=== PATIENT | male | born 1960 | race Caucasian/White ===

== ENCOUNTER → 2016-04-02 | Outpatient (CLI) | payer MEDICARE ==
--- NOTE | 2016-04-02 14:11 | MR ---
EXAMINATION TYPE: MR orbits wo/w con DATE OF EXAM: 04/02/2016 1:54 PM COMPARISON: NONE HISTORY: displacement lateral of globe bilateral, bulging of eyes TECHNIQUE: Multiplanar, multisequence images of the brain and brainstem is performed without and with IV contras t, utilizing 20 mL intravenous MultiHance . Orbital protocol performed as requested. FINDINGS: Exam is noted suboptimal as is significantly degraded by patient motion. Bilateral proptosi s is confirmed. No suspicious intraconal mass is clearly identified. The rectus muscles appear symmet paulino and felt within normal limits. Both lenses are well seen and felt unremarkable. Suprasellar ciste rn is maintained. There is mild mucosal thickening involving the ethmoid and maxillary as well as bilateral sphenoid si nuses. Visualized portion of brain parenchyma is grossly unremarkable. Craniocervical junction is maintained . Extra-axial prominence posterior to cerebellum could reflect arachnoid cyst or ga cisterna magna. IMPRESSION: Suboptimal study due to patient motion. Bilateral symmetric proptosis is confirmed. No main spicious mass or other finding is seen to account for the proptosis.
== END | disposition home or self-care (01) ==
LOC: RADMRIMAIN 12:29
PROVIDERS: ATTEND Ophthalmology
DX: H05.20 Unspecified exophthalmos (principal)
CPT/HCPCS: 70543; A9577

== ENCOUNTER → 2016-04-16 | Outpatient (CLI) | payer MEDICARE ==
--- NOTE | 2016-04-16 13:03 | MR ---
EXAMINATION TYPE: MR lumbar spine wo con DATE OF EXAM: 04/16/2016 12:34 PM COMPARISON: NONE HISTORY: Lumbago w/sciatica, Right hip pain CONTRAST: 0 mL intravenous MultiHance. TECHNIQUE: Multiplanar, multisequence images of the lumbar spine were acquired. FINDINGS: L5-S1: There is loss of disc height is normal. Central disc protrusion is present with moderate anter ior thecal sac compression. No AP spinal canal stenosis is present. Moderate bilateral foraminal sten osis is present. Facet hypertrophy is present. Some Schmorl's node formation in the superior endplate of the posterior S1 disc space may be present. Endplate changes are present. Right foramen may be se verely stenotic with disc material compressing the exiting nerve root within the canal. Correlate wit h right S1 radicular symptoms. L4-L5: Subligamentous disc herniation is present extending posterior to the L4 vertebral level. No AP spinal canal stenosis is present. Mild central focal bulging has moderate anterior thecal sac compre ssion. No AP spinal canal stenosis present. Disc space narrowing is present. There is moderate right and severe left foraminal stenosis. Correlate with left L5 radicular symptoms. L3-L4: Broad-based disc bulge is present. There is some central broad disc protrusion with moderate a nterior thecal sac compression. Facet hypertrophy and ligamentum flavum laxity and posterior lateral thecal sac compression. Spinal canal stenosis is present. There is mild left and moderate right quinn inal narrowing. L2-L3: There is loss of disc height is level. Broad-based central disc bulge has moderate anterior th ecal sac compression. AP spinal canal stenosis is not present. Facet hypertrophy is present with post erior lateral thecal sac compression. Some lateral canal narrowing is present. Endplate changes are p resent. L1-L2: There is a large right paracentral disc herniation. Facet hypertrophy is posterior lateral the betty sac compression. Spinal canal stenosis is present. Endplate changes are present. T12-L1: Disc bulging is present with a large degree of thecal sac compression. Posterior lateral thec al sac compression from facet hypertrophy is present. This greater on the left. Spinal canal stenosis is present. Neural foramen are patent. IMPRESSION: 1. Foraminal stenosis present T12-L1, lateral spinal canal stenosis L2-3, spinal canal stenosis L3-4. 2. Foraminal narrowing. This appears greatest at L4-5 and L5-S1. 3. Multilevel degenerative disc changes with loss of disc height. 4 disc herniations throughout the l umbar spine with a large degree noted at T12-L1, right paracentral L1-2 centrally L2-3 and L3-4.
--- NOTE | 2016-04-16 23:32 | MR ---
MRI right hip without contrast HISTORY: Right hip pain Multiplanar multisequence imaging through the right hip. Small [id number] imaging through the righ t hip. No comparisons There is joint space loss and remodeling in the right hip. Grade 3 to grade IV chondromalacia changes are present. Subchondral geode formation is present. Multilobular cystic formation present at the in ferior femoral head anteriorly measures approximately 18 mm and may represent a large geode, some syn ovial hypertrophy or local ganglion cyst formation is also present along the acetabular labral region . A large amount of atrophy and fatty replacement involving the gluteal muscles is noted. Fluid signal present at the origin of the hamstring muscles on the left may represent partial tear, avulsion injur y. Degenerative disc changes in the visualized lower lumbar spine. Diverticular changes associated wi th the sigmoid colon. IMPRESSION: Findings compatible with osteoarthritis. Additional findings above.
== END | disposition home or self-care (01) ==
LOC: RADMRIMAIN 11:19
PROVIDERS: ATTEND Family Medicine
DX: M48.06 Spinal stenosis, lumbar region (principal); M51.25 Other intervertebral disc displacement, thoracolumbar region; M99.73 Connective tissue and disc stenosis of intervertebral foramina of lumbar region; M99.72 Connective tissue and disc stenosis of intervertebral foramina of thoracic region; M51.35 Other intervertebral disc degeneration, thoracolumbar region; M25.551 Pain in right hip; G89.29 Other chronic pain
CPT/HCPCS: 72148

== ENCOUNTER → 2016-07-24 | Outpatient (CLI) | payer MEDICARE ==
--- NOTE | 2016-07-24 13:06 | MR ---
MRI CERVICAL SPINE: CLINICAL HISTORY: Cervical radiculopathy per order. Headache with neck pain and stiffness causing num bness, pain, or weakness in arms and hands for 5 years per patient. TECHNIQUE: Multiplanar, multisequence imaging of the cervical spine is performed without IV contrast. COMPARISON: None. FINDINGS: Sagittal images of the cervical spine show the craniocervical junction to appear within nor mal limits. The cervical and upper thoracic spinal cord is normal in course, caliber, and signal. V ertebral alignment is straightened. The vertebral body heights are normal. Mild to moderate multilev el disc space narrowing is seen. There are multilevel posterior disc herniations effacing anterior th ecal sac with sparing of C7-T1 level. Small hemangioma T1 vertebral body level is seen best on sagitt al image 8. There is mild to moderate anterior spurring C5-C6 and C6-C7 levels. Axial images at C2-C3 level shows central disc protrusion effacing anterior thecal sac on axial image 52, and in addition there is right foraminal disc protrusion component and uncovertebral facet arthr opathy bilaterally causing mild to moderate right and mild left-sided neural foraminal narrowing. Axial images at C3-C4 level show broad-based left paracentral disc protrusion and uncovertebral facet degenerative changes bilaterally, there is effacement of the anterolateral thecal sac and moderate l eft greater than right neural foraminal narrowing. Axial images at C4-C5 level shows central disc protrusion mildly effacing anterior thecal sac. There is uncovertebral facet degenerative changes bilaterally causing mild left greater than right neural f oraminal narrowing. Axial images at C5-C6 level show broad-based posterior disc protrusion effacing anterior thecal sac a nd causing moderate to severe bilateral neural foraminal narrowing. Axial images at C6-C7 level show broad-based posterior disc protrusion with more prominent right para central component on axial image 14 effacing anterior thecal sac and causing moderate to severe left and moderate right-sided neural foraminal narrowing. Disc herniation extends to ventral surface of sp inal cord at this level. It measures 11 mm transversely by 3 mm AP diameter. Axial images at C7-T1 level are felt within normal limits. There is marked medial course to the left internal carotid artery in the posterior hypopharyngeal air way on axial image 43 incidentally noted. IMPRESSION: Straightening of cervical spine with multilevel degenerative changes seen as detailed abo ve. Most prominent disc herniation is noted C6-C7 level right of midline.
== END | disposition home or self-care (01) ==
LOC: RADMRIMAIN 12:13
PROVIDERS: ATTEND Psychiatry & Neurology Neurology
DX: M50.123 Cervical disc disorder at C6-C7 level with radiculopathy (principal); M47.812 Spondylosis without myelopathy or radiculopathy, cervical region
CPT/HCPCS: 72141

== ENCOUNTER → 2017-10-11 | Outpatient (CLI) | payer MEDICARE ==
--- NOTE | 2017-10-11 10:49 | US ---
EXAMINATION TYPE: US venous doppler duplex LE BI DATE OF EXAM: 10/11/2017 10:41 AM COMPARISON: NONE CLINICAL HISTORY: R22.43 Edema bilateral legs. Bilateral leg swelling x couple weeks SIDE PERFORMED: Bilateral TECHNIQUE: The lower extremity deep venous system is examined utilizing real time linear array sonog crystal with graded compression, doppler sonography and color-flow sonography. VESSELS IMAGED: External Iliac Vein (EIV) Common Femoral Vein Deep Femoral Vein Greater Saphenous Vein * Femoral Vein Popliteal Vein Small Saphenous Vein * Proximal Calf Veins (* superficial vessels) Right Leg: Appears negative for DVT Left Leg: Appears negative for DVT Multiple bilateral groin lymph nodes seen with largest on right = 2.7 x 1.2 x 1.8cm and largest on left = 2.2 x 1.0 x 1.8cm. Grayscale, color doppler, spectral doppler imaging performed of the deep veins of the bilateral lower extremities. There is normal flow, compressibility, vascular waveforms. Scanning of bilateral groi n shows prominent but benign-appearing lymph nodes with retention of central fatty hilum and no suspi cious eccentric cortical thickening. IMPRESSION: No suspicious acute DVT in either lower extremity.
== END | disposition home or self-care (01) ==
LOC: RADUSWWP 10:03
PROVIDERS: ATTEND Family Medicine
DX: R22.43 Localized swelling, mass and lump, lower limb, bilateral (principal)
CPT/HCPCS: 93970

== ENCOUNTER 2018-05-19 16:38 | Emergency (ER) | payer MEDICARE ==
[2018-05-19] MEDS ORDERED: HYDROcodone/APAP 5-325MG 1 EACH TAB PO STA (18:40)
[2018-05-19] MEDS ORDERED: IBUPROFEN 600 MG TAB PO STA (18:40)
--- NOTE | 2018-05-19 18:59 | ED ---
Fall HPI - General Chief Complaint: Fall Stated Complaint: fall at home Time Seen by Provider: 05/19/18 18:00 Source: patient Mode of arrival: ambulatory - History of Present Illness Initial Comments: 57-year-old male patient presents to the emergency department today for evaluation of right hip pain and increased weakness since having a fall a couple of days ago. Patient states that he has chronic low back pain and peripheral neuropathy causing him to fall frequently. Patient states since this fall he has been unable to ambulate without assistance. Denies any increased numbness or tingling to the lower eduction [place]. Denies any saddle anesthesia or loss of bowel or bladder control. Patient states he has extreme pain to the right hip when he attempts to move his right leg around. He denies any increase in his low back pain. He denies hitting his head or losing consciousness during the fall. Denies any other injuries. Patient denies any headache, neck pain, chest pain, shortness of breath, dizziness, abdominal pain , nausea, vomiting, or difficulties with bowel movements or urination. - Related Data Home Medications Medication Instructions Recorded Confirmed Ibuprofen [Motrin Ib] 200 - 400 mg PO Q6H PRN 05/19/18 05/19/18 Previous Rx's Medication Instructions Recorded Acetaminophen-Codeine 300-30mg 1 tab PO Q6H PRN #12 tablet 05/19/18 [Tylenol #3] Ibuprofen [Motrin] 600 mg PO Q8HR PRN #30 tab 05/19/18 Allergies Allergy/AdvReac Type Severity Reaction Status Date / Time Sulfa (Sulfonamide Allergy Rash/Hives Verified 05/19/18 18:39 Antibiotics) Review of Systems ROS Statement: Those systems with pertinent positive or pertinent negative responses have been documented in the HPI. ROS Other: All systems not noted in ROS Statement are negative. Past Medical History Past Medical History: Asthma, Coronary Artery Disease (CAD), Hypertension, Skin Disorder Additional Past Medical History / Comment(s): neuropathy History of Any Multi-Drug Resistant Organisms: None Reported Past Surgical History: Heart Catheterization With Stent Additional Past Surgical History / Comment(s): 2004 stenting of RCA, ccath 2004 with lesions 50%mid LAD and unstable RCA plaque-stented as mentioned-EF was 60% , quadricepts muscle bx, normal colonoscopy in 2013, colonoscopy with benign polypectomy in past. Past Anesthesia/Blood Transfusion Reactions: No Reported Reaction Date of Last Stent Placement:: 2004 Past Psychological History: No Psychological Hx Reported Smoking Status: Current every day smoker Past Alcohol Use History: Rare Past Drug Use History: Marijuana - Past Family History Mother Family Medical History: Cancer Additional Family Medical History / Comment(s): Pt's mother at age 55 from lung cancer. She was a nonsmoker. Father Family Medical History: Hyperlipidemia, Hypertension Additional Family Medical History / Comment(s): Father at age 89 of natural causes. Sister(s) Family Medical History: Myocardial Infarction ([place]) Additional Family Medical History / Comment(s): Pt has one sister who of possible [place] at age 53yrs. General Exam Limitations: no limitations General appearance: alert, in no apparent distress, other (Physical well- developed, well-nourished adult male patient in no acute distress. Vital signs upon presentation are temperature 97.6F, pulse 105, respirations 18, blood pressure 133/86, pulse ox 98% on room air) Eye exam: Present: normal appearance, PERRL, EOMI. Absent: scleral icterus, conjunctival injection, periorbital swelling ENT exam: Present: normal exam, normal oropharynx, mucous membranes moist Respiratory exam: Present: normal lung sounds bilaterally. Absent: respiratory distress, wheezes, rales, rhonchi, stridor Cardiovascular Exam: Present: regular rate, normal rhythm, normal heart sounds. Absent: systolic murmur, diastolic murmur, rubs, gallop, clicks Extremities exam: Present: normal inspection, full ROM, tenderness (Right lateral right anterior hip tenderness), normal capillary refill, other (Skin to the lower extremities are pink, warm, and dry. Cap refills less than 3 seconds. Pedal and posttibial pulses 2+ and equal bilaterally). Absent: pedal edema, joint swelling, calf tenderness Back exam: Present: normal inspection. Absent: vertebral tenderness Neurological exam: Present: alert, oriented X3, CN II-XII intact Psychiatric exam: Present: normal affect, normal mood Skin exam: Present: warm, dry, intact, normal color. Absent: rash Course Vital Signs 05/19/18 05/19/18 05/19/18 17:20 21:25 23:24 Temperature 97.6 F 96.8 F L Pulse Rate 105 H 71 74 Respiratory 18 20 16 Rate Blood Pressure 133/86 145/94 152/89 O2 Sat by Pulse 98 99 99 Oximetry 05/20/18 00:25 Temperature 97.2 F L Pulse Rate 77 Respiratory 18 Rate Blood Pressure 150/78 O2 Sat by Pulse 99 Oximetry Medical Decision Making - Medical Decision Making 57-year-old male patient presents to the emergency department today for evaluation of right hip pain after a fall the last couple of days. Physical examination did reveal tenderness over the right anterior hip and right lateral hip. Skin to the lower extremities is pink, warm, dry. Cap refills less than 3 seconds. Patient did have full range of motion of the hip, did report increased pain. X-ray was obtained and did show evidence of severe degenerative changes to the right hip with possible avascular necrosis. Did obtain CT of the hip without contrast, report was reviewed and did reveal evidence for severe arthritis but no other acute findings. Patient does report improvement of symptoms after receiving medication here in the emergency department. He'll be discharged home at this time to follow-up outpatient with orthopedic services. He was given prescriptions for pain medication and anti- inflammatories. He is instructed to follow-up as soon as possible. Return parameters discussed in detail. - Radiology Data Radiology results: report reviewed, image reviewed X-ray of the right hip and pelvis was obtained. Report was reviewed in its entirety. Impression by Dr. 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 Avascular necrosis of the femoral head. Advance osteoarthritis in the right hip joint. No acute fracture seen. CT of the right hip was obtained. Report was reviewed in its entirety. Impression by Dr. Conley shows severe changes consistent with osteoarthritis of the right hip joint. No definitive acute fracture identified. Partially visualized density in the left gluteal subcutaneous tissues. Query hematoma. Correlate with focal exam. Mild urinary bladder wall thickening. This could be related to under distention or inflammatory changes. Enlarged right inguinal lymph nodes. Disposition Clinical Impression: Arthritis of right hip Disposition: HOME SELF-CARE Condition: Good Instructions (If sedation given, give patient instructions): Osteoarthritis (ED ), Fall Prevention for Older Adults (ED) Additional Instructions: Take medications as directed. Follow up with orthopedics for further evaluation of your right hip. Return to the emergency department for any new, worsening, or concerning symptoms. Prescriptions: Acetaminophen-Codeine 300-30mg [Tylenol #3] 1 tab PO Q6H PRN #12 tablet PRN Reason: Pain Ibuprofen [Motrin] 600 mg PO Q8HR PRN #30 tab PRN Reason: Pain Is patient prescribed a controlled substance at d/c from ED?: Yes When asked, does pt state using other controlled substances?: No If prescribed controlled substance>3 days was MAPS reviewed?: Prescribed <3 Days If opioid is for acute pain is fill amount 7 days or less?: No If Rx opioid, was Start Talking consent form obtained?: Yes Referrals: Stephanie Tran MD [Primary Care Provider] - 1-2 days Serg Ríos MD [Medical Doctor] - 1-2 days Time of Disposition: 23:55
--- NOTE | 2018-05-19 20:21 | XR ---
EXAMINATION TYPE: XR Hip RT and AP Pelvis DATE OF EXAM: 05/19/2018 COMPARISON: NONE HISTORY: Right hip pain TECHNIQUE: A single AP view of the pelvis is obtained. Two views of the right hip are obtained. FINDINGS: The pelvic ring is intact. There is very severe narrowing of the right hip joint space with shallow acetabulum. There is mild lateral position of the femoral head. There is sclerosis and parti al collapse of the articular surface of the femoral head. The sacroiliac joints are intact. I see no acute fracture. IMPRESSION: There is evidence of old right hip dysplasia with shallow acetabulum. Avascular necrosis of the femor al head. Advanced osteoarthritis in the right hip joint. No acute fracture seen.
[2018-05-19] MEDS ORDERED: DIAZEPAM 5 MG/ML 2 ML INJ IM ONE (21:19)
--- NOTE | 2018-05-19 22:44 | CT ---
EXAM: CT Right Lower Extremity Without Intravenous Contrast, Hip CLINICAL HISTORY: ITS.REASON CT Reason: Pain TECHNIQUE: Axial computed tomography images of the right hip without intravenous contrast. CTDI is 13.9 mGy and DLP is 505.6 mGy-cm. This CT exam was performed using one or more of the following dose reduction techniques: automated exposure control, adjustment of the mA and/or kV according to patient size, and/or use of iterative reconstruction technique. COMPARISON: No relevant prior studies available. FINDINGS: Bones/joints: There are severe degenerative changes consistent with osteoarthritis involving the right hip joint. There is complete joint space loss superiorly with associated cephalad positioning of the right femoral head as well as extensive subchondral cyst formation at the femoral head and adjacent acetabulum. Osteophytosis is present as well as regional heterotopic ossification. I do not see evidence for an acute fracture at this time. Severe height loss and osteophytosis are noted involving the L5-S1 intervertebral disc space. Pelvic enthesopathy is present diffusely. No dislocation. Soft tissues: Nonspecific density, incompletely visualized within the left gluteal subcutaneous tissues. No definitive loculation. There is mild adjacent fat stranding. Lymph nodes: Enlarged right inguinal lymph nodes measuring up to a short axis caliber of 17 mm. Bowel: Colonic diverticulosis. Bladder: Mild urinary bladder wall thickening which could be related to under distention, nonspecific. IMPRESSION: 1. Severe changes consistent with osteoarthritis at the right hip joint. No definitive acute fracture identified. 2. Partially visualized density in the left gluteal subcutaneous tissues. Query hematoma. Correlate with focal exam. 3. Mild urinary bladder wall thickening. This could be related to under distention or inflammatory changes. 4. Enlarged right inguinal lymph nodes.
[2018-05-19] MEDS ORDERED: ACET/COD 300 MG/30 MG STARTER PACK 6 TAB BTL PO STA (23:56)
[2018-05-19] MEDS ORDERED: IBUPROFEN 600 MG STARTER PACK 4 TAB BTL PO STA (23:56)
[2018-05-20 00:29] VITALS: BP 150/78; PULSE 77; RESP 18; TEMP 97.2
== END 2018-05-20 00:25 | disposition home or self-care (01) ==
LOC: EC 16:38
DX: M16.11 Unilateral primary osteoarthritis, right hip (principal); F17.200 Nicotine dependence, unspecified, uncomplicated; Z95.5 Presence of coronary angioplasty implant and graft; Z86.69 Personal history of other diseases of the nervous system and sense organs; Z88.2 Allergy status to sulfonamides; W00.0XXA Fall on same level due to ice and snow, initial encounter; Y92.009 Unspecified place in unspecified non-institutional (private) residence as the place of occurrence of the external cause
CPT/HCPCS: 73502; 73700; 99284; 96372; J3360

== ENCOUNTER 2018-12-03 16:15 | Inpatient (IN) | payer MEDICARE ==
[2018-12-03] MEDS ORDERED: NALOXONE 0.4 MG/ML 1 ML VIAL IV PRN (17:27)
[2018-12-03] MEDS ORDERED: ALPRAZolam 0.25 MG TAB PO PRN (17:29)
[2018-12-03] MEDS ORDERED: TEMAZEPAM 15 MG CAP PO PRN (17:29)
[2018-12-03 17:51] VITALS: BMI 30.6
[2018-12-03] MEDS: PANTOPRAZOLE 40 MG TABLET PO SCH (18:09)
[2018-12-03 18:39] LABS: Basophils # (A) 0.1 k/uL (0-0.2); Basophils % (A) 1 %; Eosinophils # (A) 0.5 k/uL (0-0.7); Eosinophils % (A) 6 %; HCT 44.2 % (39.0-53.0); HGB 14.5 gm/dL (13.0-17.5); Lymphocytes # (A) 0.8 k/uL (1.0-4.8); Lymphocytes % (A) 11 %; MCH 29.3 pg (25.0-35.0); MCHC 32.7 g/dL (31.0-37.0); MCV 89.6 fL (80.0-100.0); Mean Platelet Volume 6.5; Monocytes # (A) 0.6 k/uL (0-1.0); Monocytes % (A) 8 %; Neutrophils # (A) 5.1 k/uL (1.3-7.7); Neutrophils % (A) 72 %; Platelet Count 362 k/uL (150-450); RBC 4.94 m/uL (4.30-5.90); WBC 7.1 k/uL (3.8-10.6)
[2018-12-03 18:48] LABS: ALT 40 U/L (21-72); AST 29 U/L (17-59); African American GFR (CKD) >90 (>60 ml/min/1.73 sqM); Albumin 2.4 g/dL (3.5-5.0); Alkaline Phosphatase 75 U/L (38-126); Anion Gap 5 mmol/L; Blood Urea Nitrogen 8 mg/dL (9-20); Calcium 8.2 mg/dL (8.4-10.2); Carbon Dioxide 26 mmol/L (22-30); Chloride 107 mmol/L (98-107); Glucose 68 mg/dL (74-99); Magnesium 1.7 mg/dL (1.6-2.3); Potassium 3.5 mmol/L (3.5-5.1); Sodium 138 mmol/L (137-145); Total Bilirubin 0.4 mg/dL (0.2-1.3); Total Protein 5.5 g/dL (6.3-8.2)
[2018-12-03] MEDS: HYDROcodone/APAP 5-325MG 1 EACH TAB PO PRN (19:54)
[2018-12-03] MEDS: diphenhydrAMINE 50 MG/ML 1 ML VIAL IVP PRN (20:02)
--- NOTE | 2018-12-03 20:49 | HP ---
HISTORY AND PHYSICAL DATE OF SERVICE: 12/03/2018 CHIEF COMPLAINT: Pain and swelling of both lower legs and possible cellulitis and dermatitis. HISTORY OF PRESENT ILLNESS: This 58-year-old gentleman with a past medical history of multiple medical problems, including history of asthma, history of CAD, hypertension, history of neuropathy, history of CAD, stent, being followed by Dr. Stephanie Tran in the outpatient setting, also had significant dermatitis for the last several weeks, and the patient was receiving treatment as an outpatient. The patient was complaining increased itching and difficulties. The patient went to Dr. Stephanie Tran's office and the patient was directly transferred to the hospital at this time. There is no history of any fever, rigor or chills. No history of headache, loss of consciousness, seizures at this time. The patient apparently also has severe DJD and is waiting for surgery, but Orthopedics will not do surgery unless the dry skin and skin problems are taken care of. PAST MEDICAL HISTORY: 1. History of asthma. 2. CAD. 3. Hypertension. 4. History of CAD, stent. HOME MEDICATIONS: 1. Motrin 600 mg q.8 p.r.n. 2. Tylenol number 3 q.6 p.r.n. ALLERGIES: SULFA. FAMILY HISTORY: History of lung cancer. SOCIAL HISTORY: History of smoking, continued and ongoing. No history of alcohol intake. REVIEW OF SYSTEMS: ENT: No diminished hearing. No diminished vision. present. CARDIOVASCULAR SYSTEM: No angina, palpitations. RESPIRATORY SYSTEM: No cough, hemoptysis. GI: No nausea, vomiting. : No dysuria or retention. NERVOUS SYSTEM: No numbness, weakness. ALLERGY/IMMUNOLOGY: No asthma, hayfever. MUSCULOSKELETAL: As mentioned earlier. HEMATOLOGY/ONCOLOGY: No history of anemia. ENDOCRINE: No history of diabetes, hypothyroidism. CONSTITUTIONAL: As mentioned earlier. DERMATOLOGY: As mentioned earlier. RHEUMATOLOGY: Negative. PSYCHIATRY: As mentioned earlier. PHYSICAL EXAMINATION: Patient is alert and oriented x3. Pulse is 80, blood pressure 120/90, respiration 20, temperature normal. HEENT: Conjunctivae normal. NECK: No jugular venous distention. No carotid bruit. No lymph node enlargement. CARDIOVASCULAR SYSTEM: S1, S2 muffled. No S3. No S4. RESPIRATORY SYSTEM: Breath sounds diminished at the bases. No rhonchi. No crackles. ABDOMEN: Soft, non-tender. LEGS: Bilateral leg edema present. NERVOUS SYSTEM: Higher functions as mentioned earlier. Moves all 4 limbs. No focal motor or sensory deficit. LYMPHATICS: No lymph node palpable in neck, axillae or groin. SKIN: Significant erythema as well as dry skin and excoriated areas with some possible cellulitis of the legs also present. Some erythema of the conjunctivae also appreciated. LYMPHATICS: No lymph node palpable in neck, axillae or groin. JOINTS: No active deforming arthropathy. LABS: Labs are awaited. ASSESSMENT: 1. Diffuse exfoliating dermatitis with possible bilateral leg cellulitis. 2. History of asthma. 3. History of coronary artery disease. 4. Hypertension. 5. History of peripheral neuropathy. 6. History of coronary artery disease, stent. 7. Remote history of nicotine dependence. 8. History of chronic obstructive pulmonary disease. RECOMMENDATIONS AND DISCUSSION: In this 58-year-old gentleman who presented with multiple complex medical issues, we will monitor the patient closely, continue the current management, continue symptomatic treatment. Will initiate broad-spectrum IV antibiotics. Dermatology consultation. Infectious disease consultation. Otherwise, resume the home medication. Monitor labs closely. Obtain cultures. Prognosis guarded because of multiple complex medical issues. Further recommendations to follow. A copy of this dictation is being forwarded to Dr. Stephanie Tran, who is the primary physician. MMODL / IJN: [id number] / MTDD
[2018-12-03] MEDS: NICOTINE 14MG/24HR PATCH TRANSDERM SCH (21:05)
[2018-12-03] MEDS: HEPARIN SODIUM,PORCINE 5,000 UNIT/ML 1 ML VIAL SQ SCH (21:05)
[2018-12-03] MEDS: HYDROmorphone 0.5 MG/0.5 ML SYRINGE IVP PRN (22:42)
[2018-12-03 22:52] LABS: Appearance,Urine Clear (Clear); Bilirubin,Urine Negative (Negative); Blood,Urine Negative (Negative); Color,Urine Yellow; Glucose,Urine (UA) Negative (Negative); Ketones,Urine Negative (Negative); Leukocyte Esterase,Urine Negative (Negative); Nitrite,Urine Negative (Negative); Protein,Urine Trace (Negative); Specific Gravity,Urine 1.019 (1.001-1.035); Urobilinogen,Urine <2.0 mg/dL (<2.0)
[2018-12-04] MEDS: HYDROcodone/APAP 5-325MG 1 EACH TAB PO PRN (04:31)
[2018-12-04] MEDS: NICOTINE 14MG/24HR PATCH TRANSDERM SCH (08:35)
[2018-12-04] MEDS: HYDROmorphone 0.5 MG/0.5 ML SYRINGE IVP PRN ×3 (08:36→22:11)
[2018-12-04] MEDS: HEPARIN SODIUM,PORCINE 5,000 UNIT/ML 1 ML VIAL SQ SCH ×2 (08:36→21:11)
[2018-12-04] MEDS: PANTOPRAZOLE 40 MG TABLET PO SCH (08:36)
[2018-12-04] MEDS: diphenhydrAMINE 50 MG/ML 1 ML VIAL IVP PRN ×3 (08:48→22:16)
[2018-12-04 08:58] LABS: African American GFR (CKD) >90 (>60 ml/min/1.73 sqM); Anion Gap 3 mmol/L; Blood Urea Nitrogen 8 mg/dL (9-20); Calcium 8.1 mg/dL (8.4-10.2); Carbon Dioxide 28 mmol/L (22-30); Chloride 109 mmol/L (98-107); Glucose 69 mg/dL (74-99); Potassium 3.8 mmol/L (3.5-5.1); Sodium 140 mmol/L (137-145)
[2018-12-04 09:04] LABS: Basophils # (A) 0.1 k/uL (0-0.2); Basophils % (A) 1 %; Eosinophils # (A) 0.8 k/uL (0-0.7); Eosinophils % (A) 13 %; HCT 42.9 % (39.0-53.0); HGB 13.7 gm/dL (13.0-17.5); Lymphocytes # (A) 0.8 k/uL (1.0-4.8); Lymphocytes % (A) 13 %; MCH 29.1 pg (25.0-35.0); MCHC 31.9 g/dL (31.0-37.0); MCV 91.2 fL (80.0-100.0); Mean Platelet Volume 6.9; Monocytes # (A) 0.5 k/uL (0-1.0); Monocytes % (A) 8 %; Neutrophils # (A) 3.7 k/uL (1.3-7.7); Neutrophils % (A) 63 %; Platelet Count 383 k/uL (150-450); RDW 15.5 % (11.5-15.5); WBC 5.9 k/uL (3.8-10.6)
[2018-12-04] MEDS: methylPREDNISolone SOD SUCCI 125 MG/2 ML VIAL IV SCH (15:35)
[2018-12-04] MEDS: SODIUM CHLORIDE 0.9% 1,000 ML IV SCH (15:40)
--- NOTE | 2018-12-04 18:35 | PN ---
PROGRESS NOTE DATE OF SERVICE: 12/04/2018. This 58-year-old gentleman who was admitted with diffuse exfoliating dermatitis with possible bilateral leg cellulitis, failure of outpatient treatment, is being closely monitored. No chest pain. No palpitations. No fever. Dermatology and surgical evaluations in progress. PHYSICAL EXAMINATION: Alert and oriented x3. Pulse 79, blood pressure 129/86, respiration 20, temperature 98.8, pulse ox 100% on room air. HEENT: Conjunctivae normal. NECK: No jugular venous distention. CARDIOVASCULAR SYSTEM: S1, S2 muffled. RESPIRATORY SYSTEM: Breath sounds diminished at the bases. No rhonchi. No crackles. ABDOMEN: Soft. No tenderness. No mass palpable. LEGS: No edema. No swelling. EXAMINATION OF SKIN: Significant exfoliating dermatitis present. LABS: Sodium 140, potassium 3.8. WBC normal. Cultures are pending at this time. ASSESSMENT: 1. Diffuse exfoliating dermatitis with possible allergic contact dermatitis with failure of outpatient treatment with bilateral leg cellulitis. 2. History of asthma. 3. History of coronary artery disease. 4. Hypertension. 5. History of peripheral neuropathy. 6. History of coronary artery disease, stent. 7. Remote history of nicotine dependence. 8. History of chronic obstructive pulmonary disease. RECOMMENDATIONS AND DISCUSSION: I recommend to continue current medications, continue with the monitoring, symptomatic treatment. Otherwise at this time I recommend continuing with IV antibiotics. Infectious disease evaluation. Dermatology evaluation. Guarded prognosis. Further recommendations to follow. MMODL / IJN: [id number] /
[2018-12-04 20:19] LABS: Glucose,Whole Blood 118 mg/dL (75-99)
[2018-12-04] MEDS: INSULIN ASPART (NovoLOG) 100 UNIT/ML VIAL SQ SCH (20:30)
[2018-12-04] MEDS ORDERED: TRIAMCINOLONE ACET 0.1% OINTMENT 15 GM TUBE TOPICAL SCH (21:00)
[2018-12-05] MEDS: methylPREDNISolone SOD SUCCI 125 MG/2 ML VIAL IV SCH ×4 (00:04→16:59)
--- NOTE | 2018-12-05 00:06 | P.CONS ---
History of Present Illness - Reason for Consult Consult date: 12/04/18 Generalized body rash and question of cellulitis Requesting physician: Aakash Snider - Chief Complaint Generalized body rash with itching recent worsening chronic 6 months - History of Present Illness Patient is a 58-year-old male with a past medical history significant for generalized body rash mostly involving the upper and lower extremity including the palms and soles patient mentioning this rash has been going on for almost 6 months and has been complaining of itching and some burning pain especially with a cracked open area on the palms of his hand that is low. Or significant redness though he did have some swelling patient denies having any oral sores and no difficulty swallowing did mention that he has been evaluated in outpatient setting and was treated with steroids but did have some improvement but not complete resolution with worsening of his symptom of the last few days patient presented to [facility] ER patient has been admitted hospital dermatology infectious disease has been consulted for further recommendation Patient denies any new medication before his rash started and currently denies having any pustules or any purulent drainage he did have swelling in both legs but no significant pain or tenderness she is currently afebrile and his white count has been normal Review of Systems Positive points has been mentioned in HPI rest of the systems are negative Past Medical History Past Medical History: Coronary Artery Disease (CAD), Hypertension, Osteo arthritis (OA), Pneumonia, Skin Disorder Additional Past Medical History / Comment(s): neuropathy History of Any Multi-Drug Resistant Organisms: None Reported Past Surgical History: Heart Catheterization With Stent Additional Past Surgical History / Comment(s): 2004 stenting of RCA, ccath 2004 with lesions 50%mid LAD and unstable RCA plaque-stented as mentioned-EF was 60%, quadricepts muscle bx, normal colonoscopy in 2014, colonoscopy with benign polypectomy in past. Past Anesthesia/Blood Transfusion Reactions: No Reported Reaction Date of Last Stent Placement:: 2004 Past Psychological History: Anxiety, Depression Smoking Status: Current every day smoker Past Alcohol Use History: Occasional Additional Past Alcohol Use History / Comment(s): Patient reports drinking a few beers once or twice a week. Past Drug Use History: Marijuana Additional Drug Use History / Comment(s): Patient reports smoking marijuana, uses it intermittently for pain. - Past Family History Mother Family Medical History: Cancer Additional Family Medical History / Comment(s): Pt's mother at age 55 from lung cancer. She was a nonsmoker. Father Family Medical History: Hyperlipidemia, Hypertension Additional Family Medical History / Comment(s): Father at age 89 of natural causes. Sister(s) Family Medical History: Myocardial Infarction (SD) Additional Family Medical History / Comment(s): Pt has one sister who of possible SD at age 53yrs. Medications and Allergies Home Medications Medication Instructions Recorded Confirmed Type Ergocalciferol (Vitamin D2) 50,000 unit PO Q7D 12/03/18 12/03/18 History [Drisdol] Folic Acid 1 mg PO DAILY 12/03/18 12/03/18 History Allergies Allergy/AdvReac Type Severity Reaction Status Date / Time Sulfa (Sulfonamide Allergy Rash/Hives Verified 05/19/18 18:39 Antibiotics) Physical Exam Vitals: Vital Signs Temp Pulse Resp BP Pulse Ox 12/04/18 04:30 97.9 F 93 20 135/93 99 12/03/18 23:55 97.7 F 83 20 142/75 95 12/03/18 18:10 98 12/03/18 17:29 98.0 F 82 16 124/79 97 Intake and Output 12/03/18 12/04/18 12/04/18 22:59 06:59 14:59 Intake Total 200 100 Balance 200 100 Intake: Oral 200 100 Other: # Voids 1 1 Weight 94 kg GENERAL DESCRIPTION: Middle-aged male lying in bed, no distress. No tachypnea or accessory muscle of respiration use. HEENT: Shows Pallor , no scleral icterus. Oral mucous membrane is dry. No pharyngeal erythema or thrush NECK: Trachea central, no thyromegaly. LUNGS: Unlabored breathing. Clear to auscultation anteriorly. No wheeze or crackle. HEART: S1, S2, regular rate and rhythm. No loud murmur ABDOMEN: Soft, no tenderness , guarding or rigidity, no organomegaly EXTREMITIES: No edema of feet. SKIN: Generalized exfoliative rash especially involving the upper and lower extremity including palms of his hand currently with no vesicles or any pustules and no purulent drainage NEUROLOGICAL: The patient is awake, alert, oriented x3, mood and affect normal. Results CBC & Chem 7: 12/04/18 07:25 12/04/18 07:25 Labs: Abnormal Lab Results - Last 24 Hours (Table) 12/03/18 12/03/18 12/03/18 Range/Units 18:13 18:13 21:40 Lymphocytes # 0.8 L (1.0-4.8) k/uL Eosinophils # (0-0.7) k/uL Chloride (98-107) mmol/L BUN 8 L (9-20) mg/dL Creatinine 0.59 L (0.66-1.25) mg/dL Glucose 68 L (74-99) mg/dL Calcium 8.2 L (8.4-10.2) mg/dL Total Protein 5.5 L (6.3-8.2) g/dL Albumin 2.4 L (3.5-5.0) g/dL Urine Protein Trace H (Negative) 12/04/18 12/04/18 Range/Units 07:25 07:25 Lymphocytes # 0.8 L (1.0-4.8) k/uL Eosinophils # 0.8 H (0-0.7) k/uL Chloride 109 H (98-107) mmol/L BUN 8 L (9-20) mg/dL Creatinine 0.56 L (0.66-1.25) mg/dL Glucose 69 L (74-99) mg/dL Calcium 8.1 L (8.4-10.2) mg/dL Total Protein (6.3-8.2) g/dL Albumin (3.5-5.0) g/dL Urine Protein (Negative) Assessment and Plan Assessment: 1-patient with generalized body rash especially involving the upper and lower extremity especially palms of his hand with concern likely for ALLERGIC/ contact dermatitis, clinically doubt infectious etiology or could be related to her drug however the patient currently denies any new medication for his rash started (1) Chronic dermatitis Current Visit: Yes Status: Acute Code(s): L30.9 - DERMATITIS, UNSPECIFIED SNOMED Code(s): 71923127 Plan: 1-await dermatology evaluation and possible skin biopsy for better diagnosis of underlying clinical condition 2-clinically doubt or extremity cellulitis hence we will hold on any systemic anybody therapy 3-workup will be ordered to help with diagnosis of his rash including CRISTIAN CRP andANCA we will follow on clinical condition and culture to further adjust medication if needed Thank you for this consultation will follow this patient along with you Time with Patient: Greater than 30
[2018-12-05 07:16] LABS: Glucose,Whole Blood 140 mg/dL (75-99)
[2018-12-05] MEDS: INSULIN ASPART (NovoLOG) 100 UNIT/ML VIAL SQ SCH ×4 (07:38→22:54)
[2018-12-05] MEDS: NICOTINE 14MG/24HR PATCH TRANSDERM SCH (07:40)
[2018-12-05] MEDS: PANTOPRAZOLE 40 MG TABLET PO SCH (07:40)
[2018-12-05] MEDS: TRIAMCINOLONE ACET 0.1% OINTMENT 80 GM TUBE TOPICAL SCH ×2 (07:41→22:56)
[2018-12-05] MEDS: SODIUM CHLORIDE 0.9% 1,000 ML IV SCH (07:41)
[2018-12-05] MEDS: HEPARIN SODIUM,PORCINE 5,000 UNIT/ML 1 ML VIAL SQ SCH ×2 (07:41→22:55)
[2018-12-05] MEDS: FLUTICASONE 50MCG/SPRAY NASAL 16GM EA NOSTRIL PRN (07:49)
[2018-12-05 10:07] LABS: Basophils % (A) 1 %; Eosinophils % (A) 1 %; HCT 39.8 % (39.0-53.0); Lymphocytes # (A) 0.4 k/uL (1.0-4.8); Lymphocytes % (A) 10 %; MCH 29.6 pg (25.0-35.0); MCHC 32.7 g/dL (31.0-37.0); MCV 90.5 fL (80.0-100.0); Mean Platelet Volume 6.5; Monocytes # (A) 0.1 k/uL (0-1.0); Monocytes % (A) 2 %; Neutrophils # (A) 3.4 k/uL (1.3-7.7); Neutrophils % (A) 86 %; Platelet Count 366 k/uL (150-450); RDW 14.1 % (11.5-15.5); WBC 3.9 k/uL (3.8-10.6)
[2018-12-05 10:27] LABS: African American GFR (CKD) >90 (>60 ml/min/1.73 sqM); Anion Gap 4 mmol/L; Blood Urea Nitrogen 10 mg/dL (9-20); C Reactive Protein 17.5 mg/L (<10.0); Calcium 8.2 mg/dL (8.4-10.2); Carbon Dioxide 28 mmol/L (22-30); Chloride 106 mmol/L (98-107); Glucose 194 mg/dL (74-99); Potassium 4.5 mmol/L (3.5-5.1); Sodium 138 mmol/L (137-145)
[2018-12-05] MEDS: HYDROmorphone 0.5 MG/0.5 ML SYRINGE IVP PRN ×2 (11:24→19:22)
--- NOTE | 2018-12-05 11:51 | CONS ---
CONSULTATION DATE OF CONSULTATION: 12/04/2018. REQUESTING PHYSICIAN: Dr. Snider. REASON FOR CONSULTATION: Dermatitis. HPI: The patient is a 58-year-old male with past medical history of chronic dermatitis on the hands. The patient states that he has had the rash on his hands for years and has tried a variety of topical antifungals and topical steroids with minimal improvement. The patient states that the only thing that helps is when he gets steroid injections. Patient states that the rash intermittently flares on the rest of the body including the arms, legs and trunk. The patient states that he has been currently flared for the last month. The patient states that when he went to PCP, PCP thought he was very flared and sent him to the hospital to get the rash under control. The patient presents at the hospital with a pruritic erythematous rash generalized over his upper and lower extremities and trunk. PAST MEDICAL HISTORY: Asthma, CAD, hypertension. PAST SURGICAL HISTORY: Stent placement. MEDICATIONS ON ADMISSION: Tylenol and Motrin. ALLERGIES: SULFA, reaction is hives. SOCIAL HISTORY: Admits to 1 pack per day and alcohol occasionally. Prior to admission, admits to occasional use of marijuana to help with his hip pain. REVIEW OF SYSTEMS/EXAM: The review of vital signs shows a pulse of 79 beats per minute, respirations 20 breaths per minute and blood pressure is 129/86 mmHg. Generalized, patient is in currently no apparent distress. He is alert and oriented x3. He is well nourished, well developed, cooperative, not anxious or agitated. NEUROLOGICAL: Cranial nerves 2 through 12 are grossly intact. HEAD AND NECK: Head is normocephalic and atraumatic. Neck is supple. Trachea is midline. No JVD noted. LUNGS: Respirations are unlabored. EXTREMITIES: No obvious focal neurological defects noted. SKIN: Erythematous, pruritic, slightly scaling crusted rash generalized over the upper extremities, lower extremities including the hands and feet and trunk. Onychodystrophy noted on the bilateral hands, probably secondary to skin changes. LABS: Please see chart. IMPRESSION AND RECOMMENDATIONS: Atopic dermatitis. RECOMMENDATIONS: We will start on Solu-Medrol 80 mg IV 4 times a day until rash clears or discharged. Triamcinolone 0.1% ointment b.i.d. to affected areas. Continue Benadryl. On discharge, please send patient with prednisone taper of 50 mg x7 days, 40 mg x7 days, 30 mg x7 days, 20 mg x7 days, 10 mg x7 days and have him continue with topical triamcinolone b.i.d. to any of the affected areas left. He can use this b.i.d. up to 2 weeks. Please have patient follow up in 1-2 weeks after discharge to discuss long-term management of rash since rash tends to be of a chronic nature. Thank you for this consult. YOLANDE / EFRAINN: [id number] / CURRY
[2018-12-05 12:34] LABS: Glucose,Whole Blood 150 mg/dL (75-99)
--- NOTE | 2018-12-05 14:27 | PN ---
PROGRESS NOTE DATE OF SERVICE: 12/05/2018 This 58-year-old gentleman who presented with diffuse excoriating dermatitis is started on IV steroids the patient possibly had atopic dermatitis per Dermatology. The patient was started on Solu-Medrol AD IV 4 times and local triamcinolone cream and continue the Benadryl and on discharge steroid taper protocol was recommended. No chest pain. No palpitations. No fever. PHYSICAL EXAM: On exam, alert and oriented x3. Pulse 81, blood pressure 153/88, respirations 16, temperature 97.9, pulse ox 98% on room. HEENT: Conjunctivae normal. NECK: No jugular venous distension. CARDIOVASCULAR SYSTEM: S1, S2, muffled. LUNGS: Breath sounds diminished at the bases, a few rhonchi, no crackles. ABDOMEN: Soft, nontender. LEGS: No edema. No swelling. NERVOUS SYSTEM: No focal extension of the hip is severely painful. Patient has significant gait dysfunction. SKIN: Diffuse exfoliative dermatitis almost covering the lower part of the body and conjunctival lesions also present. LABS: At this time shows CBC within normal limits, sodium 130, potassium 4.5 and CRP 17.5. ASSESSMENT: 1. Diffuse exfoliative dermatitis with possible atopic dermatitis with failure of outpatient treatment with bilateral leg cellulitis. 2. Severe right hip pain with gait dysfunction. 3. History of asthma. 4. History of coronary artery disease. 5. Hypertension. 6. History of peripheral neuropathy. 7. History of coronary artery disease, stent. 8. Remote history of nicotine dependence. 9. History of chronic obstructive pulmonary disease. RECOMMENDATION: Recommend to continue current medication, continue with the symptomatic treatment, continue with steroids as recommended by Dermatology. Monitor blood sugars closely. Accu-Cheks a.c. and at bedtime. Continue with the antibiotics, follow closely with Infectious Disease. Otherwise, the patient has significant difficulties with PT, OT. I would also recommend PT, OT full evaluation and possible ECF rehab. franchise manager and social sciences research scientist to work with the patient. Further recommendations to follow. MMODL / IJN: [id number] /
--- NOTE | 2018-12-05 16:47 | PN ---
PROGRESS NOTE DATE OF SERVICE: 12/05/2018 REASON FOR FOLLOWUP: Generalized body rash dermatitis. INTERVAL HISTORY: The patient is currently afebrile. The patient's rash has slightly decreased in intensity after the patient was started on Solu-Medrol per Dermatology. He still has some burning pain to bilateral arm area. No nausea, no vomiting, no abdominal pain and no diarrhea. PHYSICAL EXAMINATION: Blood pressure 133/82 with a pulse of 75, temperature 97.9. He is 94% on room air. General description is a middle-aged male lying in bed in no distress. RESPIRATORY SYSTEM: Unlabored breathing. Clear to auscultation anteriorly. HEART: S1, S2. Regular rate and rhythm. ABDOMEN: Soft. No tenderness. LABS: Hemoglobin is 13, white count of 3.9 with BUN of 10, creatinine 0.57. elevated though rest of serology is pending. DIAGNOSTIC IMPRESSION AND PLAN: Patient with generalized rash involving the palms and the soles with a question of dermatitis, possibly allergic. Clinically infectious etiology, though the serology is currently pending. He has been started on steroids per Dermatology; to continue. No need for any systemic antibiotic for any viral at this point. Will wait for the serology report to be completed. Continue with supportive care. MMODL / IJN: [id number] /
[2018-12-05] MEDS: HYDROcodone/APAP 5-325MG 1 EACH TAB PO PRN ×2 (17:04→23:01)
[2018-12-05 17:07] LABS: Glucose,Whole Blood 127 mg/dL (75-99)
[2018-12-05 18:56] LABS: HIV 1 AB Non-Reactive (Non-Reactive); HIV AB P24 Non-Reactive (Non-Reactive); HIV P24 AG Non-Reactive (Non-Reactive)
[2018-12-05 20:07] LABS: Rheumatoid Factor <4 IU/mL (0-13)
[2018-12-05 21:16] LABS: Glucose,Whole Blood 159 mg/dL (75-99)
[2018-12-06] MEDS: methylPREDNISolone SOD SUCCI 125 MG/2 ML VIAL IV SCH ×5 (00:07→23:54)
[2018-12-06] MEDS: HYDROmorphone 0.5 MG/0.5 ML SYRINGE IVP PRN ×4 (01:57→23:55)
[2018-12-06] MEDS: diphenhydrAMINE 25 MG CAP PO PRN (05:41)
[2018-12-06 07:03] LABS: Glucose,Whole Blood 140 mg/dL (75-99)
[2018-12-06] MEDS: SODIUM CHLORIDE 0.9% 1,000 ML IV SCH (07:53)
[2018-12-06] MEDS: HEPARIN SODIUM,PORCINE 5,000 UNIT/ML 1 ML VIAL SQ SCH ×2 (07:53→21:04)
[2018-12-06] MEDS: PANTOPRAZOLE 40 MG TABLET PO SCH (07:53)
[2018-12-06] MEDS: INSULIN ASPART (NovoLOG) 100 UNIT/ML VIAL SQ SCH ×4 (07:53→21:04)
[2018-12-06] MEDS: NICOTINE 14MG/24HR PATCH TRANSDERM SCH (07:53)
[2018-12-06] MEDS: TRIAMCINOLONE ACET 0.1% OINTMENT 80 GM TUBE TOPICAL SCH ×2 (07:54→21:05)
[2018-12-06 08:22] LABS: Basophils % (A) 0 %; Eosinophils % (A) 0 %; HCT 41.7 % (39.0-53.0); Lymphocytes # (A) 0.4 k/uL (1.0-4.8); Lymphocytes % (A) 5 %; MCH 28.3 pg (25.0-35.0); MCV 91.3 fL (80.0-100.0); Mean Platelet Volume 6.8; Monocytes # (A) 0.3 k/uL (0-1.0); Monocytes % (A) 3 %; Neutrophils % (A) 91 %; Platelet Count 394 k/uL (150-450); RBC 4.57 m/uL (4.30-5.90); WBC 8.8 k/uL (3.8-10.6)
[2018-12-06 08:26] LABS: African American GFR (CKD) >90 (>60 ml/min/1.73 sqM); Anion Gap 4 mmol/L; Blood Urea Nitrogen 17 mg/dL (9-20); Calcium 8.6 mg/dL (8.4-10.2); Carbon Dioxide 28 mmol/L (22-30); Chloride 106 mmol/L (98-107); Glucose 158 mg/dL (74-99); Potassium 4.5 mmol/L (3.5-5.1); Sodium 138 mmol/L (137-145)
[2018-12-06] MEDS: HYDROcodone/APAP 5-325MG 1 EACH TAB PO PRN ×2 (10:09→21:04)
[2018-12-06 12:06] LABS: Glucose,Whole Blood 162 mg/dL (75-99)
[2018-12-06] MEDS ORDERED: FUROSEMIDE 10 MG/ML 4 ML VIAL IV STA (14:14)
[2018-12-06] MEDS ORDERED: ERGOCALCIFEROL 50,000 UNIT CAP PO SCH (15:00)
--- NOTE | 2018-12-06 15:55 | PN ---
PROGRESS NOTE DATE OF SERVICE: 12/06/2018 This 58-year-old gentleman who was admitted with significant diffuse exfoliative dermatitis is being closely monitored at this time. Dermatology has started on IV steroids. No chest pain or palpitation. The skin lesions improving at this time. Patient is complaining of severe pain and gait dysfunction also. PT, OT is also evaluating the patient for possible ECF rehab. PHYSICAL EXAMINATION: On exam, alert and oriented x3. Pulse 76, blood pressure 160/90, respirations 16, temperature 97.2, pulse ox 98% on room air. HEENT: Conjunctivae normal. NECK: No jugular venous distention. CARDIOVASCULAR: S1, S2 muffled. RESPIRATORY: Breath sounds diminished in the bases. No rhonchi, no crackles. ABDOMEN: Soft, nontender. LEGS: Bilateral leg edema. NERVOUS SYSTEM: noted SKIN: eczema present. LABS: WBC 8.8, sodium 138, potassium 4.5, glucose 162. ASSESSMENT: 1. Diffuse exfoliative dermatitis with possible atopic dermatitis with failure of outpatient treatment with bilateral leg cellulitis, present on admission. 2. Severe right hip pain with gait dysfunction with degenerative joint disease. 3. History of asthma. 4. History of coronary artery disease. 5. Hypertension. 6. History of peripheral neuropathy. 7. History of coronary artery disease, stent. 8. Remote history of nicotine dependence. 9. History of chronic obstructive pulmonary disease. RECOMMENDATIONS AND DISCUSSION: Recommend to continue current medications, continue with monitoring and symptomatic treatment. Otherwise at this time I recommend continue with IV steroids, continue with antibiotics. Closely follow with Infectious Disease. The cultures are negative so far. Guarded prognosis. See orders for details. Will cut down the IV also. Further recommendations to follow. MMODL / IJN: [id number] / [facility]
[2018-12-06 16:35] LABS: Glucose,Whole Blood 150 mg/dL (75-99)
[2018-12-06 20:32] LABS: Glucose,Whole Blood 145 mg/dL (75-99)
--- NOTE | 2018-12-06 23:43 | PN ---
PROGRESS NOTE DATE OF SERVICE: 12/06/2018. REASON FOR FOLLOW UP: Dermatitis with possible versus allergic. INTERVAL HISTORY: The patient is currently afebrile. Patient has been breathing comfortably. The patient overall rash has decreased in intensity and less burning and itching. No sores in the mouth. No nausea or vomiting. No abdominal pain. No diarrhea. EXAMINATION: Blood pressure 134/97 with a pulse of 76. Temperature 97.9. He is 94% on room air. General description is a middle-aged male lying in bed in no distress. Respiratory system: Unlabored breathing. Clear to auscultation anteriorly. Heart S1, S2. Regular rate and rhythm. ABDOMEN: Soft. No tenderness. Overall rash has decreased in intensity. LABS: Hemoglobin is 13.3, white count 8.9. BUN of 17, creatinine 0.62. So far psychological workup is negative. DIAGNOSTIC IMPRESSION AND PLAN: Patient with extensive rash upper and lower extremity with concern for dermatitis. Question allergic versus contact. So far infectious workup is negative. Continue with steroids and monitor his clinical course closely. No evidence of any cellulitis. Hence, no need for any systemic antibiotic therapy at this point. MMODL / IJN: [id number] /
[2018-12-07] MEDS: ACETAMINOPHEN TAB 500 MG TAB PO PRN (03:38)
[2018-12-07] MEDS: methylPREDNISolone SOD SUCCI 125 MG/2 ML VIAL IV SCH ×3 (05:38→18:00)
[2018-12-07] MEDS: HYDROmorphone 0.5 MG/0.5 ML SYRINGE IVP PRN ×3 (05:39→22:39)
[2018-12-07 07:26] LABS: Glucose,Whole Blood 127 mg/dL (75-99)
[2018-12-07] MEDS: INSULIN ASPART (NovoLOG) 100 UNIT/ML VIAL SQ SCH ×4 (07:27→22:12)
[2018-12-07 07:50] LABS: Basophils % (A) 0 %; Eosinophils # (A) 0.1 k/uL (0-0.7); Eosinophils % (A) 1 %; HCT 39.7 % (39.0-53.0); Lymphocytes # (A) 0.5 k/uL (1.0-4.8); Lymphocytes % (A) 5 %; MCH 29.4 pg (25.0-35.0); MCHC 32.8 g/dL (31.0-37.0); MCV 89.5 fL (80.0-100.0); Mean Platelet Volume 6.7; Monocytes # (A) 0.4 k/uL (0-1.0); Monocytes % (A) 4 %; Neutrophils # (A) 8.5 k/uL (1.3-7.7); Neutrophils % (A) 90 %; Platelet Count 413 k/uL (150-450); RBC 4.43 m/uL (4.30-5.90); RDW 14.9 % (11.5-15.5); WBC 9.5 k/uL (3.8-10.6)
[2018-12-07 08:04] LABS: African American GFR (CKD) >90 (>60 ml/min/1.73 sqM); Anion Gap 4 mmol/L; Blood Urea Nitrogen 22 mg/dL (9-20); Carbon Dioxide 29 mmol/L (22-30); Chloride 105 mmol/L (98-107); Glucose 129 mg/dL (74-99); Potassium 4.4 mmol/L (3.5-5.1); Sodium 138 mmol/L (137-145)
[2018-12-07] MEDS: FLUTICASONE 50MCG/SPRAY NASAL 16GM EA NOSTRIL PRN (08:05)
[2018-12-07] MEDS: NICOTINE 14MG/24HR PATCH TRANSDERM SCH (08:06)
[2018-12-07] MEDS: HEPARIN SODIUM,PORCINE 5,000 UNIT/ML 1 ML VIAL SQ SCH ×2 (08:06→22:14)
[2018-12-07] MEDS: PANTOPRAZOLE 40 MG TABLET PO SCH (08:06)
[2018-12-07] MEDS: FOLIC ACID 1 MG TAB PO SCH (08:06)
[2018-12-07] MEDS: TRIAMCINOLONE ACET 0.1% OINTMENT 80 GM TUBE TOPICAL SCH ×2 (08:08→22:36)
[2018-12-07 12:50] LABS: Glucose,Whole Blood 137 mg/dL (75-99)
[2018-12-07 17:14] LABS: Glucose,Whole Blood 151 mg/dL (75-99)
[2018-12-07] MEDS: HYDROcodone/APAP 5-325MG 1 EACH TAB PO PRN (17:59)
--- NOTE | 2018-12-07 20:10 | PN ---
PROGRESS NOTE DATE OF SERVICE: 12/07/2018 This 58-year-old gentleman who was admitted with diffuse exfoliative dermatitis is being closely monitored. The patient also has significant gait dysfunction related to DJD. No chest pain. No palpitations. No fever. EXAM: Alert and oriented x3. Pulse is 99, blood pressure 154/84, respiration 18, temperature 98 degrees, pulse ox 98% on room air. HEENT: Conjunctivae normal. Oral mucosa moist. NECK: No jugular venous distention. No lymph node enlargement. CARDIOVASCULAR: S1, S2. RESPIRATORY: Diminished breath sounds at the bases. No rhonchi, no crackles. ABDOMEN: Soft, nontender. LEGS: Movements are painful. NERVOUS SYSTEM: No focal deficits. SKIN: Significant exfoliative atopic dermatitis with some improvement. LABS: CBC within normal. Sodium 138, potassium 4.4. ASSESSMENT: 1. Diffuse exfoliative dermatitis with possible atopic dermatitis with failure of outpatient treatment with bilateral leg cellulitis present on admission. 2. Severe right hip pain with gait dysfunction, degenerative joint disease. 3. History of asthma. 4. History of coronary artery disease. 5. Hypertension. 6. History of peripheral neuropathy. 7. History of coronary artery disease, stent. 8. Remote history of nicotine dependence. 9. History of chronic obstructive pulmonary disease. RECOMMENDATIONS AND DISCUSSION: Recommend to continue current medications, continue to monitor, continue symptomatic treatment. Otherwise, at this time I would recommend the patient to follow up closely with Dermatology, continue with IV steroids, PT/OT evaluation, possible ECF rehab. Further recommendations to follow. MMODL / IJN: [id number] /
[2018-12-07 20:54] LABS: Glucose,Whole Blood 125 mg/dL (75-99)
[2018-12-07] MEDS ORDERED: hydrALAZINE HCL 50 MG TAB PO PRN (23:29)
--- NOTE | 2018-12-07 23:46 | PN ---
PROGRESS NOTE DATE OF SERVICE: 12/07/2018. REASON FOR FOLLOWUP: Dermatitis, question of contact versus allergic. INTERVAL HISTORY: The patient is currently afebrile. The patient has been breathing comfortably. Denies having any chest pain or cough. Overall, rash has decreased in intensity, burning pain and itching has improved. The wounds on the palms have closing out. PHYSICAL EXAMINATION: Blood pressure is 164/94 with a pulse of 78. Temperature 97.7. He is 97% on room air. General description is a middle aged male up in the chair in no distress. Respiratory system: Unlabored breathing. Clear to auscultation anteriorly. Heart S1, S2. Regular rate and rhythm. Abdomen soft. No tenderness. Skin examination: Rash has decreased in intensity and the hands are drying out. LABS: Hemoglobin is 13.1, white count of 9.5, BUN of 22, creatinine 0.63. Neurological workup has been negative as well as infectious workup. DIAGNOSTIC IMPRESSION/PLAN: 1. Patient with generalized rash, slight dermatitis involving the palms so far. 2. Infectious workup has been negative. The patient to continue steroids per Dermatology. No need for any antibiotic, only viral. 3. Continue supportive care. MMODL / IJN: [id number] /
[2018-12-08] MEDS: methylPREDNISolone SOD SUCCI 125 MG/2 ML VIAL IV SCH ×4 (00:43→17:37)
[2018-12-08] MEDS: diphenhydrAMINE 25 MG CAP PO PRN ×2 (01:55→13:56)
[2018-12-08] MEDS: HYDROcodone/APAP 5-325MG 1 EACH TAB PO PRN ×3 (02:01→21:11)
[2018-12-08] MEDS: HYDROmorphone 0.5 MG/0.5 ML SYRINGE IVP PRN (05:26)
[2018-12-08 07:27] LABS: Glucose,Whole Blood 118 mg/dL (75-99)
[2018-12-08] MEDS: INSULIN ASPART (NovoLOG) 100 UNIT/ML VIAL SQ SCH ×4 (07:28→21:07)
[2018-12-08] MEDS: FOLIC ACID 1 MG TAB PO SCH (07:51)
[2018-12-08] MEDS: TRIAMCINOLONE ACET 0.1% OINTMENT 80 GM TUBE TOPICAL SCH ×2 (07:51→21:07)
[2018-12-08] MEDS: PANTOPRAZOLE 40 MG TABLET PO SCH (07:51)
[2018-12-08] MEDS: amLODIPine 5 MG TAB PO SCH (07:51)
[2018-12-08] MEDS: NICOTINE 14MG/24HR PATCH TRANSDERM SCH (07:51)
[2018-12-08] MEDS: HEPARIN SODIUM,PORCINE 5,000 UNIT/ML 1 ML VIAL SQ SCH ×2 (07:51→21:07)
[2018-12-08 08:22] LABS: Basophils % (A) 0 %; Eosinophils % (A) 0 %; HCT 42.6 % (39.0-53.0); HGB 13.9 gm/dL (13.0-17.5); Lymphocytes # (A) 0.4 k/uL (1.0-4.8); Lymphocytes % (A) 5 %; MCH 29.2 pg (25.0-35.0); MCHC 32.5 g/dL (31.0-37.0); MCV 89.6 fL (80.0-100.0); Mean Platelet Volume 6.2; Monocytes # (A) 0.3 k/uL (0-1.0); Monocytes % (A) 3 %; Neutrophils # (A) 7.9 k/uL (1.3-7.7); Neutrophils % (A) 91 %; Platelet Count 472 k/uL (150-450); RBC 4.75 m/uL (4.30-5.90); RDW 13.9 % (11.5-15.5); WBC 8.7 k/uL (3.8-10.6)
[2018-12-08 08:45] LABS: African American GFR (CKD) >90 (>60 ml/min/1.73 sqM); Anion Gap 4 mmol/L; Blood Urea Nitrogen 19 mg/dL (9-20); Carbon Dioxide 33 mmol/L (22-30); Chloride 103 mmol/L (98-107); Glucose 115 mg/dL (74-99); Potassium 4.5 mmol/L (3.5-5.1); Sodium 140 mmol/L (137-145)
[2018-12-08] MEDS ORDERED: FUROSEMIDE 10 MG/ML 4 ML VIAL IV STA (10:14)
[2018-12-08 11:27] LABS: Glucose,Whole Blood 125 mg/dL (75-99)
[2018-12-08 14:48] LABS: C-ANCA <1:20 Titer (<1:20)
--- NOTE | 2018-12-08 16:47 | PN ---
PROGRESS NOTE DATE OF SERVICE: 12/08/2018. REASON FOR FOLLOWUP: Dermatitis. INTERVAL HISTORY: The patient is currently afebrile. The patient's rash has improved and the lesions to the palms have improved as well. Wounds are slowly healing up. Denies having any chest pain or cough. No abdominal pain or diarrhea. PHYSICAL EXAMINATION: Blood pressure 146/80 with a pulse of 67, temperature 97.3. He is 96% on room air. General description is a middle-aged male lying in bed in no distress. RESPIRATORY SYSTEM: Unlabored breathing. Clear to auscultation anteriorly. HEART: S1, S2. Regular rate and rhythm. ABDOMEN: Soft. No tenderness. Hand wound is drying up with no drainage. LABS: White count 8.7, BUN of 19, creatinine 0.57. So far immunological workup has been negative. DIAGNOSTIC IMPRESSION AND PLAN: Patient with generalized dermatitis with concern for possible contact versus allergic; responding to the Solu-Medrol. No evidence of any infectious or dermatological disorder, with serology being negative so far. Plan will be to finish therapy with oral steroids and close outpatient followup with Dermatology. MMODL / IJN: [id number] /
[2018-12-08 16:49] LABS: Glucose,Whole Blood 205 mg/dL (75-99)
--- NOTE | 2018-12-08 17:18 | PN ---
PROGRESS NOTE DATE OF SERVICE: 12/08/2018 This 58-year-old gentleman who was admitted with diffuse exfoliative dermatitis and failure of outpatient treatment, is being closely monitored. No chest pain. No palpitations. No fever. EXAM: Alert and oriented times three. Pulse 67. Blood pressure 143/80, respiration 18, temperature 97.2, pulse ox 98% on room air. HEENT: Conjunctivae normal. NECK: No jugular venous distention. CARDIOVASCULAR: S1, S2 muffled. RESPIRATORY: Breath sounds diminished in the bases. No rhonchi. No crackles. ABDOMEN is soft, nontender. LEGS: Minimal edema. NERVOUS SYSTEM: Diffusely weak. Exfoliative dermatitis also present. LABS: CBC within normal limits and glucose 125. ASSESSMENT: 1. Diffuse exfoliative dermatitis, possible atopic dermatitis with failure of outpatient treatment with bilateral leg cellulitis, present on admission. 2. Severe right hip pain with gait dysfunction, degenerative joint disease. 3. History of asthma. 4. History of coronary artery disease. 5. Hypertension. 6. History of peripheral neuropathy. 7. History of coronary artery disease/ stent. 8. Remote history of nicotine dependence. 9. History of chronic obstructive pulmonary disease. RECOMMENDATIONS AND DISCUSSION: Recommend to continue current medications, continue with monitoring, management and symptomatic treatment. Follow closely with Dermatology. Continue with IV steroids. ECF rehab. Continue to follow with Orthopedic surgery in the outpatient setting. We will discuss with Dr. Brown. Further recommendations to follow. MMFELIXL / IJN: [id number] /
[2018-12-08 20:33] LABS: Glucose,Whole Blood 105 mg/dL (75-99)
[2018-12-09] MEDS: methylPREDNISolone SOD SUCCI 125 MG/2 ML VIAL IV SCH ×3 (00:08→11:43)
[2018-12-09] MEDS: INSULIN ASPART (NovoLOG) 100 UNIT/ML VIAL SQ SCH ×2 (07:27→11:43)
[2018-12-09 07:37] LABS: Glucose,Whole Blood 109 mg/dL (75-99)
[2018-12-09 08:18] LABS: African American GFR (CKD) >90 (>60 ml/min/1.73 sqM); Anion Gap 4 mmol/L; Blood Urea Nitrogen 22 mg/dL (9-20); Calcium 8.9 mg/dL (8.4-10.2); Carbon Dioxide 35 mmol/L (22-30); Chloride 102 mmol/L (98-107); Glucose 113 mg/dL (74-99); Potassium 4.5 mmol/L (3.5-5.1); Sodium 141 mmol/L (137-145)
[2018-12-09] MEDS: TRIAMCINOLONE ACET 0.1% OINTMENT 80 GM TUBE TOPICAL SCH ×2 (08:18→21:51)
[2018-12-09] MEDS: FOLIC ACID 1 MG TAB PO SCH (08:18)
[2018-12-09] MEDS: amLODIPine 5 MG TAB PO SCH (08:18)
[2018-12-09] MEDS: NICOTINE 14MG/24HR PATCH TRANSDERM SCH (08:18)
[2018-12-09] MEDS: FLUTICASONE 50MCG/SPRAY NASAL 16GM EA NOSTRIL PRN (08:18)
[2018-12-09] MEDS: PANTOPRAZOLE 40 MG TABLET PO SCH (08:18)
[2018-12-09] MEDS: HEPARIN SODIUM,PORCINE 5,000 UNIT/ML 1 ML VIAL SQ SCH ×2 (08:18→21:48)
[2018-12-09 08:41] LABS: Basophils % (A) 0 %; Eosinophils % (A) 0 %; HCT 41.9 % (39.0-53.0); HGB 13.4 gm/dL (13.0-17.5); Lymphocytes # (A) 0.4 k/uL (1.0-4.8); Lymphocytes % (A) 4 %; MCH 28.9 pg (25.0-35.0); MCV 90.2 fL (80.0-100.0); Mean Platelet Volume 6.5; Monocytes # (A) 0.4 k/uL (0-1.0); Monocytes % (A) 5 %; Neutrophils # (A) 7.8 k/uL (1.3-7.7); Neutrophils % (A) 90 %; Platelet Count 432 k/uL (150-450); RBC 4.64 m/uL (4.30-5.90); RDW 13.9 % (11.5-15.5); WBC 8.7 k/uL (3.8-10.6)
[2018-12-09] MEDS: ACETAMINOPHEN TAB 500 MG TAB PO PRN (09:07)
[2018-12-09 11:48] LABS: Glucose,Whole Blood 104 mg/dL (75-99)
--- NOTE | 2018-12-09 11:57 | P.DS ---
Providers Date of admission: 12/05/18 11:16 Expected date of discharge: 12/09/18 Attending physician: Aakash Snider Consults: 12/03/18 17:28 Consult Physician Routine Consulting Provider: Anel Richard Consult Reason/Comments: dermatitis Do you want consulting provider notified?: Yes 12/03/18 17:29 Consult Physician Routine Consulting Provider: Pierce Carrero Consult Reason/Comments: cellulitis Do you want consulting provider notified?: Yes Primary care physician: Stated None Hospital Course: Final diagnosis Diffuse exfoliative dermatitis, possibly atopic dermatitis with failure of outpatient treatment with bilateral leg cellulitis, present on admission Severe right hip pain with gait dysfunction, degenerative joint disease History of asthma History of coronary artery disease hypertension History of peripheral neuropathy History of coronary artery disease/stent Remote history of nicotine dependence history of chronic obstructive pulmonary disease Discharge disposition Patient is being discharged in a stable condition with guarded prognosis to [facility]. Patient is to follow-up with primary care provider, dermatology, and orthopedic surgery in the outpatient setting upon discharge. Total time taken 35 minutes. History of present illness This is a 58-year-old male who was recently admitted for diffuse exfoliative dermatitis with failure in the outpatient setting and was being closely monitored. Patient does have a history of severe DJD and is currently waiting for surgery but per orthopedic recommendations patient skin issues need to be addressed and taken care of prior to surgery. Patient will follow-up with orthopedic surgery in the outpatient setting. Per dermatology recommendations the patient is being discharged on a prednisone taper and will continue with triamcinolone twice a day to the affected areas and the patient will follow-up with dermatology in 1-2 weeks upon discharge. Currently patient's condition is stable and patient is ready for discharge to [facility]. Patient denies any shortness of breath, chest pain, or palpitations at this time. Patient is afebrile. Patient denies any nausea or vomiting and is been tolerating diet. On exam vital signs are stable. The pressure is 132/82, pulse is 78, respirations are 20, oxygen saturation is 96% on room air, temp is 97.3F. Cardio S1 and S2 are muffled. Respiratory system shows diminished breath sounds at the bases with no wheezing or crackles noted. Abdomen is soft and nontender. Nervous system shows mild diffuse weakness. Please refer to medication reconciliation sheet for a list of medications. Patient Condition at Discharge: Fair Plan - Discharge Summary New Discharge Prescriptions: No Action Folic Acid 1 mg PO DAILY Ergocalciferol (Vitamin D2) [Drisdol] 50,000 unit PO Q7D Discharge Medication List Ergocalciferol (Vitamin D2) [Drisdol] 50,000 unit PO Q7D 12/03/18 [History] Folic Acid 1 mg PO DAILY 12/03/18 [History] Follow up Appointment(s)/Referral(s): Katherin Aleman, PAC [PHYSICIAN [employer]] - 1 Week Activity/Diet/Wound Care/Special Instructions: Patient is going to [facility] Activity as tolerated Continue current diet Follow-up with primary care provider Follow-up with orthopedic surgery in the outpatient setting Follow-up with dermatology Discharge Disposition: TRANSFER TO SNF/ECF
--- NOTE | 2018-12-09 15:06 | PN ---
PROGRESS NOTE REASON FOR FOLLOWUP: Rash, slight dermatitis. INTERVAL HISTORY: The patient is afebrile, has been complaining of more itching and rash today, especially in the back area. The patient's rash especially in the palms of the hand has improved. No chest pain, no cough, no abdominal pain and no diarrhea. On examination, blood pressure is 132/82 with a pulse of 78, temperature is 97.3. He is 97% on room air. General description is a middle-aged male, up in the bed in no distress. RESPIRATORY SYSTEM: Unlabored breathing, clear to auscultation anteriorly. HEART: S1, S2, regular rate and rhythm. ABDOMEN: Soft. SKIN: With open wound, no drainage. LABS: Hemoglobin is 13.5, white count of 8.7, BUN of 22, creatinine is 0.60. DIAGNOSTIC IMPRESSION AND PLAN: Patient with generalized rash, probably dermatitis with so far infections and neurological workup has been negative. Recommend care per Dermatology and admitting team. ID will sign off. Please call back for any questions to continue with Infectious Disease care. MMODL / IJN: [id number] /
--- NOTE | 2018-12-09 15:59 | P.PN ---
Subjective Progress Note Date: 12/09/18 Principal diagnosis: This is a 58-year-old male who was admitted with diffuse exfoliative dermatitis and failed outpatient therapy and is being closely monitored. Patient is curren tly awaiting placement in ECF as he was denied by [facility] at this time. Patient denies any chest pain, palpitations, or shortness of breath at this time. Patient is afebrile. Patient is being closely monitored by dermatology. Guarded prognosis. Objective - Vital Signs Vital signs: Vital Signs Temp 97.3 F L 12/09/18 06:00 Pulse 78 12/09/18 06:00 Resp 20 12/09/18 06:00 BP 132/82 12/09/18 06:00 Pulse Ox 96 12/09/18 06:00 Intake & Output 12/08/18 12/09/18 12/09/18 18:59 06:59 18:59 Intake Total 1840 1000 600 Output Total 400 1800 600 Balance 1440 -800 0 Intake: Oral 1840 1000 600 Output: Urine 400 1800 600 Other: Voiding Method Urinal Bedside Commode Bedside Commode Urinal Urinal # Voids 3 1 1 # Bowel Movements 1 0 1 - Exam Gen: This is a 58 are old male in no acute distress. Vital signs are stable. HEENT: Head is atraumatic, normocephalic. Pupils equal, round. Sclerae is anicteric. NECK: Supple. No JVD. No lymphadenopathy. No thyromegaly. LUNGS: Breath sounds are diminished at the bases with no crackles or wheezing noted. No intercostal retractions. HEART: S1 and S2 are muffled ABDOMEN: Soft. Bowel sounds are present. No masses. No tenderness. EXTREMITIES: Mild lower extremity edema noted bilaterally. NEUROLOGICAL: Patient is awake, alert and oriented x3. Mild diffuse weakness. - Labs CBC & Chem 7: 12/09/18 07:23 12/09/18 07:23 Labs: Abnormal Lab Results - Last 24 Hours (Table) 12/08/18 12/08/18 12/09/18 Range/Units 16:44 20:14 07:17 Neutrophils # (1.3-7.7) k/uL Lymphocytes # (1.0-4.8) k/uL Carbon Dioxide (22-30) mmol/L BUN (9-20) mg/dL Creatinine (0.66-1.25) mg/dL Glucose (74-99) mg/dL POC Glucose (mg/dL) 205 H 105 H 109 H (75-99) mg/dL 12/09/18 12/09/18 12/09/18 Range/Units 07:23 07:23 11:42 Neutrophils # 7.8 H (1.3-7.7) k/uL Lymphocytes # 0.4 L (1.0-4.8) k/uL Carbon Dioxide 35 H (22-30) mmol/L BUN 22 H (9-20) mg/dL Creatinine 0.60 L (0.66-1.25) mg/dL Glucose 113 H (74-99) mg/dL POC Glucose (mg/dL) 104 H (75-99) mg/dL Microbiology - Last 24 Hours (Table) 12/03/18 18:13 Blood Culture - Preliminary Blood No Growth after 120 hours Assessment and Plan Assessment: Diffuse exfoliative dermatitis, possibly atopic dermatitis with failure of outpatient treatment with bilateral leg cellulitis, present on admission Severe right hip pain with gait dysfunction, degenerative joint disease History of asthma history of coronary artery disease Hypertension History of peripheral neuropathy History of coronary artery disease/stent Remote history of nicotine dependence history of chronic obstructive pulmonary disease Recommendations and discussion: Recommend continue current medications, management, and symptomatic treatment. Will continue to monitor closely. Dermatology are following closely. Guarded prognosis. Further recommendations to follow. Case management and social work are following and are working on finding placement for patient as [facility] has declined the patient at this time. Possible discharge in 24-48 hours.
[2018-12-09] MEDS: HYDROcodone/APAP 5-325MG 1 EACH TAB PO PRN (22:11)
[2018-12-10] MEDS: diphenhydrAMINE 25 MG CAP PO PRN (03:51)
[2018-12-10] MEDS ORDERED: predniSONE 20 MG TAB PO SCH (09:00)
[2018-12-10] MEDS: PANTOPRAZOLE 40 MG TABLET PO SCH (09:03)
[2018-12-10] MEDS: NICOTINE 14MG/24HR PATCH TRANSDERM SCH (09:03)
[2018-12-10] MEDS: FOLIC ACID 1 MG TAB PO SCH (09:04)
[2018-12-10] MEDS: amLODIPine 5 MG TAB PO SCH (09:04)
[2018-12-10] MEDS: HEPARIN SODIUM,PORCINE 5,000 UNIT/ML 1 ML VIAL SQ SCH (09:04)
[2018-12-10] MEDS: TRIAMCINOLONE ACET 0.1% OINTMENT 80 GM TUBE TOPICAL SCH (09:15)
[2018-12-10] MEDS: HYDROcodone/APAP 5-325MG 1 EACH TAB PO PRN (10:49)
[2018-12-10 13:05] VITALS: BP 121/77; PULSE 71; RESP 17; TEMP 98
== END 2018-12-10 14:26 | DRG 607 ==
LOC: 4MS4W 17:09 → OBSVTOIN 12-05 11:16
PROVIDERS: ADMIT Hospitalist; ATTEND Hospitalist
DX: L26 Exfoliative dermatitis (principal); G62.9 Polyneuropathy, unspecified; J44.9 Chronic obstructive pulmonary disease, unspecified; L60.3 Nail dystrophy; I10 Essential (primary) hypertension; I25.10 Atherosclerotic heart disease of native coronary artery without angina pectoris; F41.9 Anxiety disorder, unspecified; R26.9 Unspecified abnormalities of gait and mobility; M25.551 Pain in right hip; M19.90 Unspecified osteoarthritis, unspecified site; F17.210 Nicotine dependence, cigarettes, uncomplicated; Z79.899 Other long term (current) drug therapy; Z95.5 Presence of coronary angioplasty implant and graft; Z87.01 Personal history of pneumonia (recurrent); Z86.59 Personal history of other mental and behavioral disorders; Z98.890 Other specified postprocedural states; Z88.7 Allergy status to serum and vaccine; Z80.1 Family history of malignant neoplasm of trachea, bronchus and lung; Z82.49 Family history of ischemic heart disease and other diseases of the circulatory system; Z83.49 Family history of other endocrine, nutritional and metabolic diseases
CPT/HCPCS: 80048; 80053; 80074; 81003; 83735; 85025; 86038; 86140; 86160; 86162; 86255; 86431; 86780; 87040; 87390; 94760

== ENCOUNTER → 2020-04-23 | Outpatient (CLI) | payer MEDICARE, OTHER ==
--- NOTE | 2020-04-23 16:02 | MR ---
EXAMINATION TYPE: MR kian/lsyanet wo con DATE OF EXAM: 04/23/2020 COMPARISON: July 24, 2016 and 04/16/2016 HISTORY: Neck and low back pain, Pain/numbness in extremities Multiplanar multiecho imaging of the cervical and lumbar spine was performed without contrast. Cervical vertebra have normal alignment. There is disc space narrowing throughout the cervical spine. There is posterior endplate spur formation and disc herniation at C2-3 and C3-4 and C5-6 and C6-7. T here is multilevel encroachment on the spinal canal and spinal stenosis. The canal measures 6 mm at C 3-4. Spinal canal measures 7 mm at C5-6 and 7 mm at C6-7. Canal measures 5 to 6 mm at C2-3. The brai nstem appears intact. There is no cervical compression fracture. Posterior elements are intact. There is mild hypertrophic facet arthropathy. IMPRESSION: Multilevel cervical spinal stenosis that appears to be slightly worse at C3-4 level compared to old e xam. No evidence of a fracture. No definite evidence for cervical myelomalacia. Lumbar spine Lumbar vertebra have normal alignment. There is narrowing of disc spaces throughout the lumbar spine with decreased signal in the disks. There is posterior disc herniation at all levels of the lumbar sp ine. There is also significant hypertrophic facet arthropathy at L3-4 and to a lesser extent L2-3. Th ere is severe spinal stenosis at L3-4. There is also moderate spinal stenosis at L2-3 and T12-L1 and T11-12. There is no compression fracture. I see no focal bone destruction. There are Schmorl nodes no david on the inferior superior endplate of S1 and the inferior endplate of L2. There is no lumbar louise tsering mass. The sacroiliac joints are intact. IMPRESSION: Multilevel spondylotic changes and multilevel posterior disc herniation. There is moderately severe s tsering stenosis at L3-4 that has progressed compared to old exam. There is moderate spinal stenosis at the other levels as above. These appear not significantly different. No fracture seen.
== END | disposition home or self-care (01) ==
LOC: RADMRIMAIN 14:22
PROVIDERS: ATTEND Family Medicine
DX: M48.02 Spinal stenosis, cervical region (principal); M50.90 Cervical disc disorder, unspecified, unspecified cervical region; M48.061 Spinal stenosis, lumbar region without neurogenic claudication; M47.816 Spondylosis without myelopathy or radiculopathy, lumbar region; M51.26 Other intervertebral disc displacement, lumbar region
CPT/HCPCS: 72141; 72148

== ENCOUNTER → 2022-02-27 | Outpatient (CLI) | payer MEDICARE, OTHER ==
--- NOTE | 2022-02-27 10:27 | US ---
EXAMINATION TYPE: US venous doppler duplex LE BI DATE OF EXAM: 02/27/2022 10:12 AM COMPARISON: Bilateral lower extremity venous ultrasound 10/11/2017. CLINICAL HISTORY: I10 Hypertension M79.89 Leg swelling Z72.0 TOBACCO USE. SIDE PERFORMED: Bilateral TECHNIQUE: The lower extremity deep venous system is examined utilizing real time linear array sonog crystal with graded compression, doppler sonography and color-flow sonography. VESSELS IMAGED: Common Femoral Vein Deep Femoral Vein Greater Saphenous Vein * Femoral Vein Popliteal Vein Small Saphenous Vein * Proximal Calf Veins (* superficial vessels) Grayscale, color doppler, spectral doppler imaging performed of the deep veins of the lower extremiti es. There is normal flow, compressibility, vascular waveforms. Right Leg: Negative for DVT Left Leg: Negative for DVT IMPRESSION: No ultrasound evidence for deep venous thrombosis within the bilateral lower extremity's.
== END | disposition home or self-care (01) ==
LOC: RADUSWWP 08:51
PROVIDERS: ATTEND Family Medicine
DX: I10 Essential (primary) hypertension (principal); M79.89 Other specified soft tissue disorders; Z72.0 Tobacco use
CPT/HCPCS: 93970

== ENCOUNTER 2022-08-13 15:04 | Emergency (ER) | payer MEDICARE ==
[2022-08-13 15:10] VITALS: RESP 18
[2022-08-13] MEDS ORDERED: CLINDAMYCIN 150 MG CAP PO STA (16:09)
[2022-08-13] MEDS ORDERED: MUPIROCIN 2% OINT 22 GM TUBE TOPICAL STA (16:11)
--- NOTE | 2022-08-13 16:15 | ED ---
General Adult HPI - General Chief complaint: Extremity Injury, Lower Stated complaint: Foot Pain Time Seen by Provider: 08/13/22 15:11 Source: patient, EMS, RN notes reviewed Mode of arrival: EMS Limitations: no limitations - History of Present Illness Initial comments: 61-year-old male presents emergency department chief complaint of foot infection. Patient states that he spilled boiling water on his right foot about a week ago and had blisters on his foot. He states that he [facility] who looked at his foot earlier today and saw that there was discharge coming from the wounds. He states they are no more painful then they were before. Patient denies fever, chills, nausea, vomiting. Past medical history includes hypertension, neuropathy which she states is from his back. He denies diabetes. - Related Data Home Medications Medication Instructions Recorded Confirmed Losartan Potassium 100 mg PO DAILY 05/23/22 07/23/22 Cholecalciferol [Vitamin D3 (25 50 mcg PO DAILY 07/23/22 07/23/22 Mcg = 1000 Iu)] Furosemide [Lasix] 40 mg PO DAILY 07/23/22 07/23/22 Ibuprofen [Motrin] 600 mg PO QID PRN 07/23/22 07/23/22 Latanoprost/Pf [Latanoprost 0.005% 1 drop BOTH EYES HS 07/23/22 07/23/22 Eye Drop] Loratadine [Claritin] 10 mg PO DAILY PRN 07/23/22 07/23/22 Nicotine 14Mg/24Hr Patch [Habitrol] 1 patch TRANSDERM DAILY 07/23/22 07/23/22 Umeclidinium Dow [Incruse 1 puff INHALATION RT-DAILY 07/23/22 07/23/22 Ellipta] Previous Rx's Medication Instructions Recorded Albuterol Inhaler [Ventolin Hfa 2 puff INHALATION RT-QID each 05/28/22 Inhaler] Budesonide-Formot 160-4.5 Mcg 2 puff INHALATION RT-BID each 05/28/22 [Symbicort 160-4.5 Mcg Inhaler] amLODIPine [Norvasc] 5 mg PO DAILY tab 05/28/22 Chlorhexidine Gluconate [Peridex] 15 ml MUCOUS MEM BID ml 05/31/22 Acetaminophen Tab [Tylenol] 650 mg PO Q6HR PRN tab 07/27/22 predniSONE [Deltasone] 40 mg PO DAILY #2 tab 07/27/22 Clindamycin [Cleocin] 450 mg PO Q8HR #63 cap 08/13/22 Allergies Allergy/AdvReac Type Severity Reaction Status Date / Time Sulfa (Sulfonamide Allergy Rash on Verified 08/13/22 15:09 Antibiotics) arms Review of Systems ROS Statement: Those systems with pertinent positive or pertinent negative responses have been documented in the HPI. ROS Other: All systems not noted in ROS Statement are negative. Past Medical History Past Medical History: Coronary Artery Disease (CAD), Hypertension, Osteoarthritis (OA), Pneumonia, Skin Disorder, Sleep Apnea/CPAP/BIPAP Additional Past Medical History / Comment(s): neuropathy History of Any Multi-Drug Resistant Organisms: None Reported Past Surgical History: Heart Catheterization With Stent Additional Past Surgical History / Comment(s): 2004 stenting of RCA, ccath 2004 with lesions 50%mid LAD and unstable RCA plaque-stented as mentioned-EF was 60%, quadricepts muscle bx, normal colonoscopy in 2013, colonoscopy with benign polypectomy in past. Past Anesthesia/Blood Transfusion Reactions: No Reported Reaction Date of Last Stent Placement:: 2004 Past Psychological History: Anxiety, Depression Smoking Status: Former smoker Past Alcohol Use History: Occasional Past Drug Use History: Marijuana - Past Family History Mother Family Medical History: Cancer Additional Family Medical History / Comment(s): Pt's mother at age 55 from lung cancer. She was a nonsmoker. Father Family Medical History: Hyperlipidemia, Hypertension Additional Family Medical History / Comment(s): Father at age 89 of natural causes. Sister(s) Family Medical History: Myocardial Infarction (NM) Additional Family Medical History / Comment(s): Pt has one sister who of possible NM at age 53yrs. General Exam Limitations: no limitations General appearance: alert, in no apparent distress Head exam: Present: atraumatic, normocephalic, normal inspection Eye exam: Present: normal appearance, PERRL, EOMI. Absent: scleral icterus, conjunctival injection, periorbital swelling ENT exam: Present: normal exam, mucous membranes moist Neck exam: Present: normal inspection. Absent: tenderness, meningismus, lymphadenopathy Respiratory exam: Present: wheezes (Mild bilateral wheezes). Absent: respiratory distress, rales, rhonchi, stridor Cardiovascular Exam: Present: regular rate, normal rhythm, normal heart sounds. Absent: systolic murmur, diastolic murmur, rubs, gallop, clicks Extremities exam: Present: full ROM, tenderness, normal capillary refill, other (Bilateral lower extremity edema which patient reports is typical for him, DP and PT pulses 2+, cap refill less than 2 seconds, unroofed blisters on the top of the right foot and on the third and fifth toe which have yellow discharge, mild erythema surrounding the wound on the right foot ) Back exam: Present: normal inspection Neurological exam: Present: alert, oriented X3 Psychiatric exam: Present: normal affect, normal mood Skin exam: Present: warm, dry, other (Bilateral lower extremity edema which patient reports is typical for him, DP and PT pulses 2+, cap refill less than 2 seconds, unroofed blisters on the top of the right foot and on the third and fifth toe which have yellow discharge, mild erythema surrounding the wound on the right foot ). Absent: rash Course Vital Signs 08/13/22 08/13/22 15:05 16:56 Temperature 98.2 F 98.3 F Pulse Rate 93 81 Respiratory 18 18 Rate Blood Pressure 114/78 131/81 O2 Sat by Pulse 98 94 L Oximetry Medical Decision Making - Medical Decision Making Was pt. sent in by a medical professional or institution ([facility] Wade, ANESTHESIA ATTENDING, urgent care, hospital, or long term...) When possible be specific @ -No Did you speak to anyone other than the patient for history (EMS, parent, family, police, friend...)? What history was obtained from this source @ -Case was discussed with EMS who reported that the patient noticed discharge from the wound, right foot today at his physical therapy appointment Did you review nursing and triage notes (agree or disagree)? Why? @ -I reviewed and agree with nursing and triage notes Were old charts reviewed (outside hosp., previous admission, EMS record, old EKG, old radiological studies, urgent care reports/EKG's, long term records)? Report findings @ -Charts from prior admission were reviewed Differential Diagnosis (chest pain, altered mental status, abdominal pain women, abdominal pain men, vaginal bleeding, weakness, fever, dyspnea, syncope, headache, dizziness, GI bleed, back pain, seizure, CVA, palpatations, mental health, musculoskeletal)? @ -Differential Musculoskeletal Muscular strain, contusion, ligament sprain, fracture, arthritis, septic arthritis, bursitis, cellulitis, muscle spasm, nerve compression, DVT, arterial occlusion, herpes zoster, electrolyte abnormality, tumor.... This is not meant to be in all inclusive list EKG interpreted by me (3pts min.). @ -None X-rays interpreted by me (1pt min.). @ -None done CT interpreted by me (1pt min.). @ -None done U/S interpreted by me (1pt. min.). @ -None done What testing was considered but not performed or refused? (CT, X-rays, U/S, labs)? Why? @ -None What meds were considered but not given or refused? Why? @ -None Did you discuss the management of the patient with other professionals (professionals i.e. , PA, ANESTHESIA ATTENDING, lab, RT, psych nurse, social media marketer, pediatric hospitalist, teacher, compliance officer, case operator)? Give summary @ -No Was smoking cessation discussed for >3mins.? @ -No Was critical care preformed (if so, how long)? @ -No Were there social determinants of health that impacted care today? How? (Homelessness, low income, unemployed, alcoholism, drug addiction, transportation, low edu. Level, literacy, decrease access to med. care, halfway, rehab)? @ -No Was there de-escalation of care discussed even if they declined (Discuss DNR or withdrawal of care, Hospice)? DNR status @ -No What co-morbidities impacted this encounter? (DM, HTN, Smoking, COPD, CAD, Cancer, CVA, ARF, Chemo, Hep., AIDS, mental health diagnosis, sleep apnea, morbid obesity)? @ -None Was patient admitted / discharged? Hospital course, mention meds given and route, prescriptions, significant lab abnormalities, going to OR and other pertinent info. @ -Discharged. Patient presented to the emergency department chief complaint of discharge from the unroofed blisters on his right foot from boiling water spilled on his foot a week ago. On examination, patient is well-appearing, vital signs stable, patient is afebrile. Mild erythema surrounding the unroofed blister on the right foot with yellow discharge. Bactroban was applied to the wound and patient was administered 450mg clindamycin. Prescription sent to patients pharmacy for clindamycin. Appears the patient is able to be managed on outpatient basis as he follows up with [facility] daily, he is afebrile, nondiabetic and has not had a trial of oral antibiotics. Patient discharged in stable condition. Case discussed with my attending, Dr. Meyers Undiagnosed new problem with uncertain prognosis? @ -No Drug Therapy requiring intensive monitoring for toxicity (Heparin, Nitro, Insulin, Cardizem)? @ -No Were any procedures done? @ -No Diagnosis/symptom? @ -cellulitis Acute, or Chronic, or Acute on Chronic? @ -Acute Uncomplicated (without systemic symptoms) or Complicated (systemic symptoms)? @ -Uncomplicated Side effects of treatment? @ -No Exacerbation, Progression, or Severe Exacerbation? @ -No Poses a threat to life or bodily function? How? (Chest pain, USA, NM, pneumonia, PE, COPD, DKA, ARF, appy, cholecystitis, CVA, Diverticulitis, Homicidal, Suicidal, threat to staff... and all critical care pts) @ -No Disposition Clinical Impression: Cellulitis Disposition: HOME SELF-CARE Condition: Stable Instructions (If sedation given, give patient instructions): Cellulitis (ED) Additional Instructions: Please follow up with your primary care physician in the next 1-2 days. Return to the emergency department if you develop new or worsening symptoms. Prescriptions: Clindamycin [Cleocin] 450 mg PO Q8HR #63 cap Is patient prescribed a controlled substance at d/c from ED?: No Referrals: Hollis Trinh MD [Primary Care Provider] - 1-2 days Time of Disposition: 16:16
[2022-08-13 16:58] VITALS: BP 131/81; PULSE 81; TEMP 98.3
== END 2022-08-13 17:00 | disposition home or self-care (01) ==
LOC: EC 15:04
DX: L03.115 Cellulitis of right lower limb (principal); I25.10 Atherosclerotic heart disease of native coronary artery without angina pectoris; I10 Essential (primary) hypertension; M19.90 Unspecified osteoarthritis, unspecified site; G47.30 Sleep apnea, unspecified; F41.9 Anxiety disorder, unspecified; F32.A Depression, unspecified; Z87.891 Personal history of nicotine dependence; Z79.1 Long term (current) use of non-steroidal anti-inflammatories (NSAID); Z79.899 Other long term (current) drug therapy; Z88.2 Allergy status to sulfonamides
CPT/HCPCS: 99284

== ENCOUNTER → 2022-08-24 | Outpatient (CLI) | payer MEDICARE | END | disposition home or self-care (01) | LOC: RADPETMAIN 08:24 | PROVIDERS: ATTEND Emergency Medicine | DX: Z53.9 Procedure and treatment not carried out, unspecified reason (principal) ==

== ENCOUNTER 2022-09-20 12:15 | Inpatient (IN) | payer MEDICARE ==
[2022-09-20 13:05] LABS: Basophils % (A) 1 %; Eosinophils # (A) 0.2 k/uL (0-0.7); Eosinophils % (A) 2 %; HCT 49.5 % (39.0-53.0); HGB 15.5 gm/dL (13.0-17.5); Hypochromasia Slight; Lymphocytes # (A) 1.2 k/uL (1.0-4.8); Lymphocytes % (A) 15 %; MCH 30.4 pg (25.0-35.0); MCHC 31.4 g/dL (31.0-37.0); MCV 96.8 fL (80.0-100.0); Mean Platelet Volume 7.5; Monocytes # (A) 0.7 k/uL (0-1.0); Monocytes % (A) 8 %; Neutrophils # (A) 5.9 k/uL (1.3-7.7); Neutrophils % (A) 73 %; Platelet Count 259 k/uL (150-450); RBC 5.11 m/uL (4.30-5.90); RDW 14.8 % (11.5-15.5); WBC 8.1 k/uL (3.8-10.6)
[2022-09-20 13:10] LABS: Appearance,Urine Clear (Clear); Bilirubin,Urine Negative (Negative); Blood,Urine Negative (Negative); Color,Urine Yellow; Glucose,Urine (UA) Negative (Negative); Ketones,Urine Negative (Negative); Leukocyte Esterase,Urine Negative (Negative); Mucus,Urine Rare /hpf; Nitrite,Urine Negative (Negative); PH, Urine 5.5 (5.0-8.0); Protein,Urine 1+ (Negative); RBC,Urine 1 /hpf (0-5); Specific Gravity,Urine 1.019 (1.001-1.035); Urobilinogen,Urine <2.0 mg/dL (<2.0); WBC,Urine 3 /hpf (0-5)
[2022-09-20 13:17] LABS: INR 0.9 (<1.2); Prothrombin Time 9.6 sec (9.0-12.0)
--- NOTE | 2022-09-20 13:19 | XR ---
EXAMINATION TYPE: XR chest 2V DATE OF EXAM: 09/20/2022 1:12 PM COMPARISON: Chest radiographs from 07/23/2022, CTA chest 07/23/2022. TECHNIQUE: XR chest 2V Frontal and lateral views of the chest. CLINICAL INDICATION:Male, 61 years old with history of difficulty breathing; FINDINGS: Lungs/Pleura: No evidence of pleural effusion or pneumothorax. Right midlung 2.4 cm nodule redemonstr ated. Elevation the right hemidiaphragm. Chronic increased pulmonary lung markings. Pulmonary vascularity: Unremarkable. Heart/mediastinum: Cardiomediastinal silhouette is enlarged and stable. Musculoskeletal: No acute osseous pathology. Degenerative changes of the thoracic spine. IMPRESSION: 1. Stable 2.4 cm right midlung pulmonary mass corresponding to prior CT. No radiographic evidence fo r an acute process. 2. Similar increased pulmonary lung markings. Correlate for pulmonary fibrosis.
[2022-09-20 13:26] LABS: ALT 30 U/L (4-49); AST 25 U/L (17-59); African American GFR (CKD) >90 (>60 ml/min/1.73 sqM); Alkaline Phosphatase 59 U/L (38-126); Blood Urea Nitrogen 16 mg/dL (9-20); Calcium 8.9 mg/dL (8.4-10.2); Chloride 100 mmol/L (98-107); Glucose 115 mg/dL (74-99); Non-African American GFR(CKD) >90 (>60 ml/min/1.73 sqM); Potassium 4.1 mmol/L (3.5-5.1); Sodium 144 mmol/L (137-145); Total Bilirubin 0.5 mg/dL (0.2-1.3); Total Protein 7.4 g/dL (6.3-8.2)
[2022-09-20 13:32] LABS: Anion Gap 6 mmol/L; Carbon Dioxide 38 mmol/L (22-30)
--- NOTE | 2022-09-20 13:38 | ED ---
General Adult HPI - General Chief complaint: Shortness of Breath Stated complaint: SOB Time Seen by Provider: 09/20/22 12:18 Source: patient, EMS Mode of arrival: EMS Limitations: no limitations - History of Present Illness Initial comments: 61-year-old male with past medical history significant for COPD and pulmonary nodule presents to the ED with the chief complaint of shortness of breath. Patient states that he went to PT this morning. There, they noted his oxygen saturation to be low and gave him a breathing treatment. Noted that he continued to be hypoxic therefore called EMS to have him come to this facility for further treatment and evaluation. Patient states that he only intermittently uses his oxygen "whenever he needs it". On room air patient states that he is normally 86-88%. At home while he is on 3 L/m states that he is normally at 92-94%. Denies any upper respiratory symptoms such as new cough, congestion. She notes that he has a CT scheduled for tomorrow to follow-up on pulmonary nodules. Denies fever. Patient previously 15 year 2 pack per day smoker, 4 year pack per day smoker, and notes over the past few years only smokes "a few cigarettes, every day. Other complaints. - Related Data Home Medications Medication Instructions Recorded Confirmed Losartan Potassium 100 mg PO DAILY 05/23/22 07/23/22 Cholecalciferol [Vitamin D3 (25 50 mcg PO DAILY 07/23/22 07/23/22 Mcg = 1000 Iu)] Furosemide [Lasix] 40 mg PO DAILY 07/23/22 07/23/22 Ibuprofen [Motrin] 600 mg PO QID PRN 07/23/22 07/23/22 Latanoprost/Pf [Latanoprost 0.005% 1 drop BOTH EYES HS 07/23/22 07/23/22 Eye Drop] Loratadine [Claritin] 10 mg PO DAILY PRN 07/23/22 07/23/22 Nicotine 14Mg/24Hr Patch [Habitrol] 1 patch TRANSDERM DAILY 07/23/22 07/23/22 Umeclidinium [place] [Incruse 1 puff INHALATION RT-DAILY 07/23/22 07/23/22 Ellipta] Previous Rx's Medication Instructions Recorded Albuterol Inhaler [Ventolin Hfa 2 puff INHALATION RT-QID each 05/28/22 Inhaler] Budesonide-Formot 160-4.5 Mcg 2 puff INHALATION RT-BID each 05/28/22 [Symbicort 160-4.5 Mcg Inhaler] amLODIPine [Norvasc] 5 mg PO DAILY tab 05/28/22 Chlorhexidine Gluconate [Peridex] 15 ml MUCOUS MEM BID ml 05/31/22 Acetaminophen Tab [Tylenol] 650 mg PO Q6HR PRN tab 07/27/22 predniSONE [Deltasone] 40 mg PO DAILY #2 tab 07/27/22 Clindamycin [Cleocin] 450 mg PO Q8HR #63 cap 08/13/22 Allergies Allergy/AdvReac Type Severity Reaction Status Date / Time Sulfa (Sulfonamide Allergy Rash on Verified 09/20/22 13:49 Antibiotics) arms Review of Systems ROS Statement: Those systems with pertinent positive or pertinent negative responses have been documented in the HPI. ROS Other: All systems not noted in ROS Statement are negative. Past Medical History Past Medical History: Coronary Artery Disease (CAD), Hypertension, Ost eoarthritis (OA), Pneumonia, Skin Disorder, Sleep Apnea/CPAP/BIPAP Additional Past Medical History / Comment(s): neuropathy History of Any Multi-Drug Resistant Organisms: None Reported Past Surgical History: Heart Catheterization With Stent Additional Past Surgical History / Comment(s): 2004 stenting of RCA, ccath 2004 with lesions 50%mid LAD and unstable RCA plaque-stented as mentioned-EF was 60%, quadricepts muscle bx, normal colonoscopy in 2013, colonoscopy with benign polypectomy in past. Past Anesthesia/Blood Transfusion Reactions: No Reported Reaction Date of Last Stent Placement:: 2004 Past Psychological History: Anxiety, Depression Smoking Status: Former smoker Past Alcohol Use History: Occasional Past Drug Use History: Marijuana - Past Family History Mother Family Medical History: Cancer Additional Family Medical History / Comment(s): Pt's mother at age 55 from lung cancer. She was a nonsmoker. Father Family Medical History: Hyperlipidemia, Hypertension Additional Family Medical History / Comment(s): Father at age 89 of natural causes. Sister(s) Family Medical History: Myocardial Infarction ([place]) Additional Family Medical History / Comment(s): Pt has one sister who of possible [place] at age 53yrs. General Exam Limitations: no limitations General appearance: alert, in no apparent distress Head exam: Present: atraumatic, normocephalic Eye exam: Present: normal appearance ENT exam: Present: mucous membranes moist Neck exam: Present: normal inspection Respiratory exam: Present: normal lung sounds bilaterally (No respiratory d istress. No accessory muscle use.) Cardiovascular Exam: Present: regular rate, normal rhythm GI/Abdominal exam: Present: soft (Nontender to palpation. No rebound guarding or rigidity.) Neurological exam: Present: alert, oriented X3 Psychiatric exam: Present: normal affect, normal mood Skin exam: Present: warm, dry Course Vital Signs 09/20/22 12:21 Temperature 98.3 F Pulse Rate 92 Respiratory 22 Rate Blood Pressure 139/86 O2 Sat by Pulse 85 L Oximetry Medical Decision Making - Medical Decision Making Was pt. sent in by a medical professional or institution (, PA, WEED SPRAYER, urgent care, hospital, or shelter...) When possible be specific @ -No Did you speak to anyone other than the patient for history (EMS, parent, family, police, friend...)? What history was obtained from this source @ -No Did you review nursing and triage notes (agree or disagree)? Why? @ -I reviewed and agree with nursing and triage notes Were old charts reviewed (outside hosp., previous admission, EMS record, old EKG, old radiological studies, urgent care reports/EKG's, shelter records)? Report findings @ -Old charts reviewed showing history of COPD and pulmonary nodule Differential Diagnosis (chest pain, altered mental status, abdominal pain women, abdominal pain men, vaginal bleeding, weakness, fever, dyspnea, syncope, headache, dizziness, GI bleed, back pain, seizure, CVA, palpatations, mental health, musculoskeletal)? @ -Differential Dyspnea: Coronary syndrome, arrhythmia, tamponade, asthma, COPD, pulmonary embolism, pneumonia, pneumothorax, pulmonary effusion, anaphylaxis, diabetic ketoacidosis, flailed chest, pulmonary contusion, diaphragmatic rupture, anemia, ne uromuscular, this is not meant to be an all-inclusive list. EKG interpreted by me (3pts min.). @ -As above X-rays interpreted by me (1pt min.). @ -X-ray shows evidence of pulmonary fibrosis and nodule consistent with prior imaging studies. No acute findings CT interpreted by me (1pt min.). @ -None done U/S interpreted by me (1pt. min.). @ -None done What testing was considered but not performed or refused? (CT, X-rays, U/S, labs)? Why? @ -None What meds were considered but not given or refused? Why? @ -None Did you discuss the management of the patient with other professionals (professionals i.e. , PA, WEED SPRAYER, lab, RT, psych nurse, social research assistant, air purifier servicer, teacher, aoc operations intelligence officer, catalytic case operator)? Give summary @ -No Was smoking cessation discussed for >3mins.? @ -Yes Was critical care preformed (if so, how long)? @ -No Were there social determinants of health that impacted care today? How? (Homelessness, low income, unemployed, alcoholism, drug addiction, transportation, low edu. Level, literacy, decrease access to med. care, fdc, rehab)? @ -No Was there de-escalation of care discussed even if they declined (Discuss DNR or withdrawal of care, Hospice)? DNR status @ -No What co-morbidities impacted this encounter? (DM, HTN, Smoking, COPD, CAD, Can cer, CVA, ARF, Chemo, Hep., AIDS, mental health diagnosis, sleep apnea, morbid obesity)? @ -COPD Was patient admitted / discharged? Hospital course, mention meds given and route, prescriptions, significant lab abnormalities, going to OR and other pertinent info. @ -Discharge. Laboratory studies significant for a CO2 of 38 consistent with p rior values and history of COPD. While in the ED patient has remained at 92-94% on 3 L per oxygen and has not required any breathing treatments. Imaging studies unremarkable. Patient discharged home in stable condition. Discussed return precautions patient who verbalizes agreement. Undiagnosed new problem with uncertain prognosis? @ -No Drug Therapy requiring intensive monitoring for toxicity (Heparin, Nitro, Insulin, Cardizem)? @ -No Were any procedures done? @ -No Diagnosis/symptom? @ -COPD exacerbation Acute, or Chronic, or Acute on Chronic? @ -Acute on chronic Uncomplicated (without systemic symptoms) or Complicated (systemic symptoms)? @ -Uncomplicated Side effects of treatment? @ -No Exacerbation, Progression, or Severe Exacerbation? @ -Exacerbation Poses a threat to life or bodily function? How? (Chest pain, [place], [place], pneumonia, PE, COPD, DKA, ARF, appy, cholecystitis, CVA, Diverticulitis, Homicidal, Suicidal, threat to staff... and all critical care pts) @ -Yes, COPD - Lab Data Result diagrams: 09/20/22 12:41 09/20/22 12:41 Lab Results 09/20/22 09/20/22 09/20/22 Range/Units 12:41 12:41 12:41 WBC 8.1 (3.8-10.6) k/uL RBC 5.11 (4.30-5.90) m/uL Hgb 15.5 (13.0-17.5) gm/dL Hct 49.5 (39.0-53.0) % MCV 96.8 (80.0-100.0) fL MCH 30.4 (25.0-35.0) pg MCHC 31.4 (31.0-37.0) g/dL RDW 14.8 (11.5-15.5) % Plt Count 259 (150-450) k/uL MPV 7.5 Neutrophils % 73 % Lymphocytes % 15 % Monocytes % 8 % Eosinophils % 2 % Basophils % 1 % Neutrophils # 5.9 (1.3-7.7) k/uL Lymphocytes # 1.2 (1.0-4.8) k/uL Monocytes # 0.7 (0-1.0) k/uL Eosinophils # 0.2 (0-0.7) k/uL Basophils # 0.0 (0-0.2) k/uL Hypochromasia Slight PT 9.6 (9.0-12.0) sec INR 0.9 (<1.2) APTT 27.0 (22.0-30.0) sec Sodium (137-145) mmol/L Potassium (3.5-5.1) mmol/L Chloride (98-107) mmol/L Carbon Dioxide (22-30) mmol/L Anion Gap mmol/L BUN (9-20) mg/dL Creatinine (0.66-1.25) mg/dL Est GFR (CKD-EPI)AfAm (>60 ml/min/1.73 sqM) Est GFR (CKD-EPI)NonAf (>60 ml/min/1.73 sqM) Glucose (74-99) mg/dL Plasma Lactic Acid Abdias (0.7-2.0) mmol/L Calcium (8.4-10.2) mg/dL Total Bilirubin (0.2-1.3) mg/dL AST (17-59) U/L ALT (4-49) U/L Alkaline Phosphatase (38-126) U/L Troponin I (0.000-0.034) ng/mL NT-Pro-B Natriuret Pep pg/mL Total Protein (6.3-8.2) g/dL Albumin (3.5-5.0) g/dL Urine Color Yellow Urine Appearance Clear (Clear) Urine pH 5.5 (5.0-8.0) Ur Specific Roy 1.019 (1.001-1.035) Urine Protein 1+ H (Negative) Urine Glucose (UA) Negative (Negative) Urine Ketones Negative (Negative) Urine Blood Negative (Negative) Urine Nitrite Negative (Negative) Urine Bilirubin Negative (Negative) Urine Urobilinogen <2.0 (<2.0) mg/dL Ur Leukocyte Esterase Negative (Negative) Urine RBC 1 (0-5) /hpf Urine WBC 3 (0-5) /hpf Urine Mucus Rare H (None) /hpf 09/20/22 09/20/22 09/20/22 Range/Units 12:41 12:41 12:41 WBC (3.8-10.6) k/uL RBC (4.30-5.90) m/uL Hgb (13.0-17.5) gm/dL Hct (39.0-53.0) % MCV (80.0-100.0) fL MCH (25.0-35.0) pg MCHC (31.0-37.0) g/dL RDW (11.5-15.5) % Plt Count (150-450) k/uL MPV Neutrophils % % Lymphocytes % % Monocytes % % Eosinophils % % Basophils % % Neutrophils # (1.3-7.7) k/uL Lymphocytes # (1.0-4.8) k/uL Monocytes # (0-1.0) k/uL Eosinophils # (0-0.7) k/uL Basophils # (0-0.2) k/uL Hypochromasia PT (9.0-12.0) sec INR (<1.2) APTT (22.0-30.0) sec Sodium 144 (137-145) mmol/L Potassium 4.1 (3.5-5.1) mmol/L Chloride 100 (98-107) mmol/L Carbon Dioxide 38 H (22-30) mmol/L Anion Gap 6 mmol/L BUN 16 (9-20) mg/dL Creatinine 0.61 L (0.66-1.25) mg/dL Est GFR (CKD-EPI)AfAm >90 (>60 ml/min/1.73 sqM) Est GFR (CKD-EPI)NonAf >90 (>60 ml/min/1.73 sqM) Glucose 115 H (74-99) mg/dL Plasma Lactic Acid Abdias 1.6 (0.7-2.0) mmol/L Calcium 8.9 (8.4-10.2) mg/dL Total Bilirubin 0.5 (0.2-1.3) mg/dL AST 25 (17-59) U/L ALT 30 (4-49) U/L Alkaline Phosphatase 59 (38-126) U/L Troponin I <0.012 (0.000-0.034) ng/mL NT-Pro-B Natriuret Pep pg/mL Total Protein 7.4 (6.3-8.2) g/dL Albumin 4.0 (3.5-5.0) g/dL Urine Color Urine Appearance (Clear) Urine pH (5.0-8.0) Ur Specific Roy (1.001-1.035) Urine Protein (Negative) Urine Glucose (UA) (Negative) Urine Ketones (Negative) Urine Blood (Negative) Urine Nitrite (Negative) Urine Bilirubin (Negative) Urine Urobilinogen (<2.0) mg/dL Ur Leukocyte Esterase (Negative) Urine RBC (0-5) /hpf Urine WBC (0-5) /hpf Urine Mucus (None) /hpf 09/20/22 Range/Units 12:41 WBC (3.8-10.6) k/uL RBC (4.30-5.90) m/uL Hgb (13.0-17.5) gm/dL Hct (39.0-53.0) % MCV (80.0-100.0) fL MCH (25.0-35.0) pg MCHC (31.0-37.0) g/dL RDW (11.5-15.5) % Plt Count (150-450) k/uL MPV Neutrophils % % Lymphocytes % % Monocytes % % Eosinophils % % Basophils % % Neutrophils # (1.3-7.7) k/uL Lymphocytes # (1.0-4.8) k/uL Monocytes # (0-1.0) k/uL Eosinophils # (0-0.7) k/uL Basophils # (0-0.2) k/uL Hypochromasia PT (9.0-12.0) sec INR (<1.2) APTT (22.0-30.0) sec Sodium (137-145) mmol/L Potassium (3.5-5.1) mmol/L Chloride (98-107) mmol/L Carbon Dioxide (22-30) mmol/L Anion Gap mmol/L BUN (9-20) mg/dL Creatinine (0.66-1.25) mg/dL Est GFR (CKD-EPI)AfAm (>60 ml/min/1.73 sqM) Est GFR (CKD-EPI)NonAf (>60 ml/min/1.73 sqM) Glucose (74-99) mg/dL Plasma Lactic Acid Abdias (0.7-2.0) mmol/L Calcium (8.4-10.2) mg/dL Total Bilirubin (0.2-1.3) mg/dL AST (17-59) U/L ALT (4-49) U/L Alkaline Phosphatase (38-126) U/L Troponin I (0.000-0.034) ng/mL NT-Pro-B Natriuret Pep 84 pg/mL Total Protein (6.3-8.2) g/dL Albumin (3.5-5.0) g/dL Urine Color Urine Appearance (Clear) Urine pH (5.0-8.0) Ur Specific Roy (1.001-1.035) Urine Protein (Negative) Urine Glucose (UA) (Negative) Urine Ketones (Negative) Urine Blood (Negative) Urine Nitrite (Negative) Urine Bilirubin (Negative) Urine Urobilinogen (<2.0) mg/dL Ur Leukocyte Esterase (Negative) Urine RBC (0-5) /hpf Urine WBC (0-5) /hpf Urine Mucus (None) /hpf - EKG Data EKG Comments: EKG shows a sinus rhythm at [address] or T-wave changes. WA 135, QRS 85, QT/QTc 360/410. Disposition Clinical Impression: COPD (chronic obstructive pulmonary disease) Disposition: HOME SELF-CARE Condition: Good Instructions (If sedation given, give patient instructions): COPD (Chronic Obstructive Pulmonary Disease) (ED) Is patient prescribed a controlled substance at d/c from ED?: No Referrals: Hollis Trinh MD [Primary Care Provider] - 1-2 days Time of Disposition: 13:47
[2022-09-20] MEDS ORDERED: NALOXONE 0.4 MG/ML 1 ML VIAL IV PRN (14:26)
[2022-09-20] MEDS ORDERED: NALOXONE 0.4 MG/ML 1 ML VIAL IVP PRN (14:29)
[2022-09-20] MEDS ORDERED: IPRATROPIUM-ALBUTEROL 3 ML NEB INHALATION PRN (14:29)
[2022-09-20 16:14] LABS: VBG PH 7.43 (7.31-7.41)
[2022-09-20] MEDS: predniSONE 20 MG TAB PO SCH (16:35)
[2022-09-20] MEDS: DORZOLAMIDE HCL 2% DROPS 10 ML BTL BOTH EYES SCH ×2 (16:40→21:44)
[2022-09-20] MEDS: TOBRA-DEXAMET 0.3-0.1% OPHTH DROPS 2.5 ML BTL BOTH EYES SCH ×2 (19:08→21:45)
[2022-09-20] MEDS: IPRATROPIUM-ALBUTEROL 3 ML NEB INHALATION SCH ×2 (19:12→19:36)
[2022-09-20] MEDS: SYMBICORT 160-4.5 MCG INHALER INHALATION SCH (19:36)
--- NOTE | 2022-09-20 19:46 | P.HPIM ---
History of Present Illness H&P Date: 09/20/22 History of Presenting Illness: Patient is a 61-year-old male with a past medical history of COPD home oxygen dependent on 3 L "as needed", pulmonary nodule, obstructive sleep apnea, CAD with stent, and hypertension,. He presented to the emergency department per direction of his PCP secondary to increased shortness of breath and worsening hypoxia. Patient reports he has been experiencing this off and on over the past couple weeks and when he was at physical therapy this morning they noted his oxygen sats to be lower than normal and gave him a breathing treatment and [facility] for transfer to the hospital. Patient reports recent infection approximately 3-4 weeks ago but otherwise denies having any other complaints including fevers, chills, headache, lightheadedness, dizziness, chest pain, palpitations, diaphoresis, or experiencing any numbness/tingling/weakness/wor sening swelling in his extremities. Patient underwent full evaluation in the emergency department. Labs completed and reviewed. CBC, coags, and CMP were unremarkable with the exception of hypercarbia with carbon dioxide of 38. Chest x-ray showing a stable 2.4 cm right mid lung pulmonary mass corresponding to prior CT and negative for acute cardiopulmonary process. EKG showing normal sinus rhythm at 92 bpm with no noted T-wave or ST abnormalities showing no signs of acute ischemia upon personal review and interpretation. Review of systems: Pertinent positives and negatives as discussed in HPI, a complete review of systems was performed and all other systems are negative. Physical exam: Vital signs reviewed and stable. General: Nontoxic, no distress and appears stated age. Derm: Skin warm and dry, normal coloration for ethnicity. Head: Atraumatic, normocephalic and symmetric. Eyes: EOMs intact, no lid lag, and anicteric sclera Mouth: no lip lesions, mucus membranes moist Cardiovascular: regular rate and rhythm with normal S1S2, no murmur, positive posterior tibial pulses bilaterally, and cap refill < 2 seconds. Lungs: Respirations even, regular, and unlabored on 4 L O2. Lungs diminished. Abdominal: Obese abdomen soft, nontender to palpation, no guarding, no appreci able organomegaly Ext: ROM intact. No gross muscle atrophy, no edema, no contractures Neuro: Speech clear, face symmetrical and CN II-XII grossly intact with no noted focal neuro deficits Psych: Alert and oriented to person, place, time, and situation. Appropriate and pleasant affect. Assessment and Plan of Care: COPD exacerbation Acute on chronic hypoxic and hypercarbic respiratory failure Obstructive sleep apnea, patient reports he does not use CPAP or BiPAP - Labs completed and reviewed. CBC, coags, and CMP were unremarkable with the exception of hypercarbia with carbon dioxide of 38. -Chest x-ray showing a stable 2.4 cm right mid lung pulmonary mass corresponding to prior CT and negative for acute cardiopulmonary process. -EKG showing normal sinus rhythm at 92 bpm with no noted T-wave or ST abnormalities showing no signs of acute ischemia upon personal review and interpretation. -Discussed with 80 physician in detail, patient to be admitted under our services to observation unit with telemetry. -Consult to Pulmonology -Oxygenation to be administered and titrated as needed to maintain SPO2 equal to or greater than 92% -Telemetry monitoring. -Monitor Pulse-oximetry -Duonebs scheduled for times daily and as needed for SOB and/or wheezing -Incentive Spirometry -Steroids: Prednisone 40 mg per day 5 days -Antibiotics: Empiric treatment with Doxycycline 100 mg by mouth twice daily 5 days CAD with stents Hypertension -Continue daily medication regimen with amlodipine and losartan. The patient is admitted with an anticipated less than 2 midnight stay for evaluation of shortness of breath, COPD exacerbation CODE STATUS: Full code DVT prophylaxis: Lovenox Discussed with: Patient, ED physician, and RN Anticipated discharge date: 24-[address]: Home Patient was seen independently by Nurse Practitioner. This document was prepared using [email or web address] dictation software. Please allow for errors in product promoter sales person while rare they do occur. Marquis Villatoro NP rendered care for this patient independently, reviewed the fin dings and plan as documented in the note above. I did not physically speak with or examine the patient on this date. Past Medical History Past Medical History: Coronary Artery Disease (CAD), Hypertension, Osteoarthritis (OA), Pneumonia, Skin Disorder, Sleep Apnea/CPAP/BIPAP Additional Past Medical History / Comment(s): neuropathy History of Any Multi-Drug Resistant Organisms: None Reported Past Surgical History: Heart Catheterization With Stent Additional Past Surgical History / Comment(s): 2004 stenting of RCA, ccath 2004 with lesions 50%mid LAD and unstable RCA plaque-stented as mentioned-EF was 60%, quadricepts muscle bx, normal colonoscopy in 2013, colonoscopy with benign polypectomy in past. Past Anesthesia/Blood Transfusion Reactions: No Reported Reaction Date of Last Stent Placement:: 2004 Past Psychological History: Anxiety, Depression Smoking Status: Former smoker Past Alcohol Use History: Occasional Past Drug Use History: Marijuana - Past Family History Mother Family Medical History: Cancer Additional Family Medical History / Comment(s): Pt's mother at age 55 from lung cancer. She was a nonsmoker. Father Family Medical History: Hyperlipidemia, Hypertension Additional Family Medical History / Comment(s): Father at age 89 of natural causes. Sister(s) Family Medical History: Myocardial Infarction ([place]) Additional Family Medical History / Comment(s): Pt has one sister who of possible [place] at age 53yrs. Medications and Allergies Home Medications Medication Instructions Recorded Confirmed Type Losartan Potassium 100 mg PO HS 05/23/22 09/20/22 History Budesonide-Formot 160-4.5 Mcg 2 puff INHALATION RT-BID each 05/28/22 09/20/22 Rx [Symbicort 160-4.5 Mcg Inhaler] amLODIPine [Norvasc] 5 mg PO DAILY tab 05/28/22 09/20/22 Rx Cholecalciferol [Vitamin D3 (25 50 mcg PO DAILY 07/23/22 09/20/22 History Mcg = 1000 Iu)] Furosemide [Lasix] 40 mg PO DAILY 07/23/22 09/20/22 History Ibuprofen [Motrin] 600 mg PO QID PRN 07/23/22 09/20/22 History Latanoprost/Pf [Latanoprost 0.005% 1 drop BOTH EYES HS 07/23/22 09/20/22 History Eye Drop] Loratadine [Claritin] 10 mg PO DAILY PRN 07/23/22 09/20/22 History Nicotine 14Mg/24Hr Patch [Habitrol] 1 patch TRANSDERM DAILY PRN 07/23/22 09/20/22 History Umeclidinium [place] [Incruse 1 puff INHALATION RT-DAILY 07/23/22 09/20/22 History Ellipta] Acetaminophen Tab [Tylenol] 650 mg PO Q6HR PRN tab 07/27/22 09/20/22 Rx Albuterol Inhaler [Ventolin Hfa 2 puff INHALATION RT-QID PRN 09/20/22 09/20/22 History Inhaler] Brinzolamide [Azopt 1% Ophth Susp] 1 drop BOTH EYES TID 09/20/22 09/20/22 History Ocusoft Eyelid Cleansing Pads 1 applic TOPICAL HS 09/20/22 09/20/22 History Petrolatum, White [Aquaphor] 1 applic TOPICAL HS 09/20/22 09/20/22 History Tobramycin/Dexamethasone [Tobradex 1 drop BOTH EYES QID 09/20/22 09/20/22 History Ophth Susp] Triamcinolone 0.1% Cream [Kenalog 1 applicatio TOPICAL BID 09/20/22 09/20/22 History 0.1% Cream] Allergies Allergy/AdvReac Type Severity Reaction Status Date / Time Sulfa (Sulfonamide Allergy Rash on Verified 09/20/22 13:49 Antibiotics) arms Physical Exam Vitals: Vital Signs Temp Pulse Resp BP Pulse Ox 09/20/22 14:31 84 18 123/74 94 L 09/20/22 12:21 98.3 F 92 22 139/86 85 L Intake and Output 09/19/22 09/20/22 09/20/22 22:59 06:59 14:59 Other: Weight 115.666 kg Results CBC & Chem 7: 09/20/22 12:41 09/20/22 12:41 Labs: Abnormal Lab Results - Last 24 Hours (Table) 09/20/22 09/20/22 Range/Units 12:41 12:41 Carbon Dioxide 38 H (22-30) mmol/L Creatinine 0.61 L (0.66-1.25) mg/dL Glucose 115 H (74-99) mg/dL Urine Protein 1+ H (Negative) Urine Mucus Rare H (None) /hpf
[2022-09-20] MEDS: LOSARTAN 50 MG TAB PO SCH ×2 (21:44→21:47)
[2022-09-20] MEDS: DOXYCYCLINE 100 MG CAP PO SCH (21:44)
[2022-09-20] MEDS: LATANOPROST 0.005% OPHTH DROPS 2.5 ML BTL BOTH EYES SCH (21:45)
[2022-09-21] MEDS: IPRATROPIUM-ALBUTEROL 3 ML NEB INHALATION SCH ×4 (07:28→19:43)
[2022-09-21] MEDS: SYMBICORT 160-4.5 MCG INHALER INHALATION SCH ×2 (07:28→19:43)
[2022-09-21] MEDS ORDERED: IPRATROPIUM 0.5 MG/2.5 ML NEBU INHALATION SCH (08:00)
[2022-09-21 10:33] LABS: ABG Base Excess 13.2 mmol/L; ABG Oxygen Saturation 87.3 % (94-97); ABG PH 7.26 (7.35-7.45); ABG TCO2 43 mmol/L (19-24); Allen Test Performed? Yes
[2022-09-21 10:52] LABS: ABG PCO2 89 mmHg (35-45)
[2022-09-21] MEDS: DORZOLAMIDE HCL 2% DROPS 10 ML BTL BOTH EYES SCH ×3 (10:52→22:05)
[2022-09-21 10:53] LABS: ABG HCO3 40 mmol/L (21-25); ABG PO2 57 mmHg (83-108)
[2022-09-21] MEDS: TOBRA-DEXAMET 0.3-0.1% OPHTH DROPS 2.5 ML BTL BOTH EYES SCH ×4 (10:54→20:49)
[2022-09-21] MEDS: DOXYCYCLINE 100 MG CAP PO SCH ×2 (10:55→20:48)
[2022-09-21] MEDS: FUROSEMIDE 40 MG TAB PO SCH (10:56)
[2022-09-21] MEDS: predniSONE 20 MG TAB PO SCH (10:56)
[2022-09-21] MEDS: ENOXAPARIN 40 MG/0.4 ML SYRINGE SQ SCH (10:56)
[2022-09-21] MEDS: amLODIPine 5 MG TAB PO SCH (10:56)
[2022-09-21] MEDS: NICOTINE 14MG/24HR PATCH TRANSDERM PRN (13:36)
--- NOTE | 2022-09-21 13:42 | P.CNPUL ---
History of Present Illness Consult date: 09/21/22 Requesting physician: Guy Frank Reason for consult: COPD Chief complaint: Shortness of breath History of present illness: This is a 61-year-old obese male with a past medical history significant for severe oxygen dependent chronic obstructive pulmonary disease, pulmonary hypertension, coronary artery disease, current smoker, hypertension, osteoarthritis, anxiety, cellulitis and chronic lower extremity venous stasis and edema. He also has a history of 2.3 cm peripheral right lung nodule and a large right hilar lymph node measuring 2.4 x 2.4 cm. These have been followed in the outpatient setting in 1 smaller compared to previous exams on 05/23/2022. He has suspected obstructive sleep apnea as well however has not been able to follow up with the sleep Center. He presented here to the emergency room yesterday with increasing shortness of breath and low oxygen saturations. X-ray reveals a stable 2.4 cm right midlung pulmonary mass. No acute pulmonary process. There is some increased pulmonary lung markings. Possible pulmonary fibrosis. White count 8.1. Hemoglobin 15.5. Platelets 259. Sodium 144. Potassium 4.1. Bicarb 38. BUN 16. Creatinine 0.61. Glucose 115. ProBNP 84. Troponin negative 1. The patient was requiring 8 L high flow nasal cannula to maintain O2 saturations in the 90s throughout the night. He is seen today in consultation on the regular medical floor. ABGs were obtained and he was found to be hypoxemic/hypercapnic with a P O2 of 57, pCO2 of 89 and a pH of 7.26 on 50% FiO2. He was placed on BiPAP 12/6 and 50% FiO2 currently. Review of Systems REVIEW OF SYSTEMS: CONSTITUTIONAL: Denies any recent significant weight loss or weight gain. EYES: Denies change in vision. EARS, NOSE, MOUTH, THROAT: Denies headaches, denies sore throat. CARDIOVASCULAR: Denies chest pain, palpitations or syncopal episodes. RESPIRATORY: Positive for shortness of breath, cough, congestion no hemoptysis. GASTROINTESTINAL: Denies change in appetite, denies abdominal pain GENITOURINARY: Denies hematuria, denies infections. MUSKULOSKELETAL: Denies pain, denies swelling. INTEGUMENTARY: Denies rash, denies eczema. NEUROLOGICAL: Denies recent memory loss, no recent seizure activity. PSYCHIATRIC: Denies anxiety, denies depression. HEMATOLOGIC/LYMPHATIC: Denies anemia, denies enlarged lymph nodes. Past Medical History Past Medical History: Coronary Artery Disease (CAD), Hypertension, Osteoarthritis (OA), Pneumonia, Skin Disorder, Sleep Apnea/CPAP/BIPAP Additional Past Medical History / Comment(s): neuropathy History of Any Multi-Drug Resistant Organisms: None Reported Past Surgical History: Heart Catheterization With Stent Additional Past Surgical History / Comment(s): 2004 stenting of RCA, ccath 2004 with lesions 50%mid LAD and unstable RCA plaque-stented as mentioned-EF was 60%, quadricepts muscle bx, normal colonoscopy in 2013, colonoscopy with benign polypectomy in past. Past Anesthesia/Blood Transfusion Reactions: No Reported Reaction Date of Last Stent Placement:: 2004 Past Psychological History: Anxiety, Depression Additional Psychological History / Comment(s): Patient appears very discontent. Was wondering why he's gotten sick again after urination. Upon questioning he has very little insight as to his underlying health and how this may impact his current illnesses. We discussed his CPAP issue as above. He seems slightly agitated. He has not noted any is a current alcohol user though. Denied animal exposures. Smoking Status: Former smoker Past Alcohol Use History: Occasional Additional Past Alcohol Use History / Comment(s): Patient reports drinking a few beers once or twice a week. Past Drug Use History: Marijuana Additional Drug Use History / Comment(s): Patient reports smoking marijuana, uses it daily, intermittently for pain. - Past Family History Mother Family Medical History: Cancer Additional Family Medical History / Comment(s): Pt's mother at age 55 from lung cancer. She was a nonsmoker. Father Family Medical History: Hyperlipidemia, Hypertension Additional Family Medical History / Comment(s): Father at age 89 of natural causes. Sister(s) Family Medical History: Myocardial Infarction (UT) Additional Family Medical History / Comment(s): Pt has one sister who of possible UT at age 53yrs. Medications and Allergies Home Medications Medication Instructions Recorded Confirmed Type Losartan Potassium 100 mg PO HS 05/23/22 09/20/22 History Budesonide-Formot 160-4.5 Mcg 2 puff INHALATION RT-BID each 05/28/22 09/20/22 Rx [Symbicort 160-4.5 Mcg Inhaler] amLODIPine [Norvasc] 5 mg PO DAILY tab 05/28/22 09/20/22 Rx Cholecalciferol [Vitamin D3 (25 50 mcg PO DAILY 07/23/22 09/20/22 History Mcg = 1000 Iu)] Furosemide [Lasix] 40 mg PO DAILY 07/23/22 09/20/22 History Ibuprofen [Motrin] 600 mg PO QID PRN 07/23/22 09/20/22 History Latanoprost/Pf [Latanoprost 0.005% 1 drop BOTH EYES HS 07/23/22 09/20/22 History Eye Drop] Loratadine [Claritin] 10 mg PO DAILY PRN 07/23/22 09/20/22 History Nicotine 14Mg/24Hr Patch [Habitrol] 1 patch TRANSDERM DAILY PRN 07/23/22 09/20/22 History Umeclidinium [place] [Incruse 1 puff INHALATION RT-DAILY 07/23/22 09/20/22 History Ellipta] Acetaminophen Tab [Tylenol] 650 mg PO Q6HR PRN tab 07/27/22 09/20/22 Rx Albuterol Inhaler [Ventolin Hfa 2 puff INHALATION RT-QID PRN 09/20/22 09/20/22 History Inhaler] Brinzolamide [Azopt 1% Ophth Susp] 1 drop BOTH EYES TID 09/20/22 09/20/22 History Ocusoft Eyelid Cleansing Pads 1 applic TOPICAL HS 09/20/22 09/20/22 History Petrolatum, White [Aquaphor] 1 applic TOPICAL HS 09/20/22 09/20/22 History Tobramycin/Dexamethasone [Tobradex 1 drop BOTH EYES QID 09/20/22 09/20/22 History Ophth Susp] Triamcinolone 0.1% Cream [Kenalog 1 applicatio TOPICAL BID 09/20/22 09/20/22 History 0.1% Cream] Allergies Allergy/AdvReac Type Severity Reaction Status Date / Time Sulfa (Sulfonamide Allergy Rash on Verified 09/20/22 13:49 Antibiotics) arms Physical Exam Vitals: Vital Signs Temp Pulse Pulse Resp BP BP Pulse Ox 09/21/22 12:05 74 09/21/22 11:52 72 09/21/22 10:49 09/21/22 09:44 91 L 09/21/22 08:54 98 09/21/22 07:40 75 09/21/22 07:29 74 90 L 09/21/22 07:19 98.9 F 98 18 124/84 90 L 09/21/22 00:55 90 L 09/21/22 00:05 97.7 F 90 18 134/88 90 L 09/20/22 21:55 76 18 95 09/20/22 21:50 78 L 09/20/22 19:44 76 09/20/22 19:39 81 09/20/22 19:24 83 20 94 L 09/20/22 18:00 129/84 90 L 09/20/22 16:42 91 22 140/91 90 L 09/20/22 14:31 84 18 123/74 94 L 09/20/22 14:00 131/100 94 L FiO2 09/21/22 12:05 09/21/22 11:52 50 09/21/22 10:49 50 09/21/22 09:44 09/21/22 08:54 09/21/22 07:40 09/21/22 07:29 09/21/22 07:19 09/21/22 00:55 09/21/22 00:05 09/20/22 21:55 09/20/22 21:50 09/20/22 19:44 09/20/22 19:39 09/20/22 19:24 09/20/22 18:00 09/20/22 16:42 09/20/22 14:31 09/20/22 14:00 Intake and Output 09/20/22 09/21/22 09/21/22 22:59 06:59 14:59 Other: # Voids 1 # Bowel Movements 1 Weight 115.666 kg GENERAL EXAM: Alert, obese 61-year-old male patient, fairly comfortable in no apparent distress. HEAD: Normocephalic. EYES: Normal reaction of pupils, equal size. NOSE: Clear with pink turbinates. THROAT: No erythema or exudates. NECK: No masses, no JVD. CHEST: No chest wall deformity. LUNGS: Equal air entry with bilateral end expiratory wheeze. CVS: S1 and S2 normal with no audible murmur, regular rhythm. ABDOMEN: No hepatosplenomegaly, normal bowel sounds, no guarding or rigidity. SPINE: No scoliosis or deformity SKIN: No rashes. Changes of chronic venous stasis of the bilateral lower extremities CENTRAL NERVOUS SYSTEM: No focal deficits, tone is normal in all 4 extremities. EXTREMITIES: There is 1+ peripheral edema. No clubbing, no cyanosis. Peripheral pulses are intact.l Results - Laboratory Findings CBC and BMP: 09/20/22 12:41 09/20/22 12:41 ABG ABG pH 7.26 (7.35-7.45) L 09/21/22 10:30 ABG pCO2 89 mmHg (35-45) H* 09/21/22 10:30 ABG pO2 57 mmHg (83-108) L* 09/21/22 10:30 ABG O2 Saturation 87.3 % (94-97) L 09/21/22 10:30 PT/INR, D-dimer PT 9.6 sec (9.0-12.0) 09/20/22 12:41 INR 0.9 (<1.2) 09/20/22 12:41 Abnormal lab findings: Abnormal Labs 09/20/22 09/20/22 09/20/22 12:41 12:41 15:00 ABG pH ABG pCO2 ABG pO2 ABG HCO3 ABG Total CO2 ABG O2 Saturation VBG pH 7.43 H VBG pCO2 53 H VBG HCO3 35 H Carbon Dioxide 38 H Creatinine 0.61 L Glucose 115 H Urine Protein 1+ H Urine Mucus Rare H 09/21/22 10:30 ABG pH 7.26 L ABG pCO2 89 H* ABG pO2 57 L* ABG HCO3 40 H* ABG Total CO2 43 H ABG O2 Saturation 87.3 L VBG pH VBG pCO2 VBG HCO3 Carbon Dioxide Creatinine Glucose Urine Protein Urine Mucus - Diagnostic Findings Chest x-ray: image reviewed Assessment and Plan Assessment: Acute exacerbation of chronic obstructive pulmonary disease Acute on chronic hypoxemic and hypercapnic respiratory failure secondary to above. Patient was placed on BiPAP Obesity/hypoventilation syndrome, needing outpatient sleep study Pulmonary nodules. Chest CTA showed a right lower lobe 2.3 cm peripheral nodule with calcification that was demonstrated on prior exam on 05/23/2022, and a large right hilar lymph node measuring 2.4 x 2.4 cm which was also similar in size to prior exam. Chronic tobacco use Multiple remote left-sided rib fractures Hypertension Coronary artery disease with previous stenting of the right coronary artery Neuropathy Osteoarthritis Anxiety Plan: The patient was seen and evaluated Chest x-ray, labs, ABGs and medications reviewed Continue DuoNeb inhalations, Symbicort, prednisone Add BiPAP and titrate the FiO2 as tolerated Encouraged to keep his appointment for a sleep study Educated regarding the importance of complete smoking cessation NicoDerm patch in place Empiric antibiotics Lovenox for DVT prophylaxis Continue oral diuretics We will continue to follow and make further recommendations based on his clinical status I have personally seen and examined the patient, performed the documentation and the assessment and plan as written. Number of minutes spent on the visit: 20.
[2022-09-21] MEDS ORDERED: LORazepam 2 MG/ML INJ IV PRN (15:24)
[2022-09-21] MEDS ORDERED: methylPREDNISolone SOD SUCCI 125 MG/2 ML VIAL IV STA (15:39)
--- NOTE | 2022-09-21 15:45 | P.PN ---
Subjective Progress Note Date: 09/21/22 Hospital course: Patient is a 61-year-old male with a past medical history of COPD home oxygen dependent on 3 L "as needed", pulmonary nodule, obstructive sleep apnea, CAD with stent, and hypertension,. He presented to the emergency department on 09/20/22 per direction of his PCP secondary to increased shortness of breath and worsening hypoxia. Patient reports he has been experiencing this off and on over the past couple weeks and when he was at physical therapy this morning they noted his oxygen sats to be lower than normal and gave him a breathing treatment and called EMS for transfer to the hospital. Patient underwent full evaluation in the emergency department. Labs completed and reviewed. CBC, coags, and CMP were unremarkable with the exception of hypercarbia with carbon dioxide of 38. Chest x-ray showing a stable 2.4 cm right mid lung pulmonary mass corresponding to prior CT and negative for acute cardiopulmonary process. EKG showing normal sinus rhythm at 92 bpm with no noted T-wave or ST abnormalities showing no signs of acute ischemia upon personal review and interpretation. Patient admitted under our services of consultation to pulmonology. Overnight patient was found to be hypoxic with increasing oxygen needs. Patient was placed on high flow oxygen requiring 8 L O2 to maintain SpO2 greater than 90%. Morning of 09/21/22 patient had noted agitation and episodes of confusion believed to be secondary to hypercarbia. Order placed for stat ABGs which revealed respiratory acidosis with pH 7.26, pCO2 89 PaO2 57, and bicarb of 40. Patient placed on BiPAP at this time. Physical exam: Vital signs reviewed and stable. General: Nontoxic, no distress and appears stated age. Derm: Skin warm and dry, normal coloration for ethnicity. Head: Atraumatic, normocephalic and symmetric. Eyes: EOMs intact, no lid lag, and anicteric sclera Mouth: no lip lesions, mucus membranes moist Cardiovascular: regular rate and rhythm with normal S1S2, no murmur, positive posterior tibial pulses bilaterally, and cap refill < 2 seconds. Lungs: Respirations with increased effort, he liters high flow O2. Lungs diminished. Abdominal: Obese abdomen soft, nontender to palpation, no guarding, no appreciable organomegaly Ext: ROM intact. No gross muscle atrophy, no edema, no contractures Neuro: Speech clear, face symmetrical and CN II-XII grossly intact with no noted focal neuro deficits Psych: Alert and oriented to person and place but appears very agitated with episodes of confusion. Assessment and Plan of Care: COPD exacerbation Acute on chronic respiratory failure with hypoxia and hypercarbia. Respiratory acidosis Obstructive sleep apnea, patient reports he does not use CPAP or BiPAP -Labs completed and reviewed. ABGs ordered and upon completion labs reviewed revealing respiratory acidosis with pH 7.26, pCO2 89 PaO2 57, and bicarb of 40. Patient placed on BiPAP at this time. -Pulmonology following and discussed plan of care and in agreement with placement on BiPAP at this time. -Continue Telemetry monitoring. -Monitor Pulse-oximetry closely -Continue Duonebs scheduled for times daily and as needed for SOB and/or wheezing -Incentive Spirometry -Steroids: Prednisone discontinued and patient given Solu-Medrol 125 mg IVP 1 dose and to continue Solu-Medrol 40 mg IVP every 12 hours. -Antibiotics: Continue Empiric treatment with Doxycycline 100 mg by mouth twice daily 5 days CAD with stents Hypertension -Continue daily medication regimen with amlodipine and losartan. The patient is admitted with an anticipated less than 2 midnight stay for evaluation of shortness of breath, COPD exacerbation CODE STATUS: Full code DVT prophylaxis: Lovenox Discussed with: Patient, ED physician, and RN Anticipated discharge date: 24-[address]: Home Patient was seen independently by Nurse Practitioner. This document was prepared using [employer] dictation software. Please allow for errors in hay stacker while rare they do occur. Marquis Villatoro NP rendered care for this patient independently, reviewed the findings and plan as documented in the note above. I did not physically speak with or examine the patient on this date. Objective - Vital Signs Vital signs: Vital Signs Temp 98.9 F 09/21/22 07:19 Pulse 75 09/21/22 07:40 Resp 18 09/21/22 07:19 BP 124/84 09/21/22 07:19 Pulse Ox 90 L 09/21/22 07:29 FiO2 Intake & Output 09/20/22 09/21/22 09/21/22 18:59 06:59 18:59 Weight 115.666 kg 115.666 kg Other: # Voids 1 # Bowel Movements 1 - Labs CBC & Chem 7: 09/20/22 12:41 09/20/22 12:41 Labs: Abnormal Lab Results - Last 24 Hours (Table) 09/20/22 09/20/22 09/20/22 Range/Units 12:41 12:41 15:00 VBG pH 7.43 H (7.31-7.41) VBG pCO2 53 H (37-51) mmHg VBG HCO3 35 H (24-28) mmol/L Carbon Dioxide 38 H (22-30) mmol/L Creatinine 0.61 L (0.66-1.25) mg/dL Glucose 115 H (74-99) mg/dL Urine Protein 1+ H (Negative) Urine Mucus Rare H (None) /hpf
[2022-09-21] MEDS: HYDROcodone/APAP 5-325MG 1 EACH TAB PO PRN (20:45)
[2022-09-21] MEDS: LATANOPROST 0.005% OPHTH DROPS 2.5 ML BTL BOTH EYES SCH (20:49)
[2022-09-21] MEDS: LOSARTAN 50 MG TAB PO SCH (20:55)
[2022-09-22] MEDS: IPRATROPIUM-ALBUTEROL 3 ML NEB INHALATION SCH ×4 (09:09→19:59)
[2022-09-22] MEDS: SYMBICORT 160-4.5 MCG INHALER INHALATION SCH ×2 (09:09→20:05)
--- NOTE | 2022-09-22 09:53 | P.PN ---
Subjective Progress Note Date: 09/22/22 This is a 61-year-old obese male with a past medical history significant for severe oxygen dependent chronic obstructive pulmonary disease, pulmonary hypertension, coronary artery disease, current smoker, hypertension, osteoarthritis, anxiety, cellulitis and chronic lower extremity venous stasis and edema. He also has a history of 2.3 cm peripheral right lung nodule and a large right hilar lymph node measuring 2.4 x 2.4 cm. These have been followed in the outpatient setting in 1 smaller compared to previous exams on 05/23/2022. He has suspected obstructive sleep apnea as well however has not been able to follow up with the sleep Center. He presented here to the emergency room yesterday with increasing shortness of breath and low oxygen saturations. X-ray reveals a stable 2.4 cm right midlung pulmonary mass. No acute pulmonary process. There is some increased pulmonary lung markings. Possible pulmonary fibrosis. White count 8.1. Hemoglobin 15.5. Platelets 259. Sodium 144. Potassium 4.1. Bicarb 38. BUN 16. Creatinine 0.61. Glucose 115. ProBNP 84. Troponin negative 1. The patient was requiring 8 L high flow nasal cannula to maintain O2 saturations in the 90s throughout the night. He is seen today in consultation on the regular medical floor. ABGs were obtained and he was found to be hypoxemic/hypercapnic with a P O2 of 57, pCO2 of 89 and a pH of 7.26 on 50% FiO2. He was placed on BiPAP 12/6 and 50% FiO2 currently. The patient is seen today 09/22/2022 in follow-up on the regular medical floor. He is currently resting comfortably in bed. Awake and alert. He is on BiPAP 14/6 and 50% FiO2. Alternating with 8 L high flow nasal cannula for meals. He is continued on DuoNeb inhalations, Symbicort, IV Solu-Medrol. NicoDerm patch in place. Remains on empiric antibiotics in the form of Vibramycin. Oral diuretics. Objective - Vital Signs Vital signs: Vital Signs Temp 98.5 F 09/22/22 07:25 Pulse 88 09/22/22 09:23 Resp 16 09/22/22 07:25 BP 157/69 09/22/22 07:25 Pulse Ox 88 L 09/22/22 07:25 FiO2 60 09/22/22 09:07 Intake & Output 09/21/22 09/22/22 09/22/22 18:59 06:59 18:59 Output Total 200 300 Balance -200 -300 Output: Urine 200 300 Other: # Voids 1 2 - Exam GENERAL EXAM: Alert, oriented, obese 61-year-old male patient, currently on BiPAP, comfortable in no apparent distress. HEAD: Normocephalic. EYES: Normal reaction of pupils, equal size. NOSE: Clear with pink turbinates. THROAT: No erythema or exudates. NECK: No masses, no JVD. CHEST: No chest wall deformity. LUNGS: Equal air entry with bilateral end expiratory wheeze. CVS: S1 and S2 normal with no audible murmur, regular rhythm. ABDOMEN: No hepatosplenomegaly, normal bowel sounds, no guarding or rigidity. SPINE: No scoliosis or deformity SKIN: No rashes. Changes of chronic venous stasis of the bilateral lower extremities CENTRAL NERVOUS SYSTEM: No focal deficits, tone is normal in all 4 extremities. EXTREMITIES: There is 1+ peripheral edema. No clubbing, no cyanosis. Peripheral pulses are intact - Labs CBC & Chem 7: 09/20/22 12:41 09/20/22 12:41 Labs: Abnormal Lab Results - Last 24 Hours (Table) 09/21/22 Range/Units 10:30 ABG pH 7.26 L (7.35-7.45) ABG pCO2 89 H* (35-45) mmHg ABG pO2 57 L* (83-108) mmHg ABG HCO3 40 H* (21-25) mmol/L ABG Total CO2 43 H (19-24) mmol/L ABG O2 Saturation 87.3 L (94-97) % Assessment and Plan Assessment: Acute exacerbation of chronic obstructive pulmonary disease Acute on chronic hypoxemic and hypercapnic respiratory failure secondary to above. Patient was placed on BiPAP Obesity/hypoventilation syndrome, needing outpatient sleep study Pulmonary nodules. Chest CTA showed a right lower lobe 2.3 cm peripheral nodule with calcification that was demonstrated on prior exam on 05/23/2022, and a large right hilar lymph node measuring 2.4 x 2.4 cm which was also similar in size to prior exam. Chronic tobacco use Multiple remote left-sided rib fractures Hypertension Coronary artery disease with previous stenting of the right coronary artery Neuropathy Osteoarthritis Anxiety Plan: The patient was seen and evaluated Medications reviewed Continue DuoNeb inhalations, Symbicort, steroids Continue BiPAP 14/6 and 50% FiO2 Titrate the FiO2 as tolerated NicoDerm patch in place Empiric antibiotics Lovenox for DVT prophylaxis Continue diuretics We will continue to follow I have personally seen and examined the patient, performed the documentation and the assessment and plan as written. Number of minutes spent on the visit: 10.
--- NOTE | 2022-09-22 11:12 | P.PN ---
Subjective Progress Note Date: 09/22/22 Pts respiratory status still requiring rescue BIPAP. No new complaints today. Gen: awake, alert HEENT: normocephalic, atraumatic, good hearing acuity, moist mucous membranes Resp: good air exchange, breathing comfortably with no accessory muscle use CVS: good distal perfusion x 4, GI: soft, NTTP, ND : no SPT, no CVAT, schaeffer catheter not present MSK: no pitting edema, no clubbing Neuro: non-focal, moving all extremities Psych: cooperative, euthymic mood Hospital course: Patient is a 61-year-old male with a past medical history of COPD home oxygen dependent on 3 L "as needed", pulmonary nodule, obstructive sleep apnea, CAD with stent, and hypertension,. He presented to the emergency department on 09/20/22 per direction of his PCP secondary to increased shortness of breath and worsening hypoxia. Patient underwent full evaluation in the emergency department. Labs completed and reviewed. CBC, coags, and CMP were unremarkable with the exception of hypercarbia with carbon dioxide of 38. Chest x-ray showing a stable 2.4 cm right mid lung pulmonary mass corresponding to prior CT and negative for acute cardiopulmonary process. EKG showing normal sinus rhythm at 92 bpm with no noted T-wave or ST abnormalities showing no signs of acute ischemia upon personal review and interpretation. Patient admitted under our services of consultation to pulmonology. Over the first night of hospit alization, patient was found to be hypoxic with increasing oxygen needs. Patient was placed on high flow oxygen requiring 8 L O2 to maintain SpO2 greater than 90%. On the morning of 09/21/22 patient had noted agitation and episodes of confusion believed to be secondary to hypercarbia. Order placed for stat ABGs which revealed respiratory acidosis with pH 7.26, pCO2 89 PaO2 57, and bicarb of 40. Patient placed on BiPAP, and was still requiring this by 09/22 morning. Assessment: Acute on chronic respiratory failure with hypoxia and hypercarbia COPD exacerbation Chronic diastolic heart failure Obstructive sleep apnea Coronary artery disease Hypertension Hyperlipidemia Plan: Today, patient was afebrile, 157/69, heart rate 101, transitioned from BiPAP to high flow nasal cannula with FiO2 of 60%, 8 L of oxygen, saturating 88% Case discussed with respiratory therapy, charge nurse; if patient continues to require rescue BiPAP, we will escalate him to 3 S. selective care Ordered repeat labs today: CBC, basic metabolic panel, magnesium Order labs for tomorrow: CBC, basic metabolic panel, magnesium Continue Symbicort 2 puffs twice a day, scheduled DuoNeb's Continue Solu-Medrol 40 mg every 12 hours Continue doxycycline 100 mg twice a day Continue Lasix 40 mg daily Patient is full code DVT prophylaxis with Lovenox 40 mg subcu daily Objective - Vital Signs Vital signs: Vital Signs Temp 98.5 F 09/22/22 07:25 Pulse 88 09/22/22 09:23 Resp 16 09/22/22 07:25 BP 157/69 09/22/22 07:25 Pulse Ox 88 L 09/22/22 07:25 FiO2 60 09/22/22 09:07 Intake & Output 09/21/22 09/22/22 09/22/22 18:59 06:59 18:59 Output Total 200 300 Balance -200 -300 Output: Urine 200 300 Other: # Voids 1 2 - Labs CBC & Chem 7: 09/20/22 12:41 09/20/22 12:41
[2022-09-22] MEDS: amLODIPine 5 MG TAB PO SCH (11:54)
[2022-09-22] MEDS: FUROSEMIDE 40 MG TAB PO SCH (11:54)
[2022-09-22] MEDS: methylPREDNISolone SOD SUCCI 40 MG/ML 1 ML VIAL IV SCH ×2 (11:55→23:37)
[2022-09-22] MEDS: DOXYCYCLINE 100 MG CAP PO SCH ×2 (11:55→23:27)
[2022-09-22] MEDS: ENOXAPARIN 40 MG/0.4 ML SYRINGE SQ SCH (11:55)
[2022-09-22] MEDS: DORZOLAMIDE HCL 2% DROPS 10 ML BTL BOTH EYES SCH ×4 (11:56→23:50)
[2022-09-22] MEDS: TOBRA-DEXAMET 0.3-0.1% OPHTH DROPS 2.5 ML BTL BOTH EYES SCH ×5 (11:57→23:50)
[2022-09-22 12:11] LABS: Basophils % (A) 0 %; Eosinophils # (A) 0.1 k/uL (0-0.7); Eosinophils % (A) 1 %; HCT 53.3 % (39.0-53.0); HGB 15.9 gm/dL (13.0-17.5); Hypochromasia Marked; Lymphocytes # (A) 0.7 k/uL (1.0-4.8); Lymphocytes % (A) 9 %; MCH 30.1 pg (25.0-35.0); MCHC 29.9 g/dL (31.0-37.0); MCV 100.8 fL (80.0-100.0); Macrocytosis Slight; Mean Platelet Volume 7.6; Monocytes # (A) 0.7 k/uL (0-1.0); Monocytes % (A) 9 %; Neutrophils # (A) 6.3 k/uL (1.3-7.7); Neutrophils % (A) 79 %; Platelet Count 289 k/uL (150-450); RBC 5.29 m/uL (4.30-5.90); RDW 14.4 % (11.5-15.5); WBC 7.9 k/uL (3.8-10.6)
[2022-09-22 12:19] LABS: African American GFR (CKD) >90 (>60 ml/min/1.73 sqM); Blood Urea Nitrogen 17 mg/dL (9-20); Chloride 99 mmol/L (98-107); Glucose 109 mg/dL (74-99); Magnesium 2.3 mg/dL (1.6-2.3); Non-African American GFR(CKD) >90 (>60 ml/min/1.73 sqM); Potassium 4.9 mmol/L (3.5-5.1); Sodium 143 mmol/L (137-145)
[2022-09-22 12:28] LABS: Anion Gap 6 mmol/L
[2022-09-22 12:32] LABS: Carbon Dioxide 38 mmol/L (22-30)
[2022-09-22] MEDS: HYDROcodone/APAP 5-325MG 1 EACH TAB PO PRN (17:38)
[2022-09-22 21:18] LABS: Glucose,Whole Blood 212 mg/dL (70-110)
[2022-09-22 21:22] LABS: ABG PO2 113 mmHg (83-108); Allen Test Performed? Yes
[2022-09-22 21:28] LABS: ABG PCO2 >120 mmHg (35-45); ABG PH 7.17 (7.35-7.45)
[2022-09-22] MEDS ORDERED: propofoL 100 ML IV ONE (21:51)
[2022-09-22 22:32] LABS: ABG Base Excess 17.7 mmol/L; ABG PH 7.23 (7.35-7.45); ABG PO2 67 mmHg (83-108); ABG TCO2 49 mmol/L (19-24); Allen Test Performed? Yes
[2022-09-22 22:37] LABS: ABG HCO3 45 mmol/L (21-25); ABG PCO2 109 mmHg (35-45)
[2022-09-22] MEDS: LOSARTAN 50 MG TAB PO SCH (23:27)
--- NOTE | 2022-09-22 23:32 | XR ---
EXAMINATION TYPE: XR chest 1V portable DATE OF EXAM: 09/22/2022 COMPARISON: 09/20/2022 INDICATION: Tube placement TECHNIQUE: Single frontal view of the chest is obtained. FINDINGS: The peripheral 2.4 cm density remains present right lateral lung. The right diaphragm appears more el evated than previous. Patient is rotated towards the left. Heart size is at the upper limits of coretta l. Pulmonary vasculature is slightly prominent. There is mild diffuse groundglass opacity may partial ly be related to the patient's rotation. IMPRESSION: 1. There may be some early volume overload. Clinical correlation recommended. 2. Faint visualization of right lung nodule.
[2022-09-22] MEDS: LATANOPROST 0.005% OPHTH DROPS 2.5 ML BTL BOTH EYES SCH (23:49)
[2022-09-23 06:03] LABS: ABG Base Excess 17.8 mmol/L; ABG Oxygen Saturation 93.9 % (94-97); ABG PH 7.27 (7.35-7.45); ABG PO2 69 mmHg (83-108); ABG TCO2 48 mmol/L (19-24); Allen Test Performed? Yes
[2022-09-23 06:08] LABS: ABG HCO3 45 mmol/L (21-25); ABG PCO2 97 mmHg (35-45)
[2022-09-23] MEDS: IPRATROPIUM-ALBUTEROL 3 ML NEB INHALATION SCH ×4 (08:35→19:55)
[2022-09-23] MEDS: SYMBICORT 160-4.5 MCG INHALER INHALATION SCH ×2 (08:35→19:55)
[2022-09-23] MEDS ORDERED: CHLORHEXIDINE GLUCONATE 15 ML CUP MUCOUS MEM SCH (09:00)
[2022-09-23 09:27] LABS: Basophils # (A) 0.01 X 10*3/uL (0.00-0.10); Basophils % (A) 0.1 %; Eosinophils # (A) 0 X 10*3/uL (0.04-0.35); Eosinophils % (A) 0 %; HCT 54.1 % (39.6-50.0); HGB 15.5 d/dL (12.0-15.0); Lymphocytes # (A) 0.54 X 10*3/uL (0.90-5.00); MCH 29.6 pg (27.0-32.0); MCHC 28.7 d/dL (32.0-37.0); MCV 103.4 FL (80.0-97.0); Mean Platelet Volume 10.1 FL (9.5-12.2); Monocytes # (A) 0.31 X 10*3/uL (0.20-1.00); Monocytes % (A) 3.4 %; NRBC Per 100 WBC 0 X 10*3/uL (0.00-0.01); Neutrophils # (A) 8.08 X 10*3/uL (1.80-7.70); Neutrophils % (A) 89.9 %; Platelet Count 326 X 10*3/uL (140-440); RBC 5.23 X 10*6/uL (4.40-5.60); RDW 14.4 % (11.5-14.5); WBC 8.99 X 10*3/uL (4.50-10.00)
[2022-09-23] MEDS: DOXYCYCLINE 100 MG CAP PO SCH ×2 (09:36→19:58)
[2022-09-23] MEDS: methylPREDNISolone SOD SUCCI 40 MG/ML 1 ML VIAL IV SCH ×2 (09:36→19:59)
[2022-09-23] MEDS: amLODIPine 5 MG TAB PO SCH (09:36)
[2022-09-23] MEDS: ENOXAPARIN 40 MG/0.4 ML SYRINGE SQ SCH (09:36)
[2022-09-23] MEDS: FUROSEMIDE 40 MG TAB PO SCH (09:36)
[2022-09-23 10:16] LABS: Blood Urea Nitrogen 17.2 mg/dL (9.0-27.0); Calcium 9.7 mg/dL (8.7-10.3); Carbon Dioxide 38.6 mmol/L (21.6-31.8); Chloride 97 mmol/L (96-109); Glucose 120 mg/dL (70-110); Magnesium 2.3 mg/dL (1.5-2.4); Potassium 5.6 mmol/L (3.5-5.5); Sodium 144 mmol/L (135-145)
--- NOTE | 2022-09-23 10:39 | P.PN ---
Subjective Progress Note Date: 09/23/22 Pts respiratory status still requiring rescue BIPAP. He was transitioned from the floor to ICU yesterday due to worsening hypercarbia and obtundation. Gen: awake, alert HEENT: normocephalic, atraumatic, good hearing acuity, moist mucous membranes Resp: good air exchange, breathing comfortably with no accessory muscle use CVS: good distal perfusion x 4, GI: soft, NTTP, ND : no SPT, no CVAT, schaeffer catheter not present MSK: no pitting edema, no clubbing Neuro: non-focal, moving all extremities Psych: cooperative, euthymic mood Hospital course: Patient is a 61-year-old male with a past medical history of COPD home oxygen dependent on 3 L "as needed", pulmonary nodule, obstructive sleep apnea, CAD with stent, and hypertension,. He presented to the emergency department on 09/20/22 per direction of his PCP secondary to increased shortness of breath and worsening hypoxia. Patient underwent full evaluation in the emergency department. Labs completed and reviewed. CBC, coags, and CMP were unremarkable with the exception of hypercarbia with carbon dioxide of 38. Chest x-ray showing a stable 2.4 cm right mid lung pulmonary mass corresponding to prior CT and negative for acute cardiopulmonary process. EKG showing normal sinus rhythm at 92 bpm with no noted T-wave or ST abnormalities showing no signs of acute ischemia upon personal review and interpretation. Patient admitted under our services of consultation to pulmonology. Over the first night of hospitalization, patient was found to be hypoxic with increasing oxygen needs. Patient was placed on high flow oxygen requiring 8 L O2 to maintain SpO2 greater than 90%. On the morning of 09/21/22 patient had noted agitation and episodes of confusion believed to be secondary to hypercarbia. Order placed for stat ABGs which revealed respiratory acidosis with pH 7.26, pCO2 89 PaO2 57, and bicarb of 40. Patient placed on BiPAP, and was still requiring this by 09/22 morning. Assessment: Acute on chronic respiratory failure with hypoxia and hypercarbia COPD exacerbation Chronic diastolic heart failure Obstructive sleep apnea Coronary artery disease Hypertension Hyperlipidemia Plan: Today, patient was afebrile, 140/98, heart rate 73, rescue BIPAP in the ICU saturating 96% Case discussed with pulmonology, patient will remain on BIPAP, is borderline requiring intubation, will adjust settings today CXR independently interpreted, appears to have volume overload Order labs for tomorrow: CBC, basic metabolic panel, magnesium Continue Symbicort 2 puffs twice a day, scheduled DuoNeb's Continue Solu-Medrol 40 mg every 12 hours Continue doxycycline 100 mg twice a day Change Lasix to IV at dose of 60 mg daily Patient is full code DVT prophylaxis with Lovenox 40 mg subcu daily Objective - Vital Signs Vital signs: Vital Signs Temp 98.3 F 09/23/22 04:00 Pulse 84 09/23/22 08:48 Resp 17 09/23/22 06:00 BP 140/98 09/23/22 06:00 Pulse Ox 96 09/23/22 06:00 FiO2 40 09/23/22 08:33 Intake & Output 09/22/22 09/23/22 09/23/22 18:59 06:59 18:59 Output Total 250 0 Balance -250 0 Weight 116.4 kg Output: Urine 250 0 Other: Voiding Method Incontinent Incontinent # Voids 2 # Bowel Movements 1 - Labs CBC & Chem 7: 09/23/22 04:10 09/23/22 04:10 Labs: Abnormal Lab Results - Last 24 Hours (Table) 09/22/22 09/22/22 09/22/22 Range/Units 11:42 11:42 21:16 Hgb (12.0-15.0) d/dL Hct 53.3 H (39.0-53.0) % MCV 100.8 H (80.0-100.0) fL MCHC 29.9 L (31.0-37.0) g/dL Neutrophils # (1.80-7.70) X 10*3/uL Lymphocytes # 0.7 L (1.0-4.8) k/uL Eosinophils # (0.04-0.35) X 10*3/uL ABG pH (7.35-7.45) ABG pCO2 (35-45) mmHg ABG pO2 (83-108) mmHg ABG HCO3 (21-25) mmol/L ABG Total CO2 (19-24) mmol/L ABG O2 Saturation (94-97) % Potassium (3.5-5.5) mmol/L Carbon Dioxide 38 H (22-30) mmol/L Creatinine 0.47 L (0.66-1.25) mg/dL BUN/Creatinine Ratio (12.00-20.00) Ratio Glucose 109 H (74-99) mg/dL POC Glucose (mg/dL) 212 H (70-110) mg/dL 09/22/22 09/22/22 09/23/22 Range/Units 21:20 22:28 04:10 Hgb 15.5 H (12.0-15.0) d/dL Hct 54.1 H (39.0-53.0) % MCV 103.4 H (80.0-100.0) fL MCHC 28.7 L (31.0-37.0) g/dL Neutrophils # 8.08 H (1.80-7.70) X 10*3/uL Lymphocytes # 0.54 L (1.0-4.8) k/uL Eosinophils # 0 L (0.04-0.35) X 10*3/uL ABG pH 7.17 L* 7.23 L (7.35-7.45) ABG pCO2 >120 H* 109 H* (35-45) mmHg ABG pO2 113 H 67 L (83-108) mmHg ABG HCO3 45 H* (21-25) mmol/L ABG Total CO2 49 H (19-24) mmol/L ABG O2 Saturation 98.0 H 93.0 L (94-97) % Potassium (3.5-5.5) mmol/L Carbon Dioxide (22-30) mmol/L Creatinine (0.66-1.25) mg/dL BUN/Creatinine Ratio (12.00-20.00) Ratio Glucose (74-99) mg/dL POC Glucose (mg/dL) (70-110) mg/dL 09/23/22 09/23/22 Range/Units 04:10 06:03 Hgb (12.0-15.0) d/dL Hct (39.0-53.0) % MCV (80.0-100.0) fL MCHC (31.0-37.0) g/dL Neutrophils # (1.80-7.70) X 10*3/uL Lymphocytes # (1.0-4.8) k/uL Eosinophils # (0.04-0.35) X 10*3/uL ABG pH 7.27 L (7.35-7.45) ABG pCO2 97 H* (35-45) mmHg ABG pO2 69 L (83-108) mmHg ABG HCO3 45 H* (21-25) mmol/L ABG Total CO2 48 H (19-24) mmol/L ABG O2 Saturation 93.9 L (94-97) % Potassium 5.6 H (3.5-5.5) mmol/L Carbon Dioxide 38.6 H (22-30) mmol/L Creatinine 0.5 L (0.66-1.25) mg/dL BUN/Creatinine Ratio 34.40 H (12.00-20.00) Ratio Glucose 120 H (74-99) mg/dL POC Glucose (mg/dL) (70-110) mg/dL
[2022-09-23] MEDS ORDERED: FUROSEMIDE 10 MG/ML 10 ML VIAL IV SCH (10:45)
--- NOTE | 2022-09-23 10:51 | XR ---
EXAMINATION TYPE: XR chest 1V portable DATE OF EXAM: 09/23/2022 COMPARISON: 09/22/2022 INDICATION: Tube placement TECHNIQUE: Single frontal view of the chest is obtained. FINDINGS: The heart size is mildly prominent. The pulmonary vasculature is normal. Density at the right base is again evident. IMPRESSION: 1. Persistent right lower lobe density. 2. Mild cardiomegaly
[2022-09-23] MEDS ORDERED: FUROSEMIDE 10 MG/ML 4 ML VIAL IV STA (11:11)
[2022-09-23] MEDS ORDERED: FUROSEMIDE 10 MG/ML 4 ML VIAL IV SCH (11:15)
[2022-09-23] MEDS: NICOTINE 14MG/24HR PATCH TRANSDERM PRN (12:09)
[2022-09-23] MEDS: DORZOLAMIDE HCL 2% DROPS 10 ML BTL BOTH EYES SCH ×3 (12:10→21:19)
[2022-09-23] MEDS: TOBRA-DEXAMET 0.3-0.1% OPHTH DROPS 2.5 ML BTL BOTH EYES SCH ×4 (12:10→21:19)
--- NOTE | 2022-09-23 12:35 | P.PN ---
Subjective Progress Note Date: 09/23/22 Principal diagnosis: Acute on chronic hypoxic and hypercapnic respiratory failure, multifactorial. This is a 61-year-old obese male with a past medical history significant for sev ere oxygen dependent chronic obstructive pulmonary disease, pulmonary hypertension, coronary artery disease, current smoker, hypertension, osteoarthritis, anxiety, cellulitis and chronic lower extremity venous stasis and edema. He also has a history of 2.3 cm peripheral right lung nodule and a large right hilar lymph node measuring 2.4 x 2.4 cm. These have been followed in the outpatient setting in 1 smaller compared to previous exams on 05/23/2022. He has suspected obstructive sleep apnea as well however has not been able to follow up with the sleep Center. He presented here to the emergency room yesterday with increasing shortness of breath and low oxygen saturations. X-ray reveals a stable 2.4 cm right midlung pulmonary mass. No acute pulmonary process. There is some increased pulmonary lung markings. Possible pulmonary fibrosis. White count 8.1. Hemoglobin 15.5. Platelets 259. Sodium 144. Potassium 4.1. Bicarb 38. BUN 16. Creatinine 0.61. Glucose 115. ProBNP 84. Troponin negative 1. The patient was requiring 8 L high flow nasal cannula to maintain O2 saturations in the 90s throughout the night. He is seen today in consultation on the regular medical floor. ABGs were obtained and he was found to be hypoxemic/hypercapnic with a P O2 of 57, pCO2 of 89 and a pH of 7.26 on 50% FiO2. He was placed on BiPAP 12/6 and 50% FiO2 currently. The patient is seen today 09/22/2022 in follow-up on the regular medical floor. He is currently resting comfortably in bed. Awake and alert. He is on BiPAP 14/6 and 50% FiO2. Alternating with 8 L high flow nasal cannula for meals. He is continued on DuoNeb inhalations, Symbicort, IV Solu-Medrol. NicoDerm patch in place. Remains on empiric antibiotics in the form of Vibramycin. Oral diuretics. Reevaluated today on 09/23/2022, patient was transferred yesterday to the ICU mostly because of his worsening obtundation and mental status, worsening hypercapnia and worsening respiratory acidosis. Patient was almost got intubated however after transit the ICU and close monitoring on BiPAP, his ABG improved, and his mental status improved hence held back on intubation and mechanical ventilation. Today the patient is on BiPAP with IPAP of 16 EPAP of 6 FiO2 was at 40% and I cut it down to 30%. ABG earlier showed a pO2 of 69 pCO2 97 pH of 7.27 and this was on 40%. Patient is much better this morning, awake, alert and oriented 3. WBC count is 8.9 hemoglobin 15.5 basic metabolic profile is normal except potassium of 5.6 and that is mostly related to his respiratory acidosis with pH of 7.27 this morning his bicarb is 39 chest x-ray this morning continues to show mild cardiomegaly, and the right lung nodule which is being monitored and followed on outpatient basis. Objective - Vital Signs Vital signs: Vital Signs Temp 98.3 F 09/23/22 04:00 Pulse 84 09/23/22 11:53 Resp 17 09/23/22 11:00 BP 175/114 09/23/22 11:00 Pulse Ox 88 L 09/23/22 11:00 FiO2 40 09/23/22 11:44 Intake & Output 09/22/22 09/23/22 09/23/22 18:59 06:59 18:59 Intake Total 200 Output Total 250 980 Balance -250 -780 Weight 116.4 kg Intake: Oral 200 Output: Urine 250 980 Other: Voiding Method Incontinent Incontinent Indwelling Catheter # Voids 2 # Bowel Movements 1 - Exam Physical Exam: Revealed 61-year-old white male obese on BiPAP, not in distress. Head: Atraumatic, normocephalic. HEENT:[Neck is supple.] [No neck masses.] [No thyromegaly.] [No JVD.] Patient has short obese neck, Mallampati class IV Chest: [Diminished breath sound bilaterally symmetrical chest expansion normal and no wheezes. Cardiac Exam: [Normal S1 and S2, no S3 gallop, no murmur.] Abdomen: [Morbidly obese, Soft, nontender, no megaly, no rebound, no guarding, normal bowel sounds.] Extremities: [No clubbing, trace of bipedal no cyanosis.] Good pulses bilat erally. Neurological Exam: Alert and oriented 3. [No focal neurologic deficit.] Psychiatric: Normal mood, affect and normal mental status examination. Skin: No rashes. - Labs CBC & Chem 7: 09/23/22 04:10 09/23/22 04:10 Labs: Abnormal Lab Results - Last 24 Hours (Table) 09/22/22 09/22/22 09/22/22 Range/Units 11:42 21:16 21:20 Hgb (12.0-15.0) d/dL Hct (39.6-50.0) % MCV (80.0-97.0) FL MCHC (32.0-37.0) d/dL Neutrophils # (1.80-7.70) X 10*3/uL Lymphocytes # (0.90-5.00) X 10*3/uL Eosinophils # (0.04-0.35) X 10*3/uL ABG pH 7.17 L* (7.35-7.45) ABG pCO2 >120 H* (35-45) mmHg ABG pO2 113 H (83-108) mmHg ABG HCO3 (21-25) mmol/L ABG Total CO2 (19-24) mmol/L ABG O2 Saturation 98.0 H (94-97) % Potassium (3.5-5.5) mmol/L Carbon Dioxide 38 H (22-30) mmol/L Creatinine 0.47 L (0.66-1.25) mg/dL BUN/Creatinine Ratio (12.00-20.00) Ratio Glucose 109 H (74-99) mg/dL POC Glucose (mg/dL) 212 H (70-110) mg/dL 09/22/22 09/23/22 09/23/22 Range/Units 22:28 04:10 04:10 Hgb 15.5 H (12.0-15.0) d/dL Hct 54.1 H (39.6-50.0) % MCV 103.4 H (80.0-97.0) FL MCHC 28.7 L (32.0-37.0) d/dL Neutrophils # 8.08 H (1.80-7.70) X 10*3/uL Lymphocytes # 0.54 L (0.90-5.00) X 10*3/uL Eosinophils # 0 L (0.04-0.35) X 10*3/uL ABG pH 7.23 L (7.35-7.45) ABG pCO2 109 H* (35-45) mmHg ABG pO2 67 L (83-108) mmHg ABG HCO3 45 H* (21-25) mmol/L ABG Total CO2 49 H (19-24) mmol/L ABG O2 Saturation 93.0 L (94-97) % Potassium 5.6 H (3.5-5.5) mmol/L Carbon Dioxide 38.6 H (22-30) mmol/L Creatinine 0.5 L (0.66-1.25) mg/dL BUN/Creatinine Ratio 34.40 H (12.00-20.00) Ratio Glucose 120 H (74-99) mg/dL POC Glucose (mg/dL) (70-110) mg/dL 09/23/22 Range/Units 06:03 Hgb (12.0-15.0) d/dL Hct (39.6-50.0) % MCV (80.0-97.0) FL MCHC (32.0-37.0) d/dL Neutrophils # (1.80-7.70) X 10*3/uL Lymphocytes # (0.90-5.00) X 10*3/uL Eosinophils # (0.04-0.35) X 10*3/uL ABG pH 7.27 L (7.35-7.45) ABG pCO2 97 H* (35-45) mmHg ABG pO2 69 L (83-108) mmHg ABG HCO3 45 H* (21-25) mmol/L ABG Total CO2 48 H (19-24) mmol/L ABG O2 Saturation 93.9 L (94-97) % Potassium (3.5-5.5) mmol/L Carbon Dioxide (22-30) mmol/L Creatinine (0.66-1.25) mg/dL BUN/Creatinine Ratio (12.00-20.00) Ratio Glucose (74-99) mg/dL POC Glucose (mg/dL) (70-110) mg/dL Assessment and Plan Assessment: Impression: Acute on chronic hypoxic and hypercapnic respiratory failure Acute exacerbation of COPD Obesity/hypoventilation syndrome Chronic tobacco use History of left sided rib fractures/remote History of pulmonary nodule, being addressed on an outpatient basis, will definitely need 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 Aragon in the past. Coronary arteriosclerosis and previous stenting of RCA Morbid obesity, BMI of 37 Generalized anxiety disorder Recommendation: Continue to monitor in the ICU Continue BiPAP 16/6/30% Continue DuoNeb and Symbicort as well as steroids Continue NicoDerm patch Continue antibiotics empirically Continue GI and DVT prophylaxis Continue diuretics We will continue to follow Overall prognosis remains poor and guarded Time with Patient: Less than 30
[2022-09-23 13:13] LABS: Glucose,Whole Blood 175 mg/dL (70-110)
[2022-09-23] MEDS ORDERED: DEXTROSE 50% SYRINGE 50 ML IVP PRN ×2 (16:59)
[2022-09-23 17:43] LABS: Glucose,Whole Blood 155 mg/dL (70-110)
[2022-09-23] MEDS: INSULIN ASPART (NovoLOG) 100 UNIT/ML VIAL SQ SCH ×2 (17:43→20:00)
[2022-09-23 19:56] LABS: Glucose,Whole Blood 211 mg/dL (70-110)
[2022-09-23] MEDS: ACETAMINOPHEN TAB 325 MG TAB PO PRN (19:56)
[2022-09-23] MEDS: LOSARTAN 50 MG TAB PO SCH (19:58)
[2022-09-23] MEDS: LATANOPROST 0.005% OPHTH DROPS 2.5 ML BTL BOTH EYES SCH (21:19)
[2022-09-24] MEDS: HYDROcodone/APAP 5-325MG 1 EACH TAB PO PRN (00:48)
[2022-09-24 05:26] LABS: Glucose,Whole Blood 147 mg/dL (70-110)
[2022-09-24 06:29] LABS: Basophils % (A) 0 %; Eosinophils % (A) 1 %; HCT 51.9 % (39.0-53.0); Hypochromasia Slight; Lymphocytes # (A) 0.5 k/uL (1.0-4.8); Lymphocytes % (A) 6 %; MCH 29.7 pg (25.0-35.0); MCHC 30.8 g/dL (31.0-37.0); MCV 96.5 fL (80.0-100.0); Mean Platelet Volume 7.6; Monocytes # (A) 0.4 k/uL (0-1.0); Monocytes % (A) 4 %; Neutrophils % (A) 88 %; Platelet Count 281 k/uL (150-450); RBC 5.38 m/uL (4.30-5.90); RDW 14.4 % (11.5-15.5)
[2022-09-24 06:31] LABS: Glucose,Whole Blood 130 mg/dL (70-110)
[2022-09-24 06:34] LABS: African American GFR (CKD) >90 (>60 ml/min/1.73 sqM); Blood Urea Nitrogen 26 mg/dL (9-20); Calcium 8.8 mg/dL (8.4-10.2); Chloride 90 mmol/L (98-107); Glucose 135 mg/dL (74-99); Magnesium 2.3 mg/dL (1.6-2.3); Non-African American GFR(CKD) >90 (>60 ml/min/1.73 sqM); Potassium 4.3 mmol/L (3.5-5.1); Sodium 140 mmol/L (137-145)
[2022-09-24 06:40] LABS: Anion Gap 4 mmol/L
[2022-09-24 06:44] LABS: Carbon Dioxide 46 mmol/L (22-30)
[2022-09-24] MEDS: INSULIN ASPART (NovoLOG) 100 UNIT/ML VIAL SQ SCH ×4 (06:45→21:43)
[2022-09-24] MEDS: IPRATROPIUM-ALBUTEROL 3 ML NEB INHALATION SCH ×4 (08:56→20:37)
[2022-09-24] MEDS: SYMBICORT 160-4.5 MCG INHALER INHALATION SCH ×2 (08:57→20:37)
[2022-09-24] MEDS: FUROSEMIDE 10 MG/ML 10 ML VIAL IV SCH (09:00)
[2022-09-24] MEDS: ENOXAPARIN 40 MG/0.4 ML SYRINGE SQ SCH (09:01)
[2022-09-24] MEDS: methylPREDNISolone SOD SUCCI 40 MG/ML 1 ML VIAL IV SCH ×2 (09:02→22:06)
[2022-09-24] MEDS: amLODIPine 5 MG TAB PO SCH (09:03)
[2022-09-24] MEDS: DOXYCYCLINE 100 MG CAP PO SCH ×2 (09:03→22:50)
[2022-09-24] MEDS: TOBRA-DEXAMET 0.3-0.1% OPHTH DROPS 2.5 ML BTL BOTH EYES SCH ×4 (09:17→22:03)
[2022-09-24] MEDS: DORZOLAMIDE HCL 2% DROPS 10 ML BTL BOTH EYES SCH ×3 (09:19→22:03)
--- NOTE | 2022-09-24 09:24 | P.PN ---
Subjective Progress Note Date: 09/24/22 Pts respiratory status has improved and he has been weaned to nasal cannula after increased diuretic dosing. Gen: awake, alert HEENT: normocephalic, atraumatic, good hearing acuity, moist mucous membranes Resp: good air exchange, breathing comfortably with no accessory muscle use CVS: good distal perfusion x 4, GI: soft, NTTP, ND : no SPT, no CVAT, schaeffer catheter not present MSK: no pitting edema, no clubbing Neuro: non-focal, moving all extremities Psych: cooperative, euthymic mood Hospital course: Patient is a 61-year-old male with a past medical history of COPD home oxygen dependent on 3 L "as needed", pulmonary nodule, obstructive sleep apnea, CAD with stent, and hypertension,. He presented to the emergency department on 09/20/22 per direction of his PCP secondary to increased shortness of breath and worsening hypoxia. Patient underwent full evaluation in the emergency department. Labs completed and reviewed. CBC, coags, and CMP were unremarkable with the exception of hypercarbia with carbon dioxide of 38. Chest x-ray showing a stable 2.4 cm right mid lung pulmonary mass corresponding to prior CT and negative for acute cardiopulmonary process. EKG showing normal sinus rhythm at 92 bpm with no noted T-wave or ST abnormalities showing no signs of acute ischemia upon personal review and interpretation. Patient admitted under our services of consultation to pulmonology. Over the first night of hospitalization, patient was found to be hypoxic with increasing oxygen needs. Patient was placed on high flow oxygen requiring 8 L O2 to maintain SpO2 greater than 90%. On the morning of 09/21/22 patient had noted agitation and episodes of confusion believed to be secondary to hypercarbia. Order placed for stat ABGs which revealed respiratory acidosis with pH 7.26, pCO2 89 PaO2 57, and bicarb of 40. Patient placed on BiPAP, and was still requiring by 09/23 morning. Lasix was increased to IV dosing, and patient was weaned to 3L NC by 09/24. Assessment: Acute on chronic respiratory failure with hypoxia and hypercarbia COPD exacerbation Chronic diastolic heart failure Obstructive sleep apnea Coronary artery disease Hypertension Hyperlipidemia Plan: Today, patient was afebrile, 141/94, heart rate 75, 92% on 2L NC. CBC is unremarkable. BMP shows Cl of 90, CO2 of 46, BUN of 26, Cr of 0.6 Order labs for tomorrow: CBC, basic metabolic panel, magnesium Continue Symbicort 2 puffs twice a day, scheduled DuoNeb's Continue Solu-Medrol 40 mg every 12 hours Continue doxycycline 100 mg twice a day Change Lasix to IV at dose of 60 mg daily for 1-2 more days, then transition back to PO lasix Patient is full code DVT prophylaxis with Lovenox 40 mg subcu daily Objective - Vital Signs Vital signs: Vital Signs Temp 98.8 F 09/24/22 08:00 Pulse 92 09/24/22 09:11 Resp 29 H 09/24/22 08:00 BP 141/94 09/24/22 08:00 Pulse Ox 92 L 09/24/22 08:00 FiO2 40 09/24/22 04:00 Intake & Output 09/23/22 09/24/22 09/24/22 18:59 06:59 18:59 Intake Total 550 550 0 Output Total 3980 2350 175 Balance -6400 1800 -175 Weight 124 kg Intake: Intake, IV Titration 0 Amount propofoL 100 ml @ 0 mls/ 0 hr IV .[facility] Rx#: [id number] Oral 550 550 Output: Urine 3980 2350 175 Other: Voiding Method Indwelling Catheter Indwelling Catheter - Labs CBC & Chem 7: 09/24/22 06:10 09/24/22 06:10 Labs: Abnormal Lab Results - Last 24 Hours (Table) 09/23/22 09/23/22 09/23/22 Range/Units 04:10 04:10 13:12 Hgb 15.5 H (12.0-15.0) d/dL Hct 54.1 H (39.6-50.0) % MCV 103.4 H (80.0-97.0) FL MCHC 28.7 L (32.0-37.0) d/dL Neutrophils # 8.08 H (1.80-7.70) X 10*3/uL Lymphocytes # 0.54 L (0.90-5.00) X 10*3/uL Eosinophils # 0 L (0.04-0.35) X 10*3/uL Potassium 5.6 H (3.5-5.5) mmol/L Chloride (98-107) mmol/L Carbon Dioxide 38.6 H (21.6-31.8) mmol/L BUN (9-20) mg/dL Creatinine 0.5 L (0.6-1.5) mg/dL BUN/Creatinine Ratio 34.40 H (12.00-20.00) Ratio Glucose 120 H (70-110) mg/dL POC Glucose (mg/dL) 175 H (70-110) mg/dL 09/23/22 09/23/22 09/24/22 Range/Units 17:41 19:54 05:24 Hgb (12.0-15.0) d/dL Hct (39.6-50.0) % MCV (80.0-97.0) FL MCHC (32.0-37.0) d/dL Neutrophils # (1.80-7.70) X 10*3/uL Lymphocytes # (0.90-5.00) X 10*3/uL Eosinophils # (0.04-0.35) X 10*3/uL Potassium (3.5-5.5) mmol/L Chloride (98-107) mmol/L Carbon Dioxide (21.6-31.8) mmol/L BUN (9-20) mg/dL Creatinine (0.6-1.5) mg/dL BUN/Creatinine Ratio (12.00-20.00) Ratio Glucose (70-110) mg/dL POC Glucose (mg/dL) 155 H 211 H 147 H (70-110) mg/dL 09/24/22 09/24/22 09/24/22 Range/Units 06:10 06:10 06:30 Hgb (12.0-15.0) d/dL Hct (39.6-50.0) % MCV (80.0-97.0) FL MCHC 30.8 L (32.0-37.0) d/dL Neutrophils # (1.80-7.70) X 10*3/uL Lymphocytes # 0.5 L (0.90-5.00) X 10*3/uL Eosinophils # (0.04-0.35) X 10*3/uL Potassium (3.5-5.5) mmol/L Chloride 90 L (98-107) mmol/L Carbon Dioxide 46 H* (21.6-31.8) mmol/L BUN 26 H (9-20) mg/dL Creatinine 0.60 L (0.6-1.5) mg/dL BUN/Creatinine Ratio (12.00-20.00) Ratio Glucose 135 H (70-110) mg/dL POC Glucose (mg/dL) 130 H (70-110) mg/dL
--- NOTE | 2022-09-24 11:03 | P.PN ---
Subjective Progress Note Date: 09/24/22 Principal diagnosis: Respiratory failure. Acute on chronic hypoxic and hypercapnic respiratory failure, multifactorial. This is a 61-year-old obese male with a past medical history significant for severe oxygen dependent chronic obstructive pulmonary disease, pulmonary hypertension, coronary artery disease, current smoker, hypertension, osteoarthritis, anxiety, cellulitis and chronic lower extremity venous stasis and edema. He also has a history of 2.3 cm peripheral right lung nodule and a large right hilar lymph node measuring 2.4 x 2.4 cm. These have been followed in the outpatient setting in 1 smaller compared to previous exams on 05/23/2022. He has suspected obstructive sleep apnea as well however has not been able to follow up with the sleep Center. He presented here to the emergency room yesterday with increasing shortness of breath and low oxygen saturations. X-ray reveals a stable 2.4 cm right midlung pulmonary mass. No acute pulmonary process. There is some increased pulmonary lung markings. Possible pulmonary fibrosis. White count 8.1. Hemoglobin 15.5. Platelets 259. Sodium 144. Potassium 4.1. Bicarb 38. BUN 16. Creatinine 0.61. Glucose 115. ProBNP 84. Troponin negative 1. The patient was requiring 8 L high flow nasal cannula to maintain O2 saturations in the 90s throughout the night. He is seen today in consultation on the regular medical floor. ABGs were obtained and he was found to be hypoxemic/hypercapnic with a P O2 of 57, pCO2 of 89 and a pH of 7.26 on 50% FiO2. He was placed on BiPAP 12/6 and 50% FiO2 currently. The patient is seen today 09/22/2022 in follow-up on the regular medical floor. He is currently resting comfortably in bed. Awake and alert. He is on BiPAP 14/6 and 50% FiO2. Alternating with 8 L high flow nasal cannula for meals. He is continued on DuoNeb inhalations, Symbicort, IV Solu-Medrol. NicoDerm patch in place. Remains on empiric antibiotics in the form of Vibramycin. Oral diure tics. Reevaluated today on 09/23/2022, patient was transferred yesterday to the ICU mostly because of his worsening obtundation and mental status, worsening hypercapnia and worsening respiratory acidosis. Patient was almost got intubated however after transit the ICU and close monitoring on BiPAP, his ABG improved, and his mental status improved hence held back on intubation and mechanical ventilation. Today the patient is on BiPAP with IPAP of 16 EPAP of 6 FiO2 was at 40% and I cut it down to 30%. ABG earlier showed a pO2 of 69 pCO2 97 pH of 7.27 and this was on 40%. Patient is much better this morning, awake, alert and oriented 3. WBC count is 8.9 hemoglobin 15.5 basic metabolic profile is normal except potassium of 5.6 and that is mostly related to his respiratory acidosis with pH of 7.27 this morning his bicarb is 39 chest x-ray this morning continues to show mild cardiomegaly, and the right lung nodule which is being monitored and followed on outpatient basis. Progress note dated 09/24/2022. Patient is seen in the intensive care unit, room 267. [facility] with a diagnosis on September 20, with severe COPD exacerbation and hypercapnic respiratory failure. Currently, the patient's on 2 L of oxygen. He's also using BiPAP at nighttime, with settings of 16/6 and 40%. His most recent blood gases show pO2 of 69, a pCO2 of 97, and a pH is 7.27. The patient's previous CO2 was up to 109 mmHg. White count is 8, hemoglobin 16, hematocrit 52, and platelet count was normal. Sodium 140, potassium 4.3, chlorides 90, CO2 46, BUN 26, and creatinine 0.6. Chest x-ray shows cardiomegaly, and a persistent right lower lobe density. The pulmonary nodule is being followed on an outpatient basis. Objective - Vital Signs Vital signs: Vital Signs Temp 98.8 F 09/24/22 08:00 Pulse 95 09/24/22 10:00 Resp 23 09/24/22 10:00 BP 131/80 09/24/22 10:00 Pulse Ox 92 L 09/24/22 08:00 FiO2 40 09/24/22 10:00 Intake & Output 09/23/22 09/24/22 09/24/22 18:59 06:59 18:59 Intake Total 550 550 0 Output Total 3980 2350 175 Balance -3430 -1800 -175 Weight 124 kg Intake: Intake, IV Titration 0 Amount propofoL 100 ml @ 0 mls/ 0 hr IV .[facility] Rx#: [id number] Oral 550 550 Output: Urine 3980 2350 175 Other: Voiding Method Indwelling Catheter Indwelling Catheter - Exam No acute distress, oriented 3. Currently on 3 L of oxygen, with saturations of 92% HEENT examination is grossly unremarkable. Neck supple. Full range of motion. No adenopathy thyromegaly or neck vein distention. Cardiovascular examination reveals regular rhythm rate. S1-S2 normal. No S3 or S4. No discernible murmur noted. Heart rate 95 bpm. Heart sounds are distant. Lungs reveal scattered bilateral rhonchi and wheezes. Breath sounds equal but diminished throughout. No crackles. Abdomen obese, without masses. Extremities are intact. No cyanosis clubbing or edema. Skin is without rash or lesion. Neurologic examination is brief but nonfocal. - Labs CBC & Chem 7: 09/24/22 06:10 09/24/22 06:10 Labs: Abnormal Lab Results - Last 24 Hours (Table) 09/23/22 09/23/22 09/23/22 Range/Units 13:12 17:41 19:54 MCHC (31.0-37.0) g/dL Lymphocytes # (1.0-4.8) k/uL Chloride (98-107) mmol/L Carbon Dioxide (22-30) mmol/L BUN (9-20) mg/dL Creatinine (0.66-1.25) mg/dL Glucose (74-99) mg/dL POC Glucose (mg/dL) 175 H 155 H 211 H (70-110) mg/dL 09/24/22 09/24/22 09/24/22 Range/Units 05:24 06:10 06:10 MCHC 30.8 L (31.0-37.0) g/dL Lymphocytes # 0.5 L (1.0-4.8) k/uL Chloride 90 L (98-107) mmol/L Carbon Dioxide 46 H* (22-30) mmol/L BUN 26 H (9-20) mg/dL Creatinine 0.60 L (0.66-1.25) mg/dL Glucose 135 H (74-99) mg/dL POC Glucose (mg/dL) 147 H (70-110) mg/dL 09/24/22 Range/Units 06:30 MCHC (31.0-37.0) g/dL Lymphocytes # (1.0-4.8) k/uL Chloride (98-107) mmol/L Carbon Dioxide (22-30) mmol/L BUN (9-20) mg/dL Creatinine (0.66-1.25) mg/dL Glucose (74-99) mg/dL POC Glucose (mg/dL) 130 H (70-110) mg/dL Assessment and Plan Assessment: Acute on chronic hypoxemic and hypercapnic respiratory failure, currently requiring BiPAP therapy. Acute exacerbation of chronic obstructive pulmonary disease. Probable obesity/hypoventilation syndrome (Pickwickian syndrome). Chronic tobacco use with nicotine addiction. History of left-sided rib fractures, remote. History of pulmonary nodule, being followed as an outpatient. CAD, with previous PCI and stenting of the right coronary artery. Morbid obesity with a BMI of 39.2 kg/m. Generalized anxiety disorder. Plan: Plan dated 09/24/2022. The patient remains on and off of BiPAP, with settings of 16/6 and 40%. The patient's also receiving updrafts with albuterol sulfate and ipratropium bromide, as well as Symbicort. We will continue with GI and DVT prophylaxis as well as diuretics. Labs, x-rays, medications are all reviewed. All sedatives, and hypnotics or discontinued. The patient should not receive any benzodiazepines or narcotics. Additional recommendations and suggestions are forthcoming. Prognosis is guarded. The patient's at high risk for severe hypercapnic respiratory failure. Time with Patient: Greater than 30
[2022-09-24 11:37] LABS: Glucose,Whole Blood 151 mg/dL (70-110)
[2022-09-24 12:14] LABS: Glucose,Whole Blood 137 mg/dL (70-110)
[2022-09-24] MEDS: NICOTINE 14MG/24HR PATCH TRANSDERM PRN (13:56)
[2022-09-24 16:59] LABS: Glucose,Whole Blood 120 mg/dL (70-110)
[2022-09-24 20:46] LABS: Glucose,Whole Blood 125 mg/dL (70-110)
[2022-09-24] MEDS: LATANOPROST 0.005% OPHTH DROPS 2.5 ML BTL BOTH EYES SCH (22:06)
[2022-09-24] MEDS: LOSARTAN 50 MG TAB PO SCH (22:06)
[2022-09-24] MEDS: ACETAMINOPHEN TAB 325 MG TAB PO PRN (22:49)
[2022-09-25 06:29] LABS: Glucose,Whole Blood 129 mg/dL (70-110)
[2022-09-25] MEDS: INSULIN ASPART (NovoLOG) 100 UNIT/ML VIAL SQ SCH ×4 (06:58→21:30)
[2022-09-25] MEDS: DOXYCYCLINE 100 MG CAP PO SCH ×2 (07:48→21:30)
[2022-09-25] MEDS: FUROSEMIDE 10 MG/ML 10 ML VIAL IV SCH (07:49)
[2022-09-25] MEDS: amLODIPine 5 MG TAB PO SCH (07:49)
[2022-09-25] MEDS: methylPREDNISolone SOD SUCCI 40 MG/ML 1 ML VIAL IV SCH (07:49)
[2022-09-25] MEDS: ENOXAPARIN 40 MG/0.4 ML SYRINGE SQ SCH (07:49)
[2022-09-25] MEDS: DORZOLAMIDE HCL 2% DROPS 10 ML BTL BOTH EYES SCH ×3 (07:50→21:32)
[2022-09-25] MEDS: TOBRA-DEXAMET 0.3-0.1% OPHTH DROPS 2.5 ML BTL BOTH EYES SCH ×4 (07:51→21:33)
[2022-09-25] MEDS: SYMBICORT 160-4.5 MCG INHALER INHALATION SCH ×2 (08:57→20:27)
[2022-09-25] MEDS: IPRATROPIUM-ALBUTEROL 3 ML NEB INHALATION SCH ×4 (08:57→20:27)
[2022-09-25] MEDS: ACETAMINOPHEN TAB 325 MG TAB PO PRN ×3 (09:01→21:32)
[2022-09-25] MEDS: guaiFENesin 600 MG TABLET.ER PO SCH ×2 (10:24→21:30)
[2022-09-25] MEDS: NICOTINE 14MG/24HR PATCH TRANSDERM PRN (10:24)
[2022-09-25 11:11] LABS: Glucose,Whole Blood 207 mg/dL (70-110)
[2022-09-25 11:20] LABS: Basophils % (A) 0 %; Eosinophils % (A) 0 %; HGB 17.4 gm/dL (13.0-17.5); Hypochromasia Slight; Lymphocytes # (A) 0.7 k/uL (1.0-4.8); Lymphocytes % (A) 10 %; MCH 30.7 pg (25.0-35.0); MCHC 31.7 g/dL (31.0-37.0); MCV 96.7 fL (80.0-100.0); Mean Platelet Volume 8.1; Monocytes # (A) 0.5 k/uL (0-1.0); Monocytes % (A) 8 %; Neutrophils # (A) 5.2 k/uL (1.3-7.7); Neutrophils % (A) 81 %; Platelet Count 294 k/uL (150-450); RBC 5.68 m/uL (4.30-5.90); RDW 14.4 % (11.5-15.5); WBC 6.5 k/uL (3.8-10.6)
[2022-09-25 11:36] LABS: African American GFR (CKD) >90 (>60 ml/min/1.73 sqM); Blood Urea Nitrogen 23 mg/dL (9-20); Calcium 9.4 mg/dL (8.4-10.2); Chloride 89 mmol/L (98-107); Glucose 135 mg/dL (74-99); Magnesium 2.2 mg/dL (1.6-2.3); Non-African American GFR(CKD) >90 (>60 ml/min/1.73 sqM); Potassium 4.3 mmol/L (3.5-5.1); Sodium 140 mmol/L (137-145)
[2022-09-25 11:43] LABS: Anion Gap 7 mmol/L
[2022-09-25 11:44] LABS: Carbon Dioxide 44 mmol/L (22-30)
--- NOTE | 2022-09-25 13:15 | P.PN ---
Subjective Progress Note Date: 09/25/22 This is a 61-year-old obese male with a past medical history significant for severe oxygen dependent chronic obstructive pulmonary disease, pulmonary hypertension, coronary artery disease, current smoker, hypertension, osteoarthritis, anxiety, cellulitis and chronic lower extremity venous stasis and edema. He also has a history of 2.3 cm peripheral right lung nodule and a large right hilar lymph node measuring 2.4 x 2.4 cm. These have been followed in the outpatient setting in 1 smaller compared to previous exams on 05/23/2022. He has suspected obstructive sleep apnea as well however has not been able to follow up with the sleep Center. He presented here to the emergency room yesterday with increasing shortness of breath and low oxygen saturations. X-ray reveals a stable 2.4 cm right midlung pulmonary mass. No acute pulmonary process. There is some increased pulmonary lung markings. Possible pulmonary fibrosis. White count 8.1. Hemoglobin 15.5. Platelets 259. Sodium 144. Potassium 4.1. Bicarb 38. BUN 16. Creatinine 0.61. Glucose 115. ProBNP 84. Troponin negative 1. The patient was requiring 8 L high flow nasal cannula to maintain O2 saturations in the 90s throughout the night. He is seen today in consultation on the regular medical floor. ABGs were obtained and he was found to be hypoxemic/hypercapnic with a P O2 of 57, pCO2 of 89 and a pH of 7.26 on 50% FiO2. He was placed on BiPAP 12/6 and 50% FiO2 currently. The patient is seen today 09/22/2022 in follow-up on the regular medical floor. He is currently resting comfortably in bed. Awake and alert. He is on BiPAP 14/6 and 50% FiO2. Alternating with 8 L high flow nasal cannula for meals. He is continued on DuoNeb inhalations, Symbicort, IV Solu-Medrol. NicoDerm patch in place. Remains on empiric antibiotics in the form of Vibramycin. Oral diuretics. The patient is seen today 09/25/2022 in follow-up on the regular medical floor. He is currently resting comfortably in bed. Awake and alert. Maintaining O2 saturations in the 90s on 2 L/m per nasal cannula. He can be agitated and angry staff at times. He remains on DuoNeb inhalations, Symbicort, prednisone taper. NicoDerm patch in place. Lovenox for DVT prophylaxis. Utilizing BiPAP 12/6 and 40% FiO2 at nighttime and during the day while napping. White count 6.5. Hemoglobin 17.4. Platelets 294. Sodium 140. Potassium 4.3. Bicarb 44. BUN 23. Creatinine 0.67. Glucose 135. Objective - Vital Signs Vital signs: Vital Signs Temp 98.6 F 09/25/22 07:18 Pulse 82 09/25/22 12:11 Resp 17 09/25/22 07:18 BP 138/64 09/25/22 07:18 Pulse Ox 94 L 09/25/22 08:58 FiO2 40 09/25/22 03:40 Intake & Output 09/24/22 09/25/22 09/25/22 18:59 06:59 18:59 Intake Total 1200 Output Total 2625 1310 Balance -1425 -1310 Intake: Intake, IV Titration 0 Amount propofoL 100 ml @ 0 mls/ 0 hr IV .[email or web address] Rx#: [id number] Oral 1200 Output: Urine 2625 1310 Other: Voiding Method Indwelling Catheter Indwelling Catheter - Exam GENERAL EXAM: Alert, oriented, obese 61-year-old male patient, currently on 2 L nasal cannula, comfortable in no apparent distress. HEAD: Normocephalic. EYES: Normal reaction of pupils, equal size. NOSE: Clear with pink turbinates. THROAT: No erythema or exudates. NECK: No masses, no JVD. CHEST: No chest wall deformity. LUNGS: Equal air entry with bilateral end expiratory wheeze. CVS: S1 and S2 normal with no audible murmur, regular rhythm. ABDOMEN: No hepatosplenomegaly, normal bowel sounds, no guarding or rigidity. SPINE: No scoliosis or deformity SKIN: No rashes. Changes of chronic venous stasis of the bilateral lower extremities CENTRAL NERVOUS SYSTEM: No focal deficits, tone is normal in all 4 extremities. EXTREMITIES: There is 1+ peripheral edema. No clubbing, no cyanosis. Peripheral pulses are intact - Labs CBC & Chem 7: 09/25/22 08:39 09/25/22 08:39 Labs: Abnormal Lab Results - Last 24 Hours (Table) 09/24/22 09/24/22 09/25/22 Range/Units 16:50 20:44 06:27 Hct (39.0-53.0) % Lymphocytes # (1.0-4.8) k/uL Chloride (98-107) mmol/L Carbon Dioxide (22-30) mmol/L BUN (9-20) mg/dL Glucose (74-99) mg/dL POC Glucose (mg/dL) 120 H 125 H 129 H (70-110) mg/dL 09/25/22 09/25/22 09/25/22 Range/Units 08:39 08:39 11:10 Hct 55.0 H (39.0-53.0) % Lymphocytes # 0.7 L (1.0-4.8) k/uL Chloride 89 L (98-107) mmol/L Carbon Dioxide 44 H* (22-30) mmol/L BUN 23 H (9-20) mg/dL Glucose 135 H (74-99) mg/dL POC Glucose (mg/dL) 207 H (70-110) mg/dL Assessment and Plan Assessment: Acute exacerbation of chronic obstructive pulmonary disease Acute on chronic hypoxemic and hypercapnic respiratory failure secondary to above. Patient was placed on BiPAP Obesity/hypoventilation syndrome, needing outpatient sleep study Pulmonary nodules. Chest CTA showed a right lower lobe 2.3 cm peripheral nodule with calcification that was demonstrated on prior exam on 05/23/2022, and a large right hilar lymph node measuring 2.4 x 2.4 cm which was also similar in size to prior exam. Chronic tobacco use Multiple remote left-sided rib fractures Hypertension Coronary artery disease with previous stenting of the right coronary artery Neuropathy Osteoarthritis Anxiety Plan: The patient was seen and evaluated Medications and labs reviewed Continue DuoNeb inhalations, Symbicort, steroids Continue BiPAP 14/6 and 40% FiO2 Titrate the FiO2 as tolerated NicoDerm patch in place Lovenox for DVT prophylaxis Continue diuretics Social work for discharge planning We will continue to follow I have personally seen and examined the patient, performed the documentation and the assessment and plan as written. Number of minutes spent on the visit: 10.
[2022-09-25 16:40] LABS: Glucose,Whole Blood 210 mg/dL (70-110)
[2022-09-25] MEDS: FLUTICASONE 50MCG/SPRAY NASAL 16GM EA NOSTRIL PRN (17:01)
--- NOTE | 2022-09-25 17:31 | P.PN ---
Subjective Progress Note Date: 09/25/22 Hospital course: Patient is a 61-year-old male with a past medical history of COPD home oxygen dependent on 3 L "as needed", pulmonary nodule, obstructive sleep apnea, CAD with stent, and hypertension,. He presented to the emergency department on 09/20/22 per direction of his PCP secondary to increased shortness of breath and worsening hypoxia. Patient reports he has been experiencing this off and on over the past couple weeks and when he was at physical therapy this morning they noted his oxygen sats to be lower than normal and gave him a breathing treatment and called EMS for transfer to the hospital. Patient underwent full evaluation in the emergency department. Labs completed and reviewed. CBC, coags, and CMP were unremarkable with the exception of hypercarbia with carbon dioxide of 38. Chest x-ray showing a stable 2.4 cm right mid lung pulmonary mass corresponding to prior CT and negative for acute cardiopulmonary process. EKG showing normal sinus rhythm at 92 bpm with no noted T-wave or ST abnormalities showing no signs of acute ischemia upon personal review and interpretation. Patient admitted under our services of consultation to pulmonology. Overnight patient was found to be hypoxic with increasing oxygen needs. Patient was placed on high flow oxygen requiring 8 L O2 to maintain SpO2 greater than 90%. Morning of 09/21/22 patient had noted agitation and episodes of confusion believed to be secondary to hypercarbia. Order placed for stat ABGs which revealed respiratory acidosis with pH 7.26, pCO2 89 PaO2 57, and bicarb of 40. Patient placed on BiPAP at this time. Physical exam: Patient seen and fully evaluated at the bedside this morning. Patient has reportedly been angry with and yelling at staff. Patient having difficult time understanding the need for BiPAP and recommended sleep study outpatient. Had long conversation with patient regarding education with discharge planning, patient appeared to have more understanding of impending discharge plans. Will discuss further with Dr. Trinh tomorrow. Vital signs reviewed and stable. General: Nontoxic, no distress and appears stated age. Derm: Skin warm and dry, normal coloration for ethnicity. Head: Atraumatic, normocephalic and symmetric. Eyes: EOMs intact, no lid lag, and anicteric sclera Mouth: no lip lesions, mucus membranes moist Cardiovascular: regular rate and rhythm with normal S1S2, no murmur, positive posterior tibial pulses bilaterally, and cap refill < 2 seconds. Lungs: Respirations unlabored, Lungs diminished with diffuse expiratory wheezes. Patient on 3 L O2 via nasal cannula Abdominal: Obese abdomen soft, nontender to palpation, no guarding, no appreciable organomegaly Ext: ROM intact. No gross muscle atrophy, no pitting edema, no contractures Neuro: Speech clear, face symmetrical and CN II-XII grossly intact with no noted focal neuro deficits Psych: Alert and oriented to person and place but appears very agitated with episodes of confusion. Assessment and Plan of Care: COPD exacerbation Acute on chronic respiratory failure with hypoxia and hypercarbia. COPD exacerbation Respiratory acidosis Obstructive sleep apnea, patient reports he does not use CPAP or BiPAP Chronic diastolic heart failure CAD with stents Hypertension -Labs completed and reviewed. CBC showing no significant abnormalities, WBC co unt 6.5, hemoglobin 17.4, and platelet count of 294. BMP revealing hypochloremia with chloride of 89 and hypercarbia with CO2 of 44. -Pulmonology following and discussed plan of care, recommending continued IV diuresis with Lasix, continuation of DuoNeb, Symbicort, and prednisone and BiPAP nightly and while napping. -Patient remains on Lasix 60 mg IVP daily. -Continue close monitoring of I's and O's, patient has had a documented 3935 mL of urinary output over the past 24 hours. -Continue Telemetry monitoring. -Continue Monitoring Pulse-oximetry -Continue Duonebs scheduled for times daily and as needed for SOB and/or wheezing and scheduled Symbicort 1604.5 g inhaler 2 puffs twice daily. -Incentive Spirometry -Steroids: Prednisone taper -Antibiotics: Continue with Doxycycline 100 mg by mouth twice daily, Day 5 of 5. -Continue daily medication regimen with amlodipine 5 mg daily and losartan 100 mg nightly. -Continue Lovenox for DVT prophylaxis. -Order placed for repeat morning BMP and magnesium to follow-up with renal function and electrolytes while diuresing with IV diuretics. CODE STATUS: Full code DVT prophylaxis: Lovenox Discussed with: Patient, Pulmonology CUPOLA REPAIRER and RN Anticipated discharge date: Clinical course to determine Anticipated discharge place: Home Patient was seen independently by Nurse Practitioner. This document was prepared using [employer] dictation software. Please allow for errors in co director while rare they do occur. Marquis Villatoro NP rendered care for this patient independently, reviewed the findings and plan as documented in the note above. I did not physically speak with or examine the patient on this date. Objective - Vital Signs Vital signs: Vital Signs Temp 98.6 F 09/25/22 07:18 Pulse 86 09/25/22 09:11 Resp 17 09/25/22 07:18 BP 138/64 09/25/22 07:18 Pulse Ox 94 L 09/25/22 08:58 FiO2 40 09/25/22 03:40 Intake & Output 09/24/22 09/25/22 09/25/22 18:59 06:59 18:59 Intake Total 1200 Output Total 2625 1310 Balance -1425 -1310 Intake: Intake, IV Titration 0 Amount propofoL 100 ml @ 0 mls/ 0 hr IV .[email or web address] Rx#: [id number] Oral 1200 Output: Urine 2623 1310 Other: Voiding Method Indwelling Catheter Indwelling Catheter - Labs CBC & Chem 7: 09/26/22 09:25 09/27/22 06:07 Labs: Abnormal Lab Results - Last 24 Hours (Table) 09/24/22 09/24/22 09/24/22 Range/Units 11:35 12:08 16:50 POC Glucose (mg/dL) 151 H 137 H 120 H (70-110) mg/dL 09/24/22 09/25/22 Range/Units 20:44 06:27 POC Glucose (mg/dL) 125 H 129 H (70-110) mg/dL
[2022-09-25 20:48] LABS: Glucose,Whole Blood 152 mg/dL (70-110)
[2022-09-25] MEDS: LOSARTAN 50 MG TAB PO SCH (21:30)
[2022-09-25] MEDS: LATANOPROST 0.005% OPHTH DROPS 2.5 ML BTL BOTH EYES SCH (21:33)
[2022-09-25] MEDS ORDERED: SODIUM CHLORIDE 0.65% NASAL SPRAY 44 ML BTL NASAL PRN (23:02)
[2022-09-26] MEDS: ACETAMINOPHEN TAB 325 MG TAB PO PRN ×2 (02:52→15:35)
[2022-09-26 06:35] LABS: Glucose,Whole Blood 146 mg/dL (70-110)
[2022-09-26] MEDS: INSULIN ASPART (NovoLOG) 100 UNIT/ML VIAL SQ SCH ×4 (07:05→21:13)
[2022-09-26] MEDS: amLODIPine 5 MG TAB PO SCH (09:07)
[2022-09-26] MEDS: predniSONE 10 MG TAB PO SCH (09:07)
[2022-09-26] MEDS: ENOXAPARIN 40 MG/0.4 ML SYRINGE SQ SCH (09:07)
[2022-09-26] MEDS: FUROSEMIDE 10 MG/ML 10 ML VIAL IV SCH (09:07)
[2022-09-26] MEDS: guaiFENesin 600 MG TABLET.ER PO SCH ×2 (09:07→21:17)
[2022-09-26] MEDS: DORZOLAMIDE HCL 2% DROPS 10 ML BTL BOTH EYES SCH ×3 (09:10→21:20)
[2022-09-26] MEDS: FLUTICASONE 50MCG/SPRAY NASAL 16GM EA NOSTRIL PRN (09:10)
[2022-09-26] MEDS: TOBRA-DEXAMET 0.3-0.1% OPHTH DROPS 2.5 ML BTL BOTH EYES SCH ×4 (09:11→21:20)
[2022-09-26] MEDS: NICOTINE 14MG/24HR PATCH TRANSDERM PRN (09:16)
[2022-09-26] MEDS: IPRATROPIUM-ALBUTEROL 3 ML NEB INHALATION SCH ×4 (09:36→21:32)
[2022-09-26] MEDS: SYMBICORT 160-4.5 MCG INHALER INHALATION SCH ×2 (09:36→21:33)
[2022-09-26 11:03] LABS: Glucose,Whole Blood 170 mg/dL (70-110)
--- NOTE | 2022-09-26 12:32 | P.PN ---
Subjective Progress Note Date: 09/26/22 This is a 61-year-old obese male with a past medical history significant for severe oxygen dependent chronic obstructive pulmonary disease, pulmonary hypertension, coronary artery disease, current smoker, hypertension, osteoarthritis, anxiety, cellulitis and chronic lower extremity venous stasis and edema. He also has a history of 2.3 cm peripheral right lung nodule and a large right hilar lymph node measuring 2.4 x 2.4 cm. These have been followed in the outpatient setting in 1 smaller compared to previous exams on 05/23/2022. He has suspected obstructive sleep apnea as well however has not been able to follow up with the sleep Center. He presented here to the emergency room yesterday with increasing shortness of breath and low oxygen saturations. X-ray reveals a stable 2.4 cm right midlung pulmonary mass. No acute pulmonary process. There is some increased pulmonary lung markings. Possible pulmonary fibrosis. White count 8.1. Hemoglobin 15.5. Platelets 259. Sodium 144. Potassium 4.1. Bicarb 38. BUN 16. Creatinine 0.61. Glucose 115. ProBNP 84. Troponin negative 1. The patient was requiring 8 L high flow nasal cannula to maintain O2 saturations in the 90s throughout the night. He is seen today in consultation on the regular medical floor. ABGs were obtained and he was found to be hypoxemic/hypercapnic with a P O2 of 57, pCO2 of 89 and a pH of 7.26 on 50% FiO2. He was placed on BiPAP 12/6 and 50% FiO2 currently. The patient is seen today 09/22/2022 in follow-up on the regular medical floor. He is currently resting comfortably in bed. Awake and alert. He is on BiPAP 14/6 and 50% FiO2. Alternating with 8 L high flow nasal cannula for meals. He is continued on DuoNeb inhalations, Symbicort, IV Solu-Medrol. NicoDerm patch in place. Remains on empiric antibiotics in the form of Vibramycin. Oral diuretics. The patient is seen today 09/25/2022 in follow-up on the regular medical floor. He is currently resting comfortably in bed. Awake and alert. Maintaining O2 saturations in the 90s on 2 L/m per nasal cannula. He can be agitated and angry staff at times. He remains on DuoNeb inhalations, Symbicort, prednisone taper. NicoDerm patch in place. Lovenox for DVT prophylaxis. Utilizing BiPAP 12/6 and 40% FiO2 at nighttime and during the day while napping. White count 6.5. Hemoglobin 17.4. Platelets 294. Sodium 140. Potassium 4.3. Bicarb 44. BUN 23. Creatinine 0.67. Glucose 135. The patient is seen today 09/26/2022 in follow-up on the regular medical floor. He is currently sitting up in a chair. Awake and alert in no acute distress. Maintaining O2 saturations in the mid 90s on 2 L/m per nasal cannula. Afebrile. Hemodynamically stable. Blood glucose 170. He is continued on DuoNeb inhalations, Symbicort, prednisone taper. NicoDerm patch in place. Remains on diuretics. Objective - Vital Signs Vital signs: Vital Signs Temp 98.1 F 09/26/22 02:00 Pulse 82 09/26/22 09:56 Resp 18 09/26/22 02:00 BP 134/84 09/26/22 02:00 Pulse Ox 95 09/26/22 09:56 FiO2 40 09/25/22 03:40 Intake & Output 09/25/22 09/26/22 09/26/22 18:59 06:59 18:59 Intake Total 350 Output Total 2700 1200 Balance -2700 -850 Weight 122.8 kg Intake: Oral 350 Output: Urine 2700 1200 Other: Voiding Method Indwelling Catheter # Bowel Movements 2 - Exam GENERAL EXAM: Alert, obese 61-year-old male, on 2 L nasal cannula, comfortable in no apparent distress. HEAD: Normocephalic. EYES: Normal reaction of pupils, equal size. NOSE: Clear with pink turbinates. THROAT: No erythema or exudates. NECK: No masses, no JVD. CHEST: No chest wall deformity. LUNGS: Equal air entry with bilateral end expiratory wheeze. CVS: S1 and S2 normal with no audible murmur, regular rhythm. ABDOMEN: No hepatosplenomegaly, normal bowel sounds, no guarding or rigidity. SPINE: No scoliosis or deformity SKIN: No rashes. Changes of chronic venous stasis of the bilateral lower extremi ties CENTRAL NERVOUS SYSTEM: No focal deficits, tone is normal in all 4 extremities. EXTREMITIES: There is 1+ peripheral edema. No clubbing, no cyanosis. Peripheral pulses are intact - Labs CBC & Chem 7: 09/25/22 08:39 09/25/22 08:39 Labs: Abnormal Lab Results - Last 24 Hours (Table) 09/25/22 09/25/22 09/26/22 Range/Units 16:39 20:47 06:34 POC Glucose (mg/dL) 210 H 152 H 146 H (70-110) mg/dL 09/26/22 Range/Units 11:02 POC Glucose (mg/dL) 170 H (70-110) mg/dL Assessment and Plan Assessment: Acute exacerbation of chronic obstructive pulmonary disease Acute on chronic hypoxemic and hypercapnic respiratory failure secondary to above. Patient was placed on BiPAP Obesity/hypoventilation syndrome, needing outpatient sleep study Pulmonary nodules. Chest CTA showed a right lower lobe 2.3 cm peripheral nodule with calcification that was demonstrated on prior exam on 05/23/2022, and a large right hilar lymph node measuring 2.4 x 2.4 cm which was also similar in size to prior exam. Chronic tobacco use Multiple remote left-sided rib fractures Hypertension Coronary artery disease with previous stenting of the right coronary artery Neuropathy Osteoarthritis Anxiety Plan: The patient was seen and evaluated Medications reviewed Cleared for discharge from the pulmonary standpoint Continue his home pulmonary medications Continue a prednisone taper Social work for discharge planning We will continue to follow I have personally seen and examined the patient, performed the documentation and the assessment and plan as written. Number of minutes spent on the visit: 10.
[2022-09-26 15:36] LABS: HGB 16.4 d/dL (12.0-15.0); MCHC 30.9 d/dL (32.0-37.0); MCV 96.9 FL (80.0-97.0); Mean Platelet Volume 10.2 FL (9.5-12.2); NRBC Per 100 WBC 0 X 10*3/uL (0.00-0.01); Platelet Count 288 X 10*3/uL (140-440); RBC 5.47 X 10*6/uL (4.40-5.60); RDW 14.7 % (11.5-14.5); WBC 5.88 X 10*3/uL (4.50-10.00)
[2022-09-26 16:25] LABS: Glucose,Whole Blood 160 mg/dL (70-110)
[2022-09-26 16:30] LABS: ALT 37 U/L (10-49); AST 22 U/L (14-35); Albumin 3.9 d/dL (3.8-4.9); Albumin/Globulin Ratio 1.62 Ratio (1.60-3.17); Alkaline Phosphatase 52 U/L (41-126); BUN/Creat Ratio 30.38 Ratio (12.00-20.00); Blood Urea Nitrogen 24.3 mg/dL (9.0-27.0); Calcium 10.1 mg/dL (8.7-10.3); Carbon Dioxide 35.2 mmol/L (21.6-31.8); Chloride 97 mmol/L (96-109); Globulin 2.4 d/dL (1.6-3.3); Glucose 151 mg/dL (70-110); Potassium 3.6 mmol/L (3.5-5.5); Sodium 145 mmol/L (135-145); Total Bilirubin 0.3 mg/dL (0.3-1.2); Total Protein 6.3 d/dL (6.2-8.2)
--- NOTE | 2022-09-26 18:35 | P.PN ---
Subjective Progress Note Date: 09/26/22 Hospital course: Patient is a 61-year-old male with a past medical history of COPD home oxygen dependent on 3 L "as needed", pulmonary nodule, obstructive sleep apnea, CAD with stent, and hypertension,. He presented to the emergency department on 09/20/22 per direction of his PCP secondary to increased shortness of breath and worsening hypoxia. Patient reports he has been experiencing this off and on over the past couple weeks and when he was at physical therapy this morning they noted his oxygen sats to be lower than normal and gave him a breathing treatment and called EMS for transfer to the hospital. Patient underwent full evaluation in the emergency department. Labs completed and reviewed. CBC, coags, and CMP were unremarkable with the exception of hypercarbia with carbon dioxide of 38. Chest x-ray showing a stable 2.4 cm right mid lung pulmonary mass corresponding to prior CT and negative for acute cardiopulmonary process. EKG showing normal sinus rhythm at 92 bpm with no noted T-wave or ST abnormalities showing no signs of acute ischemia upon personal review and interpretation. Patient admitted under our services of consultation to pulmonology. Overnight patient was found to be hypoxic with increasing oxygen needs. Patient was placed on high flow oxygen requiring 8 L O2 to maintain SpO2 greater than 90%. Morning of 09/21/22 patient had noted agitation and episodes of confusion believed to be secondary to hypercarbia. Order placed for stat ABGs which revealed respiratory acidosis with pH 7.26, pCO2 89 PaO2 57, and bicarb of 40. Patient placed on BiPAP at this time. Physical exam: Patient seen and fully evaluated at the bedside this morning. Patient has reportedly been angry with and yelling at staff. Patient having difficult time understanding the need for BiPAP and recommended sleep study outpatient. Had long conversation with patient regarding education with discharge planning, patient appeared to have more understanding of impending discharge plans. Will discuss further with Dr. Trinh tomorrow. Vital signs reviewed and stable. General: Nontoxic, no distress and appears stated age. Derm: Skin warm and dry, normal coloration for ethnicity. Head: Atraumatic, normocephalic and symmetric. Eyes: EOMs intact, no lid lag, and anicteric sclera Mouth: no lip lesions, mucus membranes moist Cardiovascular: regular rate and rhythm with normal S1S2, no murmur, positive posterior tibial pulses bilaterally, and cap refill < 2 seconds. Lungs: Respirations unlabored, Lungs diminished with diffuse expiratory wheezes. Patient on 3 L O2 via nasal cannula Abdominal: Obese abdomen soft, nontender to palpation, no guarding, no appreciable organomegaly Ext: ROM intact. No gross muscle atrophy, no pitting edema, no contractures Neuro: Speech clear, face symmetrical and CN II-XII grossly intact with no noted focal neuro deficits Psych: Alert and oriented to person and place but appears very agitated with episodes of confusion. Assessment and Plan of Care: COPD exacerbation Acute on chronic respiratory failure with hypoxia and hypercarbia. COPD exacerbation Respiratory acidosis Obstructive sleep apnea, patient reports he does not use CPAP or BiPAP Chronic diastolic heart failure CAD with stents Hypertension -Labs completed and reviewed. CBC showing no significant abnormalities with the exception of elevated hemoglobin of 16.4. BMP with continued hypercarbia but improved with bicarbonate of 35.2 and anion gap of 12.8. -Pulmonology following and discussed plan of care with pulmonary DIRECTOR ADVERTISING, recommending continuation of DuoNeb, Symbicort, and prednisone taper with BiPAP nightly and while napping. -Lasix 60 mg IVP daily discontinued and patient to resume oral Lasix at 40 mg by mouth twice daily starting tomorrow morning.. -Continue close monitoring of I's and O's, patient has had a documented 3900 mL of urinary output over the past 24 hours. -Continue Telemetry monitoring. -Continue Monitoring Pulse-oximetry -Continue Duonebs scheduled for times daily and as needed for SOB and/or wheezing and scheduled Symbicort 1604.5 g inhaler 2 puffs twice daily. -Incentive Spirometry -Steroids: Prednisone taper -Antibiotics: Completed 5 day course of doxycycline on 09/25/22. -Continue daily medication regimen with amlodipine 5 mg daily and losartan 100 mg nightly. Vital signs stable. Blood pressure 134/84, heart rate 85, respiratory rate 18, SpO2 of 96% on 2 L O2 via nasal cannula. -Continue Lovenox for DVT prophylaxis. -Order placed for repeat morning BMP and magnesium to follow-up with renal function and electrolytes while diuresing with IV diuretics. CODE STATUS: Full code DVT prophylaxis: Lovenox Discussed with: Patient, Pulmonology DIRECTOR ADVERTISING and RN Anticipated discharge date: Clinical course to determine Anticipated discharge place: Home Patient was seen independently by Nurse Practitioner. This document was prepared using [employer] dictation software. Please allow for errors in corporate counsel while rare they do occur. I reviewed the documentation as provided by the ANDRZEJ above, who is the original author of this note. I agree with the documented assessment and plan, with the following changes: none Objective - Vital Signs Vital signs: Vital Signs Temp 98.1 F 09/26/22 02:00 Pulse 85 09/26/22 02:00 Resp 18 09/26/22 02:00 BP 134/84 09/26/22 02:00 Pulse Ox 96 09/26/22 02:00 FiO2 40 09/25/22 03:40 Intake & Output 09/25/22 09/26/22 09/26/22 18:59 06:59 18:59 Intake Total 350 Output Total 2700 1200 Balance -2700 -850 Weight 122.8 kg Intake: Oral 350 Output: Urine 2700 1200 Other: Voiding Method Indwelling Catheter # Bowel Movements 2 - Labs CBC & Chem 7: 09/26/22 09:25 09/27/22 06:07 Labs: Abnormal Lab Results - Last 24 Hours (Table) 09/25/22 09/25/22 09/25/22 Range/Units 08:39 08:39 11:10 Hct 55.0 H (39.0-53.0) % Lymphocytes # 0.7 L (1.0-4.8) k/uL Chloride 89 L (98-107) mmol/L Carbon Dioxide 44 H* (22-30) mmol/L BUN 23 H (9-20) mg/dL Glucose 135 H (74-99) mg/dL POC Glucose (mg/dL) 207 H (70-110) mg/dL 09/25/22 09/25/22 09/26/22 Range/Units 16:39 20:47 06:34 Hct (39.0-53.0) % Lymphocytes # (1.0-4.8) k/uL Chloride (98-107) mmol/L Carbon Dioxide (22-30) mmol/L BUN (9-20) mg/dL Glucose (74-99) mg/dL POC Glucose (mg/dL) 210 H 152 H 146 H (70-110) mg/dL
[2022-09-26 20:19] LABS: Glucose,Whole Blood 96 mg/dL (70-110)
[2022-09-26] MEDS: LOSARTAN 50 MG TAB PO SCH (21:17)
[2022-09-26] MEDS: LATANOPROST 0.005% OPHTH DROPS 2.5 ML BTL BOTH EYES SCH (21:19)
[2022-09-27] MEDS: ACETAMINOPHEN TAB 325 MG TAB PO PRN ×2 (03:01→14:54)
[2022-09-27 06:07] LABS: Glucose,Whole Blood 91 mg/dL (70-110)
[2022-09-27 07:26] VITALS: RESP 18; TEMP 98.6
[2022-09-27] MEDS: INSULIN ASPART (NovoLOG) 100 UNIT/ML VIAL SQ SCH ×3 (07:26→16:19)
[2022-09-27] MEDS: guaiFENesin 600 MG TABLET.ER PO SCH (07:59)
[2022-09-27] MEDS: ENOXAPARIN 40 MG/0.4 ML SYRINGE SQ SCH (07:59)
[2022-09-27] MEDS: amLODIPine 5 MG TAB PO SCH (07:59)
[2022-09-27] MEDS: predniSONE 10 MG TAB PO SCH (07:59)
[2022-09-27] MEDS: FUROSEMIDE 40 MG TAB PO SCH ×2 (07:59→16:12)
[2022-09-27] MEDS: TOBRA-DEXAMET 0.3-0.1% OPHTH DROPS 2.5 ML BTL BOTH EYES SCH ×2 (08:01→14:52)
[2022-09-27] MEDS: DORZOLAMIDE HCL 2% DROPS 10 ML BTL BOTH EYES SCH ×2 (08:01→16:13)
[2022-09-27] MEDS: IPRATROPIUM-ALBUTEROL 3 ML NEB INHALATION SCH ×3 (08:37→15:08)
[2022-09-27] MEDS: SYMBICORT 160-4.5 MCG INHALER INHALATION SCH (08:37)
--- NOTE | 2022-09-27 11:01 | P.DS ---
Providers Date of admission: 09/20/22 14:30 Expected date of discharge: 09/27/22 Attending physician: Guy Frank MD Consults: 09/20/22 14:26 Consult Physician Urgent Consulting Provider: Gary Vuong Consult Reason/Comments: COPD exacerbation, increasing oxygen use & somnolence Do you want consulting provider notified?: Yes 09/20/22 14:33 Consult Physician Routine Consulting Provider: Gary Vuong Consult Reason/Comments: COPD exacerbation Do you want consulting provider notified?: Yes Primary care physician: Hollis Trinh MD Hospital Course: Discharge Diagnosis: COPD exacerbation. Patient discharged home on prednisone taper, Ventolin inhaler, Incruse Elipta and Symbicort. Patient strongly advised to refrain from nicotine use and to follow up outpatient with PCP in 1-2 days and simonizer in 1 week for scheduling of sleep study. Acute on chronic respiratory failure with hypoxia and hypercarbia, multifactori al secondary to COPD exacerbation and acute on chronic diastolic heart failure exacerbation.. COPD exacerbation Respiratory acidosis Obstructive sleep apnea, patient reports he does not use CPAP or BiPAP Acute on Chronic diastolic heart failure with previously known EF of 55-60% from echocardiogram obtained 05/25/22. Patient did undergo successful IV diuresis while in the hospital. Patient discharged home with increased dose of Lasix. 40 mg by mouth twice daily. Recommend repeat BMP next week. CAD with stents Hypertension, Continue daily medication regimen with amlodipine 5 mg daily and losartan 100 mg nightly. Hospital Course: Patient is a 61-year-old male with a past medical history of COPD home oxygen dependent on 3 L "as needed", pulmonary nodule, obstructive sleep apnea, CAD with stent, and hypertension,. He presented to the emergency department on 09/20/22 per direction of his PCP secondary to increased shortness of breath and worsening hypoxia. Patient reports he has been experiencing this off and on over the past couple weeks and when he was at physical therapy this morning they noted his oxygen sats to be lower than normal and gave him a breathing treatment and called EMS for transfer to the hospital. Patient underwent full evaluation in the emergency department. Labs completed and reviewed. CBC, coags, and CMP were unremarkable with the exception of hypercarbia with carbon dioxide of 38. Chest x-ray showing a stable 2.4 cm right mid lung pulmonary mass corresponding to prior CT and negative for acute cardiopulmonary process. EKG showing normal sinus rhythm at 92 bpm with no noted T-wave or ST abnormalities showing no signs of acute ischemia upon personal review and interpretation. Patient admitted u nder our services of consultation to pulmonology. Overnight patient was found to be hypoxic with increasing oxygen needs. Patient was placed on high flow oxygen requiring 8 L O2 to maintain SpO2 greater than 90%. Morning of 09/21/22 patient had noted agitation and episodes of confusion believed to be secondary to hypercarbia. Order placed for stat ABGs which revealed respiratory acidosis with pH 7.26, pCO2 89 PaO2 57, and bicarb of 40. Patient was placed on BiPAP at this time. Patient underwent seven-day hospitalization and received IV steroids, scheduled nebulizer treatments, and as needed duo nebs. In addition patient received successful IV diuresis for acute on chronic diastolic heart failure. Patient has been evaluated by simonizer and cleared from pulmonary standpoint recommending continuation of medications and discharged home on prednisone taper. Pulmonology discussed with patient importance of following up outpatient for sleep study as patient will need likely BiPAP nightly. Patient being discharged home on continuous oxygen 3 L at all times. Patient educated on the importance of wearing oxygen at all times. Patient discharged home on prednisone taper, Ventolin inhaler, Incruse Elipta and Symbicort. Patient strongly advised to refrain from nicotine use and to follow up outpatient with PCP in 1-2 days and simonizer in 1 week for scheduling of sleep study. Patient also discharged home on an increased dose of Lasix 40 mg by mouth twice daily and recommend outpatient follow-up with his dump operator. Called and left detailed message with patient's PCP, Dr. Trinh. Patient medically stable for discharge at this time. Patient discharged home with COPD Navigator program and home care. Physical exam: Vital signs reviewed and stable. General: Nontoxic, no distress and appears stated age. Derm: Skin warm and dry, normal coloration for ethnicity. Head: Atraumatic, normocephalic and symmetric. Eyes: EOMs intact, no lid lag, and anicteric sclera Mouth: no lip lesions, mucus membranes moist Cardiovascular: regular rate and rhythm with normal S1S2, no murmur, positive posterior tibial pulses bilaterally, and cap refill < 2 seconds. Lungs: Respirations unlabored, Lungs diminished. No wheezes, rhonchi, or rales this morning. Patient on 3 L O2 via nasal cannula Abdominal: Obese abdomen soft, nontender to palpation, no guarding, no appreciable organomegaly Ext: ROM intact. No gross muscle atrophy, no pitting edema, no contractures Neuro: Speech clear, face symmetrical and CN II-XII grossly intact with no noted focal neuro deficits Psych: Alert and oriented to person and place but appears very agitated with episodes of confusion. A total of 37 minutes of time were spent preparing this complex discharge summary. Pt was discharged on 09/27/22 at 9:44 AM. Patient was seen independently by Nurse Practitioner. This document was prepared using [employer] dictation software. Please allow for errors in director market research while rare they do occur. Marquis Villatoro NP rendered care for this patient independently, reviewed the findings and plan as documented in the note above. I did not physically speak with or examine the patient on this date. Patient Condition at Discharge: Stable Plan - Discharge Summary Discharge Rx Participant: No New Discharge Prescriptions: New Furosemide [Lasix] 40 mg PO BID@0900,1600 30 Days #60 tab predniSONE See Taper PO DAILY 12 Days #30 tab Continue Nicotine 14Mg/24Hr Patch [Habitrol] 1 patch TRANSDERM DAILY PRN PRN Reason: Nicotine Cravings Cholecalciferol [Vitamin D3 (25 Mcg = 1000 Iu)] 50 mcg PO DAILY Umeclidinium [place] [Incruse Ellipta] 1 puff INHALATION RT-DAILY Latanoprost/Pf [Latanoprost 0.005% Eye Drop] 1 drop BOTH EYES HS Ibuprofen [Motrin] 600 mg PO QID PRN PRN Reason: ARTHRITIS PAIN Petrolatum, White [Aquaphor] 1 applic TOPICAL HS Brinzolamide [Azopt 1% Ophth Susp] 1 drop BOTH EYES TID Albuterol Inhaler [Ventolin Hfa Inhaler] 2 puff INHALATION RT-QID PRN PRN Reason: Shortness Of Breath Losartan Potassium 100 mg PO HS amLODIPine [Norvasc] 5 mg PO DAILY tab Budesonide-Formot 160-4.5 Mcg [Symbicort 160-4.5 Mcg Inhaler] 2 puff INHALATION RT-BID each Loratadine [Claritin] 10 mg PO DAILY PRN PRN Reason: Allergy Symptoms Acetaminophen Tab [Tylenol] 650 mg PO Q6HR PRN tab PRN Reason: Mild Pain Or Fever > 100.5 Tobramycin/Dexamethasone [Tobradex Ophth Susp] 1 drop BOTH EYES QID Ocusoft Eyelid Cleansing Pads 1 applic TOPICAL HS Triamcinolone 0.1% Cream [Kenalog 0.1% Cream] 1 applicatio TOPICAL BID Discontinued Furosemide [Lasix] 40 mg PO DAILY Discharge Medication List Losartan Potassium 100 mg PO HS 05/23/22 [History] Budesonide-Formot 160-4.5 Mcg [Symbicort 160-4.5 Mcg Inhaler] 2 puff INHALATION RT-BID each 05/28/22 [Rx] amLODIPine [Norvasc] 5 mg PO DAILY tab 05/28/22 [Rx] Cholecalciferol [Vitamin D3 (25 Mcg = 1000 Iu)] 50 mcg PO DAILY 07/23/22 [History] Ibuprofen [Motrin] 600 mg PO QID PRN 07/23/22 [History] Latanoprost/Pf [Latanoprost 0.005% Eye Drop] 1 drop BOTH EYES HS 07/23/22 [History] Loratadine [Claritin] 10 mg PO DAILY PRN 07/23/22 [History] Nicotine 14Mg/24Hr Patch [Habitrol] 1 patch TRANSDERM DAILY PRN 07/23/22 [History] Umeclidinium [place] [Incruse Ellipta] 1 puff INHALATION RT-DAILY 07/23/22 [History] Acetaminophen Tab [Tylenol] 650 mg PO Q6HR PRN tab 07/27/22 [Rx] Albuterol Inhaler [Ventolin Hfa Inhaler] 2 puff INHALATION RT-QID PRN 09/20/22 [History] Brinzolamide [Azopt 1% Ophth Susp] 1 drop BOTH EYES TID 09/20/22 [History] Ocusoft Eyelid Cleansing Pads 1 applic TOPICAL HS 09/20/22 [History] Petrolatum, White [Aquaphor] 1 applic TOPICAL HS 09/20/22 [History] Tobramycin/Dexamethasone [Tobradex Ophth Susp] 1 drop BOTH EYES QID 09/20/22 [History] Triamcinolone 0.1% Cream [Kenalog 0.1% Cream] 1 applicatio TOPICAL BID 09/20/22 [History] Furosemide [Lasix] 40 mg PO BID@0900,1600 30 Days #60 tab 09/27/22 [Rx] predniSONE See Taper PO DAILY 12 Days #30 tab 09/27/22 [Rx] Follow up Appointment(s)/Referral(s): Will Xiong MD [STAFF PHYSICIAN] - 2 Weeks (office will call with appointment time) Sánchez Enriquez DO [Doctor of Osteopathic Medicine] - 10/30/22 9:45 am Hollis Trinh MD [Primary Care Provider] - 1-2 days (office is not answering please call to schedule appoinetment) Patient Instructions/Handouts: COPD (Chronic Obstructive Pulmonary Disease) (ED) Activity/Diet/Wound Care/Special Instructions: Activity: As tolerated. Take breaks as needed. Diet: Heart healthy and carb consistent diet. Avoid salts, or foods with hidden salts such as canned or boxed foods and frozen dinners. Extra salt makes your heart work harder and traps the fluid in your body for longer. Special Instructions: Take all of your medications as directed and remember to keep all of your doctor's appointments and follow-up as needed. As discussed, you will need to follow up outpatient with simonizer to have sleep study completed. Recommend repeat BMP next week just to follow-up on renal function and electrolytes. Also, as discussed it is important for you to wear oxygen at all times including showering. Thank you for allowing us to participate in your care, it was truly a pleasure having you for our patient!!! [facility] will transport home at discharge - [phone] [facility] will arrange home care. Discharge Disposition: HOME WITH HOME HEALTH SERVICES
[2022-09-27 11:30] LABS: Glucose,Whole Blood 106 mg/dL (70-110)
[2022-09-27 11:40] LABS: BUN/Creat Ratio 38.17 Ratio (12.00-20.00); Blood Urea Nitrogen 22.9 mg/dL (9.0-27.0); Calcium 9.5 mg/dL (8.7-10.3); Carbon Dioxide 32.8 mmol/L (21.6-31.8); Chloride 99 mmol/L (96-109); Glucose 90 mg/dL (70-110); Magnesium 2.2 mg/dL (1.5-2.4); Potassium 3.8 mmol/L (3.5-5.5); Sodium 143 mmol/L (135-145)
--- NOTE | 2022-09-27 12:52 | P.PN ---
Subjective Progress Note Date: 09/27/22 This is a 61-year-old obese male with a past medical history significant for severe oxygen dependent chronic obstructive pulmonary disease, pulmonary hypertension, coronary artery disease, current smoker, hypertension, osteoarthritis, anxiety, cellulitis and chronic lower extremity venous stasis and edema. He also has a history of 2.3 cm peripheral right lung nodule and a large right hilar lymph node measuring 2.4 x 2.4 cm. These have been followed in the outpatient setting in 1 smaller compared to previous exams on 05/23/2022. He has suspected obstructive sleep apnea as well however has not been able to follow up with the sleep Center. He presented here to the emergency room yesterday with increasing shortness of breath and low oxygen saturations. X-ray reveals a stable 2.4 cm right midlung pulmonary mass. No acute pulmonary process. There is some increased pulmonary lung markings. Possible pulmonary fibrosis. White count 8.1. Hemoglobin 15.5. Platelets 259. Sodium 144. Potassium 4.1. Bicarb 38. BUN 16. Creatinine 0.61. Glucose 115. ProBNP 84. Troponin negative 1. The patient was requiring 8 L high flow nasal cannula to maintain O2 saturations in the 90s throughout the night. He is seen today in consultation on the regular medical floor. ABGs were obtained and he was found to be hypoxemic/hypercapnic with a P O2 of 57, pCO2 of 89 and a pH of 7.26 on 50% FiO2. He was placed on BiPAP 12/6 and 50% FiO2 currently. The patient is seen today 09/22/2022 in follow-up on the regular medical floor. He is currently resting comfortably in bed. Awake and alert. He is on BiPAP 14/6 and 50% FiO2. Alternating with 8 L high flow nasal cannula for meals. He is continued on DuoNeb inhalations, Symbicort, IV Solu-Medrol. NicoDerm patch in place. Remains on empiric antibiotics in the form of Vibramycin. Oral diuretics. The patient is seen today 09/25/2022 in follow-up on the regular medical floor. He is currently resting comfortably in bed. Awake and alert. Maintaining O2 saturations in the 90s on 2 L/m per nasal cannula. He can be agitated and angry staff at times. He remains on DuoNeb inhalations, Symbicort, prednisone taper. NicoDerm patch in place. Lovenox for DVT prophylaxis. Utilizing BiPAP / and 40% FiO2 at nighttime and during the day while napping. White count 6.5. Hemoglobin 17.4. Platelets 294. Sodium 140. Potassium 4.3. Bicarb 44. BUN 23. Creatinine 0.67. Glucose 135. The patient is seen today 09/26/2022 in follow-up on the regular medical floor. He is currently sitting up in a chair. Awake and alert in no acute distress. Maintaining O2 saturations in the mid 90s on 2 L/m per nasal cannula. Afebrile. Hemodynamically stable. Blood glucose 170. He is continued on DuoNeb inhalations, Symbicort, prednisone taper. NicoDerm patch in place. Remains on diuretics. The patient is seen today 09/27/2022 in follow-up on the regular medical floor. He is up at sitting at the bedside. Awake and alert in no acute distress. He is maintaining O2 saturations in the mid 90s on 3 L/m per nasal cannula. He's been afebrile. Hemodynamically stable. Sodium 143. Potassium 3.8. Bicarb 33. BUN 23. Creatinine 0.6. Glucose 90. He is continued on DuoNeb inhalations, Symbicort, prednisone taper. NicoDerm patch in place. Remains on diuretics. Objective - Vital Signs Vital signs: Vital Signs Temp 98.6 F 09/27/22 06:50 Pulse 84 09/27/22 11:25 Resp 18 09/27/22 11:25 BP 110/72 09/27/22 06:50 Pulse Ox 95 09/27/22 11:16 FiO2 40 09/27/22 04:26 Intake & Output 09/26/22 09/27/22 09/27/22 18:59 06:59 18:59 Output Total 0 1989 1199 Balance -3199 -1989 Weight 123 kg Output: Urine 0 1989 1199 Other: Voiding Method Indwelling Catheter Indwelling Catheter Indwelling Catheter # Bowel Movements 1 1 - Exam GENERAL EXAM: Alert, obese 61-year-old male, up in a chair, on 3 L nasal cannula, comfortable in no apparent distress. HEAD: Normocephalic. EYES: Normal reaction of pupils, equal size. NOSE: Clear with pink turbinates. THROAT: No erythema or exudates. NECK: No masses, no JVD. CHEST: No chest wall deformity. LUNGS: Equal air entry with bilateral end expiratory wheeze. CVS: S1 and S2 normal with no audible murmur, regular rhythm. ABDOMEN: No hepatosplenomegaly, normal bowel sounds, no guarding or rigidity. SPINE: No scoliosis or deformity SKIN: No rashes. Changes of chronic venous stasis of the bilateral lower extremities CENTRAL NERVOUS SYSTEM: No focal deficits, tone is normal in all 4 extremities. EXTREMITIES: There is 1+ peripheral edema. No clubbing, no cyanosis. Peripheral pulses are intact - Labs CBC & Chem 7: 09/26/22 09:25 09/27/22 06:07 Labs: Abnormal Lab Results - Last 24 Hours (Table) 09/26/22 09/26/22 09/26/22 Range/Units 09:25 09:25 16:23 Hgb 16.4 H (12.0-15.0) d/dL Hct 53.0 H (39.6-50.0) % MCHC 30.9 L (32.0-37.0) d/dL RDW 14.7 H (11.5-14.5) % Carbon Dioxide 35.2 H (21.6-31.8) mmol/L Anion Gap 12.80 H (4.00-12.00) mmol/L BUN/Creatinine Ratio 30.38 H (12.00-20.00) Ratio Glucose 151 H (70-110) mg/dL POC Glucose (mg/dL) 160 H (70-110) mg/dL 09/27/22 Range/Units 06:07 Hgb (12.0-15.0) d/dL Hct (39.6-50.0) % MCHC (32.0-37.0) d/dL RDW (11.5-14.5) % Carbon Dioxide 32.8 H (21.6-31.8) mmol/L Anion Gap (4.00-12.00) mmol/L BUN/Creatinine Ratio 38.17 H (12.00-20.00) Ratio Glucose (70-110) mg/dL POC Glucose (mg/dL) (70-110) mg/dL Assessment and Plan Assessment: Acute exacerbation of chronic obstructive pulmonary disease Acute on chronic hypoxemic and hypercapnic respiratory failure secondary to above. Patient was placed on BiPAP Obesity/hypoventilation syndrome, needing outpatient sleep study Pulmonary nodules. Chest CTA showed a right lower lobe 2.3 cm peripheral nodule with calcification that was demonstrated on prior exam on 05/23/2022, and a la rge right hilar lymph node measuring 2.4 x 2.4 cm which was also similar in size to prior exam. Chronic tobacco use Multiple remote left-sided rib fractures Hypertension Coronary artery disease with previous stenting of the right coronary artery Neuropathy Osteoarthritis Anxiety Plan: The patient was seen and evaluated Medications reviewed Cleared for discharge from the pulmonary standpoint Continue his home pulmonary medications Continue a prednisone taper I have personally seen and examined the patient, performed the documentation and the assessment and plan as written. Number of minutes spent on the visit: 10.
[2022-09-27 14:12] VITALS: BP 121/83
[2022-09-27 14:24] VITALS: BMI 38.9
[2022-09-27 15:21] VITALS: PULSE 84
[2022-09-27 16:14] LABS: Glucose,Whole Blood 136 mg/dL (70-110)
--- NOTE | 2022-10-01 10:50 | CDI ---
Documentation Clarification Form Date: 10/01/2022 10:38:53 AM From: Vanna Kearns Admit Date: 09/20/2022 02:30:00 PM Patient Name: Kenny Edwards Visit Number: [id number] Discharge Date: 09/27/2022 04:47:00 PM ATTENTION: The Clinical Documentation Specialists (CDI) and [facility] Coding Staff appreciate your assistance in clarifying documentation. Please respond to the clarification below the line at the bottom and electronically sign. The CDI & [facility] Coding staff will review the response and follow-up if needed. Please note: Queries are made part of the Legal Health Record. If you have any questions, please contact the author of this message via ITS. Dr. Guy Frank Acute on Chronic diastolic heart failure with previously know EF of 55-60% from echo obtained 05/25/22. Patient did undergo successful IV duresis while in the hospital. Patient discharged home with increased dose of Lasix is documented in the Discharge Summary. For each diagnosis, documentation must be clear to determine if the condition was present at the time of the patients inpatient admission or developed during the hospital stay. Additional clarification regarding Aucte on Chronic diastolic heart failure is requested. History/Risk Factors: chronic CHF, HTN, Acute and chronic respiratory failure, COPD Clinical Indicators: 09/22 CXR There may be some early volume overload. 09/23 CXR Mild cardiomegaly Treatment: PO Lasix then IV Lasix on 09/23 Definition of Present on Admission (POA): A diagnosis present at the time the order for admission to inpatient status was written. Please clarify if Acute on chronic Diastolic heart failure was POA [ x ] Y = Yes, Acute on chronic diastolic heart failure was present at the time of the order for inpatient admission. [ ] N = No, Acute on chronic diastolic heart failure was not present at the time of the order for inpatient admission. [ ] W = Clinically undetermined if the condition was present at the time of the order for inpatient admission. MTDD
== END 2022-09-27 16:47 | disposition home health service (06) | DRG 291 ==
LOC: EC 12:15 → 6NMEDSUR 14:16 → OBSVTOIN 14:30 → 4SSUR 21:44 → 2SICU 09-22 21:53 → 4SSUR 09-24 12:33
PROVIDERS: ADMIT Student in an Organized Health Care Education/Training Program; ATTEND Student in an Organized Health Care Education/Training Program
DX: I11.0 Hypertensive heart disease with heart failure (principal); I50.33 Acute on chronic diastolic (congestive) heart failure; J96.21 Acute and chronic respiratory failure with hypoxia; J96.22 Acute and chronic respiratory failure with hypercapnia; J44.1 Chronic obstructive pulmonary disease with (acute) exacerbation; L03.119 Cellulitis of unspecified part of limb; E66.2 Morbid (severe) obesity with alveolar hypoventilation; E87.29 Other acidosis; I27.20 Pulmonary hypertension, unspecified; G62.9 Polyneuropathy, unspecified; I87.8 Other specified disorders of veins; M19.90 Unspecified osteoarthritis, unspecified site; R91.8 Other nonspecific abnormal finding of lung field; Z80.1 Family history of malignant neoplasm of trachea, bronchus and lung; Z68.39 Body mass index [BMI] 39.0-39.9, adult; E78.5 Hyperlipidemia, unspecified; F41.1 Generalized anxiety disorder; F32.A Depression, unspecified; Z20.822 Contact with and (suspected) exposure to COVID-19; Z79.51 Long term (current) use of inhaled steroids; Z79.899 Other long term (current) drug therapy; Z82.49 Family history of ischemic heart disease and other diseases of the circulatory system; Z99.81 Dependence on supplemental oxygen; Z95.5 Presence of coronary angioplasty implant and graft; Z28.21 Immunization not carried out because of patient refusal; Z71.3 Dietary counseling and surveillance; Z88.2 Allergy status to sulfonamides; Z87.81 Personal history of (healed) traumatic fracture
CPT/HCPCS: 36415; 36600; 71045; 71046; 80048; 80053; 81001; 82803; 82805; 83605; 83735; 83880; 84132; 84484; 85025; 85027; 85610; 85730; 93005; 94640; 94660; 94760; 99285; 99406

== ENCOUNTER 2022-11-06 12:39 | Inpatient (IN) | payer OTHER ==
[2022-11-06] MEDS ORDERED: IPRATROPIUM 0.5 MG/2.5 ML NEBU INHALATION STA (12:53)
[2022-11-06] MEDS ORDERED: ALBUTEROL NEBULIZED 2.5 MG/3 ML INHALATION STA (12:53)
[2022-11-06] MEDS ORDERED: methylPREDNISolone SOD SUCCI 125 MG/2 ML VIAL IV STA (12:53)
--- NOTE | 2022-11-06 12:57 | ED ---
General Adult HPI - General Chief complaint: Shortness of Breath Stated complaint: SOB Time Seen by Provider: 11/06/22 12:45 Source: patient, EMS, RN notes reviewed, old records reviewed Mode of arrival: EMS Limitations: no limitations - History of Present Illness Initial comments: This is a 61-year-old male with past medical history significant for smoking coronary artery disease and COPD. Patient called him and so this morning because he short of breath as pulse ox was low however when they arrived they noted that his oxygen was not on him. Later in the day his pulse ox was again low and pace medical monitor indicated it was low and they called EMS. Patient does state he feels short of breath and it gets worse with any movement. Patient denies chest pain or palpitations. Patient states she does still smoke. Patient is any recent fever chills or cough per patient denies abdominal pain patient denies nausea or diarrhea. - Related Data Home Medications Medication Instructions Recorded Confirmed Losartan Potassium 100 mg PO HS 05/23/22 11/06/22 Cholecalciferol [Vitamin D3 (25 50 mcg PO DAILY 07/23/22 11/06/22 Mcg = 1000 Iu)] Ibuprofen [Motrin] 600 mg PO QID PRN 07/23/22 11/06/22 Loratadine [Claritin] 10 mg PO DAILY PRN 07/23/22 11/06/22 Nicotine 14Mg/24Hr Patch [Habitrol] 1 patch TRANSDERM DAILY PRN 07/23/22 11/06/22 Umeclidinium [place] [Incruse 1 puff INHALATION RT-DAILY 07/23/22 11/06/22 Ellipta] Albuterol Inhaler [Ventolin Hfa 2 puff INHALATION RT-QID PRN 09/20/22 11/06/22 Inhaler] Brinzolamide [Azopt 1% Ophth Susp] 1 drop BOTH EYES TID 09/20/22 11/06/22 Ocusoft Eyelid Cleansing Pads 1 applic TOPICAL HS 09/20/22 11/06/22 Petrolatum, White [Aquaphor] 1 applic TOPICAL HS 09/20/22 11/06/22 Tobramycin/Dexamethasone [Tobradex 1 drop BOTH EYES QID 09/20/22 11/06/22 Ophth Susp] Triamcinolone 0.1% Cream [Kenalog 1 applicatio TOPICAL BID 09/20/22 11/06/22 0.1% Cream] Ipratropium-Albuterol Nebulize 3 ml INHALATION RT-QID 11/06/22 11/06/22 [Duoneb 0.5 mg-3 mg/3 ml Soln] Travoprost [Travatan Z 0.004%] 1 drop BOTH EYES HS 11/06/22 11/06/22 amLODIPine [Norvasc] 5 mg PO HS 11/06/22 11/06/22 methylPREDNISolone Dose Pack See Taper PO DIRECTED 11/06/22 11/06/22 [Medrol Dose Pack] Previous Rx's Medication Instructions Recorded Budesonide-Formot 160-4.5 Mcg 2 puff INHALATION RT-BID each 05/28/22 [Symbicort 160-4.5 Mcg Inhaler] Acetaminophen Tab [Tylenol] 650 mg PO Q6HR PRN tab 07/27/22 Allergies Allergy/AdvReac Type Severity Reaction Status Date / Time Sulfa (Sulfonamide Allergy Rash on Verified 11/06/22 14:06 Antibiotics) arms Review of Systems ROS Statement: Those systems with pertinent positive or pertinent negative responses have been documented in the HPI. ROS Other: All systems not noted in ROS Statement are negative. Past Medical History Past Medical History: Coronary Artery Disease (CAD), Hypertension, Osteoarthritis (OA), Pneumonia, Skin Disorder, Sleep Apnea/CPAP/BIPAP Additional Past Medical History / Comment(s): neuropathy History of Any Multi-Drug Resistant Organisms: None Reported Past Surgical History: Heart Catheterization With Stent Additional Past Surgical History / Comment(s): 2004 stenting of RCA, ccath 2004 with lesions 50%mid LAD and unstable RCA plaque-stented as mentioned-EF was 60%, quadricepts muscle bx, normal colonoscopy in 2014, colonoscopy with benign polypectomy in past. Past Anesthesia/Blood Transfusion Reactions: No Reported Reaction Date of Last Stent Placement:: 2004 Past Psychological History: Anxiety, Depression Smoking Status: Current every day smoker Past Alcohol Use History: Rare Past Drug Use History: Marijuana - Past Family History Mother Family Medical History: Cancer Additional Family Medical History / Comment(s): Pt's mother at age 55 from lung cancer. She was a nonsmoker. Father Family Medical History: Hyperlipidemia, Hypertension Additional Family Medical History / Comment(s): Father at age 89 of natural causes. Sister(s) Family Medical History: Myocardial Infarction (AR) Additional Family Medical History / Comment(s): Pt has one sister who of possible AR at age 53yrs. General Exam - General Exam Comments Initial Comments: GENERAL: Patient is well-developed and well-nourished. Patient is nontoxic and well- hydrated and is in mild distress. ENT: Neck is soft and supple. No significant lymphadenopathy is noted. Oropharynx is clear. Moist mucous membranes. Neck has full range of motion without eliciting any pain. EYES: The sclera were anicteric and conjunctiva were pink and moist. Extraocular movements were intact and pupils were equal round and reactive to light. Eyelids were unremarkable. PULMONARY: Decreased air movement. Patient does have some expiratory wheezing CARDIOVASCULAR: There is a regular rate and rhythm without any murmurs gallops or rubs. ABDOMEN: Soft and nontender with normal bowel sounds. SKIN: Skin is clear with no lesions or rashes and otherwise unremarkable. NEUROLOGIC: Patient is alert and oriented x3. Cranial nerves II through XII are grossly intact. Motor and sensory are also intact. Normal speech, volume and content. Symmetrical smile. MUSCULOSKELETAL: Normal extremities with adequate strength and full range of motion. Patient has 2+ edema bilaterally LYMPHATICS: No significant lymphadenopathy is noted PSYCHIATRIC: Normal psychiatric evaluation. Limitations: no limitations Course Vital Signs 11/06/22 11/06/22 11/06/22 12:43 13:57 14:06 Temperature 97.6 F Pulse Rate 69 90 92 Respiratory 22 18 18 Rate Blood Pressure 144/89 O2 Sat by Pulse 84 L Oximetry 11/06/22 14:50 Temperature Pulse Rate Respiratory Rate Blood Pressure O2 Sat by Pulse 86 L Oximetry Medical Decision Making - Medical Decision Making EKG was interpreted by myself. EKG shows sinus rhythm with occasional PAC at a rate of 82 bpm TN interval is on a 34 QRS is 88 QT interval 372 QTC is 410 per patient's EKG shows no ST segment elevation or depression Was pt. sent in by a medical professional or institution (SUZI Wade, DORMITORY COUNSELOR, urgent care, hospital, or [place] health care facility...) When possible be specific @ -Patient's physician sent the patient to the emergency department. Did you speak to anyone other than the patient for history (EMS, parent, family, police, friend...)? What history was obtained from this source @ -EMS gave quite a bit of the history because he route to the patient's residence twice Did you review nursing and triage notes (agree or disagree)? Why? @ -I reviewed and agree with nursing and triage notes Were old charts reviewed (outside hosp., previous admission, EMS record, old EKG, old radiological studies, urgent care reports/EKG's, [place] health care facility records)? Report findings @ -I reviewed prior charts prior laboratory on this patient Differential Diagnosis (chest pain, altered mental status, abdominal pain women, abdominal pain men, vaginal bleeding, weakness, fever, dyspnea, syncope, headache, dizziness, GI bleed, back pain, seizure, CVA, palpatations, mental health, musculoskeletal)? @ -Differential Dyspnea: Coronary syndrome, arrhythmia, tamponade, asthma, COPD, pulmonary embolism, pneumonia, pneumothorax, pulmonary effusion, anaphylaxis, diabetic ketoacidosis, flailed chest, pulmonary contusion, diaphragmatic rupture, anemia, neuromuscular, this is not meant to be an all-inclusive list. EKG interpreted by me (3pts min.). @ -As above X-rays interpreted by me (1pt min.). @ -None done CT interpreted by me (1pt min.). @ -None done U/S interpreted by me (1pt. min.). @ -None done What testing was considered but not performed or refused? (CT, X-rays, U/S, labs)? Why? @ -None What meds were considered but not given or refused? Why? @ -None Did you discuss the management of the patient with other professionals (professionals i.e. , PA, DORMITORY COUNSELOR, lab, RT, psych nurse, social work therapist, youth care professional, teacher, investment officer, casework specialist)? Give summary @ -No Was smoking cessation discussed for >3mins.? @ -No Was critical care preformed (if so, how long)? @ -35 minutes Were there social determinants of health that impacted care today? How? (Homelessness, low income, unemployed, alcoholism, drug addiction, transportation, low edu. Level, literacy, decrease access to med. care, retirement, rehab)? @ -No Was there de-escalation of care discussed even if they declined (Discuss DNR or withdrawal of care, Hospice)? DNR status @ -No What co-morbidities impacted this encounter? (DM, HTN, Smoking, COPD, CAD, Cancer, CVA, ARF, Chemo, Hep., AIDS, mental health diagnosis, sleep apnea, morbid obesity)? @ -None Was patient admitted / discharged? Hospital course, mention meds given and route, prescriptions, significant lab abnormalities, going to OR and other pertinent info. @ -Patient received 2 breathing treatments while in the emergency department as well as steroids. Patient also received antibiotics because of his smoking history and COPD history. I spoke with the sound physician's agreed with the patient admitted the patient I wrote admitting order. patient was hypercapnic and was only On his normal 3 L because i didn't didn't want to decrease his respiratory drive Undiagnosed new problem with uncertain prognosis? @ -No Drug Therapy requiring intensive monitoring for toxicity (Heparin, Nitro, Insulin, Cardizem)? @ -No Were any procedures done? @ -No Diagnosis/symptom? @ -COPD Exacerbation Acute, or Chronic, or Acute on Chronic? @ -Acute on chronic Uncomplicated (without systemic symptoms) or Complicated (systemic symptoms)? @ -Complicated Side effects of treatment? @ -No Exacerbation, Progression, or Severe Exacerbation? @ -No Poses a threat to life or bodily function? How? (Chest pain, [place], AR, pneumonia, PE, COPD, DKA, ARF, appy, cholecystitis, CVA, Diverticulitis, Homicidal, Suicidal, threat to staff... and all critical care pts) @ -Yes this could lead to severe hypoxia and and organ dysfunction Diagnosis/symptom? @ -Hypercarbia Acute, or Chronic, or Acute on Chronic? @ -Acute on chronic Uncomplicated (without systemic symptoms) or Complicated (systemic symptoms)? @ -Complicated Side effects of treatment? @ -none Exacerbation, Progression, or Severe Exacerbation] @ -no Poses a threat to life or bodily function? @ -Yes this could decreased respiratory drive and cause end organ dysfunction - Lab Data Result diagrams: 11/06/22 13:03 11/06/22 13:03 Lab Results 11/06/22 11/06/22 11/06/22 Range/Units 13:03 13:03 13:03 WBC 8.6 (3.8-10.6) k/uL RBC 5.02 (4.30-5.90) m/uL Hgb 15.4 (13.0-17.5) gm/dL Hct 47.7 (39.0-53.0) % MCV 95.0 (80.0-100.0) fL MCH 30.6 (25.0-35.0) pg MCHC 32.2 (31.0-37.0) g/dL RDW 14.3 (11.5-15.5) % Plt Count 227 (150-450) k/uL MPV 7.9 Neutrophils % 78 % Lymphocytes % 10 % Monocytes % 8 % Eosinophils % 2 % Basophils % 0 % Neutrophils # 6.7 (1.3-7.7) k/uL Lymphocytes # 0.9 L (1.0-4.8) k/uL Monocytes # 0.7 (0-1.0) k/uL Eosinophils # 0.2 (0-0.7) k/uL Basophils # 0.0 (0-0.2) k/uL Hypochromasia Slight PT 9.9 (9.0-12.0) sec INR 0.9 (<1.2) APTT 27.5 (22.0-30.0) sec VBG pH (7.31-7.41) VBG pCO2 (37-51) mmHg VBG HCO3 (24-28) mmol/L Sodium 142 (137-145) mmol/L Potassium 4.2 (3.5-5.1) mmol/L Chloride 95 L (98-107) mmol/L Carbon Dioxide 40 H (22-30) mmol/L Anion Gap 7 mmol/L BUN 15 (9-20) mg/dL Creatinine 0.50 L (0.66-1.25) mg/dL Est GFR (CKD-EPI)AfAm >90 (>60 ml/min/1.73 sqM) Est GFR (CKD-EPI)NonAf >90 (>60 ml/min/1.73 sqM) Glucose 108 H (74-99) mg/dL Plasma Lactic Acid Abdias (0.7-2.0) mmol/L Calcium 9.0 (8.4-10.2) mg/dL Magnesium 2.2 (1.6-2.3) mg/dL Total Bilirubin 0.6 (0.2-1.3) mg/dL AST 30 (17-59) U/L ALT 43 (4-49) U/L Alkaline Phosphatase 63 (38-126) U/L Troponin I (0.000-0.034) ng/mL NT-Pro-B Natriuret Pep 109 pg/mL Total Protein 6.9 (6.3-8.2) g/dL Albumin 3.8 (3.5-5.0) g/dL 11/06/22 11/06/22 11/06/22 Range/Units 13:03 13:03 13:04 WBC (3.8-10.6) k/uL RBC (4.30-5.90) m/uL Hgb (13.0-17.5) gm/dL Hct (39.0-53.0) % MCV (80.0-100.0) fL MCH (25.0-35.0) pg MCHC (31.0-37.0) g/dL RDW (11.5-15.5) % Plt Count (150-450) k/uL MPV Neutrophils % % Lymphocytes % % Monocytes % % Eosinophils % % Basophils % % Neutrophils # (1.3-7.7) k/uL Lymphocytes # (1.0-4.8) k/uL Monocytes # (0-1.0) k/uL Eosinophils # (0-0.7) k/uL Basophils # (0-0.2) k/uL Hypochromasia PT (9.0-12.0) sec INR (<1.2) APTT (22.0-30.0) sec VBG pH 7.30 L (7.31-7.41) VBG pCO2 92 H* (37-51) mmHg VBG HCO3 45 H (24-28) mmol/L Sodium (137-145) mmol/L Potassium (3.5-5.1) mmol/L Chloride (98-107) mmol/L Carbon Dioxide (22-30) mmol/L Anion Gap mmol/L BUN (9-20) mg/dL Creatinine (0.66-1.25) mg/dL Est GFR (CKD-EPI)AfAm (>60 ml/min/1.73 sqM) Est GFR (CKD-EPI)NonAf (>60 ml/min/1.73 sqM) Glucose (74-99) mg/dL Plasma Lactic Acid Abdias 1.3 (0.7-2.0) mmol/L Calcium (8.4-10.2) mg/dL Magnesium (1.6-2.3) mg/dL Total Bilirubin (0.2-1.3) mg/dL AST (17-59) U/L ALT (4-49) U/L Alkaline Phosphatase (38-126) U/L Troponin I <0.012 (0.000-0.034) ng/mL NT-Pro-B Natriuret Pep pg/mL Total Protein (6.3-8.2) g/dL Albumin (3.5-5.0) g/dL Critical Care Time Critical Care Time: Yes Total Critical Care Time: 35 Disposition Clinical Impression: COPD exacerbation, Hypercarbia Disposition: ADMITTED IP TO THIS HOSP Referrals: Hollis Trinh MD [Primary Care Provider] - 1-2 days Time of Disposition: 15:51
[2022-11-06 13:23] LABS: Basophils % (A) 0 %; Eosinophils # (A) 0.2 k/uL (0-0.7); Eosinophils % (A) 2 %; HCT 47.7 % (39.0-53.0); HGB 15.4 gm/dL (13.0-17.5); Hypochromasia Slight; Lymphocytes # (A) 0.9 k/uL (1.0-4.8); Lymphocytes % (A) 10 %; MCH 30.6 pg (25.0-35.0); MCHC 32.2 g/dL (31.0-37.0); Mean Platelet Volume 7.9; Monocytes # (A) 0.7 k/uL (0-1.0); Monocytes % (A) 8 %; Neutrophils # (A) 6.7 k/uL (1.3-7.7); Neutrophils % (A) 78 %; Platelet Count 227 k/uL (150-450); RBC 5.02 m/uL (4.30-5.90); RDW 14.3 % (11.5-15.5); WBC 8.6 k/uL (3.8-10.6)
[2022-11-06 13:36] LABS: ALT 43 U/L (4-49); AST 30 U/L (17-59); African American GFR (CKD) >90 (>60 ml/min/1.73 sqM); Albumin 3.8 g/dL (3.5-5.0); Alkaline Phosphatase 63 U/L (38-126); Anion Gap 7 mmol/L; Blood Urea Nitrogen 15 mg/dL (9-20); Chloride 95 mmol/L (98-107); Glucose 108 mg/dL (74-99); Magnesium 2.2 mg/dL (1.6-2.3); Non-African American GFR(CKD) >90 (>60 ml/min/1.73 sqM); Potassium 4.2 mmol/L (3.5-5.1); Sodium 142 mmol/L (137-145); Total Bilirubin 0.6 mg/dL (0.2-1.3); Total Protein 6.9 g/dL (6.3-8.2)
[2022-11-06 13:38] LABS: VBG PH 7.3 (7.31-7.41)
[2022-11-06 13:40] LABS: INR 0.9 (<1.2); Partial Thromboplastin Time 27.5 sec (22.0-30.0); Prothrombin Time 9.9 sec (9.0-12.0)
[2022-11-06 14:05] LABS: Carbon Dioxide 40 mmol/L (22-30)
[2022-11-06 14:11] LABS: NT-Pro-B-Type Natriuretic Pept 109 pg/mL
--- NOTE | 2022-11-06 14:41 | XR ---
EXAMINATION TYPE: XR chest 2V DATE OF EXAM: 11/06/2022 COMPARISON: 09/23/2022 TECHNIQUE: PA and lateral views submitted. HISTORY: Shortness of breath FINDINGS: Mediastinum is widened. Heart enlarged and there is a diffuse interstitial pattern with bilateral con solidation and small effusion. Osseous structures demonstrate hypertrophic and degenerative changes o f the spine. Bilateral AC joint arthropathy. IMPRESSION: 1. Correlate for CHF otherwise consider pneumonia. 2. Widened mediastinum recommend CT scan of the chest.
[2022-11-06] MEDS ORDERED: NALOXONE 0.4 MG/ML 1 ML VIAL IVP PRN (15:52)
[2022-11-06] MEDS ORDERED: IPRATROPIUM-ALBUTEROL 3 ML NEB INHALATION PRN (15:52)
[2022-11-06 16:15] LABS: ABG Base Excess 17.2 mmol/L; ABG Oxygen Saturation 84.7 % (94-97); ABG PH 7.35 (7.35-7.45); ABG TCO2 45 mmol/L (19-24); Allen Test Performed? Yes
[2022-11-06 16:17] LABS: ABG PCO2 77 mmHg (35-45); ABG PO2 50 mmHg (83-108)
[2022-11-06 16:18] LABS: ABG HCO3 43 mmol/L (21-25)
[2022-11-06] MEDS: IPRATROPIUM-ALBUTEROL 3 ML NEB INHALATION SCH ×2 (17:02→20:38)
--- NOTE | 2022-11-06 17:38 | P.HPIM ---
History of Present Illness H&P Date: 11/06/22 Chief Complaint: dyspnea 61-year-old man with medical history of diastolic heart failure, COPD with chronic respiratory failure of 3 L, OHS/FALGUNI, CAD/hypertension/hyperlipidemia presented for dyspnea. Patient was found to be hypoxic at home to the mid 80s. Patient says that he tends to get most short of breath at night when his oxygen falls off as he rolls around in sleep. He has not yet been worked up with a sleep study and does not have a BiPAP machine at home. He has had multiple readmissions for similar complaints. He denies fevers, chills, nausea, vomiting, chest pain, palpitations, syncope, presyncope, abdominal pain, constipation, diarrhea, dysuria, dyschezia, numbness/weakness of extremities. In the emergency room, patient was afebrile, 144/89, heart rate 22, 94% on 3 L nasal cannula. CBC is unremarkable. Basic metabolic panel shows CO2 of 40. Liver function tests are unremarkable. BNP is 102. Troponin is less than 0.012. ABG showed pH of 7.35, pCO2 of 77, pCO2 of 50. Coags are unremarkable. EKG shows normal sinus rhythm with normal axis, no evidence of ischemia. Chest x-ray shows cardiomegaly with widened mediastinum, low lung volumes, bilateral vascular congestion and pulmonary edema. Case was discussed with emergency provider and decision was made to admit the patient to hospital for further evaluation. All Systems reviewed and pertinent positives and negatives noted in HPI, all other symptoms are negative Gen: in no apparent distress, resting comfortably in bed Eyes: PERRL, no scleral injection or icterus HENT: normocephalic, atraumatic, good hearing acuity, moist mucous membranes Neck: no tracheal deviation, full range of motion Resp: good air exchange, breathing comfortably with no accessory muscle use, no tactile fremitus, bilateral crackles CVS: good distal perfusion x 4, + pitting edema is present bilaterally GI: soft, NTTP, ND, no hepatosplenomegaly : no suprapubic tenderness, no CVAT, schaeffer catheter not present MSK: no clubbing, no cyanosis, no noted contractures of extremities Skin: no noted rashes, petechiae; temperature of skin is appropriate Neuro: moving all extremities without signs of weakness, CN II-XII intact Psych: cooperative, euthymic mood, insight and judgment intact Labs and imaging as above Assessment: Acute on chronic diastolic heart failure exacerbation Acute on chronic hypoxemic and hypercarbic respiratory failure COPD with chronic respiratory failure 3 L FALGUNI/OHS CAD Hypertension Hyperlipidemia Plan: Vital signs reviewed and noted in the HPI Lab work reviewed and noted in the HPI EKG and CXR are personally interpreted and noted in the HPI Case was discussed with the Emergency Room provider and decision was made to admit the patient for acute on chronic hypoxemic and hypercarbic respiratory failure Start Lasix 40 mg IV daily Repeat echocardiogram is not needed since last was done in 05/25 and BNP is low Pulmonology consult DuoNeb's every 4 hours Continue solumedrol 60mg IV q6h Oxygen as needed for target saturation between 88-92% Patient is full code Past Medical History Past Medical History: Coronary Artery Disease (CAD), Hypertension, Osteoarthritis (OA), Pneumonia, Skin Disorder, Sleep Apnea/CPAP/BIPAP Additional Past Medical History / Comment(s): neuropathy History of Any Multi-Drug Resistant Organisms: None Reported Past Surgical History: Heart Catheterization With Stent Additional Past Surgical History / Comment(s): 2004 stenting of RCA, ccath 2004 with lesions 50%mid LAD and unstable RCA plaque-stented as mentioned-EF was 60%, quadricepts muscle bx, normal colonoscopy in 2013, colonoscopy with benign polypectomy in past. Past Anesthesia/Blood Transfusion Reactions: No Reported Reaction Date of Last Stent Placement:: 2004 Past Psychological History: Anxiety, Depression Smoking Status: Current every day smoker Past Alcohol Use History: Rare Past Drug Use History: Marijuana - Past Family History Mother Family Medical History: Cancer Additional Family Medical History / Comment(s): Pt's mother at age 55 from lung cancer. She was a nonsmoker. Father Family Medical History: Hyperlipidemia, Hypertension Additional Family Medical History / Comment(s): Father at age 89 of natural causes. Sister(s) Family Medical History: Myocardial Infarction ([place]) Additional Family Medical History / Comment(s): Pt has one sister who of possible [place] at age 53yrs. Medications and Allergies Home Medications Medication Instructions Recorded Confirmed Type Losartan Potassium 100 mg PO HS 05/23/22 11/06/22 History Budesonide-Formot 160-4.5 Mcg 2 puff INHALATION RT-BID each 05/28/22 11/06/22 Rx [Symbicort 160-4.5 Mcg Inhaler] Cholecalciferol [Vitamin D3 (25 50 mcg PO DAILY 07/23/22 11/06/22 History Mcg = 1000 Iu)] Ibuprofen [Motrin] 600 mg PO QID PRN 07/23/22 11/06/22 History Loratadine [Claritin] 10 mg PO DAILY PRN 07/23/22 11/06/22 History Nicotine 14Mg/24Hr Patch [Habitrol] 1 patch TRANSDERM DAILY PRN 07/23/22 11/06/22 History Umeclidinium [place] [Incruse 1 puff INHALATION RT-DAILY 07/23/22 11/06/22 History Ellipta] Acetaminophen Tab [Tylenol] 650 mg PO Q6HR PRN tab 07/27/22 11/06/22 Rx Albuterol Inhaler [Ventolin Hfa 2 puff INHALATION RT-QID PRN 09/20/22 11/06/22 History Inhaler] Brinzolamide [Azopt 1% Ophth Susp] 1 drop BOTH EYES TID 09/20/22 11/06/22 History Ocusoft Eyelid Cleansing Pads 1 applic TOPICAL HS 09/20/22 11/06/22 History Petrolatum, White [Aquaphor] 1 applic TOPICAL HS 09/20/22 11/06/22 History Tobramycin/Dexamethasone [Tobradex 1 drop BOTH EYES QID 09/20/22 11/06/22 History Ophth Susp] Triamcinolone 0.1% Cream [Kenalog 1 applicatio TOPICAL BID 09/20/22 11/06/22 History 0.1% Cream] Ipratropium-Albuterol Nebulize 3 ml INHALATION RT-QID 11/06/22 11/06/22 History [Duoneb 0.5 mg-3 mg/3 ml Soln] Travoprost [Travatan Z 0.004%] 1 drop BOTH EYES HS 11/06/22 11/06/22 History amLODIPine [Norvasc] 5 mg PO HS 11/06/22 11/06/22 History methylPREDNISolone Dose Pack See Taper PO DIRECTED 11/06/22 11/06/22 History [Medrol Dose Pack] Allergies Allergy/AdvReac Type Severity Reaction Status Date / Time Sulfa (Sulfonamide Allergy Rash on Verified 11/06/22 14:06 Antibiotics) arms Physical Exam Osteopathic Statement: *. No significant issues noted on an osteopathic structural exam other than those noted in the History and Physical/Consult. Vitals: Vital Signs Temp Pulse Resp BP Pulse Ox 11/06/22 14:50 86 L 11/06/22 14:06 92 18 11/06/22 13:57 90 18 11/06/22 12:43 97.6 F 69 22 144/89 84 L Intake and Output 11/06/22 11/06/22 11/06/22 06:59 14:59 22:59 Other: Weight 129.228 kg Results CBC & Chem 7: 11/06/22 13:03 11/06/22 13:03 Labs: Abnormal Lab Results - Last 24 Hours (Table) 11/06/22 11/06/22 11/06/22 Range/Units 13:03 13:03 13:04 Lymphocytes # 0.9 L (1.0-4.8) k/uL ABG pCO2 (35-45) mmHg ABG pO2 (83-108) mmHg ABG HCO3 (21-25) mmol/L ABG Total CO2 (19-24) mmol/L ABG O2 Saturation (94-97) % VBG pH 7.30 L (7.31-7.41) VBG pCO2 92 H* (37-51) mmHg VBG HCO3 45 H (24-28) mmol/L Chloride 95 L (98-107) mmol/L Carbon Dioxide 40 H (22-30) mmol/L Creatinine 0.50 L (0.66-1.25) mg/dL Glucose 108 H (74-99) mg/dL 11/06/22 Range/Units 16:11 Lymphocytes # (1.0-4.8) k/uL ABG pCO2 77 H* (35-45) mmHg ABG pO2 50 L* (83-108) mmHg ABG HCO3 43 H* (21-25) mmol/L ABG Total CO2 45 H (19-24) mmol/L ABG O2 Saturation 84.7 L (94-97) % VBG pH (7.31-7.41) VBG pCO2 (37-51) mmHg VBG HCO3 (24-28) mmol/L Chloride (98-107) mmol/L Carbon Dioxide (22-30) mmol/L Creatinine (0.66-1.25) mg/dL Glucose (74-99) mg/dL
[2022-11-06] MEDS: methylPREDNISolone SOD SUCCI 125 MG/2 ML VIAL IV SCH (18:12)
[2022-11-06] MEDS: FUROSEMIDE 10 MG/ML 4 ML VIAL IV SCH (18:14)
[2022-11-07] MEDS ORDERED: RX INFO: IV CONTRAST WAS GIVEN 1 EACH MISC MISCELLANE PRN (01:12)
[2022-11-07] MEDS: methylPREDNISolone SOD SUCCI 125 MG/2 ML VIAL IV SCH ×5 (01:41→23:54)
--- NOTE | 2022-11-07 05:27 | P.CNPUL ---
History of Present Illness Consult date: 11/07/22 Requesting physician: Geoffrey Tidwell Reason for consult: COPD Chief complaint: Shortness of breath History of present illness: I am seeing this patient in consultation today 11/07/2022 in the emergency room for suspected acute COPD exacerbation. Patient is a 61-year-old male with past medical history significant for COPD, chronic oxygen dependence on 3 L/m nasal cannula, severe obstructive sleep apnea, pulmonary hypertension, pulmonary nodule, chronic nicotine dependence, hypertension, coronary artery disease, osteoarthritis, and morbid obesity. Patient has recently started seeing Dr. Enriquez in the office for management of his moderate COPD with an FEV1 56% of predicted. Normally takes a combination of Symbicort, Incruse, and Ventolin HFA as needed. He continues to smoke. He was also found to have severe obstructive sleep apnea with an AHI of 37, but has not received a CPAP as of yet. Patient presented to emergency room yesterday afternoon complaining of shortness of breath that progressively worsened over the last 24 hours. He denies any fever, chills, myalgias, cough, chest pain. Denies heart palpitations, lightheadedness, syncope. Admits stable lower extremity swelling and orthopnea. When EMS arrived, he was found to be hypoxic, and not wearing his oxygen. He wa s reportedly confused. Patient is currently sitting up in bed, on 5 L/m nasal cannula, in no acute distress. He is currently oxygenating at 95%. He is alert and oriented, and does not appear severely hypercapnic. ABGs from admission showed a pO2 of 50, pCO2 of 77, and pH of 7.35. He has been started on DuoNeb's, Symbicort inhaler, and IV Solu-Medrol. Chest x-ray on arrival showed cardiomegaly with interstitial infiltrates and bilateral trace effusions. Underlying pneumonia could not be ruled out. Mediastinum was widened. Patient has history of right lower lobe 2.3 cm peripheral pulmonary nodule with calcification and a right pulmonary hilar lymph node measuring 2.4 cm on previous chest CT back in Jul, 2022 which is being followed up on an outpatient basis. CBC on arrival was unremarkable. He has been started on Rocephin for empiric antibiotic coverage. He is afebrile. BMP on admission shows a sodium 142, potassium 4.2, chloride 85, serum bicarbonate 40, BUN 15, creatinine 0.5, glucose 108. Troponins less than 0.012. NT proBNP low at 109. Patient appears hemodynamically stable this time. Review of Systems REVIEW OF SYSTEMS: CONSTITUTIONAL: Denies any recent significant weight loss or weight gain. EYES: Denies change in vision. EARS, NOSE, MOUTH, THROAT: Denies headaches, denies sore throat. CARDIOVASCULAR: Denies chest pain, palpitations or syncopal episodes. Admits chronic lower extremity swelling. RESPIRATORY: See HPI GASTROINTESTINAL: Denies change in appetite, abdominal pain, nausea and vomiting, or diarrhea GENITOURINARY: Denies hematuria, denies infections. MUSKULOSKELETAL: Denies pain, denies swelling. INTEGUMENTARY: Denies rash, denies eczema. NEUROLOGICAL: Denies recent memory loss, no recent seizure activity. PSYCHIATRIC: Denies anxiety, denies depression. HEMATOLOGIC/LYMPHATIC: Denies anemia, denies enlarged lymph node Past Medical History Past Medical History: Coronary Artery Disease (CAD), Hypertension, Osteoarthritis (OA), Pneumonia, Skin Disorder, Sleep Apnea/CPAP/BIPAP Additional Past Medical History / Comment(s): neuropathy History of Any Multi-Drug Resistant Organisms: None Reported Past Surgical History: Heart Catheterization With Stent Additional Past Surgical History / Comment(s): 2004 stenting of RCA, ccath 2004 with lesions 50%mid LAD and unstable RCA plaque-stented as mentioned-EF was 60%, quadricepts muscle bx, normal colonoscopy in 2013, colonoscopy with benign polypectomy in past. Past Anesthesia/Blood Transfusion Reactions: No Reported Reaction Date of Last Stent Placement:: 2004 Past Psychological History: Anxiety, Depression Smoking Status: Current every day smoker Past Alcohol Use History: Rare Past Drug Use History: Marijuana - Past Family History Mother Family Medical History: Cancer Additional Family Medical History / Comment(s): Pt's mother at age 55 from lung cancer. She was a nonsmoker. Father Family Medical History: Hyperlipidemia, Hypertension Additional Family Medical History / Comment(s): Father at age 89 of natural causes. Sister(s) Family Medical History: Myocardial Infarction ([place]) Additional Family Medical History / Comment(s): Pt has one sister who of possible [place] at age 53yrs. Medications and Allergies Home Medications Medication Instructions Recorded Confirmed Type Losartan Potassium 100 mg PO HS 05/23/22 11/06/22 History Budesonide-Formot 160-4.5 Mcg 2 puff INHALATION RT-BID each 05/28/22 11/06/22 Rx [Symbicort 160-4.5 Mcg Inhaler] Cholecalciferol [Vitamin D3 (25 50 mcg PO DAILY 07/23/22 11/06/22 History Mcg = 1000 Iu)] Ibuprofen [Motrin] 600 mg PO QID PRN 07/23/22 11/06/22 History Loratadine [Claritin] 10 mg PO DAILY PRN 07/23/22 11/06/22 History Nicotine 14Mg/24Hr Patch [Habitrol] 1 patch TRANSDERM DAILY PRN 07/23/22 11/06/22 History Umeclidinium [place] [Incruse 1 puff INHALATION RT-DAILY 07/23/22 11/06/22 History Ellipta] Acetaminophen Tab [Tylenol] 650 mg PO Q6HR PRN tab 07/27/22 11/06/22 Rx Albuterol Inhaler [Ventolin Hfa 2 puff INHALATION RT-QID PRN 09/20/22 11/06/22 History Inhaler] Brinzolamide [Azopt 1% Ophth Susp] 1 drop BOTH EYES TID 09/20/22 11/06/22 History Ocusoft Eyelid Cleansing Pads 1 applic TOPICAL HS 09/20/22 11/06/22 History Petrolatum, White [Aquaphor] 1 applic TOPICAL HS 09/20/22 11/06/22 History Tobramycin/Dexamethasone [Tobradex 1 drop BOTH EYES QID 09/20/22 11/06/22 History Ophth Susp] Triamcinolone 0.1% Cream [Kenalog 1 applicatio TOPICAL BID 09/20/22 11/06/22 History 0.1% Cream] Ipratropium-Albuterol Nebulize 3 ml INHALATION RT-QID 11/06/22 11/06/22 History [Duoneb 0.5 mg-3 mg/3 ml Soln] Travoprost [Travatan Z 0.004%] 1 drop BOTH EYES HS 11/06/22 11/06/22 History amLODIPine [Norvasc] 5 mg PO HS 11/06/22 11/06/22 History methylPREDNISolone Dose Pack See Taper PO DIRECTED 11/06/22 11/06/22 History [Medrol Dose Pack] Allergies Allergy/AdvReac Type Severity Reaction Status Date / Time Sulfa (Sulfonamide Allergy Rash on Verified 11/06/22 14:06 Antibiotics) arms Physical Exam Vitals: Vital Signs Temp Pulse Resp BP Pulse Ox 11/07/22 02:11 85 22 134/91 95 11/06/22 23:50 98.8 F 94 16 131/80 94 L 11/06/22 22:30 88 18 136/77 2 L 11/06/22 21:14 90 20 89 L 11/06/22 20:49 92 11/06/22 20:39 89 11/06/22 18:17 97.9 F 93 22 86 L 11/06/22 14:50 86 L 11/06/22 14:06 92 18 11/06/22 13:57 90 18 11/06/22 12:43 97.6 F 69 22 144/89 84 L Intake and Output 11/06/22 11/06/22 11/07/22 14:59 22:59 06:59 Other: Weight 129.228 kg GENERAL EXAM: Alert, 61-year-old obese white male, comfortable in no apparent distress. HEAD: Normocephalic and atraumatic EYES: Normal reaction of pupils, equal size. NOSE: Clear with pink turbinates. THROAT: No erythema or exudates. NECK: No masses, no JVD. CHEST: No chest wall deformity. LUNGS: Equal air entry with markedly diminished lung sounds throughout and minimal and expiratory wheezes. No crackles, rhonchi or dullness. On 5 L/m nasal cannula. No conversational dyspnea or accessory muscle use.. CVS: S1 and S2 normal with no audible murmur, regular rhythm. No extra heart sounds ABDOMEN: Obese abdomen, no hepatosplenomegaly, active bowel sounds, no guarding or rigidity. SPINE: No scoliosis or deformity SKIN: No rashes CENTRAL NERVOUS SYSTEM: No focal deficits, tone is normal in all 4 extremities. EXTREMITIES: There is bilateral 1+ pitting lower extremity edema. No clubbing, or cyanosis. Peripheral pulses are intact. Results - Laboratory Findings CBC and BMP: 11/06/22 13:03 11/06/22 13:03 ABG ABG pH 7.35 (7.35-7.45) 11/06/22 16:11 ABG pCO2 77 mmHg (35-45) H* 11/06/22 16:11 ABG pO2 50 mmHg (83-108) L* 11/06/22 16:11 ABG O2 Saturation 84.7 % (94-97) L 11/06/22 16:11 PT/INR, D-dimer PT 9.9 sec (9.0-12.0) 11/06/22 13:03 INR 0.9 (<1.2) 11/06/22 13:03 Abnormal lab findings: Abnormal Labs 11/06/22 11/06/22 11/06/22 13:03 13:03 13:04 Lymphocytes # 0.9 L ABG pCO2 ABG pO2 ABG HCO3 ABG Total CO2 ABG O2 Saturation VBG pH 7.30 L VBG pCO2 92 H* VBG HCO3 45 H Chloride 95 L Carbon Dioxide 40 H Creatinine 0.50 L Glucose 108 H 11/06/22 16:11 Lymphocytes # ABG pCO2 77 H* ABG pO2 50 L* ABG HCO3 43 H* ABG Total CO2 45 H ABG O2 Saturation 84.7 L VBG pH VBG pCO2 VBG HCO3 Chloride Carbon Dioxide Creatinine Glucose - Diagnostic Findings Chest x-ray: image reviewed Assessment and Plan Assessment: Acute COPD exacerbation, possibly secondary to mild diastolic CHF exacerbation, Chest x-ray on arrival showed cardiomegaly with interstitial infiltrates and bilateral trace effusions. Underlying pneumonia could not be ruled out. Mediastinum was widened. NT proBNP was low at 109. Acute on chronic hypoxemic and hypercapnic respiratory failure secondary to abov e, currently on 5 L/m nasal cannula Moderate chronic obstructive pulmonary disease with an FEV1 56% of predicted, normally manages a combination of Symbicort, Incruse, and Ventolin HFA as needed Obesity hypoventilation syndrome Severe obstructive sleep apnea History of pulmonary nodules and hilar lymphadenopathy, being followed up in outpatient basis Pulmonary hypertension Chronic nicotine dependence Essential hypertension Coronary artery disease, with previous stenting of the RCA Osteoarthritis Plan: Patient's medications, labs, chest x-ray reviewed Continue supplemental oxygen to maintain oxygen saturation between 88 and 92% Patient has been started on a combination of DuoNeb's, Symbicort, and IV Solu- Medrol Patient's hypercapnia seems to be improving without BiPAP at this time. Started on Lasix 40 mg IV daily Chest x-ray shows widened mediastinum, recommended CT follow-up Smoking cessation counseling performed Nicotine replacement offered We will continue to follow and make recommendations I have personally seen and examined the patient, performed the documentation and the assessment and plan as written. Number of minutes spent on the visit:20 Time with Patient: Greater than 30
[2022-11-07] MEDS: IBUPROFEN 600 MG TAB PO PRN (07:00)
[2022-11-07] MEDS: SYMBICORT 160-4.5 MCG INHALER INHALATION SCH ×2 (08:23→21:21)
[2022-11-07] MEDS: IPRATROPIUM-ALBUTEROL 3 ML NEB INHALATION SCH ×4 (08:24→21:21)
--- NOTE | 2022-11-07 08:29 | CT ---
EXAMINATION TYPE: CT chest w con DATE OF EXAM: 11/07/2022 COMPARISON: 07/23/2022 HISTORY: enlarged mediastinum CT DLP: 921.9 mGycm Automated exposure control for dose reduction was used. CONTRAST: CT scan of the chest is performed with IV Contrast, patient injected with 80 mL of Isovue 300. FINDINGS: LUNGS: Pleural-based granulomas redemonstrated measuring about 1.9 cm versus measurement of 2 cm prev iously. There is no pleural effusion or pneumothorax seen. The tracheobronchial tree is patent. MEDIASTINUM: There are no greater than 1 cm hilar or mediastinal lymph nodes. No pericardial effusi on is seen. Thoracic aorta is of normal caliber. The heart is mildly enlarged. UPPER ABDOMEN: No significant abnormality appreciated. OTHER: No additional significant abnormality is seen. IMPRESSION: 1. No evidence for mediastinal mass or adenopathy. 2. Stable pleural-based granuloma. 3. Fatty liver.
[2022-11-07] MEDS: FUROSEMIDE 10 MG/ML 4 ML VIAL IV SCH (09:30)
[2022-11-07] MEDS: NICOTINE 21MG/24HR PATCH TRANSDERM SCH (09:30)
[2022-11-07] MEDS: DORZOLAMIDE HCL 2% DROPS 10 ML BTL BOTH EYES SCH ×3 (09:36→20:59)
[2022-11-07] MEDS: TOBRA-DEXAMET 0.3-0.1% OPHTH DROPS 2.5 ML BTL BOTH EYES SCH ×4 (09:36→21:00)
--- NOTE | 2022-11-07 10:19 | P.PN ---
Subjective Progress Note Date: 11/07/22 Seen saturating in the high 70s this morning and was sleeping. I woke the patient up and he saturated mid-80s after several minutes. No complaints of dyspnea. Gen: in no apparent distress, resting comfortably in bed Eyes: PERRL, no scleral injection or icterus HENT: normocephalic, atraumatic, good hearing acuity, moist mucous membranes Neck: no tracheal deviation, full range of motion Resp: good air exchange, breathing comfortably with no accessory muscle use, no tactile fremitus, bilateral crackles CVS: good distal perfusion x 4, + pitting edema is present bilaterally GI: soft, NTTP, ND, no hepatosplenomegaly : no suprapubic tenderness, no CVAT, schaeffer catheter not present MSK: no clubbing, no cyanosis, no noted contractures of extremities Skin: no noted rashes, petechiae; temperature of skin is appropriate Neuro: moving all extremities without signs of weakness, CN II-XII intact Psych: cooperative, euthymic mood, insight and judgment intact Hospital Course: 61-year-old man with medical history of diastolic heart failure, COPD with chronic respiratory failure of 3 L, OHS/FALGUNI, CAD/hypertension/hyperlipidemia presented for dyspnea. In the emergency room, patient was afebrile, 144/89, heart rate 22, 94% on 3 L nasal cannula. CBC is unremarkable. Basic metabolic panel shows CO2 of 40. Liver function tests are unremarkable. BNP is 102. Troponin is less than 0.012. ABG showed pH of 7.35, pCO2 of 77, pCO2 of 50. Coags are unremarkable. EKG shows normal sinus rhythm with normal axis, no evidence of ischemia. Chest x-ray shows cardiomegaly with widened mediastinum, low lung volumes, bilateral vascular congestion and pulmonary edema. Case was discussed with emergency provider and decision was made to admit the patient to hospital for further evaluation. Assessment: Acute on chronic diastolic heart failure exacerbation Acute on chronic hypoxemic and hypercarbic respiratory failure COPD with chronic respiratory failure 3 L FALGUNI/OHS CAD Hypertension Hyperlipidemia Plan: Chest CT reviewed, previous granulomatous disease, no evidence of mass Continue Lasix 40 mg IV daily Repeat echocardiogram is not needed since last was done in 05/25 and BNP is low Pulmonology consult DuoNeb's every 4 hours Continue solumedrol 60mg IV q6h Oxygen as needed for target saturation between 88-92% Patient is full code Objective - Vital Signs Vital signs: Vital Signs Temp 97.8 F 11/07/22 10:14 Pulse 79 11/07/22 10:14 Resp 18 11/07/22 10:14 BP 156/90 11/07/22 10:14 Pulse Ox 82 L 11/07/22 10:14 FiO2 Intake & Output 11/06/22 11/07/22 11/07/22 18:59 06:59 18:59 Weight 129.228 kg - Labs CBC & Chem 7: 11/06/22 13:03 11/06/22 13:03 Labs: Abnormal Lab Results - Last 24 Hours (Table) 11/06/22 11/06/22 11/06/22 Range/Units 13:03 13:03 13:04 Lymphocytes # 0.9 L (1.0-4.8) k/uL ABG pCO2 (35-45) mmHg ABG pO2 (83-108) mmHg ABG HCO3 (21-25) mmol/L ABG Total CO2 (19-24) mmol/L ABG O2 Saturation (94-97) % VBG pH 7.30 L (7.31-7.41) VBG pCO2 92 H* (37-51) mmHg VBG HCO3 45 H (24-28) mmol/L Chloride 95 L (98-107) mmol/L Carbon Dioxide 40 H (22-30) mmol/L Creatinine 0.50 L (0.66-1.25) mg/dL Glucose 108 H (74-99) mg/dL 11/06/22 Range/Units 16:11 Lymphocytes # (1.0-4.8) k/uL ABG pCO2 77 H* (35-45) mmHg ABG pO2 50 L* (83-108) mmHg ABG HCO3 43 H* (21-25) mmol/L ABG Total CO2 45 H (19-24) mmol/L ABG O2 Saturation 84.7 L (94-97) % VBG pH (7.31-7.41) VBG pCO2 (37-51) mmHg VBG HCO3 (24-28) mmol/L Chloride (98-107) mmol/L Carbon Dioxide (22-30) mmol/L Creatinine (0.66-1.25) mg/dL Glucose (74-99) mg/dL
[2022-11-07 11:19] LABS: Glucose,Whole Blood 208 mg/dL (70-110)
[2022-11-07 16:27] LABS: Glucose,Whole Blood 261 mg/dL (70-110)
[2022-11-07] MEDS ORDERED: ALBUTEROL NEBULIZED 2.5 MG/3 ML INHALATION PRN (17:14)
[2022-11-07] MEDS: INSULIN ASPART (NovoLOG) 100 UNIT/ML VIAL SQ SCH ×2 (18:17→20:59)
[2022-11-07 19:58] LABS: Glucose,Whole Blood 221 mg/dL (70-110)
[2022-11-07] MEDS ORDERED: SYMBICORT 160-4.5 MCG INHALER INHALATION SCH (20:00)
[2022-11-07] MEDS ORDERED: IPRATROPIUM-ALBUTEROL 3 ML NEB INHALATION SCH (20:00)
[2022-11-07] MEDS: LOSARTAN 50 MG TAB PO SCH (20:59)
[2022-11-07] MEDS: amLODIPine 5 MG TAB PO SCH (20:59)
[2022-11-07] MEDS: LATANOPROST 0.005% OPHTH DROPS 2.5 ML BTL BOTH EYES SCH (21:00)
[2022-11-07] MEDS ORDERED: [UNRECOGNIZED DRUG - OTHER] TOPICAL SCH (21:00)
[2022-11-08] MEDS: methylPREDNISolone SOD SUCCI 125 MG/2 ML VIAL IV SCH ×3 (05:44→16:55)
[2022-11-08 05:50] LABS: Glucose,Whole Blood 176 mg/dL (70-110)
[2022-11-08] MEDS ORDERED: IPRATROPIUM 0.5 MG/2.5 ML NEBU INHALATION SCH (08:00)
[2022-11-08] MEDS: IPRATROPIUM-ALBUTEROL 3 ML NEB INHALATION SCH ×4 (08:41→21:09)
[2022-11-08] MEDS: SYMBICORT 160-4.5 MCG INHALER INHALATION SCH ×2 (08:42→21:10)
[2022-11-08] MEDS: CHOLECALCIFEROL 25 MCG (1000 IU) TABLET PO SCH (09:22)
[2022-11-08] MEDS: IBUPROFEN 600 MG TAB PO PRN (09:22)
[2022-11-08] MEDS: LORATADINE 10 MG TAB PO PRN (09:23)
[2022-11-08] MEDS: NICOTINE 21MG/24HR PATCH TRANSDERM SCH (09:23)
[2022-11-08] MEDS: FUROSEMIDE 10 MG/ML 4 ML VIAL IV SCH (09:23)
[2022-11-08] MEDS: DORZOLAMIDE HCL 2% DROPS 10 ML BTL BOTH EYES SCH ×3 (09:28→20:46)
[2022-11-08] MEDS: TOBRA-DEXAMET 0.3-0.1% OPHTH DROPS 2.5 ML BTL BOTH EYES SCH ×4 (09:28→20:46)
[2022-11-08 11:33] LABS: Glucose,Whole Blood 219 mg/dL (70-110)
[2022-11-08] MEDS: INSULIN ASPART (NovoLOG) 100 UNIT/ML VIAL SQ SCH ×2 (12:30→16:55)
--- NOTE | 2022-11-08 13:06 | P.PN ---
Subjective Progress Note Date: 11/08/22 I am seeing this patient in consultation today 11/07/2022 in the emergency room for suspected acute COPD exacerbation. Patient is a 61-year-old male with past medical history significant for COPD, chronic oxygen dependence on 3 L/m nasal cannula, severe obstructive sleep apnea, pulmonary hypertension, pulmonary nodule, chronic nicotine dependence, hypertension, coronary artery disease, osteoarthritis, and morbid obesity. Patient has recently started seeing Dr. Enriquez in the office for management of his moderate COPD with an FEV1 56% of predicted. Normally takes a combination of Symbicort, Incruse, and Ventolin HFA as needed. He continues to smoke. He was also found to have severe obstructive sleep apnea with an AHI of 37, but has not received a CPAP as of yet. Patient presented to emergency room yesterday afternoon complaining of shortness of breath that progressively worsened over the last 24 hours. He denies any fever, chills, myalgias, cough, chest pain. Denies heart palpitations, l ightheadedness, syncope. Admits stable lower extremity swelling and orthopnea. When EMS arrived, he was found to be hypoxic, and not wearing his oxygen. He was reportedly confused. Patient is currently sitting up in bed, on 5 L/m nasal cannula, in no acute distress. He is currently oxygenating at 95%. He is alert and oriented, and does not appear severely hypercapnic. ABGs from admission showed a pO2 of 50, pCO2 of 77, and pH of 7.35. He has been started on DuoNeb's, Symbicort inhaler, and IV Solu-Medrol. Chest x-ray on arrival showed cardiomegaly with interstitial infiltrates and bilateral trace effusions. Underlying pneumonia could not be ruled out. Mediastinum was widened. Patient has history of right lower lobe 2.3 cm peripheral pulmonary nodule with calcification and a right pulmonary hilar lymph node measuring 2.4 cm on previous chest CT back in Jul, 2022 which is being followed up on an outpatient basis. CBC on arrival was unremarkable. He has been started on Rocephin for empiric antibiotic coverage. He is afebrile. BMP on admission shows a sodium 142, potassium 4.2, chloride 85, serum bicarbonate 40, BUN 15, creatinine 0.5, glucose 108. Troponins less than 0.012. NT proBNP low at 109. Patient appears hemodynamically stable this time. The patient is seen today 11/08/2022 in follow-up on the selective care unit. He is currently resting in bed. Awake alert in no acute distress. Presently on BiPAP 14/5 and 35% FiO2. He did undergo nocturnal ox pulse oximeter readings and was in the 70s and low 80s on his 3 L nasal cannula. Computed tomography scan of the chest revealed no evidence of mediastinal mass or adenopathy. Stable pleural-based granuloma. Fatty liver. Blood cultures revealed no growth. Blood sugar 219. He is continued on DuoNeb inhalations, Symbicort, Solu-Medrol. NicoDerm patch in place. Remains on IV diuretics. Antibiotics in form of ceftriaxone. Procalcitonin 0.03. ProBNP 109. Currently in a positive balance. Objective - Vital Signs Vital signs: Vital Signs Temp 97.5 F L 11/08/22 08:00 Pulse 76 11/08/22 12:13 Resp 21 11/08/22 11:17 BP 136/83 11/08/22 11:17 Pulse Ox 93 L 11/08/22 11:17 FiO2 35 11/08/22 12:00 Intake & Output 11/07/22 11/08/22 11/08/22 18:59 06:59 18:59 Intake Total 525 1000 178 Output Total 1300 Balance 525 -300 178 Weight 129.228 kg Intake: IV 10 10 Invasive Line 1 10 10 Intake, IV Titration 50 50 Amount cefTRIAXone 1 gm In 50 50 Sodium Chloride 0.9% 50 ml @ 100 mls/hr IVPB Q24HR [facility] Rx#:[id number] Oral 465 1000 118 Output: Urine 1300 Other: Voiding Method Toilet Toilet Toilet Urinal Urinal Urinal # Voids 2 1 - Exam GENERAL EXAM: Alert, 61-year-old obese male, on BiPAP 14/5 and 35% FiO2, comfortable in no apparent distress. HEAD: Normocephalic and atraumatic EYES: Normal reaction of pupils, equal size. NOSE: Clear with pink turbinates. THROAT: No erythema or exudates. NECK: No masses, no JVD. CHEST: No chest wall deformity. LUNGS: Equal air entry with markedly diminished lung sounds throughout and minimal and expiratory wheezes. No conversational dyspnea or accessory muscle use.. CVS: S1 and S2 normal with no audible murmur, regular rhythm. No extra heart sounds ABDOMEN: Obese abdomen, no hepatosplenomegaly, active bowel sounds, no guarding or rigidity. SPINE: No scoliosis or deformity SKIN: No rashes or changes of chronic venous stasis of the lower extremities. CENTRAL NERVOUS SYSTEM: No focal deficits, tone is normal in all 4 extremities. EXTREMITIES: There is bilateral 1+ pitting lower extremity edema. No clubbing, or cyanosis. Peripheral pulses are intact. - Labs CBC & Chem 7: 11/06/22 13:03 11/06/22 13:03 Labs: Abnormal Lab Results - Last 24 Hours (Table) 11/07/22 11/07/22 11/08/22 Range/Units 16:26 19:56 05:48 POC Glucose (mg/dL) 261 H 221 H 176 H (70-110) mg/dL 11/08/22 Range/Units 11:29 POC Glucose (mg/dL) 219 H (70-110) mg/dL Microbiology - Last 24 Hours (Table) 11/06/22 13:03 Blood Culture - Preliminary Blood 11/06/22 13:03 Blood Culture - Preliminary Blood Assessment and Plan Assessment: Acute COPD exacerbation, possibly secondary to mild diastolic CHF exacerbation, Chest x-ray on arrival showed cardiomegaly with interstitial infiltrates and bilateral trace effusions. Underlying pneumonia could not be ruled out. Mediast inum was widened. NT proBNP was low at 109. Computed tomography scan this admission revealed no evidence for mediastinal mass or adenopathy. Stable pleural-based granuloma. Acute on chronic hypoxemic and hypercapnic respiratory failure secondary to above, currently on BiPAP Moderate chronic obstructive pulmonary disease with an FEV1 56% of predicted, normally manages a combination of Symbicort, Incruse, and Ventolin HFA as needed Obesity hypoventilation syndrome Severe obstructive sleep apnea History of pulmonary nodules and hilar lymphadenopathy, being followed up in outpatient basis. Computed tomography scan this admission revealed no evidence for mediastinal mass or adenopathy. Stable pleural-based granuloma. Pulmonary hypertension Chronic nicotine dependence Essential hypertension Coronary artery disease, with previous stenting of the RCA Osteoarthritis Plan: The patient was seen and evaluated CAT scan, labs and medications reviewed Nocturnal pulse oximetry readings reviewed The patient does qualify for home BiPAP Current settings are 14/5 and 35% FiO2 Discontinue ceftriaxone, pro-calcitonin negative Continue bronchodilators and steroids Increase his activity as tolerated Titrate down the FiO2 as tolerated We'll continue to follow I have personally seen and examined the patient, performed the documentation and the assessment and plan as written. Number of minutes spent on the visit: 10.
--- NOTE | 2022-11-08 14:53 | P.PN ---
Subjective Progress Note Date: 11/08/22 61-year-old man with medical history of diastolic heart failure, COPD with chronic respiratory failure of 3 L, OHS/FALGUNI, CAD/hypertension/hyperlipidemia presented for dyspnea. In the emergency room, patient was afebrile, 144/89, heart rate 22, 94% on 3 L nasal cannula. CBC is unremarkable. Basic metabolic panel shows CO2 of 40. Liver function tests are unremarkable. BNP is 102. Troponin is less than 0.012. ABG showed pH of 7.35, pCO2 of 77, pCO2 of 50. Coags are unremarkable. EKG shows normal sinus rhythm with normal axis, no evidence of ischemia. Chest x-ray shows cardiomegaly with widened mediastinum, low lung volumes, bilateral vascular congestion and pulmonary edema. Case was discussed with emergency provider and decision was made to admit the patient to hospital for further evaluation. 11/08 Patient was seen and examined. Lethargic on BiPAP 14/5 FiO2 35%. Blood cultures are negative so far. Pro-calcitonin was 0.03 thousand antibiotics were discontinued. He remains on bronchodilators and Solu-Medrol IV. Overnight pulse oximeter showed O2 saturation in the 70-80s on 3 L nasal cannula. Pulmonology on board. Gen: in no apparent distress, on BiPAP HENT: normocephalic, atraumatic Neck: no tracheal deviation, full range of motion Resp: good air exchange, breathing comfortably with no accessory muscle use CVS: good distal perfusion x 4 MSK: no clubbing, no cyanosis, no noted contractures of extremities Skin: no noted rashes, petechiae; temperature of skin is appropriate Psych: cooperative, euthymic mood, insight and judgment intact Acute on chronic diastolic heart failure exacerbation Acute on chronic hypoxemic and hypercarbic respiratory failure COPD with chronic respiratory failure 3 L FALGUNI/OHS CAD Hypertension Hyperlipidemia Based on my assessment of this patient, this patient meets a high complexity level of care. Patient has a new diagnosis of acute on chronic hypoxemic hypercarbic respiratory failure secondary to diastolic CHF exacerbation with uncertain prognosis. Acute on chronic diastolic heart failure exacerbation: Continue Lasix 40 mg IV QD. Strict intake and outtake. Daily weights. Acute on chronic hypoxemic and hypercarbic respiratory failure: BiPAP with settings mentioned as above. Pulmonology on board. DuoNeb scheduled and as needed for SOB/wheezing. Solumedrol 60 mg IV Q6H. ABG shows primary respiratory acidosis with secondary metabolic alkalosis. COPD with chronic respiratory failure 3 L FALGUNI/OHS CAD Hypertension Hyperlipidemia I have reviewed the following transformation consultant notes: Pulmonology note reviewed. I have reviewed the results of the following tests: Blood culture. I have ordered the following tests: Daily BMP as Lasix is nephrotoxic. I have discussed the care of this patient with the following independent historian: I have independently interpreted the following test below: I have discussed the management of this patient with the following physician: Objective - Vital Signs Vital signs: Vital Signs Temp 97.5 F L 11/08/22 08:00 Pulse 76 11/08/22 12:13 Resp 21 11/08/22 11:17 BP 136/83 11/08/22 11:17 Pulse Ox 93 L 11/08/22 11:17 FiO2 35 11/08/22 12:00 Intake & Output 11/07/22 11/08/22 11/08/22 18:59 06:59 18:59 Intake Total 525 1000 428 Output Total 1300 Balance 525 -300 428 Weight 129.228 kg Intake: IV 10 20 Invasive Line 1 10 20 Intake, IV Titration 50 50 Amount cefTRIAXone 1 gm In 50 50 Sodium Chloride 0.9% 50 ml @ 100 mls/hr IVPB Q24HR [facility] Rx#:[id number] Oral 465 1000 358 Output: Urine 1300 Other: Voiding Method Toilet Toilet Toilet Urinal Urinal Urinal # Voids 2 1 - Labs CBC & Chem 7: 11/06/22 13:03 11/06/22 13:03 Labs: Abnormal Lab Results - Last 24 Hours (Table) 11/07/22 11/07/22 11/08/22 Range/Units 16:26 19:56 05:48 POC Glucose (mg/dL) 261 H 221 H 176 H (70-110) mg/dL 11/08/22 Range/Units 11:29 POC Glucose (mg/dL) 219 H (70-110) mg/dL Microbiology - Last 24 Hours (Table) 11/06/22 13:03 Blood Culture - Preliminary Blood 11/06/22 13:03 Blood Culture - Preliminary Blood
[2022-11-08 16:29] LABS: Glucose,Whole Blood 258 mg/dL (70-110)
[2022-11-08] MEDS: ACETAMINOPHEN TAB 325 MG TAB PO PRN (18:49)
[2022-11-08 19:55] LABS: Glucose,Whole Blood 233 mg/dL (70-110)
[2022-11-08] MEDS ORDERED: ALPRAZolam 0.5 MG TAB PO STA (20:36)
[2022-11-08] MEDS: amLODIPine 5 MG TAB PO SCH (20:46)
[2022-11-08] MEDS: LOSARTAN 50 MG TAB PO SCH (20:46)
[2022-11-08] MEDS: LATANOPROST 0.005% OPHTH DROPS 2.5 ML BTL BOTH EYES SCH (20:46)
[2022-11-09] MEDS: methylPREDNISolone SOD SUCCI 125 MG/2 ML VIAL IV SCH ×4 (00:38→19:01)
[2022-11-09 06:41] LABS: Glucose,Whole Blood 179 mg/dL (70-110)
[2022-11-09] MEDS: INSULIN ASPART (NovoLOG) 100 UNIT/ML VIAL SQ SCH ×3 (06:45→16:25)
[2022-11-09] MEDS: IPRATROPIUM-ALBUTEROL 3 ML NEB INHALATION SCH ×4 (07:29→20:58)
[2022-11-09] MEDS: NICOTINE 21MG/24HR PATCH TRANSDERM SCH (09:13)
[2022-11-09] MEDS: FUROSEMIDE 10 MG/ML 4 ML VIAL IV SCH (09:13)
[2022-11-09 10:04] LABS: African American GFR (CKD) >90 (>60 ml/min/1.73 sqM); Blood Urea Nitrogen 30 mg/dL (9-20); Calcium 9.5 mg/dL (8.4-10.2); Chloride 96 mmol/L (98-107); Glucose 158 mg/dL (74-99); Non-African American GFR(CKD) >90 (>60 ml/min/1.73 sqM); Potassium 4.9 mmol/L (3.5-5.1); Sodium 141 mmol/L (137-145)
[2022-11-09 10:10] LABS: Anion Gap -1 mmol/L
[2022-11-09 10:12] LABS: Carbon Dioxide 46 mmol/L (22-30)
[2022-11-09] MEDS: CHOLECALCIFEROL 25 MCG (1000 IU) TABLET PO SCH (10:15)
[2022-11-09] MEDS: DORZOLAMIDE HCL 2% DROPS 10 ML BTL BOTH EYES SCH ×3 (10:15→20:46)
[2022-11-09] MEDS: TOBRA-DEXAMET 0.3-0.1% OPHTH DROPS 2.5 ML BTL BOTH EYES SCH ×4 (10:15→22:52)
[2022-11-09 11:25] LABS: Glucose,Whole Blood 279 mg/dL (70-110)
--- NOTE | 2022-11-09 11:52 | P.PN ---
Subjective Progress Note Date: 11/09/22 I am seeing this patient in consultation today 11/07/2022 in the emergency room for suspected acute COPD exacerbation. Patient is a 61-year-old male with past medical history significant for COPD, chronic oxygen dependence on 3 L/m nasal cannula, severe obstructive sleep apnea, pulmonary hypertension, pulmonary nodule, chronic nicotine dependence, hypertension, coronary artery disease, osteoarthritis, and morbid obesity. Patient has recently started seeing Dr. Enriquez in the office for management of his moderate COPD with an FEV1 56% of predicted. Normally takes a combination of Symbicort, Incruse, and Ventolin HFA as needed. He continues to smoke. He was also found to have severe obstructive sleep apnea with an AHI of 37, but has not received a CPAP as of yet. Patient presented to emergency room yesterday afternoon complaining of shortness of breath that progressively worsened over the last 24 hours. He denies any fever, chills, myalgias, cough, chest pain. Denies heart palpitations, l ightheadedness, syncope. Admits stable lower extremity swelling and orthopnea. When EMS arrived, he was found to be hypoxic, and not wearing his oxygen. He was reportedly confused. Patient is currently sitting up in bed, on 5 L/m nasal cannula, in no acute distress. He is currently oxygenating at 95%. He is alert and oriented, and does not appear severely hypercapnic. ABGs from admission showed a pO2 of 50, pCO2 of 77, and pH of 7.35. He has been started on DuoNeb's, Symbicort inhaler, and IV Solu-Medrol. Chest x-ray on arrival showed cardiomegaly with interstitial infiltrates and bilateral trace effusions. Underlying pneumonia could not be ruled out. Mediastinum was widened. Patient has history of right lower lobe 2.3 cm peripheral pulmonary nodule with calcification and a right pulmonary hilar lymph node measuring 2.4 cm on previous chest CT back in Jul, 2022 which is being followed up on an outpatient basis. CBC on arrival was unremarkable. He has been started on Rocephin for empiric antibiotic coverage. He is afebrile. BMP on admission shows a sodium 142, potassium 4.2, chloride 85, serum bicarbonate 40, BUN 15, creatinine 0.5, glucose 108. Troponins less than 0.012. NT proBNP low at 109. Patient appears hemodynamically stable this time. The patient is seen today 11/08/2022 in follow-up on the selective care unit. He is currently resting in bed. Awake alert in no acute distress. Presently on BiPAP 14/5 and 35% FiO2. He did undergo nocturnal ox pulse oximeter readings and was in the 70s and low 80s on his 3 L nasal cannula. Computed tomography scan of the chest revealed no evidence of mediastinal mass or adenopathy. Stable pleural-based granuloma. Fatty liver. Blood cultures revealed no growth. Blood sugar 219. He is continued on DuoNeb inhalations, Symbicort, Solu-Medrol. NicoDerm patch in place. Remains on IV diuretics. Antibiotics in form of ceftriaxone. Procalcitonin 0.03. ProBNP 109. Currently in a positive balance. The patient is seen today 11/09/2022 in follow-up on the selective care unit. He is currently sitting up in bed. Awake and alert in no acute distress. Currently maintaining O2 saturations in the 90s on 3 L/m per nasal cannula. He is alternating with BiPAP 14/5 and 30% FiO2. Cultures revealed no growth. Sodium 141. Potassium 4.9. Bicarb 46. BUN 30. Creatinine 0.61. Glucose 158. He remains on DuoNeb inhalations, Symbicort, Solu-Medrol. NicoDerm patch in place. Remains on IV diuretics. Currently in a negative balance. Objective - Vital Signs Vital signs: Vital Signs Temp 98.3 F 11/09/22 09:20 Pulse 80 11/09/22 09:20 Resp 16 11/09/22 09:20 BP 124/67 11/09/22 09:20 Pulse Ox 90 L 11/09/22 09:20 FiO2 30 11/09/22 09:20 Intake & Output 11/08/22 11/09/22 11/09/22 18:59 06:59 18:59 Intake Total 546 20 370 Output Total 467 354 2602 Balance 73 -634 -924 Intake: IV 20 20 10 Invasive Line 1 20 20 10 Intake, IV Titration 50 Amount cefTRIAXone 1 gm In 50 Sodium Chloride 0.9% 50 ml @ 100 mls/hr IVPB Q24HR [facility] Rx#:[id number] Oral 476 360 Output: Urine [id number] [id number] Other: Voiding Method Toilet Toilet Toilet Urinal Urinal Urinal # Voids 1 - Exam GENERAL EXAM: Alert, 61-year-old obese male, on 3 liters per nasal cannula alternating with BiPAP 14/5 and 30% FiO2, comfortable in no apparent distress. HEAD: Normocephalic and atraumatic EYES: Normal reaction of pupils, equal size. NOSE: Clear with pink turbinates. THROAT: No erythema or exudates. NECK: No masses, no JVD. CHEST: No chest wall deformity. LUNGS: Equal air entry with diminished lung sounds throughout and minimal and expiratory wheezes. No conversational dyspnea or accessory muscle use.. CVS: S1 and S2 normal with no audible murmur, regular rhythm. No extra heart sounds ABDOMEN: Obese abdomen, no hepatosplenomegaly, active bowel sounds, no guarding or rigidity. SPINE: No scoliosis or deformity SKIN: No rashes or changes of chronic venous stasis of the lower extremities. CENTRAL NERVOUS SYSTEM: No focal deficits, tone is normal in all 4 extremities. EXTREMITIES: There is bilateral 1+ pitting lower extremity edema. No clubbing, or cyanosis. Peripheral pulses are intact. - Labs CBC & Chem 7: 11/06/22 13:03 11/09/22 08:49 Labs: Abnormal Lab Results - Last 24 Hours (Table) 11/08/22 11/08/22 11/09/22 Range/Units 16:28 19:53 06:38 Chloride (98-107) mmol/L Carbon Dioxide (22-30) mmol/L BUN (9-20) mg/dL Creatinine (0.66-1.25) mg/dL Glucose (74-99) mg/dL POC Glucose (mg/dL) 258 H 233 H 179 H (70-110) mg/dL 11/09/22 11/09/22 Range/Units 08:49 11:22 Chloride 96 L (98-107) mmol/L Carbon Dioxide 46 H* (22-30) mmol/L BUN 30 H (9-20) mg/dL Creatinine 0.61 L (0.66-1.25) mg/dL Glucose 158 H (74-99) mg/dL POC Glucose (mg/dL) 279 H (70-110) mg/dL Microbiology - Last 24 Hours (Table) 11/06/22 13:03 Blood Culture - Preliminary Blood 11/06/22 13:03 Blood Culture - Preliminary Blood Assessment and Plan Assessment: Acute COPD exacerbation, possibly secondary to mild diastolic CHF exacerbation, Chest x-ray on arrival showed cardiomegaly with interstitial infiltrates and bilateral trace effusions. Underlying pneumonia could not be ruled out. Mediastinum was widened. NT proBNP was low at 109. Computed tomography scan this admission revealed no evidence for mediastinal mass or adenopathy. Stable pleural-based granuloma. Acute on chronic hypoxemic and hypercapnic respiratory failure secondary to above, currently on BiPAP Moderate chronic obstructive pulmonary disease with an FEV1 56% of predicted, normally manages a combination of Symbicort, Incruse, and Ventolin HFA as needed Obesity hypoventilation syndrome Severe obstructive sleep apnea History of pulmonary nodules and hilar lymphadenopathy, being followed up in outpatient basis. Computed tomography scan this admission revealed no evidence for mediastinal mass or adenopathy. Stable pleural-based granuloma. Pulmonary hypertension Chronic nicotine dependence Essential hypertension Coronary artery disease, with previous stenting of the RCA Osteoarthritis Plan: The patient was seen and evaluated Labs and medications reviewed The patient does qualify for home BiPAP Current settings are 14/5 and 30% FiO2 Continue bronchodilators and steroids Increase his activity as tolerated Titrate down the FiO2 as tolerated We'll continue to follow I have personally seen and examined the patient, performed the documentation and the assessment and plan as written. Number of minutes spent on the visit: 10.
[2022-11-09] MEDS: SYMBICORT 160-4.5 MCG INHALER INHALATION SCH ×2 (12:15→20:58)
--- NOTE | 2022-11-09 13:05 | P.PN ---
Subjective Progress Note Date: 11/09/22 61-year-old man with medical history of diastolic heart failure, COPD with chronic respiratory failure of 3 L, OHS/FALGUNI, CAD/hypertension/hyperlipidemia presented for dyspnea. In the emergency room, patient was afebrile, 144/89, heart rate 22, 94% on 3 L nasal cannula. CBC is unremarkable. Basic metabolic panel shows CO2 of 40. Liver function tests are unremarkable. BNP is 102. Troponin is less than 0.012. ABG showed pH of 7.35, pCO2 of 77, pCO2 of 50. Coags are unremarkable. EKG shows normal sinus rhythm with normal axis, no evidence of ischemia. Chest x-ray shows cardiomegaly with widened mediastinum, low lung volumes, bilateral vascular congestion and pulmonary edema. Case was discussed with emergency provider and decision was made to admit the patient to hospital for further evaluation. 11/08 Patient was seen and examined. Lethargic on BiPAP 14/5 FiO2 35%. Blood cultures are negative so far. Pro-calcitonin was 0.03 thousand antibiotics were discontinued. He remains on bronchodilators and Solu-Medrol IV. Overnight pulse oximeter showed O2 saturation in the 70-80s on 3 L nasal cannula. Pulmonology on board. 11/09 Patient was seen and examined. Wakes up but falls back asleep during the encounter. Currently on 4L NC. Case discussed with Dr. Trinh, attempting to get a BiPAP for home use. BMP shows chloride of 96, bicarb of 46, BUN of 30, creatinine of 0.61, glucose 158. Gen: in no apparent distress, on 4 L nasal cannula HENT: normocephalic, atraumatic Neck: no tracheal deviation, full range of motion Resp: good air exchange, breathing comfortably with no accessory muscle use, decreased breath sounds bilaterally CVS: good distal perfusion x 4, normal S1-S2 with no murmurs rubs or gallops. MSK: no clubbing, no cyanosis, no noted contractures of extremities Skin: no noted rashes, petechiae; temperature of skin is appropriate Psych: cooperative, euthymic mood, insight and judgment intact Acute on chronic diastolic heart failure exacerbation Acute on chronic hypoxemic and hypercarbic respiratory failure COPD with chronic respiratory failure 3 L FALGUNI/OHS CAD Hypertension Hyperlipidemia Based on my assessment of this patient, this patient meets a high complexity level of care. Patient has a new diagnosis of acute on chronic hypoxemic hypercarbic respirat ory failure secondary to diastolic CHF exacerbation with uncertain prognosis. Acute on chronic diastolic heart failure exacerbation: Continue Lasix 40 mg IV QD. Strict intake and outtake. Daily weights. Acute on chronic hypoxemic and hypercarbic respiratory failure: BiPAP with settings mentioned as above. Pulmonology on board. DuoNeb scheduled and as needed for SOB/wheezing. Solumedrol 60 mg IV Q6H. ABG shows primary respiratory acidosis with secondary metabolic alkalosis. COPD with chronic respiratory failure 3 L FALGUNI/OHS CAD Hypertension Hyperlipidemia I have reviewed the following senior sales consultant notes: Pulmonology note reviewed. I have reviewed the results of the following tests: BMP. I have ordered the following tests: Daily BMP as Lasix is nephrotoxic. I have discussed the care of this patient with the following independent historian: Case discussed with RN. I have independently interpreted the following test below: I have discussed the management of this patient with the following physician: Case discussed with PCP Dr. Trinh. Objective - Vital Signs Vital signs: Vital Signs Temp 98.3 F 11/09/22 09:20 Pulse 84 11/09/22 12:27 Resp 18 11/09/22 12:27 BP 117/63 11/09/22 12:27 Pulse Ox 96 11/09/22 12:27 FiO2 30 11/09/22 09:20 Intake & Output 11/08/22 11/09/22 11/09/22 18:59 06:59 18:59 Intake Total 546 20 370 Output Total 267 433 8924 Balance 21 -048 -830 Intake: IV 20 20 10 Invasive Line 1 20 20 10 Intake, IV Titration 50 Amount cefTRIAXone 1 gm In 50 Sodium Chloride 0.9% 50 ml @ 100 mls/hr IVPB Q24HR [facility] Rx#:[id number] Oral 476 360 Output: Urine [id number] Other: Voiding Method Toilet Toilet Toilet Urinal Urinal Urinal # Voids 1 - Labs CBC & Chem 7: 11/06/22 13:03 11/09/22 08:49 Labs: Abnormal Lab Results - Last 24 Hours (Table) 11/08/22 11/08/22 11/09/22 Range/Units 16:28 19:53 06:38 Chloride (98-107) mmol/L Carbon Dioxide (22-30) mmol/L BUN (9-20) mg/dL Creatinine (0.66-1.25) mg/dL Glucose (74-99) mg/dL POC Glucose (mg/dL) 258 H 233 H 179 H (70-110) mg/dL 11/09/22 11/09/22 Range/Units 08:49 11:22 Chloride 96 L (98-107) mmol/L Carbon Dioxide 46 H* (22-30) mmol/L BUN 30 H (9-20) mg/dL Creatinine 0.61 L (0.66-1.25) mg/dL Glucose 158 H (74-99) mg/dL POC Glucose (mg/dL) 279 H (70-110) mg/dL Microbiology - Last 24 Hours (Table) 11/06/22 13:03 Blood Culture - Preliminary Blood 11/06/22 13:03 Blood Culture - Preliminary Blood
[2022-11-09 16:20] LABS: Glucose,Whole Blood 198 mg/dL (70-110)
[2022-11-09] MEDS: ACETAMINOPHEN TAB 325 MG TAB PO PRN (16:25)
[2022-11-09 20:12] LABS: Glucose,Whole Blood 215 mg/dL (70-110)
[2022-11-09] MEDS: LOSARTAN 50 MG TAB PO SCH (20:45)
[2022-11-09] MEDS: amLODIPine 5 MG TAB PO SCH (20:46)
[2022-11-09] MEDS: LATANOPROST 0.005% OPHTH DROPS 2.5 ML BTL BOTH EYES SCH (20:46)
[2022-11-10] MEDS: methylPREDNISolone SOD SUCCI 125 MG/2 ML VIAL IV SCH ×3 (00:07→12:27)
[2022-11-10] MEDS: LORATADINE 10 MG TAB PO PRN (00:07)
[2022-11-10] MEDS: IBUPROFEN 600 MG TAB PO PRN (00:18)
[2022-11-10] MEDS: ACETAMINOPHEN TAB 325 MG TAB PO PRN ×2 (01:59→16:58)
[2022-11-10 06:13] LABS: Glucose,Whole Blood 141 mg/dL (70-110)
[2022-11-10] MEDS: INSULIN ASPART (NovoLOG) 100 UNIT/ML VIAL SQ SCH ×3 (06:31→17:36)
[2022-11-10] MEDS: IPRATROPIUM-ALBUTEROL 3 ML NEB INHALATION SCH ×4 (07:39→20:21)
[2022-11-10] MEDS: SYMBICORT 160-4.5 MCG INHALER INHALATION SCH ×2 (07:39→20:21)
[2022-11-10] MEDS: NICOTINE 21MG/24HR PATCH TRANSDERM SCH (09:57)
[2022-11-10] MEDS: TOBRA-DEXAMET 0.3-0.1% OPHTH DROPS 2.5 ML BTL BOTH EYES SCH ×4 (09:57→21:37)
[2022-11-10] MEDS: CHOLECALCIFEROL 25 MCG (1000 IU) TABLET PO SCH (09:57)
[2022-11-10] MEDS: DORZOLAMIDE HCL 2% DROPS 10 ML BTL BOTH EYES SCH ×3 (09:57→21:38)
[2022-11-10 11:48] LABS: African American GFR (CKD) >90 (>60 ml/min/1.73 sqM); Blood Urea Nitrogen 31 mg/dL (9-20); Calcium 9.2 mg/dL (8.4-10.2); Glucose 203 mg/dL (74-99); Non-African American GFR(CKD) >90 (>60 ml/min/1.73 sqM); Potassium 4.6 mmol/L (3.5-5.1); Sodium 136 mmol/L (137-145)
[2022-11-10 11:58] LABS: Glucose,Whole Blood 146 mg/dL (70-110)
--- NOTE | 2022-11-10 12:03 | P.PN ---
Subjective Progress Note Date: 11/10/22 Principal diagnosis: Shortness of breath. I am seeing this patient in consultation today 11/07/2022 in the emergency room for suspected acute COPD exacerbation. Patient is a 61-year-old male with past medical history significant for COPD, chronic oxygen dependence on 3 L/m nasal cannula, severe obstructive sleep apnea, pulmonary hypertension, pulmonary nodule, chronic nicotine dependence, hypertension, coronary artery disease, osteoarthritis, and morbid obesity. Patient has recently started seeing Dr. Enriquez in the office for management of his moderate COPD with an FEV1 56% of predicted. Normally takes a combination of Symbicort, Incruse, and Ventolin HFA as needed. He continues to smoke. He was also found to have severe obstructive sleep apnea with an AHI of 37, but has not received a CPAP as of yet. Patient presented to emergency room yesterday afternoon complaining of shortness of breath that progressively worsened over the last 24 hours. He denies any fever, chills, myalgias, cough, chest pain. Denies heart palpitations, lightheadedness, syncope. Admits stable lower extremity swelling and orthopnea. When EMS arrived, he was found to be hypoxic, and not wearing his oxygen. He was reportedly confused. Patient is currently sitting up in bed, on 5 L/m nasal cannula, in no acute distress. He is currently oxygenating at 95%. He is alert and oriented, and does not appear severely hypercapnic. ABGs from admission showed a pO2 of 50, pCO2 of 77, and pH of 7.35. He has been started on DuoNeb's, Symbicort inhaler, and IV Solu-Medrol. Chest x-ray on arrival showed cardiomegaly with interstitial infiltrates and bilateral trace effusions. Underlying pneumonia could not be ruled out. Mediastinum was widened. Patient has history of right lower lobe 2.3 cm peripheral pulmonary nodule with calcification and a right pulmonary hilar lymph node measuring 2.4 cm on previous chest CT back in Jul, 2022 which is being followed up on an outpatient basis. CBC on arrival was unremarkable. He has been started on Rocephin for empiric antibiotic coverage. He is afebrile. BMP on admission shows a sodium 142, potassium 4.2, chloride 85, serum bicarbonate 40, BUN 15, creatinine 0.5, glucose 108. Troponins less than 0.012. NT proBNP low at 109. Patient appears hemodynamically stable this time. The patient is seen today 11/08/2022 in follow-up on the selective care unit. He is currently resting in bed. Awake alert in no acute distress. Presently on BiPAP 14/5 and 35% FiO2. He did undergo nocturnal ox pulse oximeter readings and was in the 70s and low 80s on his 3 L nasal cannula. Computed tomography scan of the chest revealed no evidence of mediastinal mass or adenopathy. Stable pleural-based granuloma. Fatty liver. Blood cultures revealed no growth. Blood sugar 219. He is continued on DuoNeb inhalations, Symbicort, Solu-Medrol. NicoDerm patch in place. Remains on IV diuretics. Antibiotics in form of ceftriaxone. Procalcitonin 0.03. ProBNP 109. Currently in a positive balance. The patient is seen today 11/09/2022 in follow-up on the selective care unit. He is currently sitting up in bed. Awake and alert in no acute distress. Currently maintaining O2 saturations in the 90s on 3 L/m per nasal cannula. He is alternating with BiPAP 14/5 and 30% FiO2. Cultures revealed no growth. Sodium 141. Potassium 4.9. Bicarb 46. BUN 30. Creatinine 0.61. Glucose 158. He remains on DuoNeb inhalations, Symbicort, Solu-Medrol. NicoDerm patch in place. Remains on IV diuretics. Currently in a negative balance. Progress note dated 11/10/2022. The patient is seen today in room 379. He sitting at the into the bed. He is getting oxygen by nasal cannula at 3 L. His BiPAP is set up 14/5, and 30%. He did use it last night, but apparently has a difficult time with that, and did not use it for a long period of time. We've been trying to secure him a BiPAP device, for home use. The only new labs today with a glucose of 146. Clinically, he looks to be at baseline. Objective - Vital Signs Vital signs: Vital Signs Temp 97.9 F 11/10/22 09:55 Pulse 80 11/10/22 11:48 Resp 16 11/10/22 09:55 BP 148/87 11/10/22 09:55 Pulse Ox 91 L 11/10/22 09:55 FiO2 30 11/10/22 04:50 Intake & Output 11/09/22 11/10/22 11/10/22 18:59 06:59 18:59 Intake Total 1100 20 490 Output Total 1700 850 Balance -600 -830 490 Weight 133 kg Intake: IV 20 20 10 Invasive Line 1 20 20 10 Oral 1080 480 Output: Urine 1700 850 Other: Voiding Method Toilet Urinal Urinal Urinal # Voids 2 1 # Bowel Movements 1 - Exam No acute distress, oriented 3. Currently on 3 L. Saturations 91%. HEENT examination is grossly unremarkable. Mucous membranes are moist. No oral lesions. Neck supple. Full range of motion. No adenopathy thyromegaly or neck vein distention. Cardiovascular examination reveals regular rhythm rate. S1-S2 normal. No S3 or S4. No discernible murmur noted. Heart sounds are distant. Heart rate 67 bpm. Lungs reveal mild scattered rhonchi. No wheezes. No crackles. Breath sounds equal bilaterally. Abdomen soft bowel sounds are heard. No masses or tenderness. Extremities are intact. No cyanosis or clubbing. Trace edema. Skin is without rash or lesion. Neurologic examination is brief but nonfocal. - Labs CBC & Chem 7: 11/06/22 13:03 11/09/22 08:49 Labs: Abnormal Lab Results - Last 24 Hours (Table) 11/09/22 11/09/22 11/10/22 Range/Units 16:18 20:11 06:11 POC Glucose (mg/dL) 198 H 215 H 141 H (70-110) mg/dL Microbiology - Last 24 Hours (Table) 11/06/22 13:03 Blood Culture - Preliminary Blood 11/06/22 13:03 Blood Culture - Preliminary Blood Assessment and Plan Assessment: Acute COPD exacerbation, possibly secondary to mild diastolic CHF exacerbation, Chest x-ray on arrival showed cardiomegaly with interstitial infiltrates and bilateral trace effusions. Underlying pneumonia could not be ruled out. Mediastinum was widened. NT proBNP was low at 109. Computed tomography scan this admission revealed no evidence for mediastinal mass or adenopathy. Stable pleural-based granuloma. Acute on chronic hypoxemic and hypercapnic respiratory failure secondary to above, currently on BiPAP. Moderate chronic obstructive pulmonary disease with an FEV1 56% of predicted. Obesity hypoventilation syndrome. Severe obstructive sleep apnea. History of pulmonary nodules and hilar lymphadenopathy, being followed up in outpatient basis. Computed tomography scan this admission revealed no evidence for mediastinal mass or adenopathy. Stable pleural-based granuloma. Pulmonary hypertension. Chronic nicotine dependence. Essential hypertension. Coronary artery disease, with previous stenting of the RCA. Osteoarthritis. Plan: Plan dated 11/10/2022. The patient is currently stable. It's unclear how long he used his BiPAP last night. We have been trying to secure him a device for home use. Labs, x-rays, medications are reviewed. The patient is likely at baseline, and could be considered for possible discharge. He that up to the primary service. No additional recommendations are made. We will continue to follow should the patient not be discharged. Time with Patient: Less than 30
[2022-11-10 12:15] LABS: Chloride 92 mmol/L (98-107)
[2022-11-10 12:16] LABS: Anion Gap 2 mmol/L; Carbon Dioxide 42 mmol/L (22-30)
--- NOTE | 2022-11-10 13:55 | P.PN ---
Subjective Progress Note Date: 11/10/22 61-year-old man with medical history of diastolic heart failure, COPD with chronic respiratory failure of 3 L, OHS/FALGUNI, CAD/hypertension/hyperlipidemia presented for dyspnea. In the emergency room, patient was afebrile, 144/89, heart rate 22, 94% on 3 L nasal cannula. CBC is unremarkable. Basic metabolic panel shows CO2 of 40. Liver function tests are unremarkable. BNP is 102. Troponin is less than 0.012. ABG showed pH of 7.35, pCO2 of 77, pCO2 of 50. Coags are unremarkable. EKG shows normal sinus rhythm with normal axis, no evidence of ischemia. Chest x-ray shows cardiomegaly with widened mediastinum, low lung volumes, bilateral vascular congestion and pulmonary edema. Case was discussed with emergency provider and decision was made to admit the patient to hospital for further evaluation. 11/08 Patient was seen and examined. Lethargic on BiPAP 14/5 FiO2 35%. Blood cultures are negative so far. Pro-calcitonin was 0.03 thousand antibiotics were discontinued. He remains on bronchodilators and Solu-Medrol IV. Overnight pulse oximeter showed O2 saturation in the 70-80s on 3 L nasal cannula. Pulmonology on board. 11/09 Patient was seen and examined. Wakes up but falls back asleep during the encounter. Currently on 4L NC. Case discussed with Dr. Trinh, attempting to get a BiPAP for home use. BMP shows chloride of 96, bicarb of 46, BUN of 30, creatinine of 0.61, glucose 158. 11/10 Patient was seen and examined. He is much more awake today. He reports breathing back to baseline. Case discussed with Dr. Trinh, fax sent to [facility] for BiPAP to be delivered to the patient's home yesterday however BiPAP will not be delivered until Saturday. Dr. Trinh feels the patient should stay until Saturday for BiPAP to be delivered. Case discussed with Tiffanie WORTHY, cleared for discharge f rom a Pulmonary standpoint. BMP shows sodium 136, chloride 92, bicarb 42, BUN 31, creatinine 0.65, glucose 203. Gen: in no apparent distress, on 4 L nasal cannula HENT: normocephalic, atraumatic Neck: no tracheal deviation, full range of motion Resp: good air exchange, breathing comfortably with no accessory muscle use, decreased breath sounds bilaterally CVS: good distal perfusion x 4, normal S1-S2 with no murmurs rubs or gallops. MSK: no clubbing, no cyanosis, no noted contractures of extremities Skin: no noted rashes, petechiae; temperature of skin is appropriate Psych: cooperative, euthymic mood, insight and judgment intact Acute on chronic diastolic heart failure exacerbation Acute on chronic hypoxemic and hypercarbic respiratory failure COPD with chronic respiratory failure 3 L FALGUNI/OHS CAD Hypertension Hyperlipidemia Acute on chronic diastolic heart failure exacerbation: Switch lasix to 40 mg PO QD. Strict intake and outtake. Daily weights. Acute on chronic hypoxemic and hypercarbic respiratory failure: BiPAP with settings mentioned as above. Pulmonology on board. DuoNeb scheduled and as needed for SOB/wheezing. Solumedrol 60 mg IV Q6H. ABG shows primary respiratory acidosis with secondary metabolic alkalosis. COPD with chronic respiratory failure 3 L FALGUNI/OHS CAD Hypertension Hyperlipidemia I have reviewed the following senior clinical consultant notes: Pulmonology note reviewed. I have reviewed the results of the following tests: BMP. I have ordered the following tests: I have discussed the care of this patient with the following independent historian: Case discussed with RN. I have independently interpreted the following test below: I have discussed the management of this patient with the following physician: Case discussed with PCP Dr. Trinh and Tiffanie WORTHY. Objective - Vital Signs Vital signs: Vital Signs Temp 97.9 F 11/10/22 09:55 Pulse 107 H 11/10/22 12:24 Resp 18 11/10/22 12:24 BP 148/96 11/10/22 12:24 Pulse Ox 90 L 11/10/22 12:24 FiO2 30 11/10/22 13:19 Intake & Output 11/09/22 11/10/22 11/10/22 18:59 06:59 18:59 Intake Total 1100 20 490 Output Total 1700 850 Balance -600 -830 490 Weight 133 kg Intake: IV 20 20 10 Invasive Line 1 20 20 10 Oral 1080 480 Output: Urine 1700 850 Other: Voiding Method Toilet Urinal Urinal Urinal # Voids 2 1 # Bowel Movements 1 - Labs CBC & Chem 7: 11/06/22 13:03 11/10/22 10:49 Labs: Abnormal Lab Results - Last 24 Hours (Table) 11/09/22 11/09/22 11/10/22 Range/Units 16:18 20:11 06:11 Sodium (137-145) mmol/L Chloride (98-107) mmol/L Carbon Dioxide (22-30) mmol/L BUN (9-20) mg/dL Creatinine (0.66-1.25) mg/dL Glucose (74-99) mg/dL POC Glucose (mg/dL) 198 H 215 H 141 H (70-110) mg/dL 11/10/22 11/10/22 Range/Units 10:49 11:56 Sodium 136 L (137-145) mmol/L Chloride 92 L (98-107) mmol/L Carbon Dioxide 42 H* (22-30) mmol/L BUN 31 H (9-20) mg/dL Creatinine 0.65 L (0.66-1.25) mg/dL Glucose 203 H (74-99) mg/dL POC Glucose (mg/dL) 146 H (70-110) mg/dL Microbiology - Last 24 Hours (Table) 11/06/22 13:03 Blood Culture - Preliminary Blood 11/06/22 13:03 Blood Culture - Preliminary Blood
[2022-11-10 16:51] LABS: Glucose,Whole Blood 333 mg/dL (70-110)
[2022-11-10 20:20] LABS: Glucose,Whole Blood 221 mg/dL (70-110)
[2022-11-10] MEDS: LATANOPROST 0.005% OPHTH DROPS 2.5 ML BTL BOTH EYES SCH (21:37)
[2022-11-10] MEDS: LOSARTAN 50 MG TAB PO SCH (21:37)
[2022-11-10] MEDS: amLODIPine 5 MG TAB PO SCH (21:37)
[2022-11-11] MEDS: IBUPROFEN 600 MG TAB PO PRN (01:28)
[2022-11-11 06:14] LABS: Glucose,Whole Blood 88 mg/dL (70-110)
[2022-11-11] MEDS: INSULIN ASPART (NovoLOG) 100 UNIT/ML VIAL SQ SCH ×3 (06:47→16:52)
[2022-11-11] MEDS: SYMBICORT 160-4.5 MCG INHALER INHALATION SCH ×2 (08:24→20:18)
[2022-11-11] MEDS: IPRATROPIUM-ALBUTEROL 3 ML NEB INHALATION SCH ×4 (08:24→20:18)
[2022-11-11] MEDS: predniSONE 20 MG TAB PO SCH (09:15)
[2022-11-11] MEDS: FUROSEMIDE 40 MG TAB PO SCH (09:15)
[2022-11-11] MEDS: TOBRA-DEXAMET 0.3-0.1% OPHTH DROPS 2.5 ML BTL BOTH EYES SCH ×4 (09:16→21:23)
[2022-11-11] MEDS: CHOLECALCIFEROL 25 MCG (1000 IU) TABLET PO SCH (09:16)
[2022-11-11] MEDS: DORZOLAMIDE HCL 2% DROPS 10 ML BTL BOTH EYES SCH ×3 (09:16→21:23)
[2022-11-11] MEDS: NICOTINE 21MG/24HR PATCH TRANSDERM SCH (09:19)
--- NOTE | 2022-11-11 10:43 | P.PN ---
Subjective Progress Note Date: 11/11/22 Principal diagnosis: Shortness of breath. I am seeing this patient in consultation today 11/07/2022 in the emergency room for suspected acute COPD exacerbation. Patient is a 61-year-old male with past medical history significant for COPD, chronic oxygen dependence on 3 L/m nasal cannula, severe obstructive sleep apnea, pulmonary hypertension, pulmonary nodule, chronic nicotine dependence, hypertension, coronary artery disease, osteoarthritis, and morbid obesity. Patient has recently started seeing Dr. Enriquez in the office for management of his moderate COPD with an FEV1 56% of predicted. Normally takes a combination of Symbicort, Incruse, and Ventolin HFA as needed. He continues to smoke. He was also found to have severe obstructive sleep apnea with an AHI of 37, but has not received a CPAP as of yet. Patient presented to emergency room yesterday afternoon complaining of shortness of breath that progressively worsened over the last 24 hours. He denies any fever, chills, myalgias, cough, chest pain. Denies heart palpitations, lightheadedness, syncope. Admits stable lower extremity swelling and orthopnea. When EMS arrived, he was found to be hypoxic, and not wearing his oxygen. He was reportedly confused. Patient is currently sitting up in bed, on 5 L/m nasal cannula, in no acute distress. He is currently oxygenating at 95%. He is alert and oriented, and does not appear severely hypercapnic. ABGs from admission showed a pO2 of 50, pCO2 of 77, and pH of 7.35. He has been started on DuoNeb's, Symbicort inhaler, and IV Solu-Medrol. Chest x-ray on arrival showed cardiomegaly with interstitial infiltrates and bilateral trace effusions. Underlying pneumonia could not be ruled out. Mediastinum was widened. Patient has history of right lower lobe 2.3 cm peripheral pulmonary nodule with calcification and a right pulmonary hilar lymph node measuring 2.4 cm on previous chest CT back in Jul, 2022 which is being followed up on an outpatient basis. CBC on arrival was unremarkable. He has been started on Rocephin for empiric antibiotic coverage. He is afebrile. BMP on admission shows a sodium 142, potassium 4.2, chloride 85, serum bicarbonate 40, BUN 15, creatinine 0.5, glucose 108. Troponins less than 0.012. NT proBNP low at 109. Patient appears hemodynamically stable this time. The patient is seen today 11/08/2022 in follow-up on the selective care unit. He is currently resting in bed. Awake alert in no acute distress. Presently on BiPAP 14/5 and 35% FiO2. He did undergo nocturnal ox pulse oximeter readings and was in the 70s and low 80s on his 3 L nasal cannula. Computed tomography scan of the chest revealed no evidence of mediastinal mass or adenopathy. Stable pleural-based granuloma. Fatty liver. Blood cultures revealed no growth. Blood sugar 219. He is continued on DuoNeb inhalations, Symbicort, Solu-Medrol. NicoDerm patch in place. Remains on IV diuretics. Antibiotics in form of ceftriaxone. Procalcitonin 0.03. ProBNP 109. Currently in a positive balance. The patient is seen today 11/09/2022 in follow-up on the selective care unit. He is currently sitting up in bed. Awake and alert in no acute distress. Currently maintaining O2 saturations in the 90s on 3 L/m per nasal cannula. He is alternating with BiPAP 14/5 and 30% FiO2. Cultures revealed no growth. Sodium 141. Potassium 4.9. Bicarb 46. BUN 30. Creatinine 0.61. Glucose 158. He remains on DuoNeb inhalations, Symbicort, Solu-Medrol. NicoDerm patch in place. Remains on IV diuretics. Currently in a negative balance. Progress note dated 11/10/2022. The patient is seen today in room 379. He sitting at the into the bed. He is getting oxygen by nasal cannula at 3 L. His BiPAP is set up 14/5, and 30%. He did use it last night, but apparently has a difficult time with that, and did not use it for a long period of time. We've been trying to secure him a BiPAP device, for home use. The only new labs today with a glucose of 146. Clinically, he looks to be at baseline. Progress note dated 11/11/2022. The patient is seen today in room 379. He is laying in bed. He's got oxygen on 3 L. He apparently didn't use BiPAP last night, on and off. The settings are 14/5, and 30%. The patient is not using any IV fluids. In our opinion, the patient is pretty much at baseline, and could be considered for possible discharge. No new labs today other than a glucose of 88. Objective - Vital Signs Vital signs: Vital Signs Temp 97.8 F 11/11/22 09:19 Pulse 78 11/11/22 09:19 Resp 18 11/11/22 09:19 BP 112/64 11/11/22 09:19 Pulse Ox 94 L 11/11/22 09:19 FiO2 30 11/11/22 04:52 Intake & Output 11/10/22 11/11/22 11/11/22 18:59 06:59 18:59 Intake Total 500 20 610 Output Total 850 Balance 500 -830 610 Weight 139 kg Intake: IV 20 20 10 Invasive Line 1 20 20 10 Oral 480 600 Output: Urine 850 Other: Voiding Method Urinal Urinal Urinal # Voids 1 1 # Bowel Movements 1 1 - Exam No acute distress, oriented 3. Currently on 3 L. Saturations 94%. HEENT examination is grossly unremarkable. Mucous membranes are moist. No oral lesions. Neck supple. Full range of motion. No adenopathy thyromegaly or neck vein distention. Cardiovascular examination reveals regular rhythm rate. S1-S2 normal. No S3 or S4. No discernible murmur noted. Heart sounds are distant. Heart rate 78 bpm. Lungs reveal mild scattered rhonchi. No wheezes. No crackles. Breath sounds equal bilaterally. Saturations are 94% on 3 L. Abdomen soft bowel sounds are heard. No masses or tenderness. Extremities are intact. No cyanosis or clubbing. Trace edema. Skin is without rash or lesion. Neurologic examination is brief but nonfocal. - Labs CBC & Chem 7: 11/06/22 13:03 11/10/22 10:49 Labs: Abnormal Lab Results - Last 24 Hours (Table) 11/10/22 11/10/22 11/10/22 Range/Units 10:49 11:56 16:47 Sodium 136 L (137-145) mmol/L Chloride 92 L (98-107) mmol/L Carbon Dioxide 42 H* (22-30) mmol/L BUN 31 H (9-20) mg/dL Creatinine 0.65 L (0.66-1.25) mg/dL Glucose 203 H (74-99) mg/dL POC Glucose (mg/dL) 146 H 333 H (70-110) mg/dL 11/10/22 Range/Units 20:19 Sodium (137-145) mmol/L Chloride (98-107) mmol/L Carbon Dioxide (22-30) mmol/L BUN (9-20) mg/dL Creatinine (0.66-1.25) mg/dL Glucose (74-99) mg/dL POC Glucose (mg/dL) 221 H (70-110) mg/dL Assessment and Plan Assessment: Acute COPD exacerbation, possibly secondary to mild diastolic CHF exacerbation, Chest x-ray on arrival showed cardiomegaly with interstitial infiltrates and bilateral trace effusions. Underlying pneumonia could not be ruled out. Mediastinum was widened. NT proBNP was low at 109. Computed tomography scan this admission revealed no evidence for mediastinal mass or adenopathy. Stable pleural-based granuloma. Acute on chronic hypoxemic and hypercapnic respiratory failure secondary to above, currently on BiPAP. Moderate chronic obstructive pulmonary disease with an FEV1 56% of predicted. Obesity hypoventilation syndrome. Severe obstructive sleep apnea. History of pulmonary nodules and hilar lymphadenopathy, being followed up in outpatient basis. Computed tomography scan this admission revealed no evidence for mediastinal mass or adenopathy. Stable pleural-based granuloma. Pulmonary hypertension. Chronic nicotine dependence. Essential hypertension. Coronary artery disease, with previous stenting of the RCA. Osteoarthritis. Plan: Plan dated 11/10/2022. The patient is currently stable. It's unclear how long he used his BiPAP last night. We have been trying to secure him a device for home use. Labs, x-rays, medications are reviewed. The patient is likely at baseline, and could be considered for possible discharge. He that up to the primary service. No additional recommendations are made. We will continue to follow should the patient not be discharged. Plan dated 11/11/2022. The patient is at baseline, and could be considered for possible discharge. He is using nasal O2 during the daytime at 3 L, and BiPAP, at nighttime, with settings of 14/5, and 30%. Labs, x-rays, and medications are reviewed. Prognosis is guarded. The patient will follow-up with our nurse practitioner in the Pulmonary office. No additional recommendations are made. Time with Patient: Less than 30
[2022-11-11 11:30] LABS: Glucose,Whole Blood 211 mg/dL (70-110)
--- NOTE | 2022-11-11 12:10 | P.PN ---
Subjective Progress Note Date: 11/11/22 61-year-old man with medical history of diastolic heart failure, COPD with chronic respiratory failure of 3 L, OHS/FALGUNI, CAD/hypertension/hyperlipidemia presented for dyspnea. In the emergency room, patient was afebrile, 144/89, heart rate 22, 94% on 3 L nasal cannula. CBC is unremarkable. Basic metabolic panel shows CO2 of 40. Liver function tests are unremarkable. BNP is 102. Troponin is less than 0.012. ABG showed pH of 7.35, pCO2 of 77, pCO2 of 50. Coags are unremarkable. EKG shows normal sinus rhythm with normal axis, no evidence of ischemia. Chest x-ray shows cardiomegaly with widened mediastinum, low lung volumes, bilateral vascular congestion and pulmonary edema. Case was discussed with emergency provider and decision was made to admit the patient to hospital for further evaluation. 11/08 Patient was seen and examined. Lethargic on BiPAP 14/5 FiO2 35%. Blood cultures are negative so far. Pro-calcitonin was 0.03 thousand antibiotics were discontinued. He remains on bronchodilators and Solu-Medrol IV. Overnight pulse oximeter showed O2 saturation in the 70-80s on 3 L nasal cannula. Pulmonology on board. 11/09 Patient was seen and examined. Wakes up but falls back asleep during the encounter. Currently on 4L NC. Case discussed with Dr. Trinh, attempting to get a BiPAP for home use. BMP shows chloride of 96, bicarb of 46, BUN of 30, creatinine of 0.61, glucose 158. 11/10 Patient was seen and examined. He is much more awake today. He reports breathing back to baseline. Case discussed with Dr. Trinh, fax sent to [place] for BiPAP to be delivered to the patient's home yesterday however BiPAP will not be delivered until Saturday. Dr. Trinh feels the patient should stay until Saturday for BiPAP to be delivered. Case discussed with Tiffanie WORTHY, cleared for discharge fr om a Pulmonary standpoint. BMP shows sodium 136, chloride 92, bicarb 42, BUN 31, creatinine 0.65, glucose 203. 11/11 Patient was seen and examined. He is on 3L NC. He reports breathing almost back to baseline. Plans for discharge home tomorrow which is when BiPAP will be delivered. He is high risk for re-admission otherwise. Patient agreeable to the plan. Gen: in no apparent distress, on 4 L nasal cannula HENT: normocephalic, atraumatic Neck: no tracheal deviation, full range of motion Resp: good air exchange, breathing comfortably with no accessory muscle use, decreased breath sounds bilaterally CVS: good distal perfusion x 4, normal S1-S2 with no murmurs rubs or gallops. MSK: no clubbing, no cyanosis, no noted contractures of extremities Skin: no noted rashes, petechiae; temperature of skin is appropriate Psych: cooperative, euthymic mood, insight and judgment intact Acute on chronic diastolic heart failure exacerbation Acute on chronic hypoxemic and hypercarbic respiratory failure COPD with chronic respiratory failure 3 L FALGUNI/OHS CAD Hypertension Hyperlipidemia Acute on chronic diastolic heart failure exacerbation: Switch lasix to 40 mg PO QD. Strict intake and outtake. Daily weights. Acute on chronic hypoxemic and hypercarbic respiratory failure: BiPAP with settings mentioned as above. Pulmonology on board. DuoNeb scheduled and as needed for SOB/wheezing. Solumedrol switched to Prednisone 40 mg PO QD. ABG shows primary respiratory acidosis with secondary metabolic alkalosis. COPD with chronic respiratory failure 3 L FALGUNI/OHS CAD Hypertension Hyperlipidemia I have reviewed the following learning and development consultant notes: Pulmonology note reviewed. I have reviewed the results of the following tests: POC glucose. I have ordered the following tests: I have discussed the care of this patient with the following independent historian: I have independently interpreted the following test below: I have discussed the management of this patient with the following physician: Objective - Vital Signs Vital signs: Vital Signs Temp 97.8 F 11/11/22 12:00 Pulse 90 11/11/22 12:00 Resp 18 11/11/22 12:00 BP 107/68 11/11/22 12:00 Pulse Ox 90 L 11/11/22 12:00 FiO2 30 11/11/22 04:52 Intake & Output 11/10/22 11/11/22 11/11/22 18:59 06:59 18:59 Intake Total 500 20 610 Output Total 850 Balance 500 -830 610 Weight 139 kg Intake: IV 20 20 10 Invasive Line 1 20 20 10 Oral 480 600 Output: Urine 850 Other: Voiding Method Urinal Urinal Urinal # Voids 1 1 # Bowel Movements 1 1 - Labs CBC & Chem 7: 11/06/22 13:03 11/10/22 10:49 Labs: Abnormal Lab Results - Last 24 Hours (Table) 11/10/22 11/10/22 11/10/22 Range/Units 10:49 16:47 20:19 Sodium 136 L (137-145) mmol/L Chloride 92 L (98-107) mmol/L Carbon Dioxide 42 H* (22-30) mmol/L BUN 31 H (9-20) mg/dL Creatinine 0.65 L (0.66-1.25) mg/dL Glucose 203 H (74-99) mg/dL POC Glucose (mg/dL) 333 H 221 H (70-110) mg/dL 11/11/22 Range/Units 11:28 Sodium (137-145) mmol/L Chloride (98-107) mmol/L Carbon Dioxide (22-30) mmol/L BUN (9-20) mg/dL Creatinine (0.66-1.25) mg/dL Glucose (74-99) mg/dL POC Glucose (mg/dL) 211 H (70-110) mg/dL
[2022-11-11 16:50] LABS: Glucose,Whole Blood 182 mg/dL (70-110)
[2022-11-11] MEDS: LOSARTAN 50 MG TAB PO SCH (19:56)
[2022-11-11] MEDS: amLODIPine 5 MG TAB PO SCH (19:57)
[2022-11-11 20:21] LABS: Glucose,Whole Blood 126 mg/dL (70-110)
[2022-11-11] MEDS: LATANOPROST 0.005% OPHTH DROPS 2.5 ML BTL BOTH EYES SCH (21:23)
[2022-11-12 04:58] VITALS: RESP 20
[2022-11-12 06:13] LABS: Glucose,Whole Blood 250 mg/dL (70-110)
[2022-11-12] MEDS: INSULIN ASPART (NovoLOG) 100 UNIT/ML VIAL SQ SCH ×2 (06:39→11:45)
[2022-11-12] MEDS: SYMBICORT 160-4.5 MCG INHALER INHALATION SCH (08:27)
[2022-11-12] MEDS: IPRATROPIUM-ALBUTEROL 3 ML NEB INHALATION SCH ×2 (08:27→12:10)
[2022-11-12] MEDS: IBUPROFEN 600 MG TAB PO PRN (09:18)
[2022-11-12] MEDS: FUROSEMIDE 40 MG TAB PO SCH (09:18)
[2022-11-12] MEDS: CHOLECALCIFEROL 25 MCG (1000 IU) TABLET PO SCH (09:19)
[2022-11-12] MEDS: predniSONE 20 MG TAB PO SCH (09:19)
[2022-11-12] MEDS: NICOTINE 21MG/24HR PATCH TRANSDERM SCH (09:19)
[2022-11-12] MEDS: DORZOLAMIDE HCL 2% DROPS 10 ML BTL BOTH EYES SCH (09:20)
[2022-11-12] MEDS: TOBRA-DEXAMET 0.3-0.1% OPHTH DROPS 2.5 ML BTL BOTH EYES SCH ×2 (09:20→13:30)
[2022-11-12 11:01] VITALS: BP 108/72; TEMP 98
[2022-11-12 11:32] LABS: Glucose,Whole Blood 146 mg/dL (70-110)
--- NOTE | 2022-11-12 11:54 | P.DS ---
Providers Date of admission: 11/06/22 15:52 Expected date of discharge: 11/12/22 Attending physician: Marcela Nicole MD Consults: 11/06/22 17:37 Consult Physician Routine Consulting Provider: Sánchez Enriquez Consult Reason/Comments: respriatory failure Do you want consulting provider notified?: Yes Primary care physician: Hollis Trinh MD Hospital Course: 61-year-old man with medical history of diastolic heart failure, COPD with chronic respiratory failure of 3 L, OHS/FALGUNI, CAD/hypertension/hyperlipidemia presented for dyspnea. In the emergency room, patient was afebrile, 144/89, heart rate 22, 94% on 3 L nasal cannula. CBC is unremarkable. Basic metabolic panel shows CO2 of 40. Liver function tests are unremarkable. BNP is 102. Troponin is less than 0.012. ABG showed pH of 7.35, pCO2 of 77, pCO2 of 50. Coags are unremarkable. EKG shows normal sinus rhythm with normal axis, no evidence of ischemia. Chest x-ray shows cardiomegaly with widened mediastinum, low lung volumes, bilateral vascular congestion and pulmonary edema. CT chest showed stable pleural based granuloma and fatty liver. Case was discussed with emergency provider and decision was made to admit the patient to hospital for further evaluation. 11/08 Patient was seen and examined. Lethargic on BiPAP 14/5 FiO2 35%. Blood cultures are negative so far. Pro-calcitonin was 0.03 thousand antibiotics were discontinued. He remains on bronchodilators and Solu-Medrol IV. Overnight pulse oximeter showed O2 saturation in the 70-80s on 3 L nasal cannula. Pulmonology on board. 11/09 Patient was seen and examined. Wakes up but falls back asleep during the encounter. Currently on 4L NC. Case discussed with Dr. Trinh, attempting to get a BiPAP for home use. BMP shows chloride of 96, bicarb of 46, BUN of 30, creatinine of 0.61, glucose 158. 11/10 Patient was seen and examined. He is much more awake today. He reports breathing back to baseline. Case discussed with Dr. Trinh, fax sent to [place] for BiPAP to be delivered to the patient's home yesterday however BiPAP will not be delivered until Saturday. Dr. Trinh feels the patient should stay until Saturday for BiPAP to be delivered. Case discussed with Tiffanie WORTHY, cleared for discharge from a Pulmonary standpoint. BMP shows sodium 136, chloride 92, bicarb 42, BUN 31, creatinine 0.65, glucose 203. 11/11 Patient was seen and examined. He is on 3L NC. He reports breathing almost back to baseline. Plans for discharge home tomorrow which is when BiPAP will be delivered. He is high risk for re-admission otherwise. Patient agreeable to the plan. 11/12 Patient was seen and examined. He is upset at the nursing care he recieved overnight. Breathing back to baseline. Discussed with Dr. Trinh, plans to deliver BiPAP today at home. We discussed the possibility that it may be too difficult for him to live at home by himself, he seems reluctant to move to a shelter. Advised to follow up with PCP within 1-2 days and Pulmonology within 1 week of discharge. Plans to discharge home on slow Prednisone taper and Lasix 40 mg PO QD. Pertinent studies as above. Gen: in no apparent distress, on 4 L nasal cannula HENT: normocephalic, atraumatic Neck: no tracheal deviation, full range of motion Resp: good air exchange, breathing comfortably with no accessory muscle use, decreased breath sounds bilaterally CVS: good distal perfusion x 4, normal S1-S2 with no murmurs rubs or gallops. MSK: no clubbing, no cyanosis, no noted contractures of extremities Skin: no noted rashes, petechiae; temperature of skin is appropriate Psych: cooperative, euthymic mood, insight and judgment intact Discharge Diagnosis: Acute on chronic diastolic heart failure exacerbation Acute on chronic hypoxemic and hypercarbic respiratory failure COPD with chronic respiratory failure 3 L FALGUNI/OHS CAD Hypertension Hyperlipidemia This complex discharge took 35 minutes to complete. Patient Condition at Discharge: Stable Plan - Discharge Summary Discharge Rx Participant: No New Discharge Prescriptions: New predniSONE See Taper PO DIRECTED #30 tab Furosemide [Lasix] 40 mg PO DAILY #30 tab Continue Nicotine 14Mg/24Hr Patch [Habitrol] 1 patch TRANSDERM DAILY PRN PRN Reason: Nicotine Cravings Cholecalciferol [Vitamin D3 (25 Mcg = 1000 Iu)] 50 mcg PO DAILY Umeclidinium Sulphur [Incruse Ellipta] 1 puff INHALATION RT-DAILY Ibuprofen [Motrin] 600 mg PO QID PRN PRN Reason: ARTHRITIS PAIN Petrolatum, White [Aquaphor] 1 applic TOPICAL HS Brinzolamide [Azopt 1% Ophth Susp] 1 drop BOTH EYES TID Albuterol Inhaler [Ventolin Hfa Inhaler] 2 puff INHALATION RT-QID PRN PRN Reason: Shortness Of Breath Travoprost [Travatan Z 0.004%] 1 drop BOTH EYES HS Losartan Potassium 100 mg PO HS Budesonide-Formot 160-4.5 Mcg [Symbicort 160-4.5 Mcg Inhaler] 2 puff INHALATION RT-BID each Loratadine [Claritin] 10 mg PO DAILY PRN PRN Reason: Allergy Symptoms Acetaminophen Tab [Tylenol] 650 mg PO Q6HR PRN tab PRN Reason: Mild Pain Or Fever > 100.5 Tobramycin/Dexamethasone [Tobradex Ophth Susp] 1 drop BOTH EYES QID Ocusoft Eyelid Cleansing Pads 1 applic TOPICAL HS Triamcinolone 0.1% Cream [Kenalog 0.1% Cream] 1 applicatio TOPICAL BID Ipratropium-Albuterol Nebulize [Duoneb 0.5 mg-3 mg/3 ml Soln] 3 ml INHALATION RT-QID amLODIPine [Norvasc] 5 mg PO HS Discontinued methylPREDNISolone Dose Pack [Medrol Dose Pack] See Taper PO DIRECTED Discharge Medication List Losartan Potassium 100 mg PO HS 05/23/22 [History] Budesonide-Formot 160-4.5 Mcg [Symbicort 160-4.5 Mcg Inhaler] 2 puff INHALATION RT-BID each 05/28/22 [Rx] Cholecalciferol [Vitamin D3 (25 Mcg = 1000 Iu)] 50 mcg PO DAILY 07/23/22 [History] Ibuprofen [Motrin] 600 mg PO QID PRN 07/23/22 [History] Loratadine [Claritin] 10 mg PO DAILY PRN 07/23/22 [History] Nicotine 14Mg/24Hr Patch [Habitrol] 1 patch TRANSDERM DAILY PRN 07/23/22 [History] Umeclidinium Sulphur [Incruse Ellipta] 1 puff INHALATION RT-DAILY 07/23/22 [History] Acetaminophen Tab [Tylenol] 650 mg PO Q6HR PRN tab 07/27/22 [Rx] Albuterol Inhaler [Ventolin Hfa Inhaler] 2 puff INHALATION RT-QID PRN 09/20/22 [History] Brinzolamide [Azopt 1% Ophth Susp] 1 drop BOTH EYES TID 09/20/22 [History] Ocusoft Eyelid Cleansing Pads 1 applic TOPICAL HS 09/20/22 [History] Petrolatum, White [Aquaphor] 1 applic TOPICAL HS 09/20/22 [History] Tobramycin/Dexamethasone [Tobradex Ophth Susp] 1 drop BOTH EYES QID 09/20/22 [History] Triamcinolone 0.1% Cream [Kenalog 0.1% Cream] 1 applicatio TOPICAL BID 09/20/22 [History] Ipratropium-Albuterol Nebulize [Duoneb 0.5 mg-3 mg/3 ml Soln] 3 ml INHALATION R T-QID 11/06/22 [History] Travoprost [Travatan Z 0.004%] 1 drop BOTH EYES HS 11/06/22 [History] amLODIPine [Norvasc] 5 mg PO HS 11/06/22 [History] predniSONE See Taper PO DIRECTED #30 tab 11/10/22 [Rx] Furosemide [Lasix] 40 mg PO DAILY #30 tab 11/12/22 [Rx] Follow up Appointment(s)/Referral(s): Sánchez Enriquez DO [Doctor of Osteopathic Medicine] - 11/21/22 1:30 pm ([facility] needs to get authorization to office before appointment date) Hollis Trinh MD [Primary Care Provider] - 1-2 days Patient Instructions/Handouts: Low-Sodium Diet (DC), Fluid Restriction (DC) Activity/Diet/Wound Care/Special Instructions: Diet: Low salt, 1.5 L fluid restriction Follow up with Dr. Trinh within 1-[address] Enriquez within 1 week of discharge. BiPAP will be delivered by [facility] to your house today. Do not miss that appointment. Discharge Disposition: HOME SELF-CARE
[2022-11-12 13:19] VITALS: PULSE 89
--- NOTE | 2022-11-12 16:11 | P.PN ---
Subjective Progress Note Date: 11/12/22 I am seeing this patient in consultation today 11/07/2022 in the emergency room for suspected acute COPD exacerbation. Patient is a 61-year-old male with past medical history significant for COPD, chronic oxygen dependence on 3 L/m nasal cannula, severe obstructive sleep apnea, pulmonary hypertension, pulmonary nodule, chronic nicotine dependence, hypertension, coronary artery disease, osteoarthritis, and morbid obesity. Patient has recently started seeing Dr. Enriquez in the office for management of his moderate COPD with an FEV1 56% of predicted. Normally takes a combination of Symbicort, Incruse, and Ventolin HFA as needed. He continues to smoke. He was also found to have severe obstructive sleep apnea with an AHI of 37, but has not received a CPAP as of yet. Patient presented to emergency room yesterday afternoon complaining of shortness of breath that progressively worsened over the last 24 hours. He denies any fever, chills, myalgias, cough, chest pain. Denies heart palpitations, lightheadedness, syncope. Admits stable lower extremity swelling and orthopnea. When EMS arrived, he was found to be hypoxic, and not wearing his oxygen. He was reportedly confused. Patient is currently sitting up in bed, on 5 L/m nasal cannula, in no acute distress. He is currently oxygenating at 95%. He is alert and oriented, and does not appear severely hypercapnic. ABGs from admission hope wed a pO2 of 50, pCO2 of 77, and pH of 7.35. He has been started on DuoNeb's, Symbicort inhaler, and IV Solu-Medrol. Chest x-ray on arrival showed cardiomegaly with interstitial infiltrates and bilateral trace effusions. Underlying pneumonia could not be ruled out. Mediastinum was widened. Patient has history of right lower lobe 2.3 cm peripheral pulmonary nodule with calcification and a right pulmonary hilar lymph node measuring 2.4 cm on previous chest CT back in Jul, 2022 which is being followed up on an outpatient basis. CBC on arrival was unremarkable. He has been started on Rocephin for empiric antibiotic coverage. He is afebrile. BMP on admission shows a sodium 142, potassium 4.2, chloride 85, serum bicarbonate 40, BUN 15, creatinine 0.5, glucose 108. Troponins less than 0.012. NT proBNP low at 109. Patient appears hemodynamically stable this time. The patient is seen today 11/08/2022 in follow-up on the selective care unit. He is currently resting in bed. Awake alert in no acute distress. Presently on BiPAP 14/5 and 35% FiO2. He did undergo nocturnal ox pulse oximeter readings and was in the 70s and low 80s on his 3 L nasal cannula. Computed tomography scan of the chest revealed no evidence of mediastinal mass or adenopathy. Stable pleural-based granuloma. Fatty liver. Blood cultures revealed no growth. Blood sugar 219. He is continued on DuoNeb inhalations, Symbicort, Solu-Medrol. NicoDerm patch in place. Remains on IV diuretics. Antibiotics in form of ceftriaxone. Procalcitonin 0.03. ProBNP 109. Currently in a positive balance. The patient is seen today 11/09/2022 in follow-up on the selective care unit. He is currently sitting up in bed. Awake and alert in no acute distress. Currently maintaining O2 saturations in the 90s on 3 L/m per nasal cannula. He is alternating with BiPAP 14/5 and 30% FiO2. Cultures revealed no growth. Sodium 141. Potassium 4.9. Bicarb 46. BUN 30. Creatinine 0.61. Glucose 158. He remains on DuoNeb inhalations, Symbicort, Solu-Medrol. NicoDerm patch in place. Remains on IV diuretics. Currently in a negative balance. Progress note dated 11/10/2022. The patient is seen today in room 379. He sitting at the into the bed. He is getting oxygen by nasal cannula at 3 L. His BiPAP is set up 14/5, and 30%. He did use it last night, but apparently has a difficult time with that, and did n ot use it for a long period of time. We've been trying to secure him a BiPAP device, for home use. The only new labs today with a glucose of 146. Clinically, he looks to be at baseline. Progress note dated 11/11/2022. The patient is seen today in room 379. He is laying in bed. He's got oxygen on 3 L. He apparently didn't use BiPAP last night, on and off. The settings are 14/5, and 30%. The patient is not using any IV fluids. In our opinion, the patient is pretty much at baseline, and could be considered for possible discharge. No new labs today other than a glucose of 88. On today's evaluation of 11/12/2022, the patient is stable and has no specific complaints. No signs of icterus or distress at this point in time. Is a morbidly obese male patient with severe obstructive sleep apnea and the patient was unable to do an in lab CPAP titration. Based on that, we offered this patient a BiPAP device and the machine is over the been delivered to his house. This was approved based on his blood gases and repeated hospital admissions. The patient remains on Lasix 40 mg by mouth on a daily basis and the patient is also on a prednisone burst taper. He is on a combination of Symbicort and increase the Lipitor regarding his COPD. The patient is also asked dependent. Respiratory medications were reviewed and the patient was also offered a nicotine patch. Overall condition is stable. The patient remains weak. He needs help with mobility. He hasn't been able independently. Discharge planning is in progress and the patient would like to be discharged home and he has [facility] following his condition. Objective - Vital Signs Vital signs: Vital Signs Temp 98.0 F 11/12/22 08:00 Pulse 92 11/12/22 08:48 Resp 20 11/12/22 08:00 BP 108/72 11/12/22 08:00 Pulse Ox 97 11/12/22 08:27 FiO2 30 11/11/22 15:37 Intake & Output 11/11/22 11/12/22 11/12/22 18:59 06:59 18:59 Intake Total 1520 380 354 Output Total 500 550 525 Balance 1020 -170 -171 Intake: IV 20 20 Invasive Line 1 20 20 Oral 1500 360 354 Output: Urine 500 550 525 Other: Voiding Method Urinal Urinal Urinal # Voids 1 # Bowel Movements 2 - Exam No acute distress, oriented 3. Currently on 3 L. Saturations 94%. The patient is morbidly obese his current pulse ox is 93% on 3 L of oxygen by nasal cannula. His body mass index is 44. HEENT examination is grossly unremarkable. Mucous membranes are moist. No oral lesions. Neck supple. Full range of motion. No adenopathy thyromegaly or neck vein distention. Cardiovascular examination reveals regular rhythm rate. S1-S2 normal. No S3 or S4. No discernible murmur noted. Heart sounds are distant. Lungs reveal mild scattered rhonchi. No wheezes. No crackles. Breath sounds equal bilaterally. Saturations are 94% on 3 L. Abdomen soft bowel sounds are heard. No masses or tenderness. Extremities are intact. No cyanosis or clubbing. Trace edema. Skin is without rash or lesion. Neurologic examination is brief but nonfocal. - Labs CBC & Chem 7: 11/06/22 13:03 11/10/22 10:49 Labs: Abnormal Lab Results - Last 24 Hours (Table) 11/11/22 11/11/22 11/11/22 Range/Units 11:28 16:48 20:19 POC Glucose (mg/dL) 211 H 182 H 126 H (70-110) mg/dL 11/12/22 Range/Units 06:11 POC Glucose (mg/dL) 250 H (70-110) mg/dL Microbiology - Last 24 Hours (Table) 11/06/22 13:03 Blood Culture - Final Blood 11/06/22 13:03 Blood Culture - Final Blood Assessment and Plan Plan: Acute COPD exacerbation, possibly secondary to mild diastolic CHF exacerbation, Chest x-ray on arrival showed cardiomegaly with interstitial infiltrates and bilateral trace effusions. Underlying pneumonia could not be ruled out. Mediastinum was widened. NT proBNP was low at 109. Computed tomography scan this admission revealed no evidence for mediastinal mass or adenopathy. Stable pleural-based granuloma. Acute on chronic hypoxemic and hypercapnic respiratory failure secondary to a chelle, currently on BiPAP. Moderate chronic obstructive pulmonary disease with an FEV1 56% of predicted. Obesity hypoventilation syndrome. Severe obstructive sleep apnea. History of pulmonary nodules and hilar lymphadenopathy, being followed up in outpatient basis. Computed tomography scan this admission revealed no evidence for mediastinal mass or adenopathy. Stable pleural-based granuloma. Pulmonary hypertension. Chronic nicotine dependence. Essential hypertension. Coronary artery disease, with previous stenting of the RCA. Osteoarthritis. Plan: Continue oxygen therapy at 3 L Continue bronchodilators Continue Symbicort and Incruse as maintenance regarding his COPD Prednisone burst taper Continue oral Lasix BiPAP machine was delivered to his house and the patient should be able to see me on outpatient basis regarding his compliancy check on his BiPAP device. This was approved for the patient and related to go to be used on an outpatient basis. Discharge planning is in progress
== END 2022-11-12 15:37 | disposition home or self-care (01) | DRG 291 ==
LOC: EC 12:39 → 3SCARD 15:52
PROVIDERS: ADMIT Internal Medicine; ATTEND Internal Medicine
DX: I11.0 Hypertensive heart disease with heart failure (principal); I50.33 Acute on chronic diastolic (congestive) heart failure; J96.21 Acute and chronic respiratory failure with hypoxia; J96.22 Acute and chronic respiratory failure with hypercapnia; E66.2 Morbid (severe) obesity with alveolar hypoventilation; E87.4 Mixed disorder of acid-base balance; J44.1 Chronic obstructive pulmonary disease with (acute) exacerbation; F17.210 Nicotine dependence, cigarettes, uncomplicated; F41.9 Anxiety disorder, unspecified; I27.20 Pulmonary hypertension, unspecified; E78.5 Hyperlipidemia, unspecified; F32.A Depression, unspecified; R91.8 Other nonspecific abnormal finding of lung field; I25.10 Atherosclerotic heart disease of native coronary artery without angina pectoris; K76.0 Fatty (change of) liver, not elsewhere classified; M19.90 Unspecified osteoarthritis, unspecified site; Z99.81 Dependence on supplemental oxygen; Z71.6 Tobacco abuse counseling; Z79.51 Long term (current) use of inhaled steroids; Z79.899 Other long term (current) drug therapy; Z80.1 Family history of malignant neoplasm of trachea, bronchus and lung; Z82.49 Family history of ischemic heart disease and other diseases of the circulatory system; Z95.5 Presence of coronary angioplasty implant and graft; Z86.010 Personal history of colon polyps; Z28.310 Unvaccinated for COVID-19; Z88.1 Allergy status to other antibiotic agents; Z88.2 Allergy status to sulfonamides
CPT/HCPCS: 36415; 36600; 71046; 71260; 80048; 80053; 82803; 82805; 83605; 83735; 83880; 84145; 84484; 85025; 85610; 85730; 87040; 93005; 94640; 94660; 94760; 96365; 96366; 96375; 99291

== ENCOUNTER 2022-12-07 15:08 | Emergency (ER) | payer OTHER ==
[2022-12-07 15:35] VITALS: TEMP 98.1
--- NOTE | 2022-12-07 15:50 | ED ---
General Adult HPI - General Source: EMS, RN notes reviewed, old records reviewed Mode of arrival: EMS Limitations: no limitations <Tyler Meyers - Last Filed: 12/07/22 19:01> <Khalif Orozco - Last Filed: 12/08/22 15:18> - General Chief complaint: Shortness of Breath Stated complaint: JEREMIAH Time Seen by Provider: 12/07/22 15:20 - History of Present Illness Initial comments: This is a 63-year-old male who presents emergency Department stating he's been having difficulty breathing over the last week or more. Patient states is getting progressively worse. 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 Patient denies any chest pain or palpitations. Patient states any fever chills or cough. Patient states he has had more swelling to his legs. Patient states he has a history of COPD and congestive heart failure. Patient states he quit s moking about a month ago. Patient denies any abdominal pain patient denies nausea vomiting. Patient denies any lightheadedness or dizziness. (Tyler Meyers) - Related Data Home Medications Medication Instructions Recorded Confirmed Losartan Potassium 100 mg PO HS 05/23/22 12/07/22 Cholecalciferol [Vitamin D3 (25 50 mcg PO DAILY 07/23/22 12/07/22 Mcg = 1000 Iu)] Ibuprofen [Motrin] 600 mg PO QID PRN 07/23/22 12/07/22 Loratadine [Claritin] 10 mg PO DAILY PRN 07/23/22 12/07/22 Umeclidinium Lima [Incruse 1 puff INHALATION RT-DAILY 07/23/22 12/07/22 Ellipta] Albuterol Inhaler [Ventolin Hfa 2 puff INHALATION RT-Q4H PRN 09/20/22 12/07/22 Inhaler] Brinzolamide [Azopt 1% Ophth Susp] 1 drop BOTH EYES TID 09/20/22 12/07/22 Ocusoft Eyelid Cleansing Pads 1 applic TOPICAL DAILY 09/20/22 12/07/22 Petrolatum, White [Aquaphor] 1 applic TOPICAL HS 09/20/22 12/07/22 Triamcinolone 0.1% Cream [Kenalog 1 applic TOPICAL BID 09/20/22 12/07/22 0.1% Cream] Ipratropium-Albuterol Nebulize 3 ml INHALATION RT-QID 11/06/22 12/07/22 [Duoneb 0.5 mg-3 mg/3 ml Soln] Travoprost [Travatan Z 0.004%] 1 drop BOTH EYES HS 11/06/22 12/07/22 amLODIPine [Norvasc] 5 mg PO HS 11/06/22 12/07/22 Acetaminophen Tab [Tylenol] 325 - 650 mg PO Q6HR PRN 12/07/22 12/07/22 Chlorhexidine Gluconate [Peridex] 15 ml PO BID 12/07/22 12/07/22 Erythromycin Ophth Oint [Romycin 1 applic BOTH EYES HS 12/07/22 12/07/22 Ophth Oint] Fluticasone Nasal Martell [Flonase 1 spr EA NOSTRIL BID PRN 12/07/22 12/07/22 Nasal Martell] Naphazoline-Phenira 0.025-0.3% 1 drop BOTH EYES TID PRN 12/07/22 12/07/22 [Visine-A Ophth Soln] Nicotine Polacrilex [Nicotine Gum] 4 mg BUCCAL TID PRN 12/07/22 12/07/22 Previous Rx's Medication Instructions Recorded Budesonide-Formot 160-4.5 Mcg 2 puff INHALATION RT-BID each 05/28/22 [Symbicort 160-4.5 Mcg Inhaler] Furosemide [Lasix] 40 mg PO DAILY #30 tab 11/12/22 Allergies Allergy/AdvReac Type Severity Reaction Status Date / Time Sulfa (Sulfonamide Allergy Rash on Verified 12/07/22 18:55 Antibiotics) arms Review of Systems ROS Other: All systems not noted in ROS Statement are negative. <Tyler Meyers - Last Filed: 12/07/22 19:01> ROS Other: All systems not noted in ROS Statement are negative. <Khalif Orozco - Last Filed: 12/08/22 15:18> ROS Statement: Those systems with pertinent positive or pertinent negative responses have been documented in the HPI. Past Medical History Past Medical History: Coronary Artery Disease (CAD), Hypertension, Osteoarthritis (OA), Pneumonia, Skin Disorder, Sleep Apnea/CPAP/BIPAP Additional Past Medical History / Comment(s): neuropathy History of Any Multi-Drug Resistant Organisms: None Reported Past Surgical History: Heart Catheterization With Stent Additional Past Surgical History / Comment(s): 2004 stenting of RCA, ccath 2004 with lesions 50%mid LAD and unstable RCA plaque-stented as mentioned-EF was 60%, quadricepts muscle bx, normal colonoscopy in 2013, colonoscopy with benign polypectomy in past. Past Anesthesia/Blood Transfusion Reactions: No Reported Reaction Date of Last Stent Placement:: 2004 Past Psychological History: Anxiety, Depression Smoking Status: Former smoker Past Alcohol Use History: Rare - Past Family History Mother Family Medical History: Cancer Additional Family Medical History / Comment(s): Pt's mother at age 55 from lung cancer. She was a nonsmoker. Father Family Medical History: Hyperlipidemia, Hypertension Additional Family Medical History / Comment(s): Father at age 89 of natural causes. Sister(s) Family Medical History: Myocardial Infarction (OR) Additional Family Medical History / Comment(s): Pt has one sister who of possible OR at age 53yrs. <Tyler Meyers - Last Filed: 12/07/22 19:01> General Exam Limitations: no limitations <Tyler Meyers - Last Filed: 12/07/22 19:01> - General Exam Comments Initial Comments: GENERAL: Patient is well-developed and well-nourished. Patient is nontoxic and well- hydrated and is in mild distress. ENT: Neck is soft and supple. No significant lymphadenopathy is noted. Oropharynx is clear. Moist mucous membranes. Neck has full range of motion without eliciting any pain. EYES: The sclera were anicteric and conjunctiva were pink and moist. Extraocular movements were intact and pupils were equal round and reactive to light. Ey elids were unremarkable. PULMONARY: Unlabored respirations. Good breath sounds bilaterally. Crackles in the bases bilaterally CARDIOVASCULAR: There is a regular rate and rhythm without any murmurs gallops or rubs. ABDOMEN: Soft and nontender with normal bowel sounds. SKIN: Skin is clear with no lesions or rashes and otherwise unremarkable. NEUROLOGIC: Patient is alert and oriented x3. Cranial nerves II through XII are grossly intact. Motor and sensory are also intact. Normal speech, volume and content. Symmetrical smile. MUSCULOSKELETAL: Normal extremities with adequate strength and full range of motion. 2+ edema bilaterally LYMPHATICS: No significant lymphadenopathy is noted PSYCHIATRIC: Normal psychiatric evaluation. (Tyler Meyers) Course <Khalif Orozco - Last Filed: 12/08/22 15:18> Vital Signs 12/07/22 12/07/22 12/07/22 15:11 16:43 17:03 Temperature 98.1 F Pulse Rate 92 93 Respiratory 24 24 18 Rate Blood Pressure 162/95 145/104 O2 Sat by Pulse 93 L 92 L 93 L Oximetry 12/07/22 12/07/22 18:00 19:02 Temperature Pulse Rate 92 98 Respiratory 22 18 Rate Blood Pressure 151/100 O2 Sat by Pulse 93 L 93 L Oximetry - Reevaluation(s) Reevaluation #1: 12/08/22 15:17 I was informed of positive blood culture for this patient reportedly showing staph epidermidis. The patient reportedly at pace, so nursing will call their to inform patient's physician Dr. Trinh, of the result, inquiring about presence of fever or other symptoms, and possibly prescribe antibiotic for r echeck (Khalif Orozco) Medical Decision Making - Lab Data Result diagrams: 12/07/22 15:46 12/07/22 15:46 <Tyler Meyers - Last Filed: 12/07/22 19:01> - Lab Data Result diagrams: 12/07/22 15:46 12/07/22 15:46 <Khalif Orozco - Last Filed: 12/08/22 15:18> - Medical Decision Making EKG was interpreted by myself. EKG shows sinus rhythm with a PVC at 92 bpm NM interval 233 QRS 104 QT interval 338 QTC is 380. Patient's EKG shows no ST segment elevation or depression. Was pt. sent in by a medical professional or institution (, PA, [facility], urgent care, hospital, or senior living...) When possible be specific @ -No Did you speak to anyone other than the patient for history (EMS, parent, family, police, friend...)? What history was obtained from this source @ -No Did you review nursing and triage notes (agree or disagree)? Why? @ -I reviewed and agree with nursing and triage notes Were old charts reviewed (outside hosp., previous admission, EMS record, old EKG, old radiological studies, urgent care reports/EKG's, senior living records)? Report findings @ -I reviewed prior chart from prior lab work on this patient Differential Diagnosis (chest pain, altered mental status, abdominal pain women, abdominal pain men, vaginal bleeding, weakness, fever, dyspnea, syncope, headache, dizziness, GI bleed, back pain, seizure, CVA, palpatations, mental health, musculoskeletal)? @ -Differential Dyspnea: Coronary syndrome, arrhythmia, tamponade, asthma, COPD, pulmonary embolism, pneumonia, pneumothorax, pulmonary effusion, anaphylaxis, diabetic ketoacidosis, flailed chest, pulmonary contusion, diaphragmatic rupture, anemia, neuromuscular, this is not meant to be an all-inclusive list. EKG interpreted by me (3pts min.). @ -As above X-rays interpreted by me (1pt min.). @ -Chest x-ray showed an area of opacification that could be pneumonia however patient was not coughing patient had no fever patient's white count was normal. Patient's BNP was 21. CT interpreted by me (1pt min.). @ -None done U/S interpreted by me (1pt. min.). @ -None done What testing was considered but not performed or refused? (CT, X-rays, U/S, labs)? Why? @ -None What meds were considered but not given or refused? Why? @ -None Did you discuss the management of the patient with other professionals (professionals i.e. , PA, [employer], lab, RT, psych nurse, clinical social work aide, summer internship, teacher, bank secrecy act officer, case management director)? Give summary @ -Dr. Trinh and discussed the case thoroughly with him and he agreed the patient to be discharged home to follow-up with him on Saturday. Patient is aware of this and he is willing to go home and take his Lasix twice a day just for the weekend and follow-up with Dr. caballero on Saturday and he is aware that if anything worsens he is to come to the emergency department immediately Was smoking cessation discussed for >3mins.? @ -No Was critical care preformed (if so, how long)? @ -No Were there social determinants of health that impacted care today? How? (Homelessness, low income, unemployed, alcoholism, drug addiction, transportation, low edu. Level, literacy, decrease access to med. care, senior care, rehab)? @ -No Was there de-escalation of care discussed even if they declined (Discuss DNR or withdrawal of care, Hospice)? DNR status @ -No What co-morbidities impacted this encounter? (DM, HTN, Smoking, COPD, CAD, Cancer, CVA, ARF, Chemo, Hep., AIDS, mental health diagnosis, sleep apnea, morbid obesity)? @ -None Was patient admitted / discharged? Hospital course, mention meds given and route, prescriptions, significant lab abnormalities, going to OR and other pertinent info. @ -Patient was on 3 L of oxygen which is what his home oxygen and his and he was satting between 93-94% all times. Patient had lab work and x-rays done there was no acute findings and patient felt good enough to go home and follow- up with Dr. Trinh I did speak with Dr. Trinh he agrees with this patient will be discharged home Undiagnosed new problem with uncertain prognosis? @ -No Drug Therapy requiring intensive monitoring for toxicity (Heparin, Nitro, Insulin, Cardizem)? @ -No Were any procedures done? @ -No Diagnosis/symptom? @ -Dyspnea Acute, or Chronic, or Acute on Chronic? @ -Acute Uncomplicated (without systemic symptoms) or Complicated (systemic symptoms)? @ -Complicated Side effects of treatment? @ -No Exacerbation, Progression, or Severe Exacerbation? @ -No Poses a threat to life or bodily function? How? (Chest pain, USA, OR, pneumonia, PE, COPD, DKA, ARF, appy, cholecystitis, CVA, Diverticulitis, Homicidal, Suicidal, threat to staff... and all critical care pts) @ -No Diagnosis/symptom? @ -Pedal edema Acute, or Chronic, or Acute on Chronic? @ -Acute Uncomplicated (without systemic symptoms) or Complicated (systemic symptoms)? @ -Uncomplicated Side effects of treatment? @ -none Exacerbation, Progression, or Severe Exacerbation] @ -no Poses a threat to life or bodily function? @ -no (Tyler Meyers) - Lab Data Lab Results 12/07/22 12/07/22 12/07/22 Range/Units 15:46 15:46 15:46 WBC 9.3 (3.8-10.6) k/uL RBC 5.01 (4.30-5.90) m/uL Hgb 15.0 (13.0-17.5) gm/dL Hct 47.4 (39.0-53.0) % MCV 94.7 (80.0-100.0) fL MCH 29.9 (25.0-35.0) pg MCHC 31.6 (31.0-37.0) g/dL RDW 14.0 (11.5-15.5) % Plt Count 255 (150-450) k/uL MPV 7.5 Neutrophils % 72 % Lymphocytes % 13 % Monocytes % 10 % Eosinophils % 3 % Basophils % 0 % Neutrophils # 6.6 (1.3-7.7) k/uL Lymphocytes # 1.2 (1.0-4.8) k/uL Monocytes # 0.9 (0-1.0) k/uL Eosinophils # 0.3 (0-0.7) k/uL Basophils # 0.0 (0-0.2) k/uL Hypochromasia Slight PT 9.5 (9.0-12.0) sec INR 0.9 (<1.2) APTT 27.0 (22.0-30.0) sec Sodium 144 (137-145) mmol/L Potassium 4.2 (3.5-5.1) mmol/L Chloride 101 (98-107) mmol/L Carbon Dioxide 35 H (22-30) mmol/L Anion Gap 8 mmol/L BUN 14 (9-20) mg/dL Creatinine 0.56 L (0.66-1.25) mg/dL Est GFR (CKD-EPI)AfAm >90 (>60 ml/min/1.73 sqM) Est GFR (CKD-EPI)NonAf >90 (>60 ml/min/1.73 sqM) Glucose 77 (74-99) mg/dL Plasma Lactic Acid Abdias (0.7-2.0) mmol/L Calcium 9.7 (8.4-10.2) mg/dL Magnesium 2.0 (1.6-2.3) mg/dL Total Bilirubin 0.4 (0.2-1.3) mg/dL AST 34 (17-59) U/L ALT 36 (4-49) U/L Alkaline Phosphatase 66 (38-126) U/L Troponin I (0.000-0.034) ng/mL NT-Pro-B Natriuret Pep 21 pg/mL Total Protein 7.1 (6.3-8.2) g/dL Albumin 3.9 (3.5-5.0) g/dL Influenza Type A (PCR) (Not Detectd) Influenza Type B (PCR) (Not Detectd) RSV (PCR) (Not Detectd) SARS-CoV-2 (PCR) (Not Detectd) 12/07/22 12/07/22 12/07/22 Range/Units 15:46 15:46 15:46 WBC (3.8-10.6) k/uL RBC (4.30-5.90) m/uL Hgb (13.0-17.5) gm/dL Hct (39.0-53.0) % MCV (80.0-100.0) fL MCH (25.0-35.0) pg MCHC (31.0-37.0) g/dL RDW (11.5-15.5) % Plt Count (150-450) k/uL MPV Neutrophils % % Lymphocytes % % Monocytes % % Eosinophils % % Basophils % % Neutrophils # (1.3-7.7) k/uL Lymphocytes # (1.0-4.8) k/uL Monocytes # (0-1.0) k/uL Eosinophils # (0-0.7) k/uL Basophils # (0-0.2) k/uL Hypochromasia PT (9.0-12.0) sec INR (<1.2) APTT (22.0-30.0) sec Sodium (137-145) mmol/L Potassium (3.5-5.1) mmol/L Chloride (98-107) mmol/L Carbon Dioxide (22-30) mmol/L Anion Gap mmol/L BUN (9-20) mg/dL Creatinine (0.66-1.25) mg/dL Est GFR (CKD-EPI)AfAm (>60 ml/min/1.73 sqM) Est GFR (CKD-EPI)NonAf (>60 ml/min/1.73 sqM) Glucose (74-99) mg/dL Plasma Lactic Acid Abdias 2.0 (0.7-2.0) mmol/L Calcium (8.4-10.2) mg/dL Magnesium (1.6-2.3) mg/dL Total Bilirubin (0.2-1.3) mg/dL AST (17-59) U/L ALT (4-49) U/L Alkaline Phosphatase (38-126) U/L Troponin I <0.012 (0.000-0.034) ng/mL NT-Pro-B Natriuret Pep pg/mL Total Protein (6.3-8.2) g/dL Albumin (3.5-5.0) g/dL Influenza Type A (PCR) Not Detected (Not Detectd) Influenza Type B (PCR) Not Detected (Not Detectd) RSV (PCR) Not Detected (Not Detectd) SARS-CoV-2 (PCR) Not Detected (Not Detectd) Disposition Is patient prescribed a controlled substance at d/c from ED?: No Time of Disposition: 19:06 <Tyler Meyers - Last Filed: 12/07/22 19:01> <Khalif Orozco - Last Filed: 12/08/22 15:18> Clinical Impression: Dyspnea, Pedal edema Disposition: HOME SELF-CARE Instructions (If sedation given, give patient instructions): Dyspnea (ED) Additional Instructions: Patient should take his Lasix twice a day and follow-up with Dr. Trinh on Saturday. Patient should come back to the emergency department visit any worsening of symptoms or any new symptoms. Referrals: Hollis Trinh MD [Primary Care Provider] - 1-2 days
[2022-12-07 16:18] LABS: Basophils % (A) 0 %; Eosinophils # (A) 0.3 k/uL (0-0.7); Eosinophils % (A) 3 %; HCT 47.4 % (39.0-53.0); Hypochromasia Slight; Lymphocytes # (A) 1.2 k/uL (1.0-4.8); Lymphocytes % (A) 13 %; MCH 29.9 pg (25.0-35.0); MCHC 31.6 g/dL (31.0-37.0); MCV 94.7 fL (80.0-100.0); Mean Platelet Volume 7.5; Monocytes # (A) 0.9 k/uL (0-1.0); Monocytes % (A) 10 %; Neutrophils # (A) 6.6 k/uL (1.3-7.7); Neutrophils % (A) 72 %; Platelet Count 255 k/uL (150-450); RBC 5.01 m/uL (4.30-5.90); WBC 9.3 k/uL (3.8-10.6)
[2022-12-07 16:30] LABS: ALT 36 U/L (4-49); AST 34 U/L (17-59); African American GFR (CKD) >90 (>60 ml/min/1.73 sqM); Albumin 3.9 g/dL (3.5-5.0); Alkaline Phosphatase 66 U/L (38-126); Blood Urea Nitrogen 14 mg/dL (9-20); Calcium 9.7 mg/dL (8.4-10.2); Chloride 101 mmol/L (98-107); Glucose 77 mg/dL (74-99); Non-African American GFR(CKD) >90 (>60 ml/min/1.73 sqM); Potassium 4.2 mmol/L (3.5-5.1); Sodium 144 mmol/L (137-145); Total Bilirubin 0.4 mg/dL (0.2-1.3); Total Protein 7.1 g/dL (6.3-8.2)
[2022-12-07 16:35] LABS: INR 0.9 (<1.2); Prothrombin Time 9.5 sec (9.0-12.0)
[2022-12-07 16:36] LABS: Anion Gap 8 mmol/L; NT-Pro-B-Type Natriuretic Pept 21 pg/mL
[2022-12-07 16:44] LABS: Carbon Dioxide 35 mmol/L (22-30)
--- NOTE | 2022-12-07 17:04 | XR ---
EXAMINATION TYPE: XR chest 2V DATE OF EXAM: 12/07/2022 COMPARISON: 11/06/2022 HISTORY: Shortness of breath TECHNIQUE: Frontal and lateral views of the chest are obtained. FINDINGS: Scattered senescent parenchymal changes noted. Hyperinflation compatible with COPD. Hazy density right lower lobe may reflect developing infiltrate. Correlate clinically. Heart size is stable. Mediastinal structures are stable and grossly unremarkable. No evidence for hilar prominence. Degenerative changes dorsal spine. IMPRESSION: 1. Hazy density right lower lobe may reflect developing infiltrate. Correlate clinically.
[2022-12-07 19:03] VITALS: BP 151/100; PULSE 98; RESP 18
== END 2022-12-07 21:45 | disposition home or self-care (01) ==
LOC: EC 15:08
DX: R06.00 Dyspnea, unspecified (principal); R22.43 Localized swelling, mass and lump, lower limb, bilateral; I25.10 Atherosclerotic heart disease of native coronary artery without angina pectoris; I10 Essential (primary) hypertension; M19.90 Unspecified osteoarthritis, unspecified site; F41.9 Anxiety disorder, unspecified; F32.A Depression, unspecified; Z87.891 Personal history of nicotine dependence; Z88.2 Allergy status to sulfonamides; Z79.899 Other long term (current) drug therapy; Z20.822 Contact with and (suspected) exposure to COVID-19
CPT/HCPCS: 36415; 71046; 80053; 83605; 83735; 83880; 84484; 85025; 85610; 85730; 87040; 87636; 93005; 99285

== ENCOUNTER 2023-01-09 12:29 | Inpatient (IN) | payer OTHER ==
[2023-01-09] MEDS ORDERED: IPRATROPIUM-ALBUTEROL 3 ML NEB INHALATION STA (12:36)
[2023-01-09] MEDS ORDERED: ALBUTEROL NEBULIZED 2.5 MG/3 ML INHALATION STA (12:36)
[2023-01-09] MEDS ORDERED: methylPREDNISolone SOD SUCCI 125 MG/2 ML VIAL IV STA (12:43)
[2023-01-09] MEDS ORDERED: AZITHROMYCIN 500 MG in SODIUM CHLORIDE 0.9% 250 ML IVPB STA (12:44)
[2023-01-09] MEDS ORDERED: ACETAMINOPHEN IV (For NPO) 1,000 MG in EMPTY BAG 1 BAG IVPB STA (12:45)
[2023-01-09] MEDS ORDERED: LORazepam 2 MG/ML INJ IV STA (12:47)
[2023-01-09 13:19] LABS: Basophils % (A) 0 %; Eosinophils # (A) 0.2 k/uL (0-0.7); Eosinophils % (A) 1 %; HCT 47.4 % (39.0-53.0); HGB 14.7 gm/dL (13.0-17.5); Hypochromasia Slight; Lymphocytes # (A) 0.6 k/uL (1.0-4.8); Lymphocytes % (A) 3 %; MCH 29.6 pg (25.0-35.0); MCV 95.5 fL (80.0-100.0); Mean Platelet Volume 7.8; Monocytes # (A) 0.5 k/uL (0-1.0); Monocytes % (A) 3 %; Neutrophils % (A) 92 %; Platelet Count 241 k/uL (150-450); RBC 4.96 m/uL (4.30-5.90); RDW 14.8 % (11.5-15.5); WBC 18.4 k/uL (3.8-10.6)
[2023-01-09 13:28] LABS: Appearance,Urine Clear (Clear); Bilirubin,Urine Negative (Negative); Blood,Urine Trace (Negative); Color,Urine Yellow; Glucose,Urine (UA) Negative (Negative); Ketones,Urine Negative (Negative); Leukocyte Esterase,Urine Negative (Negative); Nitrite,Urine Negative (Negative); PH, Urine 7.5 (5.0-8.0); Protein,Urine 2+ (Negative); RBC,Urine 2 /hpf (0-5); Specific Gravity,Urine 1.018 (1.001-1.035); Urobilinogen,Urine <2.0 mg/dL (<2.0); WBC,Urine <1 /hpf (0-5)
[2023-01-09 13:30] LABS: VBG PH 7.37 (7.31-7.41)
--- NOTE | 2023-01-09 13:31 | XR ---
EXAMINATION TYPE: XR chest 1V portable DATE OF EXAM: 01/09/2023 HISTORY: Shortness of breath. COMPARISON: October 07, 2019 TECHNIQUE: Single view of the chest is submitted. FINDINGS: Demonstrated are scattered senescent parenchymal change. Patchy perihilar and basilar infiltrates suspicious for pneumonia. There appears to be associated pul monary venous congestion. The heart is stable. Hilar and mediastinal structures are within normal limits. Degenerative changes are seen of the dorsal spine. IMPRESSION: 1. Patchy perihilar and basilar infiltrates suspicious for pneumonia. There appears to be associated pulmonary venous congestion.
[2023-01-09 13:34] LABS: ALT 36 U/L (4-49); AST 45 U/L (17-59); African American GFR (CKD) >90 (>60 ml/min/1.73 sqM); Albumin 3.9 g/dL (3.5-5.0); Alkaline Phosphatase 60 U/L (38-126); Anion Gap 8 mmol/L; Blood Urea Nitrogen 15 mg/dL (9-20); Calcium 9.1 mg/dL (8.4-10.2); Carbon Dioxide 35 mmol/L (22-30); Chloride 97 mmol/L (98-107); Glucose 145 mg/dL (74-99); Magnesium 1.9 mg/dL (1.6-2.3); Non-African American GFR(CKD) >90 (>60 ml/min/1.73 sqM); Potassium 4.3 mmol/L (3.5-5.1); Sodium 140 mmol/L (137-145); Total Bilirubin 0.6 mg/dL (0.2-1.3); Total Protein 7.3 g/dL (6.3-8.2)
[2023-01-09 13:35] LABS: Prothrombin Time 10.6 sec (10.0-12.5)
[2023-01-09 13:36] LABS: Partial Thromboplastin Time 27.4 sec (22.0-30.0)
[2023-01-09 13:42] LABS: NT-Pro-B-Type Natriuretic Pept 114 pg/mL
[2023-01-09] MEDS ORDERED: NALOXONE 0.4 MG/ML 1 ML VIAL IVP PRN (14:27)
[2023-01-09] MEDS ORDERED: IPRATROPIUM-ALBUTEROL 3 ML NEB INHALATION PRN (14:27)
--- NOTE | 2023-01-09 14:39 | ED ---
General Adult HPI - General Chief complaint: Shortness of Breath Stated complaint: Tachy Time Seen by Provider: 01/09/23 12:30 Source: patient, RN notes reviewed, old records reviewed Mode of arrival: EMS Limitations: altered mental status - History of Present Illness Initial comments: 62-year-old male with respiratory distress. Patient brought in by paramedics with hypoxia, tachycardia, fever. Patient is in extremis upon arrival. He is immediately placed on BiPAP for respiratory support. - Related Data Home Medications Medication Instructions Recorded Confirmed Losartan Potassium 100 mg PO HS 05/23/22 12/07/22 Cholecalciferol [Vitamin D3 (25 50 mcg PO DAILY 07/23/22 12/07/22 Mcg = 1000 Iu)] Ibuprofen [Motrin] 600 mg PO QID PRN 07/23/22 12/07/22 Loratadine [Claritin] 10 mg PO DAILY PRN 07/23/22 12/07/22 Umeclidinium [place] [Incruse 1 puff INHALATION RT-DAILY 07/23/22 12/07/22 Ellipta] Albuterol Inhaler [Ventolin Hfa 2 puff INHALATION RT-Q4H PRN 09/20/22 12/07/22 Inhaler] Brinzolamide [Azopt 1% Ophth Susp] 1 drop BOTH EYES TID 09/20/22 12/07/22 Ocusoft Eyelid Cleansing Pads 1 applic TOPICAL DAILY 09/20/22 12/07/22 Petrolatum, White [Aquaphor] 1 applic TOPICAL HS 09/20/22 12/07/22 Triamcinolone 0.1% Cream [Kenalog 1 applic TOPICAL BID 09/20/22 12/07/22 0.1% Cream] Ipratropium-Albuterol Nebulize 3 ml INHALATION RT-QID 11/06/22 12/07/22 [Duoneb 0.5 mg-3 mg/3 ml Soln] Travoprost [Travatan Z 0.004%] 1 drop BOTH EYES HS 11/06/22 12/07/22 amLODIPine [Norvasc] 5 mg PO HS 11/06/22 12/07/22 Acetaminophen Tab [Tylenol] 325 - 650 mg PO Q6HR PRN 12/07/22 12/07/22 Chlorhexidine Gluconate [Peridex] 15 ml PO BID 12/07/22 12/07/22 Erythromycin Ophth Oint [Romycin 1 applic BOTH EYES HS 12/07/22 12/07/22 Ophth Oint] Fluticasone Nasal [place] [Flonase 1 spr EA NOSTRIL BID PRN 12/07/22 12/07/22 Nasal [place]] Naphazoline-Phenira 0.025-0.3% 1 drop BOTH EYES TID PRN 12/07/22 12/07/22 [Visine-A Ophth Soln] Nicotine Polacrilex [Nicotine Gum] 4 mg BUCCAL TID PRN 12/07/22 12/07/22 Previous Rx's Medication Instructions Recorded Budesonide-Formot 160-4.5 Mcg 2 puff INHALATION RT-BID each 05/28/22 [Symbicort 160-4.5 Mcg Inhaler] Furosemide [Lasix] 40 mg PO DAILY #30 tab 11/12/22 Allergies Allergy/AdvReac Type Severity Reaction Status Date / Time Sulfa (Sulfonamide Allergy Rash on Verified 12/07/22 18:55 Antibiotics) arms Review of Systems ROS Statement: Those systems with pertinent positive or pertinent negative responses have been documented in the HPI. ROS Other: All systems not noted in ROS Statement are negative. Past Medical History Past Medical History: Coronary Artery Disease (CAD), Hypertension, Osteoarthritis (OA), Pneumonia, Skin Disorder, Sleep Apnea/CPAP/BIPAP Additional Past Medical History / Comment(s): neuropathy History of Any Multi-Drug Resistant Organisms: None Reported Past Surgical History: Heart Catheterization With Stent Additional Past Surgical History / Comment(s): 2004 stenting of RCA, ccath 2004 with lesions 50%mid LAD and unstable RCA plaque-stented as mentioned-EF was 60%, quadricepts muscle bx, normal colonoscopy in 2014, colonoscopy with benign polypectomy in past. Past Anesthesia/Blood Transfusion Reactions: No Reported Reaction Date of Last Stent Placement:: 2004 Past Psychological History: Anxiety, Depression Smoking Status: Former smoker Past Alcohol Use History: Rare - Past Family History Mother Family Medical History: Cancer Additional Family Medical History / Comment(s): Pt's mother at age 55 from lung cancer. She was a nonsmoker. Father Family Medical History: Hyperlipidemia, Hypertension Additional Family Medical History / Comment(s): Father at age 89 of natural causes. Sister(s) Family Medical History: Myocardial Infarction ([place]) Additional Family Medical History / Comment(s): Pt has one sister who of possible [place] at age 53yrs. General Exam Limitations: no limitations Course Vital Signs 01/09/23 01/09/23 01/09/23 12:43 12:54 12:57 Temperature 102.8 F H Pulse Rate 130 H Respiratory 40 H Rate Blood Pressure 190/105 O2 Sat by Pulse 79 L Oximetry Fraction of 40 50 Inspired Oxygen (FIO2) 01/09/23 01/09/23 01/09/23 13:00 13:12 13:32 Temperature Pulse Rate 121 H 121 H 113 H Respiratory 24 Rate Blood Pressure 115/73 O2 Sat by Pulse 97 Oximetry Fraction of Inspired Oxygen (FIO2) Medical Decision Making - Medical Decision Making Was pt. sent in by a medical professional or institution (, PA, SHOT EXAMINER, urgent care, hospital, or shelter...) When possible be specific @ -No Did you speak to anyone other than the patient for history (EMS, parent, family, police, friend...)? What history was obtained from this source @ -Paramedics Did you review nursing and triage notes (agree or disagree)? Why? @ -I reviewed and agree with nursing and triage notes Were old charts reviewed (outside hosp., previous admission, EMS record, old EKG, old radiological studies, urgent care reports/EKG's, shelter records)? Report findings @ -No old charts were reviewed Differential Diagnosis (chest pain, altered mental status, abdominal pain women, abdominal pain men, vaginal bleeding, weakness, fever, dyspnea, syncope, headache, dizziness, GI bleed, back pain, seizure, CVA, palpatations, mental health, musculoskeletal)? @ -not applicable EKG interpreted by me (3pts min.). @Sinus tachycardia rate of 1:30, NH interval 138, QRS duration 85, QTC [address] segment elevation. X-rays interpreted by me (1pt min.). @Bilateral multifocal pneumonia CT interpreted by me (1pt min.). @ -None done U/S interpreted by me (1pt. min.). @ -None done What testing was considered but not performed or refused? (CT, X-rays, U/S, labs)? Why? @ -None What meds were considered but not given or refused? Why? @ -None Did you discuss the management of the patient with other professionals (professionals i.e. DrUsha, PA, SHOT EXAMINER, lab, RT, psych nurse, elementary school social worker, ip litigation associate, teacher, loan servicing officer, housing case manager)? Give summary @ -Sound physician group Was smoking cessation discussed for >3mins.? @ -No Was critical care preformed (if so, how long)? @ -Yes, 35 minutes Were there social determinants of health that impacted care today? How? (Homelessness, low income, unemployed, alcoholism, drug addiction, transportation, low edu. Level, literacy, decrease access to med. care, residential, rehab)? @ -No Was there de-escalation of care discussed even if they declined (Discuss DNR or withdrawal of care, Hospice)? DNR status @ -No What co-morbidities impacted this encounter? (DM, HTN, Smoking, COPD, CAD, Ca ncer, CVA, ARF, Chemo, Hep., AIDS, mental health diagnosis, sleep apnea, morbid obesity)? @ -[COPD Was patient admitted / discharged? Hospital course, mention meds given and route, prescriptions, significant lab abnormalities, going to OR and other pertinent info. @ -62-year-old male with respiratory distress, hypoxia. Patient brought in w ith worsening cough, dyspnea. Patient found to be febrile at 103. He is hypoxic and tachycardic. White count is 18,002 chest x-ray shows bilateral pneumonia. He has a mild lactic acidosis. He started on ceftriaxone and azithromycin emergency department. He is given steroids, albuterol, Atrovent. Viral panel is negative. He's admitted to internal medicine, case discussed with several physician group. Undiagnosed new problem with uncertain prognosis? @ -No Drug Therapy requiring intensive monitoring for toxicity (Heparin, Nitro, Ins ulin, Cardizem)? @ -No Were any procedures done? @ -No Diagnosis/symptom? @ -Respiratory failure, secondary to COPD and pneumonia Acute, or Chronic, or Acute on Chronic? @ -[Acute Uncomplicated (without systemic symptoms) or Complicated (systemic symptoms)? @ -default Side effects of treatment? @ -No Exacerbation, Progression, or Severe Exacerbation? @ -No Poses a threat to life or bodily function? How? (Chest pain, [place], [place], pneumonia, PE, COPD, DKA, ARF, appy, cholecystitis, CVA, Diverticulitis, Homicidal, Suicidal, threat to staff... and all critical care pts) @ -[Yes, respiratory failure, hypoxia - Lab Data Result diagrams: 01/09/23 13:04 01/09/23 13:04 Lab Results 01/09/23 01/09/23 01/09/23 Range/Units 12:34 13:04 13:04 WBC 18.4 H (3.8-10.6) k/uL RBC 4.96 (4.30-5.90) m/uL Hgb 14.7 (13.0-17.5) gm/dL Hct 47.4 (39.0-53.0) % MCV 95.5 (80.0-100.0) fL MCH 29.6 (25.0-35.0) pg MCHC 31.0 (31.0-37.0) g/dL RDW 14.8 (11.5-15.5) % Plt Count 241 (150-450) k/uL MPV 7.8 Neutrophils % 92 % Lymphocytes % 3 % Monocytes % 3 % Eosinophils % 1 % Basophils % 0 % Neutrophils # 17.0 H (1.3-7.7) k/uL Lymphocytes # 0.6 L (1.0-4.8) k/uL Monocytes # 0.5 (0-1.0) k/uL Eosinophils # 0.2 (0-0.7) k/uL Basophils # 0.0 (0-0.2) k/uL Hypochromasia Slight PT 10.6 (10.0-12.5) sec INR 1.0 (<1.2) APTT 27.4 (22.0-30.0) sec VBG pH (7.31-7.41) VBG pCO2 (37-51) mmHg VBG HCO3 (24-28) mmol/L Sodium (137-145) mmol/L Potassium (3.5-5.1) mmol/L Chloride (98-107) mmol/L Carbon Dioxide (22-30) mmol/L Anion Gap mmol/L BUN (9-20) mg/dL Creatinine (0.66-1.25) mg/dL Est GFR (CKD-EPI)AfAm (>60 ml/min/1.73 sqM) Est GFR (CKD-EPI)NonAf (>60 ml/min/1.73 sqM) Glucose (74-99) mg/dL Plasma Lactic Acid Abdias (0.7-2.0) mmol/L Calcium (8.4-10.2) mg/dL Magnesium (1.6-2.3) mg/dL Total Bilirubin (0.2-1.3) mg/dL AST (17-59) U/L ALT (4-49) U/L Alkaline Phosphatase (38-126) U/L Troponin I (0.000-0.034) ng/mL NT-Pro-B Natriuret Pep pg/mL Total Protein (6.3-8.2) g/dL Albumin (3.5-5.0) g/dL Urine Color Urine Appearance (Clear) Urine pH (5.0-8.0) Ur Specific [place] (1.001-1.035) Urine Protein (Negative) Urine Glucose (UA) (Negative) Urine Ketones (Negative) Urine Blood (Negative) Urine Nitrite (Negative) Urine Bilirubin (Negative) Urine Urobilinogen (<2.0) mg/dL Ur Leukocyte Esterase (Negative) Urine RBC (0-5) /hpf Urine WBC (0-5) /hpf Influenza Type A (PCR) Not Detected (Not Detectd) Influenza Type B (PCR) Not Detected (Not Detectd) RSV (PCR) Not Detected (Not Detectd) SARS-CoV-2 (PCR) Not Detected (Not Detectd) 01/09/23 01/09/23 01/09/23 Range/Units 13:04 13:04 13:04 WBC (3.8-10.6) k/uL RBC (4.30-5.90) m/uL Hgb (13.0-17.5) gm/dL Hct (39.0-53.0) % MCV (80.0-100.0) fL MCH (25.0-35.0) pg MCHC (31.0-37.0) g/dL RDW (11.5-15.5) % Plt Count (150-450) k/uL MPV Neutrophils % % Lymphocytes % % Monocytes % % Eosinophils % % Basophils % % Neutrophils # (1.3-7.7) k/uL Lymphocytes # (1.0-4.8) k/uL Monocytes # (0-1.0) k/uL Eosinophils # (0-0.7) k/uL Basophils # (0-0.2) k/uL Hypochromasia PT (10.0-12.5) sec INR (<1.2) APTT (22.0-30.0) sec VBG pH (7.31-7.41) VBG pCO2 (37-51) mmHg VBG HCO3 (24-28) mmol/L Sodium 140 (137-145) mmol/L Potassium 4.3 (3.5-5.1) mmol/L Chloride 97 L (98-107) mmol/L Carbon Dioxide 35 H (22-30) mmol/L Anion Gap 8 mmol/L BUN 15 (9-20) mg/dL Creatinine 0.52 L (0.66-1.25) mg/dL Est GFR (CKD-EPI)AfAm >90 (>60 ml/min/1.73 sqM) Est GFR (CKD-EPI)NonAf >90 (>60 ml/min/1.73 sqM) Glucose 145 H (74-99) mg/dL Plasma Lactic Acid Abdias 2.3 H* (0.7-2.0) mmol/L Calcium 9.1 (8.4-10.2) mg/dL Magnesium 1.9 (1.6-2.3) mg/dL Total Bilirubin 0.6 (0.2-1.3) mg/dL AST 45 (17-59) U/L ALT 36 (4-49) U/L Alkaline Phosphatase 60 (38-126) U/L Troponin I 0.022 (0.000-0.034) ng/mL NT-Pro-B Natriuret Pep 114 pg/mL Total Protein 7.3 (6.3-8.2) g/dL Albumin 3.9 (3.5-5.0) g/dL Urine Color Urine Appearance (Clear) Urine pH (5.0-8.0) Ur Specific [place] (1.001-1.035) Urine Protein (Negative) Urine Glucose (UA) (Negative) Urine Ketones (Negative) Urine Blood (Negative) Urine Nitrite (Negative) Urine Bilirubin (Negative) Urine Urobilinogen (<2.0) mg/dL Ur Leukocyte Esterase (Negative) Urine RBC (0-5) /hpf Urine WBC (0-5) /hpf Influenza Type A (PCR) (Not Detectd) Influenza Type B (PCR) (Not Detectd) RSV (PCR) (Not Detectd) SARS-CoV-2 (PCR) (Not Detectd) 01/09/23 01/09/23 Range/Units 13:11 13:11 WBC (3.8-10.6) k/uL RBC (4.30-5.90) m/uL Hgb (13.0-17.5) gm/dL Hct (39.0-53.0) % MCV (80.0-100.0) fL MCH (25.0-35.0) pg MCHC (31.0-37.0) g/dL RDW (11.5-15.5) % Plt Count (150-450) k/uL MPV Neutrophils % % Lymphocytes % % Monocytes % % Eosinophils % % Basophils % % Neutrophils # (1.3-7.7) k/uL Lymphocytes # (1.0-4.8) k/uL Monocytes # (0-1.0) k/uL Eosinophils # (0-0.7) k/uL Basophils # (0-0.2) k/uL Hypochromasia PT (10.0-12.5) sec INR (<1.2) APTT (22.0-30.0) sec VBG pH 7.37 (7.31-7.41) VBG pCO2 66 H (37-51) mmHg VBG HCO3 38 H (24-28) mmol/L Sodium (137-145) mmol/L Potassium (3.5-5.1) mmol/L Chloride (98-107) mmol/L Carbon Dioxide (22-30) mmol/L Anion Gap mmol/L BUN (9-20) mg/dL Creatinine (0.66-1.25) mg/dL Est GFR (CKD-EPI)AfAm (>60 ml/min/1.73 sqM) Est GFR (CKD-EPI)NonAf (>60 ml/min/1.73 sqM) Glucose (74-99) mg/dL Plasma Lactic Acid Abdi[place] (0.7-2.0) mmol/L Calcium (8.4-10.2) mg/dL Magnesium (1.6-2.3) mg/dL Total Bilirubin (0.2-1.3) mg/dL AST (17-59) U/L ALT (4-49) U/L Alkaline Phosphatase (38-126) U/L Troponin I (0.000-0.034) ng/mL NT-Pro-B Natriuret Pep pg/mL Total Protein (6.3-8.2) g/dL Albumin (3.5-5.0) g/dL Urine Color Yellow Urine Appearance Clear (Clear) Urine pH 7.5 (5.0-8.0) Ur Specific [place] 1.018 (1.001-1.035) Urine Protein 2+ H (Negative) Urine Glucose (UA) Negative (Negative) Urine Ketones Negative (Negative) Urine Blood Trace H (Negative) Urine Nitrite Negative (Negative) Urine Bilirubin Negative (Negative) Urine Urobilinogen <2.0 (<2.0) mg/dL Ur Leukocyte Esterase Negative (Negative) Urine RBC 2 (0-5) /hpf Urine WBC <1 (0-5) /hpf Influenza Type A (PCR) (Not Detectd) Influenza Type B (PCR) (Not Detectd) RSV (PCR) (Not Detectd) SARS-CoV-2 (PCR) (Not Detectd) Critical Care Time Critical Care Time: Yes Total Critical Care Time: 35 Disposition Clinical Impression: COPD exacerbation, Pneumonia, community acquired Disposition: ADMITTED IP TO THIS HOSP Condition: Serious Is patient prescribed a controlled substance at d/c from ED?: No Referrals: Hollis Trinh MD [Primary Care Provider] - 1-2 days Time of Disposition: 14:37
[2023-01-09] MEDS: IPRATROPIUM-ALBUTEROL 3 ML NEB INHALATION SCH ×2 (15:59→20:32)
[2023-01-09] MEDS ORDERED: ACETAMINOPHEN TAB 325 MG TAB PO PRN (17:16)
[2023-01-09] MEDS ORDERED: NALOXONE 0.4 MG/ML 1 ML VIAL IV PRN (17:16)
[2023-01-09] MEDS ORDERED: NICOTINE GUM (POLACRILEX) 2 MG GUM BUCCAL PRN (17:18)
[2023-01-09] MEDS ORDERED: ALBUTEROL NEBULIZED 2.5 MG/3 ML INHALATION PRN (17:18)
--- NOTE | 2023-01-09 17:21 | P.HPIM ---
History of Present Illness H&P Date: 01/09/23 Chief Complaint: Dyspnea 62-year-old man with medical history of diastolic heart failure, COPD with chronic respiratory failure of 3 L, OHS/FALGUNI, CAD/hypertension/hyperlipidemia presented for dyspnea. Patient did not participate with interview, history is taken from chart review and ER provider signout. From my understanding, patient started to develop dyspnea, fevers, chills while at home and was brought in by his for further assessment. On arrival, he was noted to be in extremis and was immediately placed on BiPAP. In the emergency room, patient's maximum documented fever was 100, maximum reported fever was 103, 120/86, heart rate 95, 95% on BiPAP with an FiO2 of 50%, PEEP of 8. CBC remarkable for leukocytosis to 18. Basic metabolic panel shows CO2 of 35. Liver function tests are unremarkable. BNP was 114, troponin was 0.0-2. VBG showed a pH of 7.37 and pCO2 of 66. UA showed 2+ protein, trace blood. Influenza A, B, Covid, RSV were negative. EKG showed sinus tachycardia with occasional PVCs. Chest x-ray shows cardiac medically, Multifocal bilateral opacities. Case is discussed with emergency room physician, decision was made to admit the patient to the hospital for further evaluation of respiratory failure. Review of systems could not be completed due to patient's medical condition Gen: in no apparent distress, resting comfortably in bed Eyes: PERRL, no scleral injection or icterus HENT: normocephalic, atraumatic, good hearing acuity, moist mucous membranes Neck: no tracheal deviation, full range of motion Resp: good air exchange, breathing comfortably with no accessory muscle use, no tactile fremitus CVS: good distal perfusion x 4, no pitting edema GI: soft, NTTP, ND, no hepatosplenomegaly : no suprapubic tenderness, no CVAT, schaeffer catheter not present MSK: no clubbing, no cyanosis, no noted contractures of extremities Skin: no noted rashes, petechiae; temperature of skin is appropriate Neuro: moving all extremities without signs of weakness, CN II-XII intact Labs and imaging as above Assessment/plan: Sepsis with acute hypoxemic respiratory failure superimposed on chronic hypercarbic respiratory failure Multifocal pneumonia -Admit patient to the hospital as an inpatient -Patient is full code -Oxygen as needed -Follow blood culture -Ceftriaxone/azithromycin -Pulmonology consulted COPD without exacerbation OHS/OHA CAD Hypertension Hyperlipidemia -Home medications reviewed and reconciled Patient's full code DVT prophylaxis with enoxaparin Past Medical History Past Medical History: Coronary Artery Disease (CAD), Hypertension, Osteoarthritis (OA), Pneumonia, Skin Disorder, Sleep Apnea/CPAP/BIPAP Additional Past Medical History / Comment(s): neuropathy History of Any Multi-Drug Resistant Organisms: None Reported Past Surgical History: Heart Catheterization With Stent Additional Past Surgical History / Comment(s): 2004 stenting of RCA, ccath 2004 with lesions 50%mid LAD and unstable RCA plaque-stented as mentioned-EF was 60%, quadricepts muscle bx, normal colonoscopy in 2013, colonoscopy with benign polypectomy in past. Past Anesthesia/Blood Transfusion Reactions: No Reported Reaction Date of Last Stent Placement:: 2004 Past Psychological History: Anxiety, Depression Smoking Status: Former smoker Past Alcohol Use History: Rare - Past Family History Mother Family Medical History: Cancer Additional Family Medical History / Comment(s): Pt's mother at age 55 from lung cancer. She was a nonsmoker. Father Family Medical History: Hyperlipidemia, Hypertension Additional Family Medical History / Comment(s): Father at age 89 of natural causes. Sister(s) Family Medical History: Myocardial Infarction ([place]) Additional Family Medical History / Comment(s): Pt has one sister who of possible [place] at age 53yrs. Medications and Allergies Home Medications Medication Instructions Recorded Confirmed Type Losartan Potassium 100 mg PO HS 05/23/22 01/09/23 History Budesonide-Formot 160-4.5 Mcg 2 puff INHALATION RT-BID each 05/28/22 01/09/23 Rx [Symbicort 160-4.5 Mcg Inhaler] Cholecalciferol [Vitamin D3 (25 50 mcg PO DAILY 07/23/22 01/09/23 History Mcg = 1000 Iu)] Ibuprofen [Motrin] 600 mg PO QID PRN 07/23/22 01/09/23 History Loratadine [Claritin] 10 mg PO DAILY PRN 07/23/22 01/09/23 History Umeclidinium [place] [Incruse 1 puff INHALATION RT-DAILY 07/23/22 01/09/23 History Ellipta] Albuterol Inhaler [Ventolin Hfa 2 puff INHALATION RT-Q4H PRN 09/20/22 01/09/23 History Inhaler] Brinzolamide [Azopt 1% Ophth Susp] 1 drop BOTH EYES TID 09/20/22 01/09/23 History Ocusoft Eyelid Cleansing Pads 1 applic TOPICAL DAILY 09/20/22 01/09/23 History Ipratropium-Albuterol Nebulize 3 ml INHALATION RT-QID 11/06/22 01/09/23 History [Duoneb 0.5 mg-3 mg/3 ml Soln] Travoprost [Travatan Z 0.004%] 1 drop BOTH EYES HS 11/06/22 01/09/23 History amLODIPine [Norvasc] 5 mg PO HS 11/06/22 01/09/23 History Acetaminophen Tab [Tylenol] 325 - 650 mg PO Q6HR PRN 12/07/22 01/09/23 History Chlorhexidine Gluconate [Peridex] 15 ml PO BID 12/07/22 01/09/23 History Fluticasone Nasal [place] [Flonase 1 spr EA NOSTRIL BID PRN 12/07/22 01/09/23 History Nasal [place]] Naphazoline-Phenira 0.025-0.3% 1 drop BOTH EYES TID PRN 12/07/22 01/09/23 History [Visine-A Ophth Soln] Nicotine Polacrilex [Nicotine Gum] 4 mg BUCCAL TID PRN 12/07/22 01/09/23 History Furosemide [Lasix] 40 mg PO TID 01/09/23 01/09/23 History Petrolatum, White [Aquaphor] 1 applic TOPICAL HS 01/09/23 01/09/23 History Salicylic Acid 6% Shampoo 1 applic TOPICAL DIRECTED 01/09/23 01/09/23 History Triamcinolone 0.5% Cream [Kenalog 1 applic TOPICAL BID 01/09/23 01/09/23 History 0.5% Cream] Allergies Allergy/AdvReac Type Severity Reaction Status Date / Time Sulfa (Sulfonamide Allergy Rash on Verified 01/09/23 14:57 Antibiotics) arms Physical Exam Osteopathic Statement: *. No significant issues noted on an osteopathic structural exam other than those noted in the History and Physical/Consult. Vitals: Vital Signs Temp Pulse Resp BP Pulse Ox FiO2 01/09/23 16:08 87 01/09/23 16:00 100 F H 95 20 120/86 95 01/09/23 15:59 91 01/09/23 15:57 50 01/09/23 14:56 109 H 25 H 133/70 95 01/09/23 14:00 112 H 22 133/76 95 01/09/23 13:45 40 H 01/09/23 13:32 113 H 24 115/73 97 01/09/23 13:12 121 H 01/09/23 13:00 121 H 01/09/23 12:57 50 01/09/23 12:54 40 01/09/23 12:43 102.8 F H 130 H 40 H 190/105 79 L Intake and Output 01/09/23 01/09/23 01/09/23 06:59 14:59 22:59 Other: Weight 136.078 kg Results CBC & Chem 7: 01/09/23 13:04 01/09/23 13:04 Labs: Abnormal Lab Results - Last 24 Hours (Table) 01/09/23 01/09/23 01/09/23 Range/Units 13:04 13:04 13:04 WBC 18.4 H (3.8-10.6) k/uL Neutrophils # 17.0 H (1.3-7.7) k/uL Lymphocytes # 0.6 L (1.0-4.8) k/uL VBG pCO2 (37-51) mmHg VBG HCO3 (24-28) mmol/L Chloride 97 L (98-107) mmol/L Carbon Dioxide 35 H (22-30) mmol/L Creatinine 0.52 L (0.66-1.25) mg/dL Glucose 145 H (74-99) mg/dL Plasma Lactic Acid Abdias 2.3 H* (0.7-2.0) mmol/L Urine Protein (Negative) Urine Blood (Negative) 01/09/23 01/09/23 Range/Units 13:11 13:11 WBC (3.8-10.6) k/uL Neutrophils # (1.3-7.7) k/uL Lymphocytes # (1.0-4.8) k/uL VBG pCO2 66 H (37-51) mmHg VBG HCO3 38 H (24-28) mmol/L Chloride (98-107) mmol/L Carbon Dioxide (22-30) mmol/L Creatinine (0.66-1.25) mg/dL Glucose (74-99) mg/dL Plasma Lactic Acid Abdias (0.7-2.0) mmol/L Urine Protein 2+ H (Negative) Urine Blood Trace H (Negative)
[2023-01-09] MEDS: methylPREDNISolone SOD SUCCI 125 MG/2 ML VIAL IV SCH ×2 (17:53→22:52)
[2023-01-09] MEDS ORDERED: IPRATROPIUM-ALBUTEROL 3 ML NEB INHALATION SCH (20:00)
[2023-01-09] MEDS: SYMBICORT 160-4.5 MCG INHALER INHALATION SCH (20:32)
[2023-01-09] MEDS: amLODIPine 5 MG TAB PO SCH (22:51)
[2023-01-09] MEDS: LOSARTAN 50 MG TAB PO SCH (22:52)
[2023-01-09] MEDS: FUROSEMIDE 40 MG TAB PO SCH (22:52)
[2023-01-10 05:42] LABS: Glucose,Whole Blood 165 mg/dL (70-110)
[2023-01-10 06:04] LABS: ABG PCO2 85 mmHg (35-45); ABG PH 7.28 (7.35-7.45); ABG PO2 272 mmHg (83-108); Allen Test Performed? Yes
[2023-01-10 06:05] LABS: ABG Base Excess 12.5 mmol/L; ABG HCO3 39 mmol/L (21-25); ABG TCO2 42 mmol/L (19-24)
[2023-01-10] MEDS: DORZOLAMIDE HCL 2% DROPS 10 ML BTL BOTH EYES SCH ×4 (06:28→20:42)
[2023-01-10] MEDS: LATANOPROST 0.005% OPHTH DROPS 2.5 ML BTL BOTH EYES SCH ×2 (06:28→20:42)
[2023-01-10] MEDS: methylPREDNISolone SOD SUCCI 125 MG/2 ML VIAL IV SCH ×4 (07:10→23:15)
[2023-01-10] MEDS ORDERED: NON FORMULARY DRUG (Umeclidinium Bromide [Incruse Ellipta] 62.5 MCG Each) INHALATION SCH (08:00)
[2023-01-10] MEDS: SYMBICORT 160-4.5 MCG INHALER INHALATION SCH ×2 (08:18→21:22)
[2023-01-10] MEDS: IPRATROPIUM-ALBUTEROL 3 ML NEB INHALATION SCH ×4 (08:18→21:22)
[2023-01-10] MEDS: FUROSEMIDE 40 MG TAB PO SCH ×2 (09:27→11:17)
[2023-01-10] MEDS: CHOLECALCIFEROL 25 MCG (1000 IU) TABLET PO SCH ×2 (09:27→11:18)
[2023-01-10] MEDS: ENOXAPARIN 40 MG/0.4 ML SYRINGE SQ SCH (09:27)
[2023-01-10] MEDS: AZITHROMYCIN 500 MG in SODIUM CHLORIDE 0.9% 250 ML IVPB SCH (09:28)
[2023-01-10] MEDS: [UNRECOGNIZED DRUG - OTHER] TOPICAL SCH (09:29)
[2023-01-10 10:09] LABS: Basophils % (A) 0 %; Eosinophils % (A) 0 %; HCT 45.7 % (39.0-53.0); HGB 14.2 gm/dL (13.0-17.5); Hypochromasia Marked; Lymphocytes # (A) 0.6 k/uL (1.0-4.8); Lymphocytes % (A) 4 %; MCH 30.5 pg (25.0-35.0); MCHC 31.1 g/dL (31.0-37.0); MCV 97.8 fL (80.0-100.0); Mean Platelet Volume 7.7; Monocytes # (A) 0.4 k/uL (0-1.0); Monocytes % (A) 3 %; Neutrophils # (A) 16.2 k/uL (1.3-7.7); Neutrophils % (A) 93 %; Platelet Count 236 k/uL (150-450); RBC 4.67 m/uL (4.30-5.90); RDW 14.5 % (11.5-15.5); WBC 17.4 k/uL (3.8-10.6)
--- NOTE | 2023-01-10 10:36 | P.PN ---
Subjective Progress Note Date: 01/10/23 Pt had episode of agitation overnight and was removing bipap and desaturating to 60s, A team was called and he was found to have acut on chronic hypercarbia. Started on solumedrol overnight for COPD exacerbation. Gen: in no apparent distress, resting comfortably in bed Eyes: PERRL, no scleral injection or icterus HENT: normocephalic, atraumatic, good hearing acuity, moist mucous membranes Neck: no tracheal deviation, full range of motion Resp: good air exchange, breathing comfortably with no accessory muscle use, no tactile fremitus CVS: good distal perfusion x 4, no pitting edema GI: soft, NTTP, ND, no hepatosplenomegaly : no suprapubic tenderness, no CVAT, schaeffer catheter not present MSK: no clubbing, no cyanosis, no noted contractures of extremities Skin: no noted rashes, petechiae; temperature of skin is appropriate Neuro: moving all extremities without signs of weakness, CN II-XII intact 62-year-old man with medical history of diastolic heart failure, COPD with chronic respiratory failure of 3 L, OHS/FALGUNI, CAD/hypertension/hyperlipidemia presented for dyspnea. In the emergency room, patient's maximum documented fever was 100, maximum reported fever was 103, 120/86, heart rate 95, 95% on BiPAP with an FiO2 of 50%, PEEP of 8. CBC remarkable for leukocytosis to 18. Basic metabolic panel shows CO2 of 35. Liver function tests are unremarkable. BNP was 114, troponin was 0.0-2. VBG showed a pH of 7.37 and pCO2 of 66. UA showed 2+ protein, trace blood. Influenza A, B, Covid, RSV were negative. EKG showed sinus tachycardia with occasional PVCs. Chest x-ray shows cardiac medically, Multifocal bilateral opacities. Case is discussed with emergency room physician, decision was made to admit the patient to the hospital for further evaluation of respiratory failure. Assessment/plan: Sepsis with acute hypoxemic respiratory failure superimposed on chronic hypercarbic respiratory failure Multifocal pneumonia -Admit patient to the hospital as an inpatient -Patient is full code -Oxygen as needed -Follow blood culture -Ceftriaxone/azithromycin -Pulmonology consulted -ABG reviewed, pH 7.28, pCO2 85 COPD without exacerbation - continue solumedrol - nebulizers - azithromycin as above OHS/OHA CAD Hypertension Hyperlipidemia -Home medications reviewed and reconciled Patient's full code DVT prophylaxis with enoxaparin Objective - Vital Signs Vital signs: Vital Signs Temp 98.3 F 01/10/23 08:50 Pulse 83 01/10/23 08:50 Resp 16 01/10/23 08:50 BP 146/84 01/10/23 08:50 Pulse Ox 97 01/10/23 08:50 FiO2 40 01/10/23 08:50 Intake & Output 01/09/23 01/10/23 01/10/23 18:59 06:59 18:59 Output Total 250 300 Balance -250 -300 Weight 136.078 kg 135.5 kg Output: Urine 250 300 Other: Voiding Method External Catheter # Voids 2 # Bowel Movements 1 - Labs CBC & Chem 7: 01/10/23 09:42 01/09/23 13:04 Labs: Abnormal Lab Results - Last 24 Hours (Table) 01/09/23 01/09/23 01/09/23 Range/Units 13:04 13:04 13:04 WBC 18.4 H (3.8-10.6) k/uL Neutrophils # 17.0 H (1.3-7.7) k/uL Lymphocytes # 0.6 L (1.0-4.8) k/uL ABG pH (7.35-7.45) ABG pCO2 (35-45) mmHg ABG pO2 (83-108) mmHg ABG HCO3 (21-25) mmol/L ABG Total CO2 (19-24) mmol/L ABG O2 Saturation (94-97) % VBG pCO2 (37-51) mmHg VBG HCO3 (24-28) mmol/L Chloride 97 L (98-107) mmol/L Carbon Dioxide 35 H (22-30) mmol/L Creatinine 0.52 L (0.66-1.25) mg/dL Glucose 145 H (74-99) mg/dL POC Glucose (mg/dL) (70-110) mg/dL Plasma Lactic Acid Abdias 2.3 H* (0.7-2.0) mmol/L Urine Protein (Negative) Urine Blood (Negative) 01/09/23 01/09/23 01/10/23 Range/Units 13:11 13:11 04:28 WBC (3.8-10.6) k/uL Neutrophils # (1.3-7.7) k/uL Lymphocytes # (1.0-4.8) k/uL ABG pH (7.35-7.45) ABG pCO2 (35-45) mmHg ABG pO2 (83-108) mmHg ABG HCO3 (21-25) mmol/L ABG Total CO2 (19-24) mmol/L ABG O2 Saturation (94-97) % VBG pCO2 66 H (37-51) mmHg VBG HCO3 38 H (24-28) mmol/L Chloride (98-107) mmol/L Carbon Dioxide (22-30) mmol/L Creatinine (0.66-1.25) mg/dL Glucose (74-99) mg/dL POC Glucose (mg/dL) 165 H (70-110) mg/dL Plasma Lactic Acid Abdias (0.7-2.0) mmol/L Urine Protein 2+ H (Negative) Urine Blood Trace H (Negative) 01/10/23 01/10/23 Range/Units 04:30 09:42 WBC 17.4 H (3.8-10.6) k/uL Neutrophils # 16.2 H (1.3-7.7) k/uL Lymphocytes # 0.6 L (1.0-4.8) k/uL ABG pH 7.28 L (7.35-7.45) ABG pCO2 85 H* (35-45) mmHg ABG pO2 272 H (83-108) mmHg ABG HCO3 39 H (21-25) mmol/L ABG Total CO2 42 H (19-24) mmol/L ABG O2 Saturation 100.0 H (94-97) % VBG pCO2 (37-51) mmHg VBG HCO3 (24-28) mmol/L Chloride (98-107) mmol/L Carbon Dioxide (22-30) mmol/L Creatinine (0.66-1.25) mg/dL Glucose (74-99) mg/dL POC Glucose (mg/dL) (70-110) mg/dL Plasma Lactic Acid Abdias (0.7-2.0) mmol/L Urine Protein (Negative) Urine Blood (Negative)
[2023-01-10 10:42] LABS: African American GFR (CKD) >90 (>60 ml/min/1.73 sqM); Blood Urea Nitrogen 17 mg/dL (9-20); Calcium 9.1 mg/dL (8.4-10.2); Chloride 101 mmol/L (98-107); Glucose 145 mg/dL (74-99); Magnesium 2.4 mg/dL (1.6-2.3); Non-African American GFR(CKD) >90 (>60 ml/min/1.73 sqM); Sodium 143 mmol/L (137-145)
[2023-01-10 10:49] LABS: Anion Gap 6 mmol/L
[2023-01-10 10:57] LABS: Carbon Dioxide 36 mmol/L (22-30); Potassium 4.5 mmol/L (3.5-5.1)
[2023-01-10] MEDS: FUROSEMIDE 10 MG/ML 4 ML VIAL IV SCH ×2 (12:18→20:02)
--- NOTE | 2023-01-10 12:36 | P.CNPUL ---
History of Present Illness Consult date: 01/10/23 Requesting physician: Guy Frank Reason for consult: dyspnea, COPD, hypoxemia, obstructive sleep apnea Chief complaint: Shortness of breath. History of present illness: Pulmonary consult dated 01/10/2023. 62-year-old male with history of COPD, pickwickian syndrome, and sleep apnea syndrome, was brought to the emergency department by EMS, on January 09, for respiratory distress. The patient apparently was hypoxemic, tachycardic, and had a fever. He was placed on BiPAP, in the emergency department. The patient apparently overnight has been refusing to use his BiPAP, but will be saw him in the room today, room #369, he was on BiPAP, with settings of 14/8, and 40%. The patient was getting saline at 10 mL an hour. The patient was lethargic and somnolent, and no history could be obtained from the patient himself. White count 17.4, with a normal hemoglobin, hematocrit, and platelet count. Blood gases showed a pO2 of 272, pCO2 of 85, and a pH is 7.28, on 100% oxygen. Sodium 143, potassium 4.5, chlorides 101, CO2 36, BUN 17, creatinine 0.36. Chest x-ray shows some patchy perihilar and basilar infiltrates. Review of Systems REVIEW OF SYSTEMS: No history could be obtained from the patient. CONSTITUTIONAL: Fever NEUROLOGIC: [ Negative.] HEENT: [ Negative.] CARDIAC: [Negative.] PULMONARY: Shortness of breath and low saturations. GI: [Negative.] : [Negative.] RHEUMATOLOGIC: [ Negative.] IMMUNOLOGIC: [ Negative.] ENDOCRINE: [Negative. ] DERMATOLOGIC: [Negative.] Past Medical History Past Medical History: Coronary Artery Disease (CAD), Hypertension, Osteoarthritis (OA), Pneumonia, Skin Disorder, Sleep Apnea/CPAP/BIPAP Additional Past Medical History / Comment(s): neuropathy History of Any Multi-Drug Resistant Organisms: None Reported Past Surgical History: Heart Catheterization With Stent Additional Past Surgical History / Comment(s): 2004 stenting of RCA, ccath 2004 with lesions 50%mid LAD and unstable RCA plaque-stented as mentioned-EF was 60%, quadricepts muscle bx, normal colonoscopy in 2013, colonoscopy with benign polypectomy in past. Past Anesthesia/Blood Transfusion Reactions: No Reported Reaction Date of Last Stent Placement:: 2004 Past Psychological History: Anxiety, Depression Smoking Status: Former smoker Past Alcohol Use History: Rare - Past Family History Mother Family Medical History: Cancer Additional Family Medical History / Comment(s): Pt's mother at age 55 from lung cancer. She was a nonsmoker. Father Family Medical History: Hyperlipidemia, Hypertension Additional Family Medical History / Comment(s): Father at age 89 of natural causes. Sister(s) Family Medical History: Myocardial Infarction ([place]) Additional Family Medical History / Comment(s): Pt has one sister who of possible [place] at age 53yrs. Medications and Allergies Home Medications Medication Instructions Recorded Confirmed Type Losartan Potassium 100 mg PO HS 05/23/22 01/09/23 History Budesonide-Formot 160-4.5 Mcg 2 puff INHALATION RT-BID each 05/28/22 01/09/23 Rx [Symbicort 160-4.5 Mcg Inhaler] Cholecalciferol [Vitamin D3 (25 50 mcg PO DAILY 07/23/22 01/09/23 History Mcg = 1000 Iu)] Ibuprofen [Motrin] 600 mg PO QID PRN 07/23/22 01/09/23 History Loratadine [Claritin] 10 mg PO DAILY PRN 07/23/22 01/09/23 History Umeclidinium Page [Incruse 1 puff INHALATION RT-DAILY 07/23/22 01/09/23 History Ellipta] Albuterol Inhaler [Ventolin Hfa 2 puff INHALATION RT-Q4H PRN 09/20/22 01/09/23 History Inhaler] Brinzolamide [Azopt 1% Ophth Susp] 1 drop BOTH EYES TID 09/20/22 01/09/23 History Ocusoft Eyelid Cleansing Pads 1 applic TOPICAL DAILY 09/20/22 01/09/23 History Ipratropium-Albuterol Nebulize 3 ml INHALATION RT-QID 11/06/22 01/09/23 History [Duoneb 0.5 mg-3 mg/3 ml Soln] Travoprost [Travatan Z 0.004%] 1 drop BOTH EYES HS 11/06/22 01/09/23 History amLODIPine [Norvasc] 5 mg PO HS 11/06/22 01/09/23 History Acetaminophen Tab [Tylenol] 325 - 650 mg PO Q6HR PRN 12/07/22 01/09/23 History Chlorhexidine Gluconate [Peridex] 15 ml PO BID 12/07/22 01/09/23 History Fluticasone Nasal [place] [Flonase 1 spr EA NOSTRIL BID PRN 12/07/22 01/09/23 History Nasal [place]] Naphazoline-Phenira 0.025-0.3% 1 drop BOTH EYES TID PRN 12/07/22 01/09/23 History [Visine-A Ophth Soln] Nicotine Polacrilex [Nicotine Gum] 4 mg BUCCAL TID PRN 12/07/22 01/09/23 History Furosemide [Lasix] 40 mg PO TID 01/09/23 01/09/23 History Petrolatum, White [Aquaphor] 1 applic TOPICAL HS 01/09/23 01/09/23 History Salicylic Acid 6% Shampoo 1 applic TOPICAL DIRECTED 01/09/23 01/09/23 History Triamcinolone 0.5% Cream [Kenalog 1 applic TOPICAL BID 01/09/23 01/09/23 History 0.5% Cream] Allergies Allergy/AdvReac Type Severity Reaction Status Date / Time Sulfa (Sulfonamide Allergy Rash on Verified 01/09/23 14:57 Antibiotics) arms Physical Exam Osteopathic Statement: *. No significant issues noted on an osteopathic structural exam other than those noted in the History and Physical/Consult. Vitals: Vital Signs Temp Pulse Pulse Resp BP BP Pulse Ox 01/10/23 12:00 98.8 F 87 16 143/83 95 01/10/23 11:17 83 01/10/23 11:07 82 01/10/23 08:50 98.3 F 83 16 146/84 97 01/10/23 08:28 85 01/10/23 08:19 85 01/10/23 04:48 01/10/23 04:00 96.5 F L 80 24 127/74 99 01/10/23 00:35 01/10/23 00:00 76 16 138/66 95 01/09/23 22:30 97.5 F L 62 22 134/78 96 01/09/23 20:41 88 01/09/23 20:30 80 01/09/23 19:15 97.6 F 97 17 129/78 94 L 01/09/23 18:00 91 18 121/70 97 01/09/23 17:00 92 12 128/89 97 01/09/23 16:08 87 01/09/23 16:00 100 F H 95 20 120/86 95 01/09/23 15:59 91 01/09/23 15:57 01/09/23 14:56 109 H 25 H 133/70 95 01/09/23 14:00 112 H 22 133/76 95 01/09/23 13:45 40 H 01/09/23 13:32 113 H 24 115/73 97 01/09/23 13:12 121 H 01/09/23 13:00 121 H 01/09/23 12:57 01/09/23 12:54 01/09/23 12:43 102.8 F H 130 H 40 H 190/105 79 L FiO2 01/10/23 12:00 40 01/10/23 11:17 01/10/23 11:07 40 01/10/23 08:50 40 01/10/23 08:28 01/10/23 08:19 40 01/10/23 04:48 40 01/10/23 04:00 01/10/23 00:35 50 01/10/23 00:00 01/09/23 22:30 01/09/23 20:41 01/09/23 20:30 50 01/09/23 19:15 01/09/23 18:00 01/09/23 17:00 01/09/23 16:08 01/09/23 16:00 01/09/23 15:59 01/09/23 15:57 50 01/09/23 14:56 01/09/23 14:00 01/09/23 13:45 01/09/23 13:32 01/09/23 13:12 01/09/23 13:00 01/09/23 12:57 50 01/09/23 12:54 40 01/09/23 12:43 Intake and Output 01/09/23 01/10/23 01/10/23 22:59 06:59 14:59 Output Total 250 300 Balance -250 -300 Output: Urine 250 300 Other: Voiding Method External Catheter External Catheter # Voids 2 # Bowel Movements 1 1 Weight 135.5 kg Obese white male, somnolent, currently on BiPAP, and can give no history at this time. HEENT examination is grossly unremarkable. Neck supple. Full range of motion. No adenopathy thyromegaly or neck vein distention. Cardiovascular examination reveals regular rhythm rate. S1-S2 normal. No S3 or S4. No discernible murmur noted. Heart rate is 83 bpm. Heart sounds are distant. Lungs reveal scattered bilateral rhonchi. Breath sounds are equal bilaterally. No wheezes. A few crackles are noted. Saturations are 95%. Abdomen obese, with bowel sounds. Extremities are intact. No cyanosis or clubbing. Slight edema is noted. Skin is without rash or lesion. Neurologic examination cannot be adequately assessed at this time. Results - Laboratory Findings CBC and BMP: 01/10/23 09:42 01/10/23 09:42 ABG ABG pH 7.28 (7.35-7.45) L 01/10/23 04:30 ABG pCO2 85 mmHg (35-45) H* 01/10/23 04:30 ABG pO2 272 mmHg (83-108) H 01/10/23 04:30 ABG O2 Saturation 100.0 % (94-97) H 01/10/23 04:30 PT/INR, D-dimer PT 10.6 sec (10.0-12.5) 01/09/23 13:04 INR 1.0 (<1.2) 01/09/23 13:04 Abnormal lab findings: Abnormal Labs 01/09/23 01/09/23 01/09/23 13:04 13:04 13:04 WBC 18.4 H Neutrophils # 17.0 H Lymphocytes # 0.6 L ABG pH ABG pCO2 ABG pO2 ABG HCO3 ABG Total CO2 ABG O2 Saturation VBG pCO2 VBG HCO3 Chloride 97 L Carbon Dioxide 35 H Creatinine 0.52 L Glucose 145 H POC Glucose (mg/dL) Plasma Lactic Acid Abdias 2.3 H* Magnesium Urine Protein Urine Blood 01/09/23 01/09/23 01/10/23 13:11 13:11 04:28 WBC Neutrophils # Lymphocytes # ABG pH ABG pCO2 ABG pO2 ABG HCO3 ABG Total CO2 ABG O2 Saturation VBG pCO2 66 H VBG HCO3 38 H Chloride Carbon Dioxide Creatinine Glucose POC Glucose (mg/dL) 165 H Plasma Lactic Acid Abdias Magnesium Urine Protein 2+ H Urine Blood Trace H 01/10/23 01/10/23 01/10/23 04:30 09:42 09:42 WBC 17.4 H Neutrophils # 16.2 H Lymphocytes # 0.6 L ABG pH 7.28 L ABG pCO2 85 H* ABG pO2 272 H ABG HCO3 39 H ABG Total CO2 42 H ABG O2 Saturation 100.0 H VBG pCO2 VBG HCO3 Chloride Carbon Dioxide 36 H Creatinine 0.36 L Glucose 145 H POC Glucose (mg/dL) Plasma Lactic Acid Abdias Magnesium 2.4 H Urine Protein Urine Blood - Diagnostic Findings Chest x-ray: image reviewed Assessment and Plan Assessment: Acute on chronic hypoxemic and hypercapnic respiratory failure, multifactorial, in part related to COPD exacerbation, obstructive sleep apnea syndrome, probable Pickwickian syndrome, and possible bilateral pneumonia. History of COPD. History of CAD with previous stenting. History of sleep apnea syndrome. Probable Pickwickian syndrome. History of hypertension. History of osteoarthritis. History of neuropathy. History of ongoing tobacco use. History of anxiety/depression. Plan: Plan dated 01/10/2023. The patient is currently on BiPAP, and saturations are perfectly okay between 88 and 92%. In addition, the patient continues on antibiotics in the form of Rocephin, and azithromycin. The patient is also getting DuoNeb nebs, as well as Solu-Medrol. The patient's overall prognosis remains very guarded. Apparently earlier this morning, he was refusing to wear his BiPAP. The patient is very noncompliant, and does continue to smoke cigarettes. He did finally make it into the office, for an evaluation with me, and my partner. The patients overall prognosis remains very poor. Time with Patient: Greater than 30
[2023-01-10] MEDS: amLODIPine 5 MG TAB PO SCH (19:56)
[2023-01-10] MEDS: LOSARTAN 50 MG TAB PO SCH (19:57)
[2023-01-10] MEDS: SODIUM CHLORIDE 0.65% NASAL SPRAY 44 ML BTL NASAL PRN (23:16)
[2023-01-10] MEDS: FLUTICASONE 50MCG/SPRAY NASAL 16GM EA NOSTRIL PRN (23:16)
[2023-01-11] MEDS: FUROSEMIDE 10 MG/ML 4 ML VIAL IV SCH ×3 (03:34→20:39)
[2023-01-11] MEDS: HYDROmorphone 0.5 MG/0.5 ML SYRINGE IVP PRN ×4 (03:38→22:24)
[2023-01-11] MEDS: methylPREDNISolone SOD SUCCI 125 MG/2 ML VIAL IV SCH ×4 (06:08→22:24)
[2023-01-11] MEDS: [UNRECOGNIZED DRUG - OTHER] TOPICAL SCH (08:20)
[2023-01-11] MEDS: CHOLECALCIFEROL 25 MCG (1000 IU) TABLET PO SCH (08:36)
[2023-01-11] MEDS: ENOXAPARIN 40 MG/0.4 ML SYRINGE SQ SCH (08:36)
[2023-01-11] MEDS: AZITHROMYCIN 500 MG in SODIUM CHLORIDE 0.9% 250 ML IVPB SCH (08:36)
[2023-01-11] MEDS: DORZOLAMIDE HCL 2% DROPS 10 ML BTL BOTH EYES SCH ×3 (08:37→20:39)
[2023-01-11] MEDS: SYMBICORT 160-4.5 MCG INHALER INHALATION SCH ×2 (09:51→21:31)
[2023-01-11] MEDS: IPRATROPIUM-ALBUTEROL 3 ML NEB INHALATION SCH ×4 (09:52→21:32)
--- NOTE | 2023-01-11 11:03 | P.PN ---
Subjective Progress Note Date: 01/11/23 Pt has improved as of today. Had long discussion regarding AVAPS compliance, importance of smoking cessation. Pt was very insightful about the issues of returning to the hospital so frequently which is causing him more dependency/loss of autonomy and asked me about his QoL. After discussion, pt indicated wish to be DNR/DNI. Ongoing care with abx, nebulizers, steroids, lasix. Gen: in no apparent distress, resting comfortably in bed Eyes: PERRL, no scleral injection or icterus HENT: normocephalic, atraumatic, good hearing acuity, moist mucous membranes Neck: no tracheal deviation, full range of motion Resp: good air exchange, breathing comfortably with no accessory muscle use, no tactile fremitus CVS: good distal perfusion x 4, no pitting edema GI: soft, NTTP, ND, no hepatosplenomegaly : no suprapubic tenderness, no CVAT, schaeffer catheter not present MSK: no clubbing, no cyanosis, no noted contractures of extremities Skin: no noted rashes, petechiae; temperature of skin is appropriate Neuro: moving all extremities without signs of weakness, CN II-XII intact Hospital Course: 62-year-old man with medical history of diastolic heart failure, COPD with chronic respiratory failure of 3 L, OHS/FALGUNI, CAD/hypertension/hyperlipidemia presented for dyspnea. In the emergency room, patient's maximum documented fever was 100, maximum reported fever was 103, 120/86, heart rate 95, 95% on BiP AP with an FiO2 of 50%, PEEP of 8. CBC remarkable for leukocytosis to 18. Basic metabolic panel shows CO2 of 35. Liver function tests are unremarkable. BNP was 114, troponin was 0.0-2. VBG showed a pH of 7.37 and pCO2 of 66. UA showed 2+ protein, trace blood. Influenza A, B, Covid, RSV were negative. EKG showed sinus tachycardia with occasional PVCs. Chest x-ray shows cardiac medically, Multifocal bilateral opacities. Case is discussed with emergency room physician, decision was made to admit the patient to the hospital for further evaluation of respiratory failure. Assessment/plan: Sepsis with acute hypoxemic respiratory failure superimposed on chronic hypercarbic respiratory failure Multifocal pneumonia -Admit patient to the hospital as an inpatient -Oxygen as needed -Follow blood culture, NGTD, reviewed 01/11 -Ceftriaxone/azithromycin -Pulmonology consulted COPD without exacerbation - continue solumedrol - nebulizers - azithromycin as above Acute on Chronic Diastolic Heart Failure - lasix 40mg IV BID OHS/OHA CAD Hypertension Hyperlipidemia -Home medications reviewed and reconciled Patient's full code DVT prophylaxis with enoxaparin Objective - Vital Signs Vital signs: Vital Signs Temp 98.1 F 01/11/23 08:00 Pulse 80 01/11/23 10:21 Resp 18 01/11/23 08:00 BP 134/85 01/11/23 08:00 Pulse Ox 96 01/11/23 08:00 FiO2 50 01/11/23 03:19 Intake & Output 01/10/23 01/11/23 01/11/23 18:59 06:59 18:59 Intake Total 300 0 Output Total 1300 850 Balance -1000 -850 Weight 135.5 kg 134.5 kg Intake: Intake, IV Titration 300 Amount Azithromycin 500 mg In 250 Sodium Chloride 0.9% 250 ml @ 250 mls/hr IVPB DAILY [facility] Rx#:[id number] cefTRIAXone 1 gm In 50 Sodium Chloride 0.9% 50 ml @ 100 mls/hr IVPB Q24HR [facility] Rx#:[id number] Oral 0 Output: Urine 1300 850 Other: Voiding Method External Catheter External Catheter External Catheter - Labs CBC & Chem 7: 01/10/23 09:42 01/10/23 09:42 Labs: Microbiology - Last 24 Hours (Table) 01/09/23 12:58 Blood Culture - Preliminary Blood 01/09/23 12:40 Blood Culture - Preliminary Blood
--- NOTE | 2023-01-11 16:04 | P.PN ---
Subjective Progress Note Date: 01/11/23 Principal diagnosis: Hypoxemic and hypercapnic respiratory failure. Pulmonary consult dated 01/10/2023. 62-year-old male with history of COPD, pickwickian syndrome, and sleep apnea syndrome, was brought to the emergency department by EMS, on January 09, for respiratory distress. The patient apparently was hypoxemic, tachycardic, and had a fever. He was placed on BiPAP, in the emergency department. The patient apparently overnight has been refusing to use his BiPAP, but will be saw him in the room today, room #369, he was on BiPAP, with settings of 14/8, and 40%. The patient was getting saline at 10 mL an hour. The patient was lethargic and somnolent, and no history could be obtained from the patient himself. White count 17.4, with a normal hemoglobin, hematocrit, and platelet count. Blood gases showed a pO2 of 272, pCO2 of 85, and a pH is 7.28, on 100% oxygen. Sodium 143, potassium 4.5, chlorides 101, CO2 36, BUN 17, creatinine 0.36. Chest x-ray shows some patchy perihilar and basilar infiltrates. Progress note dated 01/11/2023. 62-year-old male, well-known to our service. He has a history of COPD, obesity/hypoventilation syndrome, and sleep apnea syndrome, among other things. Currently, the patient is seen in room 369. He is on 3 L of oxygen. He apparently was using the BiPAP device of 14/8 and 50%. The patient's on appropriate medications including Symbicort, Zithromax, Rocephin, Solu-Medrol, etc. The patient's also on DuoNeb's. We will check a pro-calcitonin level. No new labs today. Objective - Vital Signs Vital signs: Vital Signs Temp 98.1 F 01/11/23 08:00 Pulse 88 01/11/23 13:03 Resp 18 01/11/23 08:00 BP 134/85 01/11/23 08:00 Pulse Ox 96 01/11/23 08:00 FiO2 50 01/11/23 03:19 Intake & Output 01/10/23 01/11/23 01/11/23 18:59 06:59 18:59 Intake Total 300 0 420 Output Total 1300 850 Balance -1000 -850 420 Weight 135.5 kg 134.5 kg Intake: Intake, IV Titration 300 Amount Azithromycin 500 mg In 250 Sodium Chloride 0.9% 250 ml @ 250 mls/hr IVPB DAILY [facility] Rx#:[id number] cefTRIAXone 1 gm In 50 Sodium Chloride 0.9% 50 ml @ 100 mls/hr IVPB Q24HR [facility] Rx#:[id number] Oral 0 420 Output: Urine 1300 850 Other: Voiding Method External Catheter External Catheter External Catheter - Exam Obese white male, awake and alert, currently on 3 L of oxygen. HEENT examination is grossly unremarkable. Neck supple. Full range of motion. No adenopathy thyromegaly or neck vein distention. Cardiovascular examination reveals regular rhythm rate. S1-S2 normal. No S3 or S4. No discernible murmur noted. Heart rate is 88 bpm. Heart sounds are distant. Lungs reveal scattered bilateral rhonchi. Breath sounds are equal bilaterally. No wheezes. A few crackles are noted. Saturations are 93 %. Abdomen obese, with bowel sounds. Extremities are intact. No cyanosis or clubbing. Slight edema is noted. Skin is without rash or lesion. Neurologic examination reveals an extremely belligerent man. - Labs CBC & Chem 7: 01/10/23 09:42 01/10/23 09:42 Labs: Microbiology - Last 24 Hours (Table) 01/09/23 12:58 Blood Culture - Preliminary Blood 01/09/23 12:40 Blood Culture - Preliminary Blood Assessment and Plan Assessment: Acute on chronic hypoxemic and hypercapnic respiratory failure, multifactorial, in part related to COPD exacerbation, obstructive sleep apnea syndrome, probable Pickwickian syndrome, and possible bilateral pneumonia. History of COPD. History of CAD with previous stenting. History of sleep apnea syndrome. Probable Pickwickian syndrome. History of hypertension. History of osteoarthritis. History of neuropathy. History of ongoing tobacco use. History of anxiety/depression. Plan: Plan dated 01/10/2023. The patient is currently on BiPAP, and saturations are perfectly okay between 88 and 92%. In addition, the patient continues on antibiotics in the form of Rocephin, and azithromycin. The patient is also getting DuoNeb nebs, as well as Solu-Medrol. The patient's overall prognosis remains very guarded. Apparently earlier this morning, he was refusing to wear his BiPAP. The patient is very noncompliant, and does continue to smoke cigarettes. He did finally make it into the office, for an evaluation with me, and my partner. The patients overall prognosis remains very poor. Plan dated 01/11/2023. The patient is currently on 3 L of oxygen. He changes back and forth from 3 L, and BiPAP. Today, we sure that he is on DuoNeb nebs, Symbicort, Rocephin, Zithromax, and Solu-Medrol. In addition, we will check a pro-calcitonin level. If it is normal, we will discontinue antibiotics. Today we spent a great deal of time answering his multitude of questions. He has a lot of questions about the [place] valve. Currently, [facility] displacing the valves. I told him that because of his body habitus, and his BMI of 42.5, it is unlikely he will be a candidate for a endobronchial valve. He then becomes very b elligerent, and, myself and my nurse practitioner leave the room, because he seems very agitated and angry, and very abusive. Moving forward, I will not see this patient again. Time with Patient: Less than 30
[2023-01-11] MEDS: LATANOPROST 0.005% OPHTH DROPS 2.5 ML BTL BOTH EYES SCH (20:38)
[2023-01-11] MEDS: LOSARTAN 50 MG TAB PO SCH (20:39)
[2023-01-11] MEDS: amLODIPine 5 MG TAB PO SCH (20:39)
[2023-01-12] MEDS: FUROSEMIDE 10 MG/ML 4 ML VIAL IV SCH ×3 (03:12→19:39)
[2023-01-12] MEDS: methylPREDNISolone SOD SUCCI 125 MG/2 ML VIAL IV SCH ×4 (06:06→23:02)
[2023-01-12] MEDS: HYDROmorphone 0.5 MG/0.5 ML SYRINGE IVP PRN ×3 (06:10→19:39)
[2023-01-12] MEDS: [UNRECOGNIZED DRUG - OTHER] TOPICAL SCH (07:36)
[2023-01-12] MEDS: CHOLECALCIFEROL 25 MCG (1000 IU) TABLET PO SCH (08:15)
[2023-01-12] MEDS: ENOXAPARIN 40 MG/0.4 ML SYRINGE SQ SCH (08:15)
[2023-01-12] MEDS: AZITHROMYCIN 500 MG in SODIUM CHLORIDE 0.9% 250 ML IVPB SCH (08:15)
[2023-01-12] MEDS: DORZOLAMIDE HCL 2% DROPS 10 ML BTL BOTH EYES SCH ×3 (08:15→19:40)
[2023-01-12] MEDS: IPRATROPIUM-ALBUTEROL 3 ML NEB INHALATION SCH ×4 (09:06→21:03)
[2023-01-12] MEDS: SYMBICORT 160-4.5 MCG INHALER INHALATION SCH ×2 (09:06→21:04)
[2023-01-12 12:33] LABS: VBG PH 7.39 (7.31-7.41)
[2023-01-12 12:35] LABS: Basophils % (A) 0 %; Eosinophils % (A) 0 %; HCT 45.3 % (39.0-53.0); Hypochromasia Slight; Lymphocytes # (A) 0.3 k/uL (1.0-4.8); Lymphocytes % (A) 3 %; MCH 29.8 pg (25.0-35.0); MCV 96.2 fL (80.0-100.0); Mean Platelet Volume 8.6; Monocytes # (A) 0.6 k/uL (0-1.0); Monocytes % (A) 5 %; Neutrophils # (A) 10.3 k/uL (1.3-7.7); Neutrophils % (A) 91 %; Platelet Count 283 k/uL (150-450); RDW 14.8 % (11.5-15.5); WBC 11.3 k/uL (3.8-10.6)
[2023-01-12] MEDS: SODIUM CHLORIDE 0.65% NASAL SPRAY 44 ML BTL NASAL PRN (13:07)
[2023-01-12] MEDS: FLUTICASONE 50MCG/SPRAY NASAL 16GM EA NOSTRIL PRN (13:07)
[2023-01-12 13:11] LABS: African American GFR (CKD) >90 (>60 ml/min/1.73 sqM); Anion Gap 8 mmol/L; Blood Urea Nitrogen 26 mg/dL (9-20); Carbon Dioxide 37 mmol/L (22-30); Chloride 90 mmol/L (98-107); Glucose 291 mg/dL (74-99); Magnesium 2.3 mg/dL (1.6-2.3); Non-African American GFR(CKD) >90 (>60 ml/min/1.73 sqM); Sodium 135 mmol/L (137-145)
--- NOTE | 2023-01-12 13:26 | P.PN ---
Subjective Progress Note Date: 01/12/23 Patient seen and examined at bedside. No acute events overnight. Gen: in no apparent distress, resting comfortably in bed Eyes: PERRL, no scleral injection or icterus HENT: normocephalic, atraumatic, good hearing acuity, moist mucous membranes Neck: no tracheal deviation, full range of motion Resp: good air exchange, breathing comfortably with no accessory muscle use, bibasilar rales CVS: good distal perfusion x 4, no pitting edema GI: soft, NTTP, ND, no hepatosplenomegaly : no suprapubic tenderness, no CVAT, schaeffer catheter not present MSK: no clubbing, no cyanosis, no noted contractures of extremities Skin: no noted rashes, petechiae; temperature of skin is appropriate Neuro: moving all extremities without signs of weakness, CN II-XII intact Hospital Course: 62-year-old man with medical history of diastolic heart failure, COPD with chronic respiratory failure of 3 L, OHS/FALGUNI, CAD/hypertension/hyperlipidemia presented for dyspnea. In the emergency room, patient's maximum documented fever was 100, maximum reported fever was 103, 120/86, heart rate 95, 95% on BiPAP with an FiO2 of 50%, PEEP of 8. CBC remarkable for leukocytosis to 18. Basic metabolic panel shows CO2 of 35. Liver function tests are unremarkable. BNP was 114, troponin was 0.0-2. VBG showed a pH of 7.37 and pCO2 of 66. UA showed 2+ protein, trace blood. Influenza A, B, Covid, RSV were negative. EKG showed sinus tachycardia with occasional PVCs. Chest x-ray shows cardiac medically, Multifocal bilateral opacities. Case is discussed with emergency room physician, decision was made to admit the patient to the hospital for further evaluation of respiratory failure. Currently being treated for COPD exacerbation, multifocal pneumonia and diastolic heart failure exacerbation. Data review today: WBC 11.3, pH 7.39, pCO2 63, BMP is still pending Assessment/plan: Sepsis with acute hypoxemic respiratory failure superimposed on chronic hypercarbic respiratory failure Multifocal pneumonia -Oxygen as needed -Follow blood culture, NGTD -Ceftriaxone continue/azithromycin completed -Pulmonology following -White count continued to come down COPD with exacerbation - continue solumedrol - nebulizers Acute on Chronic Diastolic Heart Failure - lasix 40mg IV EVERY 8 HOURS -Monitor electrolytes and renal function, repeat BMP and magnesium, Chronic: OHS/OHA CAD Hypertension Hyperlipidemia -Home medications reviewed and reconciled Patient's full code DVT prophylaxis with enoxaparin Objective - Vital Signs Vital signs: Vital Signs Temp 97.6 F 01/12/23 08:00 Pulse 90 01/12/23 12:35 Resp 20 01/12/23 08:00 BP 134/80 01/12/23 08:00 Pulse Ox 96 01/12/23 09:06 FiO2 50 01/12/23 03:31 Intake & Output 01/11/23 01/12/23 01/12/23 18:59 06:59 18:59 Intake Total 420 480 320 Output Total 1500 1200 Balance -1080 -720 320 Weight 134.3 kg Intake: Oral 420 480 320 Output: Urine 1500 1200 Other: Voiding Method External Catheter External Catheter External Catheter - Labs CBC & Chem 7: 01/12/23 11:14 01/10/23 09:42 Labs: Abnormal Lab Results - Last 24 Hours (Table) 01/11/23 01/12/23 01/12/23 Range/Units 12:40 11:14 11:14 WBC 11.3 H (3.8-10.6) k/uL Neutrophils # 10.3 H (1.3-7.7) k/uL Lymphocytes # 0.3 L (1.0-4.8) k/uL VBG pCO2 63 H (37-51) mmHg VBG HCO3 38 H (24-28) mmol/L Procalcitonin 0.14 H (0.02-0.09) ng/mL Microbiology - Last 24 Hours (Table) 01/09/23 12:58 Blood Culture - Preliminary Blood 01/09/23 12:40 Blood Culture - Preliminary Blood
[2023-01-12] MEDS: amLODIPine 5 MG TAB PO SCH (19:39)
[2023-01-12] MEDS: LOSARTAN 50 MG TAB PO SCH (19:39)
[2023-01-12] MEDS: LATANOPROST 0.005% OPHTH DROPS 2.5 ML BTL BOTH EYES SCH (19:40)
[2023-01-13] MEDS: HYDROmorphone 0.5 MG/0.5 ML SYRINGE IVP PRN ×3 (00:43→21:33)
[2023-01-13] MEDS: FUROSEMIDE 10 MG/ML 4 ML VIAL IV SCH (03:08)
[2023-01-13] MEDS: methylPREDNISolone SOD SUCCI 125 MG/2 ML VIAL IV SCH (05:26)
[2023-01-13 08:43] LABS: African American GFR (CKD) >90 (>60 ml/min/1.73 sqM); Anion Gap 5 mmol/L; Blood Urea Nitrogen 28 mg/dL (9-20); Carbon Dioxide 38 mmol/L (22-30); Chloride 94 mmol/L (98-107); Glucose 195 mg/dL (74-99); Non-African American GFR(CKD) >90 (>60 ml/min/1.73 sqM); Sodium 137 mmol/L (137-145)
[2023-01-13] MEDS: DORZOLAMIDE HCL 2% DROPS 10 ML BTL BOTH EYES SCH ×3 (08:44→21:23)
[2023-01-13] MEDS: FLUTICASONE 50MCG/SPRAY NASAL 16GM EA NOSTRIL PRN (08:44)
[2023-01-13] MEDS: CHOLECALCIFEROL 25 MCG (1000 IU) TABLET PO SCH (08:44)
[2023-01-13] MEDS: ENOXAPARIN 40 MG/0.4 ML SYRINGE SQ SCH (08:44)
[2023-01-13] MEDS: [UNRECOGNIZED DRUG - OTHER] TOPICAL SCH (08:45)
[2023-01-13 09:05] LABS: Calcium 9.4 mg/dL (8.4-10.2); Magnesium 2.3 mg/dL (1.6-2.3); Potassium 4.1 mmol/L (3.5-5.1)
[2023-01-13] MEDS: SYMBICORT 160-4.5 MCG INHALER INHALATION SCH ×2 (09:12→20:33)
[2023-01-13] MEDS: IPRATROPIUM-ALBUTEROL 3 ML NEB INHALATION SCH ×4 (09:12→20:33)
--- NOTE | 2023-01-13 11:40 | P.PN ---
Subjective Progress Note Date: 01/13/23 Patient seen and examined at bedside. No acute events overnight. Gen: in no apparent distress, resting comfortably in bed Eyes: PERRL, no scleral injection or icterus HENT: normocephalic, atraumatic, good hearing acuity, moist mucous membranes Neck: no tracheal deviation, full range of motion Resp: good air exchange, breathing comfortably with no accessory muscle use, bibasilar rales CVS: good distal perfusion x 4, no pitting edema GI: soft, NTTP, ND, no hepatosplenomegaly : no suprapubic tenderness, no CVAT, schaeffer catheter not present MSK: no clubbing, no cyanosis, no noted contractures of extremities Skin: no noted rashes, petechiae; temperature of skin is appropriate Neuro: moving all extremities without signs of weakness, CN II-XII intact Hospital Course: 62-year-old man with medical history of diastolic heart failure, COPD with chronic respiratory failure of 3 L, OHS/FALGUNI, CAD/hypertension/hyperlipidemia presented for dyspnea. In the emergency room, patient's maximum documented fever was 100, maximum reported fever was 103, 120/86, heart rate 95, 95% on BiPAP with an FiO2 of 50%, PEEP of 8. CBC remarkable for leukocytosis to 18. Basic metabolic panel shows CO2 of 35. Liver function tests are unremarkable. BNP was 114, troponin was 0.0-2. VBG showed a pH of 7.37 and pCO2 of 66. UA showed 2+ protein, trace blood. Influenza A, B, Covid, RSV were negative. EKG showed sinus tachycardia with occasional PVCs. Chest x-ray shows cardiac medically, Multifocal bilateral opacities. Case is discussed with emergency room physician, decision was made to admit the patient to the hospital for further evaluation of respiratory failure. Currently being treated for COPD exacerbation, multifocal pneumonia and diastolic heart failure exacerbation. Data review today: Creatinine 0.41, potassium 4.1, magnesium 2.3 Assessment/plan: Sepsis with acute hypoxemic respiratory failure superimposed on chronic hypercarbic respiratory failure Multifocal pneumonia -Oxygen as needed -Follow blood culture, NGTD -Ceftriaxone continue, azithromycin completed -Pulmonology following -White count continued to come down COPD with exacerbation -IV Solu-Medrol switched to oral prednisone - nebulizers Acute on Chronic Diastolic Heart Failure -IV Lasix switched to oral Lasix Chronic: OHS/OHA CAD Hypertension Hyperlipidemia -Home medications reviewed and reconciled Patient's full code DVT prophylaxis with enoxaparin Likely discharge tomorrow with home care Objective - Vital Signs Vital signs: Vital Signs Temp 98.4 F 01/13/23 08:00 Pulse 86 01/13/23 09:23 Resp 16 01/13/23 09:23 BP 140/75 01/13/23 08:00 Pulse Ox 96 01/13/23 09:12 FiO2 50 01/13/23 03:18 Intake & Output 01/12/23 01/13/23 01/13/23 18:59 06:59 18:59 Intake Total 800 180 Output Total 1000 2200 Balance -200 -2200 180 Intake: Oral 800 180 Output: Urine 1000 2200 Other: Voiding Method External Catheter External Catheter External Catheter # Voids 1 # Bowel Movements 1 - Labs CBC & Chem 7: 01/12/23 11:14 01/13/23 07:30 Labs: Abnormal Lab Results - Last 24 Hours (Table) 01/12/23 01/12/23 01/12/23 Range/Units 11:14 11:14 11:14 WBC 11.3 H (3.8-10.6) k/uL Neutrophils # 10.3 H (1.3-7.7) k/uL Lymphocytes # 0.3 L (1.0-4.8) k/uL VBG pCO2 63 H (37-51) mmHg VBG HCO3 38 H (24-28) mmol/L Sodium 135 L (137-145) mmol/L Chloride 90 L (98-107) mmol/L Carbon Dioxide 37 H (22-30) mmol/L BUN 26 H (9-20) mg/dL Creatinine 0.40 L (0.66-1.25) mg/dL Glucose 291 H (74-99) mg/dL 01/13/23 Range/Units 07:30 WBC (3.8-10.6) k/uL Neutrophils # (1.3-7.7) k/uL Lymphocytes # (1.0-4.8) k/uL VBG pCO2 (37-51) mmHg VBG HCO3 (24-28) mmol/L Sodium (137-145) mmol/L Chloride 94 L (98-107) mmol/L Carbon Dioxide 38 H (22-30) mmol/L BUN 28 H (9-20) mg/dL Creatinine 0.41 L (0.66-1.25) mg/dL Glucose 195 H (74-99) mg/dL Microbiology - Last 24 Hours (Table) 01/09/23 12:58 Blood Culture - Preliminary Blood 01/09/23 12:40 Blood Culture - Preliminary Blood
[2023-01-13] MEDS: FUROSEMIDE 40 MG TAB PO SCH (16:12)
[2023-01-13] MEDS: amLODIPine 5 MG TAB PO SCH (21:22)
[2023-01-13] MEDS: LOSARTAN 50 MG TAB PO SCH (21:22)
[2023-01-13] MEDS: LATANOPROST 0.005% OPHTH DROPS 2.5 ML BTL BOTH EYES SCH (21:22)
[2023-01-13 22:55] VITALS: RESP 18
[2023-01-14] MEDS: HYDROmorphone 0.5 MG/0.5 ML SYRINGE IVP PRN ×4 (01:56→18:32)
[2023-01-14] MEDS: SYMBICORT 160-4.5 MCG INHALER INHALATION SCH ×2 (07:50→21:08)
[2023-01-14] MEDS: IPRATROPIUM-ALBUTEROL 3 ML NEB INHALATION SCH ×4 (07:50→21:08)
[2023-01-14] MEDS: FUROSEMIDE 40 MG TAB PO SCH ×2 (08:35→16:37)
[2023-01-14] MEDS: ENOXAPARIN 40 MG/0.4 ML SYRINGE SQ SCH (08:35)
[2023-01-14] MEDS: CHOLECALCIFEROL 25 MCG (1000 IU) TABLET PO SCH (08:35)
[2023-01-14] MEDS: DORZOLAMIDE HCL 2% DROPS 10 ML BTL BOTH EYES SCH ×3 (08:42→20:21)
[2023-01-14] MEDS: [UNRECOGNIZED DRUG - OTHER] TOPICAL SCH (08:43)
[2023-01-14] MEDS ORDERED: predniSONE 20 MG TAB PO SCH (09:00)
--- NOTE | 2023-01-14 11:33 | P.DS ---
Providers Date of admission: 01/09/23 14:28 Expected date of discharge: 01/14/23 Attending physician: Guy Frank MD Consults: 01/10/23 07:29 Consult Physician Routine Consulting Provider: Sánchez Enriquez Consult Reason/Comments: multifocal pneumonia Do you want consulting provider notified?: Yes Primary care physician: Hollis Trinh MD Hospital Course: Discharge Diagnosis: Sepsis with acute hypoxemic respiratory failure superimposed on chronic hypercarbic respiratory failure Multifocal pneumonia COPD with exacerbation Acute on Chronic Diastolic Heart Failure OHS/OHA CAD Hypertension Hyperlipidemia Morbid obesity Hospital Course: 62-year-old man with medical history of diastolic heart failure, COPD with chronic respiratory failure of 3 L, OHS/FALGUNI, CAD/hypertension/hyperlipidemia presented for dyspnea. In the emergency room, patient's maximum documented fever was 100, maximum reported fever was 103, 120/86, heart rate 95, 95% on BiPAP with an FiO2 of 50%, PEEP of 8. CBC remarkable for leukocytosis to 18. Basic metabolic panel shows CO2 of 35. Liver function tests are unremarkable. BNP was 114, troponin was 0.0-2. VBG showed a pH of 7.37 and pCO2 of 66. UA showed 2+ protein, trace blood. Influenza A, B, Covid, RSV were negative. EKG showed sinus tachycardia with occasional PVCs. Chest x-ray shows cardiac medically, Multifocal bilateral opacities. Case is discussed with emergency room physician, decision was made to admit the patient to the hospital for further evaluation of respiratory failure. Currently being treated for COPD exacerbation, multifocal pneumonia and diastolic heart failure exacerbation. Pulmonology also consulted. Based on discussion with patient patient has not been very compliant with AVAPs at home. Completed course of IV antibiotics and IV steroids. Patient being discharged home on similar regimen, counseled regarding medication compliance as well as compliance with AVAPs. Plan was discussed in detail with PCP. Patient also follow-up with pulmonology and sleep medicine. Patient seen and examined at bedside. Vital signs reviewed and stable. Gen: in no apparent distress, resting comfortably in bed, morbidly obese Eyes: PERRL, no scleral injection or icterus HENT: normocephalic, atraumatic, good hearing acuity, moist mucous membranes Neck: no tracheal deviation, full range of motion Resp: good air exchange, breathing comfortably with no accessory muscle use, bibasilar rales CVS: good distal perfusion x 4, no pitting edema, normal S1 and S2 GI: soft, NTTP, ND, no hepatosplenomegaly : no suprapubic tenderness, no CVAT, schaeffer catheter not present MSK: no clubbing, no cyanosis, no noted contractures of extremities Skin: no noted rashes, petechiae; temperature of skin is appropriate Neuro: moving all extremities without signs of weakness, CN II-XII intact A total of 35 minutes of time were spent preparing this complex discharge summary. Patient was discharged on 01/14/23 at 10:42. Patient Condition at Discharge: Stable Plan - Discharge Summary Discharge Rx Participant: No New Discharge Prescriptions: Continue Cholecalciferol [Vitamin D3 (25 Mcg = 1000 Iu)] 50 mcg PO DAILY Umeclidinium [place] [Incruse Ellipta] 1 puff INHALATION RT-DAILY Ibuprofen [Motrin] 600 mg PO QID PRN PRN Reason: ARTHRITIS PAIN Brinzolamide [Azopt 1% Ophth Susp] 1 drop BOTH EYES TID Albuterol Inhaler [Ventolin Hfa Inhaler] 2 puff INHALATION RT-Q4H PRN PRN Reason: Wheezing Travoprost [Travatan Z 0.004%] 1 drop BOTH EYES HS Acetaminophen Tab [Tylenol] 325 - 650 mg PO Q6HR PRN PRN Reason: Pain Nicotine Polacrilex [Nicotine Gum] 4 mg BUCCAL TID PRN PRN Reason: Nicotine Cravings Petrolatum, White [Aquaphor] 1 applic TOPICAL HS Losartan Potassium 100 mg PO HS Budesonide-Formot 160-4.5 Mcg [Symbicort 160-4.5 Mcg Inhaler] 2 puff INHALATION RT-BID each Loratadine [Claritin] 10 mg PO DAILY PRN PRN Reason: Allergy Symptoms Ocusoft Eyelid Cleansing Pads 1 applic TOPICAL DAILY Ipratropium-Albuterol Nebulize [Duoneb 0.5 mg-3 mg/3 ml Soln] 3 ml INHALATION RT-QID amLODIPine [Norvasc] 5 mg PO HS Chlorhexidine Gluconate [Peridex] 15 ml PO BID Fluticasone Nasal [place] [Flonase Nasal [place]] 1 spr EA NOSTRIL BID PRN PRN Reason: Allergy Symptoms Naphazoline-Phenira 0.025-0.3% [Visine-A Ophth Soln] 1 drop BOTH EYES TID PRN PRN Reason: redness & itchy eyes Salicylic Acid 6% Shampoo 1 applic TOPICAL DIRECTED Furosemide [Lasix] 40 mg PO TID Triamcinolone 0.5% Cream [Kenalog 0.5% Cream] 1 applic TOPICAL BID Discharge Medication List Losartan Potassium 100 mg PO HS 05/23/22 [History] Budesonide-Formot 160-4.5 Mcg [Symbicort 160-4.5 Mcg Inhaler] 2 puff INHALATION RT-BID each 05/28/22 [Rx] Cholecalciferol [Vitamin D3 (25 Mcg = 1000 Iu)] 50 mcg PO DAILY 07/23/22 [History] Ibuprofen [Motrin] 600 mg PO QID PRN 07/23/22 [History] Loratadine [Claritin] 10 mg PO DAILY PRN 07/23/22 [History] Umeclidinium [place] [Incruse Ellipta] 1 puff INHALATION RT-DAILY 07/23/22 [History] Albuterol Inhaler [Ventolin Hfa Inhaler] 2 puff INHALATION RT-Q4H PRN 09/20/22 [History] Brinzolamide [Azopt 1% Ophth Susp] 1 drop BOTH EYES TID 09/20/22 [History] Ocusoft Eyelid Cleansing Pads 1 applic TOPICAL DAILY 09/20/22 [History] Ipratropium-Albuterol Nebulize [Duoneb 0.5 mg-3 mg/3 ml Soln] 3 ml INHALATION RT-QID 11/06/22 [History] Travoprost [Travatan Z 0.004%] 1 drop BOTH EYES HS 11/06/22 [History] amLODIPine [Norvasc] 5 mg PO HS 11/06/22 [History] Acetaminophen Tab [Tylenol] 325 - 650 mg PO Q6HR PRN 12/07/22 [History] Chlorhexidine Gluconate [Peridex] 15 ml PO BID 12/07/22 [History] Fluticasone Nasal [place] [Flonase Nasal [place]] 1 spr EA NOSTRIL BID PRN 12/07/22 [History] Naphazoline-Phenira 0.025-0.3% [Visine-A Ophth Soln] 1 drop BOTH EYES TID PRN 12/07/22 [History] Nicotine Polacrilex [Nicotine Gum] 4 mg BUCCAL TID PRN 12/07/22 [History] Furosemide [Lasix] 40 mg PO TID 01/09/23 [History] Petrolatum, White [Aquaphor] 1 applic TOPICAL HS 01/09/23 [History] Salicylic Acid 6% Shampoo 1 applic TOPICAL DIRECTED 01/09/23 [History] Triamcinolone 0.5% Cream [Kenalog 0.5% Cream] 1 applic TOPICAL BID 01/09/23 [History] Follow up Appointment(s)/Referral(s): Hollis Trinh MD [Primary Care Provider] - 01/15/23 11:30 am Patient Instructions/Handouts: Heart Failure (DC), COPD (Chronic Obstructive Pulmonary Disease) (DC), Pneumonia (ED) Activity/Diet/Wound Care/Special Instructions: Please see your PCP and pulmonology. Discharge Disposition: HOME WITH HOME HEALTH SERVICES
[2023-01-14] MEDS: FLUTICASONE 50MCG/SPRAY NASAL 16GM EA NOSTRIL PRN (18:32)
[2023-01-14] MEDS: LOSARTAN 50 MG TAB PO SCH (20:21)
[2023-01-14] MEDS: amLODIPine 5 MG TAB PO SCH (20:21)
[2023-01-14] MEDS: LATANOPROST 0.005% OPHTH DROPS 2.5 ML BTL BOTH EYES SCH (20:22)
[2023-01-15] MEDS: HYDROmorphone 0.5 MG/0.5 ML SYRINGE IVP PRN ×2 (00:09→05:53)
[2023-01-15] MEDS: DORZOLAMIDE HCL 2% DROPS 10 ML BTL BOTH EYES SCH (08:49)
[2023-01-15] MEDS: ENOXAPARIN 40 MG/0.4 ML SYRINGE SQ SCH (08:50)
[2023-01-15] MEDS: FUROSEMIDE 40 MG TAB PO SCH (08:50)
[2023-01-15] MEDS: CHOLECALCIFEROL 25 MCG (1000 IU) TABLET PO SCH (08:50)
[2023-01-15] MEDS: [UNRECOGNIZED DRUG - OTHER] TOPICAL SCH (08:54)
[2023-01-15] MEDS: SYMBICORT 160-4.5 MCG INHALER INHALATION SCH (10:00)
[2023-01-15] MEDS: IPRATROPIUM-ALBUTEROL 3 ML NEB INHALATION SCH ×2 (10:01→12:06)
[2023-01-15 13:39] VITALS: BP 141/91; PULSE 79; TEMP 98.3
--- NOTE | 2023-01-15 13:51 | P.DS ---
Providers Date of admission: 01/09/23 14:28 Expected date of discharge: 01/15/23 Attending physician: Guy Frank MD Consults: 01/10/23 07:29 Consult Physician Routine Consulting Provider: Sánchez Enriquez Consult Reason/Comments: multifocal pneumonia Do you want consulting provider notified?: Yes Primary care physician: Hollis Trinh MD Hospital Course: Discharge Diagnosis: Sepsis with acute hypoxemic respiratory failure superimposed on chronic hypercarbic respiratory failure Multifocal pneumonia COPD with exacerbation Acute on Chronic Diastolic Heart Failure OHS/OHA CAD Hypertension Hyperlipidemia Morbid obesity Hospital Course: 62-year-old man with medical history of diastolic heart failure, COPD with chronic respiratory failure of 3 L, OHS/FALGUNI, CAD/hypertension/hyperlipidemia presented for dyspnea. In the emergency room, patient's maximum documented fever was 100, maximum reported fever was 103, 120/86, heart rate 95, 95% on BiPAP with an FiO2 of 50%, PEEP of 8. CBC remarkable for leukocytosis to 18. Basic metabolic panel shows CO2 of 35. Liver function tests are unremarkable. BNP was 114, troponin was 0.0-2. VBG showed a pH of 7.37 and pCO2 of 66. UA showed 2+ protein, trace blood. Influenza A, B, Covid, RSV were negative. EKG showed sinus tachycardia with occasional PVCs. Chest x-ray shows cardiac medically, Multifocal bilateral opacities. Case is discussed with emergency room physician, decision was made to admit the patient to the hospital for further evaluation of respiratory failure. Currently being treated for COPD exacerbation, multifocal pneumonia and diastolic heart failure exacerbation. Pulmonology also consulted. Based on discussion with patient patient has not been very compliant with AVAPs at home. Completed course of IV antibiotics and IV steroids. Patient now being discharged to [facility] on similar regimen, counseled regarding medication compliance as well as compliance with AVAPs. Plan was discussed in detail with PCP. Patient also follow-up with pulmonology and sleep medicine. Patient seen and examined at bedside. Vital signs reviewed and stable. Gen: in no apparent distress, resting comfortably in bed, morbidly obese Eyes: PERRL, no scleral injection or icterus HENT: normocephalic, atraumatic, good hearing acuity, moist mucous membranes Neck: no tracheal deviation, full range of motion Resp: good air exchange, breathing comfortably with no accessory muscle use, bibasilar rales CVS: good distal perfusion x 4, no pitting edema, normal S1 and S2 GI: soft, NTTP, ND, no hepatosplenomegaly : no suprapubic tenderness, no CVAT, schaeffer catheter not present MSK: no clubbing, no cyanosis, no noted contractures of extremities Skin: no noted rashes, petechiae; temperature of skin is appropriate Neuro: moving all extremities without signs of weakness, CN II-XII intact A total of 35 minutes of time were spent preparing this complex discharge summary. Patient was discharged on 01/15/23 at 1349. Patient Condition at Discharge: Stable Plan - Discharge Summary Discharge Rx Participant: No New Discharge Prescriptions: Continue Cholecalciferol [Vitamin D3 (25 Mcg = 1000 Iu)] 50 mcg PO DAILY Umeclidinium [place] [Incruse Ellipta] 1 puff INHALATION RT-DAILY Ibuprofen [Motrin] 600 mg PO QID PRN PRN Reason: ARTHRITIS PAIN Brinzolamide [Azopt 1% Ophth Susp] 1 drop BOTH EYES TID Albuterol Inhaler [Ventolin Hfa Inhaler] 2 puff INHALATION RT-Q4H PRN PRN Reason: Wheezing Travoprost [Travatan Z 0.004%] 1 drop BOTH EYES HS Acetaminophen Tab [Tylenol] 325 - 650 mg PO Q6HR PRN PRN Reason: Pain Nicotine Polacrilex [Nicotine Gum] 4 mg BUCCAL TID PRN PRN Reason: Nicotine Cravings Petrolatum, White [Aquaphor] 1 applic TOPICAL HS Losartan Potassium 100 mg PO HS Budesonide-Formot 160-4.5 Mcg [Symbicort 160-4.5 Mcg Inhaler] 2 puff IN HALATION RT-BID each Loratadine [Claritin] 10 mg PO DAILY PRN PRN Reason: Allergy Symptoms Ocusoft Eyelid Cleansing Pads 1 applic TOPICAL DAILY Ipratropium-Albuterol Nebulize [Duoneb 0.5 mg-3 mg/3 ml Soln] 3 ml INHALATION RT-QID amLODIPine [Norvasc] 5 mg PO HS Chlorhexidine Gluconate [Peridex] 15 ml PO BID Fluticasone Nasal [place] [Flonase Nasal [place]] 1 spr EA NOSTRIL BID PRN PRN Reason: Allergy Symptoms Naphazoline-Phenira 0.025-0.3% [Visine-A Ophth Soln] 1 drop BOTH EYES TID PRN PRN Reason: redness & itchy eyes Salicylic Acid 6% Shampoo 1 applic TOPICAL DIRECTED Furosemide [Lasix] 40 mg PO TID Triamcinolone 0.5% Cream [Kenalog 0.5% Cream] 1 applic TOPICAL BID Discharge Medication List Losartan Potassium 100 mg PO HS 05/23/22 [History] Budesonide-Formot 160-4.5 Mcg [Symbicort 160-4.5 Mcg Inhaler] 2 puff INHALATION RT-BID each 05/28/22 [Rx] Cholecalciferol [Vitamin D3 (25 Mcg = 1000 Iu)] 50 mcg PO DAILY 07/23/22 [History] Ibuprofen [Motrin] 600 mg PO QID PRN 07/23/22 [History] Loratadine [Claritin] 10 mg PO DAILY PRN 07/23/22 [History] Umeclidinium [place] [Incruse Ellipta] 1 puff INHALATION RT-DAILY 07/23/22 [History] Albuterol Inhaler [Ventolin Hfa Inhaler] 2 puff INHALATION RT-Q4H PRN 09/20/22 [History] Brinzolamide [Azopt 1% Ophth Susp] 1 drop BOTH EYES TID 09/20/22 [History] Ocusoft Eyelid Cleansing Pads 1 applic TOPICAL DAILY 09/20/22 [History] Ipratropium-Albuterol Nebulize [Duoneb 0.5 mg-3 mg/3 ml Soln] 3 ml INHALATION RT-QID 11/06/22 [History] Travoprost [Travatan Z 0.004%] 1 drop BOTH EYES HS 11/06/22 [History] amLODIPine [Norvasc] 5 mg PO HS 11/06/22 [History] Acetaminophen Tab [Tylenol] 325 - 650 mg PO Q6HR PRN 12/07/22 [History] Chlorhexidine Gluconate [Peridex] 15 ml PO BID 12/07/22 [History] Fluticasone Nasal [place] [Flonase Nasal [place]] 1 spr EA NOSTRIL BID PRN 12/07/22 [History] Naphazoline-Phenira 0.025-0.3% [Visine-A Ophth Soln] 1 drop BOTH EYES TID PRN 12/07/22 [History] Nicotine Polacrilex [Nicotine Gum] 4 mg BUCCAL TID PRN 12/07/22 [History] Furosemide [Lasix] 40 mg PO TID 01/09/23 [History] Petrolatum, White [Aquaphor] 1 applic TOPICAL HS 01/09/23 [History] Salicylic Acid 6% Shampoo 1 applic TOPICAL DIRECTED 01/09/23 [History] Triamcinolone 0.5% Cream [Kenalog 0.5% Cream] 1 applic TOPICAL BID 01/09/23 [History] Follow up Appointment(s)/Referral(s): Hollis Trinh MD [Primary Care Provider] - 01/15/23 11:30 am Betty Aragon MD [STAFF PHYSICIAN] - 1 Week Patient Instructions/Handouts: Heart Failure (DC), COPD (Chronic Obstructive Pulmonary Disease) (DC), Pneumonia (ED) Activity/Diet/Wound Care/Special Instructions: Please see your PCP and pulmonology. Discharge Disposition: TRANSFER TO SNF/ECF
[2023-01-15 13:59] VITALS: BMI 44.0
== END 2023-01-15 15:13 | DRG 871 ==
LOC: EC 12:29 → 3SCARD 14:28
PROVIDERS: ADMIT Student in an Organized Health Care Education/Training Program; ATTEND Student in an Organized Health Care Education/Training Program
DX: A41.9 Sepsis, unspecified organism (principal); I50.33 Acute on chronic diastolic (congestive) heart failure; J96.21 Acute and chronic respiratory failure with hypoxia; J18.9 Pneumonia, unspecified organism; J96.22 Acute and chronic respiratory failure with hypercapnia; E66.2 Morbid (severe) obesity with alveolar hypoventilation; J44.1 Chronic obstructive pulmonary disease with (acute) exacerbation; J44.0 Chronic obstructive pulmonary disease with (acute) lower respiratory infection; Z68.41 Body mass index [BMI] 40.0-44.9, adult; I11.0 Hypertensive heart disease with heart failure; Z66 Do not resuscitate; Z20.822 Contact with and (suspected) exposure to COVID-19; I25.10 Atherosclerotic heart disease of native coronary artery without angina pectoris; E78.5 Hyperlipidemia, unspecified; F32.A Depression, unspecified; F41.9 Anxiety disorder, unspecified; I49.3 Ventricular premature depolarization; G62.9 Polyneuropathy, unspecified; L98.9 Disorder of the skin and subcutaneous tissue, unspecified; M19.90 Unspecified osteoarthritis, unspecified site; F17.210 Nicotine dependence, cigarettes, uncomplicated; Z71.6 Tobacco abuse counseling; Z91.199 Patient's noncompliance with other medical treatment and regimen due to unspecified reason; Z79.51 Long term (current) use of inhaled steroids; Z79.899 Other long term (current) drug therapy; Z95.5 Presence of coronary angioplasty implant and graft; Z71.3 Dietary counseling and surveillance; Z88.2 Allergy status to sulfonamides
CPT/HCPCS: 36415; 36600; 71045; 80048; 80053; 81001; 82803; 82805; 83605; 83735; 83880; 84145; 84484; 85025; 85610; 85730; 87040; 87636; 93005; 94640; 94660; 94760; 96365; 96366; 96367; 96368; 96375; 99291

== ENCOUNTER 2023-02-05 19:52 | Outpatient (CLI) | payer OTHER | END 2023-02-06 06:15 | disposition other institution (70) | LOC: 3 N SLEEP 19:52 | PROVIDERS: ATTEND Internal Medicine Critical Care Medicine | DX: G47.33 Obstructive sleep apnea (adult) (pediatric) (principal); F17.200 Nicotine dependence, unspecified, uncomplicated; Z88.2 Allergy status to sulfonamides | CPT/HCPCS: 95811 ==

== ENCOUNTER 2023-02-17 02:17 | Inpatient (IN) | payer OTHER ==
--- NOTE | 2023-02-17 02:22 | ED ---
SOB HPI - General Stated Complaint: High C02 Time Seen by Provider: 02/17/23 02:22 - History of Present Illness Initial Comments: 18-year-old male with history of COPD, supposed to use a CPAP nightly area patient is brought to ER today by ambulance from [facility] facility after outpatient labs revealed hypercapnia. Patient reports he's been feeling some nasal congestion and congestion in his chest with a nonproductive cough for a few days. He's been asking for decongestants and not been giving any. He hasn't been able to wear his CPAP at night because it's been irritating a sore throat. Patient reports that he had blood drawn yesterday that resulted tonight he was told that his labs are abnormal red he had a chemical [facility]. Patient denies any chest pain. Patient reports he feels okay upon arrival. - Related Data Home Medications Medication Instructions Recorded Confirmed Losartan Potassium 100 mg PO HS 05/23/22 01/09/23 Cholecalciferol [Vitamin D3 (25 50 mcg PO DAILY 07/23/22 01/09/23 Mcg = 1000 Iu)] Ibuprofen [Motrin] 600 mg PO QID PRN 07/23/22 01/09/23 Loratadine [Claritin] 10 mg PO DAILY PRN 07/23/22 01/09/23 Umeclidinium [place] [Incruse 1 puff INHALATION RT-DAILY 07/23/22 01/09/23 Ellipta] Albuterol Inhaler [Ventolin Hfa 2 puff INHALATION RT-Q4H PRN 09/20/22 01/09/23 Inhaler] Brinzolamide [Azopt 1% Ophth Susp] 1 drop BOTH EYES TID 09/20/22 01/09/23 Ocusoft Eyelid Cleansing Pads 1 applic TOPICAL DAILY 09/20/22 01/09/23 Ipratropium-Albuterol Nebulize 3 ml INHALATION RT-QID 11/06/22 01/09/23 [Duoneb 0.5 mg-3 mg/3 ml Soln] Travoprost [Travatan Z 0.004%] 1 drop BOTH EYES HS 11/06/22 01/09/23 amLODIPine [Norvasc] 5 mg PO HS 11/06/22 01/09/23 Acetaminophen Tab [Tylenol] 325 - 650 mg PO Q6HR PRN 12/07/22 01/09/23 Chlorhexidine Gluconate [Peridex] 15 ml PO BID 12/07/22 01/09/23 Fluticasone Nasal [place] [Flonase 1 spr EA NOSTRIL BID PRN 12/07/22 01/09/23 Nasal [place]] Naphazoline-Phenira 0.025-0.3% 1 drop BOTH EYES TID PRN 12/07/22 01/09/23 [Visine-A Ophth Soln] Nicotine Polacrilex [Nicotine Gum] 4 mg BUCCAL TID PRN 12/07/22 01/09/23 Furosemide [Lasix] 40 mg PO TID 01/09/23 01/09/23 Petrolatum, White [Aquaphor] 1 applic TOPICAL HS 01/09/23 01/09/23 Salicylic Acid 6% Shampoo 1 applic TOPICAL DIRECTED 01/09/23 01/09/23 Triamcinolone 0.5% Cream [Kenalog 1 applic TOPICAL BID 01/09/23 01/09/23 0.5% Cream] Previous Rx's Medication Instructions Recorded Budesonide-Formot 160-4.5 Mcg 2 puff INHALATION RT-BID each 05/28/22 [Symbicort 160-4.5 Mcg Inhaler] Allergies Allergy/AdvReac Type Severity Reaction Status Date / Time Sulfa (Sulfonamide Allergy Rash on Verified 02/17/23 02:22 Antibiotics) arms Review of Systems ROS Statement: Those systems with pertinent positive or pertinent negative responses have been documented in the HPI. ROS Other: All systems not noted in ROS Statement are negative. Past Medical History Past Medical History: Coronary Artery Disease (CAD), Hypertension, Osteoarthritis (OA), Pneumonia, Skin Disorder, Sleep Apnea/CPAP/BIPAP Additional Past Medical History / Comment(s): neuropathy History of Any Multi-Drug Resistant Organisms: None Reported Past Surgical History: Heart Catheterization With Stent Additional Past Surgical History / Comment(s): 2004 stenting of RCA, ccath 2004 with lesions 50%mid LAD and unstable RCA plaque-stented as mentioned-EF was 60%, quadricepts muscle bx, normal colonoscopy in 2013, colonoscopy with benign polypectomy in past. Past Anesthesia/Blood Transfusion Reactions: No Reported Reaction Date of Last Stent Placement:: 2004 Past Psychological History: Anxiety, Depression Smoking Status: Former smoker Past Alcohol Use History: Rare Additional Past Alcohol Use History / Comment(s): Patient reports drinking a 6- pack per week. Past Drug Use History: Marijuana Additional Drug Use History / Comment(s): Patient reports smoking marijuana, uses it daily, intermittently for pain. - Past Family History Mother Family Medical History: Cancer Additional Family Medical History / Comment(s): Pt's mother at age 55 from lung cancer. She was a nonsmoker. Father Family Medical History: Hyperlipidemia, Hypertension Additional Family Medical History / Comment(s): Father at age 89 of natural causes. Sister(s) Family Medical History: Myocardial Infarction ([place]) Additional Family Medical History / Comment(s): Pt has one sister who of possible [place] at age 53yrs. General Exam General appearance: alert, in no apparent distress Head exam: Present: atraumatic, normocephalic Eye exam: Present: PERRL ENT exam: Present: normal exam Respiratory exam: Present: decreased breath sounds. Absent: respiratory distress, accessory muscle use Cardiovascular Exam: Present: regular rate GI/Abdominal exam: Present: soft Neurological exam: Present: alert, oriented X3 Psychiatric exam: Present: normal affect, normal mood Skin exam: Present: warm, dry Course Vital Signs 02/17/23 02/17/23 02:18 03:40 Temperature 98.3 F Pulse Rate 97 Respiratory 18 Rate Blood Pressure 110/58 O2 Sat by Pulse 96 Oximetry Fraction of 32 Inspired Oxygen (FIO2) Medical Decision Making - Medical Decision Making Was pt. sent in by a medical professional or institution (, PA, GRID TRIMMER, urgent care, hospital, or long-term...) When possible be specific @ -Yes Did you speak to anyone other than the patient for history (EMS, parent, family, police, friend...)? What history was obtained from this source @ -EMS Did you review nursing and triage notes (agree or disagree)? Why? @ -I reviewed and agree with nursing and triage notes Were old charts reviewed (outside hosp., previous admission, EMS record, old EKG, old radiological studies, urgent care reports/EKG's, long-term records)? Report findings @ -Previous notes and labs were reviewed Differential Diagnosis (chest pain, altered mental status, abdominal pain women, abdominal pain men, vaginal bleeding, weakness, fever, dyspnea, syncope, headache, dizziness, GI bleed, back pain, seizure, CVA, palpatations, mental health)? @ -Differential Dyspnea: Coronary syndrome, arrhythmia, tamponade, asthma, COPD, pulmonary embolism, pneumonia, pneumothorax, pulmonary effusion, anaphylaxis, diabetic ketoacidosis, flailed chest, pulmonary contusion, diaphragmatic rupture, anemia, neuromuscular, this is not meant to be an all-inclusive list. EKG interpreted by me (3pts min.). @ -As above X-rays interpreted by me (1pt min.). @ -No obvious consolidations, no pneumothorax CT interpreted by me (1pt min.). @ -None done U/S interpreted by me (1pt. min.). @ -None done What testing was considered but not performed or refused? (CT, X-rays, U/S, labs)? Why? @ -None What meds were considered but not given or refused? Why? @ -None Did you discuss the management of the patient with other professionals (pro fessionals i.e. , PA, GRID TRIMMER, lab, RT, psych nurse, social sciences department chair, field training manager, teacher, senior administrative services officer, major case detective)? Give summary @ -No Was smoking cessation discussed for >3mins.? @ -No Was critical care preformed (if so, how long)? @ -No Were there social determinants of health that impacted care today? How? (Homelessness, low income, unemployed, alcoholism, drug addiction, transporta tion, low edu. Level, literacy, decrease access to med. care, detention, rehab)? @ -No Was there de-escalation of care discussed even if they declined (Discuss DNR or withdrawal of care, Hospice)? DNR status @ -No What co-morbidities impacted this encounter? (DM, HTN, Smoking, COPD, CAD, Cancer, CVA, ARF, Chemo, Hep., AIDS, mental health diagnosis, sleep apnea, morbid obesity)? @ -COPD, morbid obesity Was patient admitted / discharged? Hospital course, mention meds given and route, prescriptions, significant lab abnormalities, going to OR and other pertinent info. @ -Admit Patient was seen and evaluated, history was obtained from patient and review of medical record. Patient has increasing shortness of breath and uptrending CO2 on outpatient labs. Patient has not been compliant with his CPAP at home. Labs are obtained here in patient has critically high CO2, BiPAP was initiated. Patient was given Ativan to assist in tolerating BiPAP. he will be admitted for acute on chronic hypercapnic respiratory failure. Undiagnosed new problem with uncertain prognosis? @ -No Drug Therapy requiring intensive monitoring for toxicity (Heparin, Nitro, Insulin, Cardizem)? @ -No Were any procedures done? @ -No Diagnosis/symptom? @ -Hypercapnic respiratory failure Acute, or Chronic, or Acute on Chronic? @ -Acute on chronic Uncomplicated (without systemic symptoms) or Complicated (systemic symptoms)? @ -Complicated Side effects of treatment? @ -No Exacerbation, Progression, or Severe Exacerbation? @ -Exacerbation Poses a threat to life or bodily function? How? (Chest pain, [place], [place], pneumonia, PE, COPD, DKA, ARF, appy, cholecystitis, CVA, Diverticulitis, Homicidal, Suicidal, threat to staff... and all critical care pts) @ -Yes - Lab Data Result diagrams: 02/17/23 02:40 02/17/23 02:40 Lab Results 02/17/23 02/17/23 02/17/23 Range/Units 02:40 02:40 02:40 WBC 11.5 H (3.8-10.6) k/uL RBC 4.49 (4.30-5.90) m/uL Hgb 13.5 (13.0-17.5) gm/dL Hct 42.0 (39.0-53.0) % MCV 93.5 (80.0-100.0) fL MCH 30.1 (25.0-35.0) pg MCHC 32.2 (31.0-37.0) g/dL RDW 14.1 (11.5-15.5) % Plt Count 265 (150-450) k/uL MPV 8.2 Neutrophils % 79 % Lymphocytes % 8 % Monocytes % 9 % Eosinophils % 2 % Basophils % 0 % Neutrophils # 9.1 H (1.3-7.7) k/uL Lymphocytes # 0.9 L (1.0-4.8) k/uL Monocytes # 1.0 (0-1.0) k/uL Eosinophils # 0.2 (0-0.7) k/uL Basophils # 0.0 (0-0.2) k/uL PT 9.6 L (10.0-12.5) sec INR 0.8 (<1.2) APTT 26.3 (22.0-30.0) sec VBG pH (7.31-7.41) VBG pCO2 (37-51) mmHg VBG HCO3 (24-28) mmol/L Sodium 139 (137-145) mmol/L Potassium 3.2 L (3.5-5.1) mmol/L Chloride 88 L (98-107) mmol/L Carbon Dioxide 40 H (22-30) mmol/L Anion Gap 11 mmol/L BUN 44 H (9-20) mg/dL Creatinine 0.88 (0.66-1.25) mg/dL Est GFR (CKD-EPI)AfAm >90 (>60 ml/min/1.73 sqM) Est GFR (CKD-EPI)NonAf >90 (>60 ml/min/1.73 sqM) Glucose 174 H (74-99) mg/dL Plasma Lactic Acid Abdias (0.7-2.0) mmol/L Calcium 9.8 (8.4-10.2) mg/dL Total Bilirubin 0.4 (0.2-1.3) mg/dL AST 58 (17-59) U/L ALT 71 H (4-49) U/L Alkaline Phosphatase 67 (38-126) U/L Total Protein 7.0 (6.3-8.2) g/dL Albumin 3.9 (3.5-5.0) g/dL Influenza Type A (PCR) (Not Detectd) Influenza Type B (PCR) (Not Detectd) RSV (PCR) (Not Detectd) SARS-CoV-2 (PCR) (Not Detectd) 02/17/23 02/17/23 02/17/23 Range/Units 02:40 02:40 02:49 WBC (3.8-10.6) k/uL RBC (4.30-5.90) m/uL Hgb (13.0-17.5) gm/dL Hct (39.0-53.0) % MCV (80.0-100.0) fL MCH (25.0-35.0) pg MCHC (31.0-37.0) g/dL RDW (11.5-15.5) % Plt Count (150-450) k/uL MPV Neutrophils % % Lymphocytes % % Monocytes % % Eosinophils % % Basophils % % Neutrophils # (1.3-7.7) k/uL Lymphocytes # (1.0-4.8) k/uL Monocytes # (0-1.0) k/uL Eosinophils # (0-0.7) k/uL Basophils # (0-0.2) k/uL PT (10.0-12.5) sec INR (<1.2) APTT (22.0-30.0) sec VBG pH 7.37 (7.31-7.41) VBG pCO2 83 H* (37-51) mmHg VBG HCO3 48 H (24-28) mmol/L Sodium (137-145) mmol/L Potassium (3.5-5.1) mmol/L Chloride (98-107) mmol/L Carbon Dioxide (22-30) mmol/L Anion Gap mmol/L BUN (9-20) mg/dL Creatinine (0.66-1.25) mg/dL Est GFR (CKD-EPI)AfAm (>60 ml/min/1.73 sqM) Est GFR (CKD-EPI)NonAf (>60 ml/min/1.73 sqM) Glucose (74-99) mg/dL Plasma Lactic Acid Abdias 2.0 (0.7-2.0) mmol/L Calcium (8.4-10.2) mg/dL Total Bilirubin (0.2-1.3) mg/dL AST (17-59) U/L ALT (4-49) U/L Alkaline Phosphatase (38-126) U/L Total Protein (6.3-8.2) g/dL Albumin (3.5-5.0) g/dL Influenza Type A (PCR) Not Detected (Not Detectd) Influenza Type B (PCR) Not Detected (Not Detectd) RSV (PCR) Not Detected (Not Detectd) SARS-CoV-2 (PCR) Detected A (Not Detectd) - EKG Data -: EKG Interpreted by Me EKG shows normal: sinus rhythm EKG Comments: EKG obtained due to shortness breath EKG obtained at 2:31 AM rate is 93 rhythm is sinus, IN 141 QRS 96 QTC [address] elevations or depressions or evidence of acute ischemia or infarction. Disposition Clinical Impression: COPD exacerbation, Hypercapnic respiratory failure, chronic, Morbid obesity, COVID-19 Disposition: ADMITTED IP TO THIS HOSP Condition: Serious Referrals: Kirk Elizabeth DO [Primary Care Provider] - 1-2 days
[2023-02-17 03:24] LABS: Basophils % (A) 0 %; Eosinophils # (A) 0.2 k/uL (0-0.7); Eosinophils % (A) 2 %; HGB 13.5 gm/dL (13.0-17.5); Lymphocytes # (A) 0.9 k/uL (1.0-4.8); Lymphocytes % (A) 8 %; MCH 30.1 pg (25.0-35.0); MCHC 32.2 g/dL (31.0-37.0); MCV 93.5 fL (80.0-100.0); Mean Platelet Volume 8.2; Monocytes % (A) 9 %; Neutrophils # (A) 9.1 k/uL (1.3-7.7); Neutrophils % (A) 79 %; Platelet Count 265 k/uL (150-450); RBC 4.49 m/uL (4.30-5.90); RDW 14.1 % (11.5-15.5); WBC 11.5 k/uL (3.8-10.6)
[2023-02-17 03:25] LABS: VBG PH 7.37 (7.31-7.41)
[2023-02-17 03:33] LABS: INR 0.8 (<1.2); Partial Thromboplastin Time 26.3 sec (22.0-30.0); Prothrombin Time 9.6 sec (10.0-12.5)
[2023-02-17] MEDS ORDERED: LORazepam 2 MG/ML INJ IV STA (03:36)
[2023-02-17 03:39] LABS: ALT 71 U/L (4-49); AST 58 U/L (17-59); African American GFR (CKD) >90 (>60 ml/min/1.73 sqM); Albumin 3.9 g/dL (3.5-5.0); Alkaline Phosphatase 67 U/L (38-126); Anion Gap 11 mmol/L; Blood Urea Nitrogen 44 mg/dL (9-20); Calcium 9.8 mg/dL (8.4-10.2); Chloride 88 mmol/L (98-107); Glucose 174 mg/dL (74-99); Non-African American GFR(CKD) >90 (>60 ml/min/1.73 sqM); Potassium 3.2 mmol/L (3.5-5.1); Sodium 139 mmol/L (137-145); Total Bilirubin 0.4 mg/dL (0.2-1.3)
[2023-02-17 03:45] LABS: Carbon Dioxide 40 mmol/L (22-30)
--- NOTE | 2023-02-17 03:57 | XR ---
EXAM: XR Chest, 2 Views CLINICAL HISTORY: ITS.REASON XR Reason: Fever TECHNIQUE: Frontal and lateral views of the chest. COMPARISON: No relevant prior studies available. FINDINGS: Lungs: Unremarkable. No consolidation. Pleural space: Unremarkable. No pneumothorax. Heart: Unremarkable. No cardiomegaly. Mediastinum: Unremarkable. Normal mediastinal contour. Bones/joints: Unremarkable. No acute fracture. IMPRESSION: Normal chest x-rays.
[2023-02-17] MEDS ORDERED: NALOXONE 0.4 MG/ML 1 ML VIAL IVP PRN ×2 (04:48→06:03)
[2023-02-17] MEDS ORDERED: cefTRIAXone IN SWFI 1,000 MG/10 ML SYRINGE IVP STA (04:50)
[2023-02-17] MEDS ORDERED: ACETAMINOPHEN TAB 325 MG TAB PO PRN (06:03)
[2023-02-17] MEDS ORDERED: BENZONATATE 100 MG CAP PO PRN (06:03)
[2023-02-17] MEDS ORDERED: ONDANSETRON 4 MG/2 ML VIAL IVP PRN (06:03)
[2023-02-17] MEDS ORDERED: LORATADINE 10 MG TAB PO PRN (06:06)
[2023-02-17] MEDS ORDERED: hydrALAZINE HCL 20 MG/ML 1 ML VIAL IVP PRN (06:09)
[2023-02-17 07:50] LABS: VBG PH 7.54 (7.31-7.41)
[2023-02-17] MEDS ORDERED: IPRATROPIUM-ALBUTEROL 3 ML NEB INHALATION SCH (08:00)
[2023-02-17] MEDS: ALBUTEROL HFA INHALER INHALATION SCH ×4 (09:15→20:38)
[2023-02-17] MEDS: SYMBICORT 160-4.5 MCG INHALER INHALATION SCH ×2 (09:15→20:38)
[2023-02-17] MEDS: guaiFENesin 600 MG TABLET.ER PO SCH ×2 (09:22→21:06)
[2023-02-17] MEDS: AZITHROMYCIN 500 MG TAB PO SCH (09:22)
[2023-02-17] MEDS: DEXAMETHASONE SOD PHOSPHATE 10 MG/ML 1 ML VIAL IV SCH (09:55)
[2023-02-17] MEDS: POTASSIUM CHLORIDE 10 MEQ in WATER FOR INJECTION 1 100ML.BAG IVPB SCH ×2 (10:00→11:27)
[2023-02-17] MEDS: ASCORBIC ACID 500 MG TAB PO SCH (11:30)
[2023-02-17] MEDS: CHOLECALCIFEROL 125 MCG (5000 IU) TABLET PO SCH (11:30)
[2023-02-17] MEDS: ZINC SULFATE 220 MG CAP PO SCH (11:30)
--- NOTE | 2023-02-17 12:30 | P.HPIM ---
History of Present Illness H&P Date: 02/17/23 Chief Complaint: Shortness of Breath, Abnormal labs * 62-year-old gentleman with past medical history of COPD, obesity hypoventilation syndrome, history of sleep apnea, coronary artery disease, hypertension,, acute on chronic hypoxic respiratory failure, osteoarthritis, history of neuropathy, congestive heart failure diastolic dysfunction, on 3 L of oxygen at baseline presents to the emergency department with complains of secondary to cough, nasal congestion and abnormal blood work needing further evaluation. Patient was sent in from [facility] where patient has been having nasal congestion and unable to wear his CPAP at night, patient had blood work drawn at a [facility] facility which showed hypercapnia and was sent in for further evaluation * He was recently admitted in December 2022 and treated for COPD exacerbation and multifocal pneumonia * Workup obtained in ER included CBC which were WBC of 11.5 hemoglobin of 13.5 platelet count of 265 * Venous blood gas obtained showed pH 7.37 pCO2 83 * Serum chemistry showed sodium 139 potassium 3.2 BUN 44 creatinine 0.88 * Patient tested positive for Covid 19, negative for influenza and RSV * While in ER patient was given 1 dose of Rocephin and azithromycin, chest x-ray obtained in ER was within normal limits * Patient was evaluated in ER room 5, noted to be on BiPAP, was sleeping easily arousable however does note to be confused during my encounter * Patient was admitted to medical floor for further management of COVID-19 and pulmonary evaluation Limited REVIEW OF SYSTEMS: Cough, nasal congestion, confused, generalized weakness CONSTITUTIONAL: No fever, no malaise, no fatigue. CARDIOVASCULAR: No chest pain, orthopnea, PND, no palpitations, no syncope. PULMONARY: Cough, nasal congestion GASTROINTESTINAL: No diarrhea, no nausea, no vomiting, no abdominal pain. NEUROLOGICAL: No headaches, no weakness, no numbness. MUSCULOSKELETAL/RHEUMATOLOGICAL: Denies any joint pain, swelling, or any muscle pain. PHYSICAL EXAMINATION: GENERAL: The patient is alert and oriented x3, ill appearance, on BiPAP, easily arousable goes back to sleep HEENT: Pupils are round and equally reacting to light. EOMI. CARDIOVASCULAR: S1 and S2 present. No murmurs, rubs, or gallops. PULMONARY: Decreased breath sounds bilaterally ABDOMEN: Soft, nontender, nondistended, normoactive bowel sounds. No palpable organomegaly. MUSCULOSKELETAL: No joint swelling or deformity. EXTREMITIES: No cyanosis, clubbing, or pedal edema. NEUROLOGICAL: Lethargic, easily arousable SKIN: No rashes. Past Medical History Past Medical History: Coronary Artery Disease (CAD), Hypertension, Osteoart hritis (OA), Pneumonia, Skin Disorder, Sleep Apnea/CPAP/BIPAP Additional Past Medical History / Comment(s): neuropathy History of Any Multi-Drug Resistant Organisms: None Reported Past Surgical History: Heart Catheterization With Stent Additional Past Surgical History / Comment(s): 2004 stenting of RCA, ccath 2004 with lesions 50%mid LAD and unstable RCA plaque-stented as mentioned-EF was 60%, quadricepts muscle bx, normal colonoscopy in 2014, colonoscopy with benign polypectomy in past. Past Anesthesia/Blood Transfusion Reactions: No Reported Reaction Date of Last Stent Placement:: 2004 Past Psychological History: Anxiety, Depression Smoking Status: Former smoker Past Alcohol Use History: Rare Additional Past Alcohol Use History / Comment(s): Patient reports drinking a 6- pack per week. Past Drug Use History: Marijuana Additional Drug Use History / Comment(s): Patient reports smoking marijuana, uses it daily, intermittently for pain. - Past Family History Mother Family Medical History: Cancer Additional Family Medical History / Comment(s): Pt's mother at age 55 from lung cancer. She was a nonsmoker. Father Family Medical History: Hyperlipidemia, Hypertension Additional Family Medical History / Comment(s): Father at age 89 of natural causes. Sister(s) Family Medical History: Myocardial Infarction ([place]) Additional Family Medical History / Comment(s): Pt has one sister who of possible [place] at age 53yrs. Medications and Allergies Home Medications Medication Instructions Recorded Confirmed Type Losartan Potassium 100 mg PO HS 05/23/22 02/17/23 History Budesonide-Formot 160-4.5 Mcg 2 puff INHALATION RT-BID each 05/28/22 02/17/23 Rx [Symbicort 160-4.5 Mcg Inhaler] Cholecalciferol [Vitamin D3 (25 50 mcg PO DAILY 07/23/22 02/17/23 History Mcg = 1000 Iu)] Ibuprofen [Motrin] 600 mg PO Q4H PRN 07/23/22 02/17/23 History Loratadine [Claritin] 10 mg PO DAILY 07/23/22 02/17/23 History Umeclidinium [place] [Incruse 1 puff INHALATION RT-DAILY 07/23/22 02/17/23 History Ellipta] Albuterol Inhaler [Ventolin Hfa 2 puff INHALATION RT-Q4H PRN 09/20/22 02/17/23 History Inhaler] Ipratropium-Albuterol Nebulize 3 ml INHALATION RT-Q6H 11/06/22 02/17/23 History [Duoneb 0.5 mg-3 mg/3 ml Soln] Travoprost [Travatan Z 0.004%] 1 drop BOTH EYES HS 11/06/22 02/17/23 History amLODIPine [Norvasc] 5 mg PO HS 11/06/22 02/17/23 History Acetaminophen Tab [Tylenol] 650 mg PO Q6HR PRN 12/07/22 02/17/23 History Chlorhexidine Gluconate [Peridex] 15 ml PO BID 12/07/22 02/17/23 History Fluticasone Nasal [place] [Flonase 1 spr EA NOSTRIL BID PRN 12/07/22 02/17/23 History Nasal [place]] Naphazoline-Phenira 0.025-0.3% 1 drop BOTH EYES TID PRN 12/07/22 02/17/23 History [Visine-A Ophth Soln] Furosemide [Lasix] 40 mg PO TID 01/09/23 02/17/23 History Salicylic Acid 6% Shampoo 1 applic TOPICAL WESA 01/09/23 02/17/23 History Baby Shampoo 1 applic BOTH EYES DAILY 02/17/23 02/17/23 History Calcium Carbonate 500 mg PO Q4H PRN 02/17/23 02/17/23 History Dorzolamide HCl/Pf [Dorzolamide 2% 1 drop BOTH EYES TID 02/17/23 02/17/23 History Eye Drop] Famotidine [Pepcid AC] 10 mg PO DAILY 02/17/23 02/17/23 History Loratadine [Claritin] 10 mg PO DAILY PRN 02/17/23 02/17/23 History Triamcinolone 0.1% Ointment 1 applic TOPICAL BID PRN 02/17/23 02/17/23 History [Kenalog 0.1% Ointment] metOLazone [Zaroxolyn] 2.5 mg PO DAILY 02/17/23 02/17/23 History Allergies Allergy/AdvReac Type Severity Reaction Status Date / Time Sulfa (Sulfonamide Allergy Rash on Verified 02/17/23 11:47 Antibiotics) arms Physical Exam Vitals: Vital Signs Temp Pulse Resp BP Pulse Ox FiO2 02/17/23 05:00 101 H 20 134/85 02/17/23 03:40 32 02/17/23 02:18 98.3 F 97 18 110/58 96 Intake and Output 02/16/23 02/16/23 02/17/23 14:59 22:59 06:59 Other: Weight 136.078 kg Results CBC & Chem 7: 02/17/23 02:40 02/17/23 02:40 Labs: Abnormal Lab Results - Last 24 Hours (Table) 02/17/23 02/17/23 02/17/23 Range/Units 02:40 02:40 02:40 WBC 11.5 H (3.8-10.6) k/uL Neutrophils # 9.1 H (1.3-7.7) k/uL Lymphocytes # 0.9 L (1.0-4.8) k/uL PT 9.6 L (10.0-12.5) sec VBG pCO2 (37-51) mmHg VBG HCO3 (24-28) mmol/L Potassium 3.2 L (3.5-5.1) mmol/L Chloride 88 L (98-107) mmol/L Carbon Dioxide 40 H (22-30) mmol/L BUN 44 H (9-20) mg/dL Glucose 174 H (74-99) mg/dL ALT 71 H (4-49) U/L SARS-CoV-2 (PCR) (Not Detectd) 02/17/23 02/17/23 Range/Units 02:40 02:49 WBC (3.8-10.6) k/uL Neutrophils # (1.3-7.7) k/uL Lymphocytes # (1.0-4.8) k/uL PT (10.0-12.5) sec VBG pCO2 83 H* (37-51) mmHg VBG HCO3 48 H (24-28) mmol/L Potassium (3.5-5.1) mmol/L Chloride (98-107) mmol/L Carbon Dioxide (22-30) mmol/L BUN (9-20) mg/dL Glucose (74-99) mg/dL ALT (4-49) U/L SARS-CoV-2 (PCR) Detected A (Not Detectd) Assessment and Plan Assessment: Assessment and plan * Acute on chronic chronic hypoxic hypercapnic respiratory failure, with COPD exacerbation * Acute metabolic encephalopathy secondary to hypercapnia * Covid 19 infection * Acute tracheobronchitis * Chronic congestive heart failure diastolic dysfunction * History of obstructive sleep apnea * Hypokalemia * In regards to acute on chronic hypoxic respiratory failure, patient was noted to have hypercapnia on venous blood gas, critical carbon dioxide level was noted, patient was placed on BiPAP, intolerant to BiPAP and was given a dose of Ativan in ED, follow venous blood gas obtained. * In regards to acute tracheobronchitis, chest x-ray negative for intrathoracic process, patient treated with Rocephin and azithromycin day 1 * In regards to Covid 19 patient started on dexamethasone, probably medicine consulted * In regards to obstructive sleep apnea, and showed compliance with CPAP * In regards to hypokalemia potassium replaced * CODE STATUS is full code Time with Patient: Greater than 30
[2023-02-17] MEDS ORDERED: KETOROLAC 15 MG/ML 1 ML VIAL IM STA (14:52)
--- NOTE | 2023-02-17 15:22 | P.CNPUL ---
History of Present Illness Consult date: 02/17/23 Requesting physician: Aakash Snider Reason for consult: dyspnea, hypoxemia Chief complaint: Sinus congestion History of present illness: This is a 62-year-old male patient with a history of anxiety/depression, neuropathy, osteoarthritis, hypertension, coronary disease with previous stent placement, chronic and ongoing tobacco dependence, chronic obstructive pulmonary disease, obesity/hypoventilation syndrome and obstructive sleep apnea not necessarily compliant with his CPAP. He was residing in an extended care facility where he had not been very compliant with his CPAP. Lab work had reve aled high CO2 level and he was brought into the emergency room early this morning for the same. Chest x-ray revealed no acute pulmonary process. White count 11.5. Hemoglobin 13.5. Sodium 132. Potassium 3.2. Bicarb 40. BUN 44. Creatinine 0.88. Glucose 174. COVID-19 screen positive. Venous blood gases initially revealed a pCO2 of 83. He was placed on BiPAP 12/6 and 32% and his follow-up bicarb was 50. He is seen today in consultation in the emergency department. He is currently sitting up in a chair. He remains on the BiPAP. Awake and alert and following commands. He is afebrile. Hemodynamically stable. Review of Systems REVIEW OF SYSTEMS: CONSTITUTIONAL: Denies any recent significant weight loss or weight gain. EYES: Denies change in vision. EARS, NOSE, MOUTH, THROAT: Denies headaches, denies sore throat. CARDIOVASCULAR: Denies chest pain, palpitations or syncopal episodes. RESPIRATORY: Sinus congestion. Denies shortness of breath, cough, congestion or hemoptysis. GASTROINTESTINAL: Denies change in appetite, denies abdominal pain GENITOURINARY: Denies hematuria, denies infections. MUSKULOSKELETAL: Denies pain, denies swelling. INTEGUMENTARY: Denies rash, denies eczema. NEUROLOGICAL: Denies recent memory loss, no recent seizure activity. PSYCHIATRIC: Denies anxiety, denies depression. HEMATOLOGIC/LYMPHATIC: Denies anemia, denies enlarged lymph nodes. Past Medical History Past Medical History: Coronary Artery Disease (CAD), Hypertension, Osteoarthritis (OA), Pneumonia, Skin Disorder, Sleep Apnea/CPAP/BIPAP Additional Past Medical History / Comment(s): neuropathy History of Any Multi-Drug Resistant Organisms: None Reported Past Surgical History: Heart Catheterization With Stent Additional Past Surgical History / Comment(s): 2004 stenting of RCA, ccath 2004 with lesions 50%mid LAD and unstable RCA plaque-stented as mentioned-EF was 60%, quadricepts muscle bx, normal colonoscopy in 2013, colonoscopy with benign polypectomy in past. Past Anesthesia/Blood Transfusion Reactions: No Reported Reaction Date of Last Stent Placement:: 2004 Past Psychological History: Anxiety, Depression Smoking Status: Former smoker Past Alcohol Use History: Rare Additional Past Alcohol Use History / Comment(s): Patient reports drinking a 6- pack per week. Past Drug Use History: Marijuana Additional Drug Use History / Comment(s): Patient reports smoking marijuana, uses it daily, intermittently for pain. - Past Family History Mother Family Medical History: Cancer Additional Family Medical History / Comment(s): Pt's mother at age 55 from lung cancer. She was a nonsmoker. Father Family Medical History: Hyperlipidemia, Hypertension Additional Family Medical History / Comment(s): Father at age 89 of natural causes. Sister(s) Family Medical History: Myocardial Infarction (CA) Additional Family Medical History / Comment(s): Pt has one sister who of possible CA at age 53yrs. Medications and Allergies Home Medications Medication Instructions Recorded Confirmed Type Losartan Potassium 100 mg PO HS 05/23/22 02/17/23 History Budesonide-Formot 160-4.5 Mcg 2 puff INHALATION RT-BID each 05/28/22 02/17/23 Rx [Symbicort 160-4.5 Mcg Inhaler] Cholecalciferol [Vitamin D3 (25 50 mcg PO DAILY 07/23/22 02/17/23 History Mcg = 1000 Iu)] Ibuprofen [Motrin] 600 mg PO Q4H PRN 07/23/22 02/17/23 History Loratadine [Claritin] 10 mg PO DAILY 07/23/22 02/17/23 History Umeclidinium Zap [Incruse 1 puff INHALATION RT-DAILY 07/23/22 02/17/23 History Ellipta] Albuterol Inhaler [Ventolin Hfa 2 puff INHALATION RT-Q4H PRN 09/20/22 02/17/23 History Inhaler] Ipratropium-Albuterol Nebulize 3 ml INHALATION RT-Q6H 11/06/22 02/17/23 History [Duoneb 0.5 mg-3 mg/3 ml Soln] Travoprost [Travatan Z 0.004%] 1 drop BOTH EYES HS 11/06/22 02/17/23 History amLODIPine [Norvasc] 5 mg PO HS 11/06/22 02/17/23 History Acetaminophen Tab [Tylenol] 650 mg PO Q6HR PRN 12/07/22 02/17/23 History Chlorhexidine Gluconate [Peridex] 15 ml PO BID 12/07/22 02/17/23 History Fluticasone Nasal [place] [Flonase 1 spr EA NOSTRIL BID PRN 12/07/22 02/17/23 History Nasal [place]] Naphazoline-Phenira 0.025-0.3% 1 drop BOTH EYES TID PRN 12/07/22 02/17/23 History [Visine-A Ophth Soln] Furosemide [Lasix] 40 mg PO TID 01/09/23 02/17/23 History Salicylic Acid 6% Shampoo 1 applic TOPICAL WESA 01/09/23 02/17/23 History Baby Shampoo 1 applic BOTH EYES DAILY 02/17/23 02/17/23 History Calcium Carbonate 500 mg PO Q4H PRN 02/17/23 02/17/23 History Dorzolamide HCl/Pf [Dorzolamide 2% 1 drop BOTH EYES TID 02/17/23 02/17/23 History Eye Drop] Famotidine [Pepcid AC] 10 mg PO DAILY 02/17/23 02/17/23 History Loratadine [Claritin] 10 mg PO DAILY PRN 02/17/23 02/17/23 History Triamcinolone 0.1% Ointment 1 applic TOPICAL BID PRN 02/17/23 02/17/23 History [Kenalog 0.1% Ointment] metOLazone [Zaroxolyn] 2.5 mg PO DAILY 02/17/23 02/17/23 History Allergies Allergy/AdvReac Type Severity Reaction Status Date / Time Sulfa (Sulfonamide Allergy Rash on Verified 02/17/23 11:47 Antibiotics) arms Physical Exam Vitals: Vital Signs Temp Pulse Resp BP Pulse Ox FiO2 02/17/23 14:02 98 12 153/89 92 L 02/17/23 13:34 35 02/17/23 13:23 99 20 156/94 02/17/23 12:05 32 02/17/23 11:02 17 94 L 02/17/23 11:00 96 17 139/98 94 L 02/17/23 09:53 73 16 129/84 94 L 02/17/23 09:19 32 02/17/23 05:00 101 H 20 134/85 02/17/23 03:40 32 02/17/23 02:18 98.3 F 97 18 110/58 96 Intake and Output 02/17/23 02/17/23 02/17/23 06:59 14:59 22:59 Other: Weight 136.078 kg GENERAL EXAM: Alert, morbidly obese 62-year-old male, on BiPAP, fairly comfortable in no apparent distress. HEAD: Normocephalic. EYES: Normal reaction of pupils, equal size. NOSE: Clear with pink turbinates. THROAT: No erythema or exudates. NECK: No masses, no JVD. CHEST: No chest wall deformity. LUNGS: Equal air entry with no crackles, wheeze, rhonchi or dullness. CVS: S1 and S2 normal with no audible murmur, regular rhythm. ABDOMEN: No hepatosplenomegaly, normal bowel sounds, no guarding or rigidity. SPINE: No scoliosis or deformity SKIN: No rashes CENTRAL NERVOUS SYSTEM: No focal deficits, tone is normal in all 4 extremities. EXTREMITIES: Changes of chronic venous stasis. There is 1+ peripheral edema. No clubbing, no cyanosis. Peripheral pulses are intact. Results - Laboratory Findings CBC and BMP: 02/17/23 02:40 02/17/23 02:40 PT/INR, D-dimer PT 9.6 sec (10.0-12.5) L 02/17/23 02:40 INR 0.8 (<1.2) 02/17/23 02:40 Abnormal lab findings: Abnormal Labs 02/17/23 02/17/23 02/17/23 02:40 02:40 02:40 WBC 11.5 H Neutrophils # 9.1 H Lymphocytes # 0.9 L PT 9.6 L VBG pH VBG pCO2 VBG HCO3 Potassium 3.2 L Chloride 88 L Carbon Dioxide 40 H BUN 44 H Glucose 174 H ALT 71 H SARS-CoV-2 (PCR) 02/17/23 02/17/23 02/17/23 02:40 02:49 07:04 WBC Neutrophils # Lymphocytes # PT VBG pH 7.54 H VBG pCO2 83 H* VBG HCO3 48 H 42 H Potassium Chloride Carbon Dioxide BUN Glucose ALT SARS-CoV-2 (PCR) Detected A - Diagnostic Findings Chest x-ray: image reviewed Assessment and Plan Assessment: Acute on chronic hypercapnic respiratory failure secondary to obstructive sleep apnea, noncompliant with CPAP in the outpatient setting due to throat irritation COVID-19 infection without clear evidence of COVID-19 pneumonia. Chest x-ray shows no acute pulmonary process Chronic hypoxemic respiratory failure secondary to COPD Chronic and ongoing tobacco dependence Coronary disease with previous stent placement Obesity/hypoventilation syndrome Obstructive sleep apnea to be on CPAP in the outpatient setting Hypertension Osteoarthritis History of neuropathy History of anxiety/depression Plan: The patient was seen and evaluated Chest x-ray, medications and labs reviewed No acute pulmonary process Continue BiPAP support for now Encouraged regarding the importance of utilizing his home device Continue Symbicort and albuterol Add vitamin supplements Continue Decadron 6 mg daily Add Lovenox 30 mg daily Titrate the FiO2 as tolerated We will continue to follow and make recommendations based on his clinical status I have personally seen and examined the patient, performed the documentation and the assessment and plan as written. Number of minutes spent on the visit: 20.
[2023-02-18] MEDS ORDERED: ZOLPIDEM 5 MG TAB PO STA (00:05)
[2023-02-18] MEDS ORDERED: LORazepam 2 MG/ML INJ IV STA (02:30)
[2023-02-18] MEDS: ALBUTEROL HFA INHALER INHALATION SCH ×4 (07:22→21:28)
[2023-02-18] MEDS: SYMBICORT 160-4.5 MCG INHALER INHALATION SCH ×2 (07:23→21:28)
[2023-02-18] MEDS ORDERED: ENOXAPARIN 30 MG/0.3 ML SYRINGE SQ SCH (09:00)
[2023-02-18] MEDS: CHOLECALCIFEROL 125 MCG (5000 IU) TABLET PO SCH (09:17)
[2023-02-18] MEDS: guaiFENesin 600 MG TABLET.ER PO SCH ×2 (09:17→21:30)
[2023-02-18] MEDS: ASCORBIC ACID 500 MG TAB PO SCH (09:17)
[2023-02-18] MEDS: AZITHROMYCIN 500 MG TAB PO SCH (09:18)
[2023-02-18] MEDS: ENOXAPARIN 40 MG/0.4 ML SYRINGE SQ SCH (09:18)
[2023-02-18] MEDS: DEXAMETHASONE SOD PHOSPHATE 10 MG/ML 1 ML VIAL IV SCH (09:18)
[2023-02-18] MEDS: ZINC SULFATE 220 MG CAP PO SCH (09:18)
[2023-02-18 11:18] LABS: Basophils % (A) 0 %; Eosinophils % (A) 0 %; HCT 42.1 % (39.0-53.0); HGB 13.2 gm/dL (13.0-17.5); Lymphocytes # (A) 1.1 k/uL (1.0-4.8); Lymphocytes % (A) 12 %; MCH 29.5 pg (25.0-35.0); MCHC 31.4 g/dL (31.0-37.0); Mean Platelet Volume 7.5; Monocytes # (A) 0.7 k/uL (0-1.0); Monocytes % (A) 8 %; Neutrophils # (A) 7.2 k/uL (1.3-7.7); Neutrophils % (A) 78 %; Platelet Count 271 k/uL (150-450); RBC 4.48 m/uL (4.30-5.90); RDW 13.7 % (11.5-15.5); WBC 9.3 k/uL (3.8-10.6)
[2023-02-18 12:43] LABS: African American GFR (CKD) >90 (>60 ml/min/1.73 sqM); Blood Urea Nitrogen 33 mg/dL (9-20); Calcium 9.6 mg/dL (8.4-10.2); Chloride 90 mmol/L (98-107); Glucose 209 mg/dL (74-99); Non-African American GFR(CKD) >90 (>60 ml/min/1.73 sqM); Potassium 3.7 mmol/L (3.5-5.1); Sodium 140 mmol/L (137-145)
[2023-02-18 12:50] LABS: Anion Gap 12 mmol/L
[2023-02-18 12:52] LABS: Carbon Dioxide 38 mmol/L (22-30)
--- NOTE | 2023-02-18 14:45 | P.PN ---
Subjective Progress Note Date: 02/18/23 Principal diagnosis: Shortness of breath. This is a 62-year-old male patient with a history of anxiety/depression, neuropathy, osteoarthritis, hypertension, coronary disease with previous stent placement, chronic and ongoing tobacco dependence, chronic obstructive pulmonary disease, obesity/hypoventilation syndrome and obstructive sleep apnea not necessarily compliant with his CPAP. He was residing in an extended care facility where he had not been very compliant with his CPAP. Lab work had revealed high CO2 level and he was brought into the emergency room early this morning for the same. Chest x-ray revealed no acute pulmonary process. White count 11.5. Hemoglobin 13.5. Sodium 132. Potassium 3.2. Bicarb 40. BUN 44. Creatinine 0.88. Glucose 174. COVID-19 screen positive. Venous blood gases initially revealed a pCO2 of 83. He was placed on BiPAP 12/6 and 32% and his follow-up bicarb was 50. He is seen today in consultation in the emergency department. He is currently sitting up in a chair. He remains on the BiPAP. Awake and alert and following commands. He is afebrile. Hemodynamically stable. Progress note dated 02/18/2023. 62-year-old male well-known to our service. He has a history of severe COPD, and sleep apnea syndrome. The patient was seen in consultation yesterday. He is seen again today in room 384. Currently, the patient is on BiPAP, with settings of 14/7, and 35%. The patient is not receiving any IV fluids. The patient is very noncompliant, with his CPAP/BiPAP device at home. In addition, when he is in the hospital, he is very difficult to deal with, and the nurses have a hard time, as he's very demanding, continues to rip off the BiPAP. He typically is admitted with hypercapnic respiratory failure, and acute mental status changes. Labs today include a white count 9.3, hemoglobin 13.2, hematocrit 42.1, and a platelet count of 271,000. D-dimer was 0.76. Venous blood gases show a CO2 of 50, and a pH is 7.54. Sodium 140, potassium 3.7, chlorides 90, CO2 38, BUN 33, creatinine 0.69. He did test positive for coronavirus as well. Chest x-ray was normal. Objective - Vital Signs Vital signs: Vital Signs Temp 97.7 F 02/17/23 22:42 Pulse 91 02/18/23 04:05 Resp 20 02/18/23 04:05 BP 159/97 02/18/23 04:05 Pulse Ox 95 02/18/23 07:23 FiO2 35 02/18/23 11:20 Intake & Output 02/17/23 02/18/23 02/18/23 18:59 06:59 18:59 Intake Total 540 120 Output Total 300 575 Balance 240 -455 Weight 140 kg Intake: Oral 540 120 Output: Urine 300 575 Other: Voiding Method Urinal - Exam No acute distress, somnolent, currently on BiPAP. HEENT examination is grossly unremarkable. Neck supple. Full range of motion. No adenopathy thyromegaly or neck vein distention. Cardiovascular examination reveals regular rhythm rate. S1-S2 normal. No S3 or S4. No discernible murmur noted. Heart rate 91 bpm. Blood pressure 159/97. Lungs reveal coarse bilateral rhonchi. No wheezes or crackles. Saturations are 95% on BiPAP. Breath sounds are equal bilaterally. Abdomen obese, without bowel sounds. No masses or tenderness. Extremities are intact. No cyanosis or clubbing. Slight edema is noted. Skin is without rash or lesion. Neurologic examination is unable to be evaluated at this time. - Labs CBC & Chem 7: 02/18/23 10:58 02/18/23 10:58 Labs: Abnormal Lab Results - Last 24 Hours (Table) 02/18/23 02/18/23 02/18/23 Range/Units 10:58 10:58 10:58 D-Dimer 0.76 H (<0.60) mg/L FEU Chloride 90 L (98-107) mmol/L Carbon Dioxide 38 H (22-30) mmol/L BUN 33 H (9-20) mg/dL Glucose 209 H (74-99) mg/dL C-Reactive Protein 2.8 H (<1.0) mg/dL Microbiology - Last 24 Hours (Table) 02/17/23 02:40 Blood Culture - Preliminary Blood 02/17/23 02:40 Blood Culture - Preliminary Blood Assessment and Plan Assessment: Acute on chronic hypercapnic respiratory failure secondary to obstructive sleep apnea, noncompliant with CPAP in the outpatient setting due to throat irritation. COVID-19 infection without clear evidence of COVID-19 pneumonia. Chronic hypoxemic respiratory failure secondary to COPD. Chronic and ongoing tobacco dependence. Coronary disease with previous stent placement. Obesity/hypoventilation syndrome. Obstructive sleep apnea to be on CPAP in the outpatient setting. Hypertension. Osteoarthritis. History of neuropathy. History of anxiety/depression. Plan: Plan dated 02/18/2023. Currently, the patient continues on azithromycin, and Rocephin. He also is on Symbicort, an albuterol. He also have him on vitamin C, vitamin D3, and zinc. Finally, they do have on Decadron, 6 mg IV. We will continue to follow the patient, and make recommendations along the way. The patient's overall prognosis remains guarded. He's had recent multiple admissions to the hospital, and each time, the patient is noncompliant, and does give the nursing staff, and the physicians a hard time. Prognosis is poor. Time with Patient: Less than 30
--- NOTE | 2023-02-18 15:35 | PN ---
PROGRESS NOTE DATE OF SERVICE: 02/18/2023 SUBJECTIVE: This is a 62-year-old gentleman, who was admitted with COPD acute exacerbation. He is on BiPAP. The patient also had acute COVID-19 pneumonia. The patient also had tracheobronchitis. The patient also had some amount of CHF. The patient is closely monitored. The patient was confused on admission also. Multiple consultants are following the patient closely. PAST MEDICAL HISTORY: Reviewed. REVIEW OF SYSTEMS: Fourteen-point review is negative except as mentioned earlier. CURRENT MEDICATIONS: Reviewed include Zithromax. Doses and rest of the medications are noted. PHYSICAL EXAMINATION: VITAL SIGNS: Pulse is 91, blood pressure 150/97, respirations 20. HEENT: Conjunctivae are normal. NECK: No jugular venous distention. CARDIOVASCULAR: S1 and S2. RESPIRATORY: Few scattered rhonchi and crackles. ABDOMEN: Soft. NERVOUS SYSTEM: Nonfocal. LABORATORY DATA: D-dimer is 0.76. Rest of the labs are noted. ASSESSMENT: 1. Acute COVID-19 infection with [id number] hypoxic respiratory failure with possible COVID-19 pneumonia. 2. Chronic obstructive pulmonary disease acute exacerbation. 3. Acute metabolic encephalopathy secondary to hypercapnia. 4. Acute tracheobronchitis. 5. Congestive heart failure with chronic diastolic dysfunction. 6. History of obstructive sleep apnea. RECOMMENDATIONS: Recommend to continue current medications. Continue symptomatic treatment. Otherwise, we will monitor potassium closely. Repeat labs. Continue the bronchodilators. D- dimer is elevated. I would also recommend a CT angio of the chest and also closely follow with Dr. Carrero also. Further recommendations to follow. MMODL / IJN: [id number] /
--- NOTE | 2023-02-18 15:49 | CT ---
EXAMINATION TYPE: CT angio chest DATE OF EXAM: 02/18/2023 COMPARISON: Prior CT chest November 07, 2022 HISTORY: sob, covid CT DLP: 1324.4 mGycm. Automated Exposure Control for Dose Reduction was Utilized. CONTRAST: CTA scan of the thorax is performed with IV Contrast, patient injected with 75ml mL of Isovue 370, pu lmonary embolism protocol. MIP Images are created on CT scanner and reviewed. FINDINGS: Exam suboptimal secondary to motion artifact degradation LUNGS: Motion artifact is seen and limits evaluation for subcentimeter nodules. No focal consolidatio n. Persistent peripheral 1.9 x 1.3 cm right lower lobe pulmonary nodule axial image 68. Central groun dglass opacities suspicious for mild edema. Elevated and eventrated anterior aspect right hemidiaphra gm redemonstrated. MEDIASTINUM: Suboptimal study with most dense contrast in SVC and equal contrast density in aorta and pulmonary arteries. No central saddle pulmonary embolism. Heterogeneity in the periphery makes eval uation suboptimal at this level. Moderate to severe coronary artery calcifications are redemonstrated .No thoracic aneurysm or dissection. There are no greater than 1 cm hilar or mediastinal lymph nodes . Mild cardiomegaly. No pericardial effusion is seen. OTHER: Liver is diffusely low dense consistent with fatty infiltrative hepatocellular disease. Contra cted gallbladder is seen. Multilevel spurring in the spine is present. IMPRESSION: 1. Suboptimal study without central saddle pulmonary embolism. Cannot exclude smaller peripheral pulm onary emboli on this study. Consider repeat CT after hydration and 24 to 40 hours to reassess if felt clinically warranted. 2. Mild cardiomegaly with mild central bilateral opacities suspicious for edema. Correlate for CHF ex acerbation/fluid overload state.
[2023-02-18] MEDS ORDERED: ZOLPIDEM 5 MG TAB PO ONE (21:30)
[2023-02-18] MEDS: KETOROLAC 15 MG/ML 1 ML VIAL IVP PRN (21:43)
[2023-02-18] MEDS: MELATONIN 5 MG TABLET PO PRN (22:42)
[2023-02-19] MEDS ORDERED: ALPRAZolam 0.25 MG TAB PO STA (01:10)
[2023-02-19] MEDS: KETOROLAC 15 MG/ML 1 ML VIAL IVP PRN ×2 (04:06→13:13)
[2023-02-19] MEDS: ENOXAPARIN 40 MG/0.4 ML SYRINGE SQ SCH (08:48)
[2023-02-19] MEDS: AZITHROMYCIN 500 MG TAB PO SCH (08:49)
[2023-02-19] MEDS: ZINC SULFATE 220 MG CAP PO SCH (08:49)
[2023-02-19] MEDS: DEXAMETHASONE SOD PHOSPHATE 10 MG/ML 1 ML VIAL IV SCH (08:49)
[2023-02-19] MEDS: ASCORBIC ACID 500 MG TAB PO SCH (08:49)
[2023-02-19] MEDS: guaiFENesin 600 MG TABLET.ER PO SCH ×2 (08:49→20:16)
[2023-02-19] MEDS: CHOLECALCIFEROL 125 MCG (5000 IU) TABLET PO SCH (08:49)
[2023-02-19] MEDS ORDERED: NAPHAZOLINE-PHENIRA 0.025-0.3% DROPS 15 ML BTL BOTH EYES PRN (09:27)
[2023-02-19] MEDS ORDERED: FLUTICASONE 50MCG/SPRAY NASAL 16GM EA NOSTRIL PRN (09:27)
--- NOTE | 2023-02-19 09:33 | P.CONS ---
History of Present Illness - Reason for Consult Consult date: 02/18/23 - History of Present Illness Patient is a 62-year-old male with a past medical history significant for coronary disease hypertension osteoarthritis anxiety depression patient presented to the hospital yesterday morning from the skilled nursing concerning for hypercapnia patient also complaining of some nasal congestion and congestion in the chest he did have a cough moderate intensity with minimal sputum production no hemoptysis no pleuritic chest pain no nausea vomiting no choking with food no abdominal pain or any diarrhea patient on presentation to the hospital was afebrile and no fever have been currently subsequently patient was hypoxic currently requiring supplemental oxygen in the form of the liter nasal cannula oxygen he did have vital of 11.5 with a left shift creatinine 0.88 ALT was mildly elevated patient did tested positive for COVID-19 chest x-ray chest x-ray CT angiogram of the chest suboptimal study mild cardiomegaly with mild central bilateral opacity suspicious for edema consider CHF patient started on antibiotics in addition to dexamethasone infectious disease was consulted today regarding COVID-19 and pneumonia Past Medical History Past Medical History: Coronary Artery Disease (CAD), Hypertension, Osteoarthritis (OA), Pneumonia, Skin Disorder, Sleep Apnea/CPAP/BIPAP Additional Past Medical History / Comment(s): neuropathy History of Any Multi-Drug Resistant Organisms: None Reported Past Surgical History: Heart Catheterization With Stent Additional Past Surgical History / Comment(s): 2004 stenting of RCA, ccath 2004 with lesions 50%mid LAD and unstable RCA plaque-stented as mentioned-EF was 60%, quadricepts muscle bx, normal colonoscopy in 2013, colonoscopy with benign polypectomy in past. Past Anesthesia/Blood Transfusion Reactions: No Reported Reaction Date of Last Stent Placement:: 2004 Past Psychological History: Anxiety, Depression Smoking Status: Former smoker Past Alcohol Use History: Rare Past Drug Use History: Marijuana Additional Drug Use History / Comment(s): Patient reports using marijuana edibles, uses it few times a month, intermittently for pain. - Past Family History Mother Family Medical History: Cancer Additional Family Medical History / Comment(s): Pt's mother at age 55 from lung cancer. She was a nonsmoker. Father Family Medical History: Hyperlipidemia, Hypertension Additional Family Medical History / Comment(s): Father at age 89 of natural causes. Sister(s) Family Medical History: Myocardial Infarction ([place]) Additional Family Medical History / Comment(s): Pt has one sister who of possible [place] at age 53yrs. Medications and Allergies Home Medications Medication Instructions Recorded Confirmed Type Losartan Potassium 100 mg PO HS 05/23/22 02/17/23 History Budesonide-Formot 160-4.5 Mcg 2 puff INHALATION RT-BID each 05/28/22 02/17/23 Rx [Symbicort 160-4.5 Mcg Inhaler] Cholecalciferol [Vitamin D3 (25 50 mcg PO DAILY 07/23/22 02/17/23 History Mcg = 1000 Iu)] Ibuprofen [Motrin] 600 mg PO Q4H PRN 07/23/22 02/17/23 History Loratadine [Claritin] 10 mg PO DAILY 07/23/22 02/17/23 History Umeclidinium [place] [Incruse 1 puff INHALATION RT-DAILY 07/23/22 02/17/23 History Ellipta] Albuterol Inhaler [Ventolin Hfa 2 puff INHALATION RT-Q4H PRN 09/20/22 02/17/23 History Inhaler] Ipratropium-Albuterol Nebulize 3 ml INHALATION RT-Q6H 11/06/22 02/17/23 History [Duoneb 0.5 mg-3 mg/3 ml Soln] Travoprost [Travatan Z 0.004%] 1 drop BOTH EYES HS 11/06/22 02/17/23 History amLODIPine [Norvasc] 5 mg PO HS 11/06/22 02/17/23 History Acetaminophen Tab [Tylenol] 650 mg PO Q6HR PRN 12/07/22 02/17/23 History Chlorhexidine Gluconate [Peridex] 15 ml PO BID 12/07/22 02/17/23 History Fluticasone Nasal [place] [Flonase 1 spr EA NOSTRIL BID PRN 12/07/22 02/17/23 History Nasal [place]] Naphazoline-Phenira 0.025-0.3% 1 drop BOTH EYES TID PRN 12/07/22 02/17/23 History [Visine-A Ophth Soln] Furosemide [Lasix] 40 mg PO TID 01/09/23 02/17/23 History Salicylic Acid 6% Shampoo 1 applic TOPICAL WESA 01/09/23 02/17/23 History Baby Shampoo 1 applic BOTH EYES DAILY 02/17/23 02/17/23 History Calcium Carbonate 500 mg PO Q4H PRN 02/17/23 02/17/23 History Dorzolamide HCl/Pf [Dorzolamide 2% 1 drop BOTH EYES TID 02/17/23 02/17/23 History Eye Drop] Famotidine [Pepcid AC] 10 mg PO DAILY 02/17/23 02/17/23 History Loratadine [Claritin] 10 mg PO DAILY PRN 02/17/23 02/17/23 History Triamcinolone 0.1% Ointment 1 applic TOPICAL BID PRN 02/17/23 02/17/23 History [Kenalog 0.1% Ointment] metOLazone [Zaroxolyn] 2.5 mg PO DAILY 02/17/23 02/17/23 History Allergies Allergy/AdvReac Type Severity Reaction Status Date / Time Sulfa (Sulfonamide Allergy Rash on Verified 02/17/23 11:47 Antibiotics) arms Physical Exam Vitals: Vital Signs Temp Pulse Pulse Resp BP BP Pulse Ox 02/18/23 11:20 02/18/23 07:23 95 02/18/23 04:05 91 20 159/97 96 02/18/23 03:00 02/18/23 00:31 88 18 129/76 95 02/17/23 22:42 97.7 F 87 18 122/82 94 L 02/17/23 22:21 97.5 F L 89 18 115/72 94 L 02/17/23 21:44 99 20 121/83 92 L 02/17/23 20:00 95 20 116/80 91 L 02/17/23 18:32 98.2 F 104 H 20 119/76 94 L 02/17/23 16:55 101 H 20 121/77 94 L 02/17/23 15:51 105 H 20 132/86 91 L FiO2 02/18/23 11:20 35 02/18/23 07:23 35 02/18/23 04:05 35 02/18/23 03:00 35 02/18/23 00:31 02/17/23 22:42 02/17/23 22:21 02/17/23 21:44 02/17/23 20:00 02/17/23 18:32 02/17/23 16:55 02/17/23 15:51 Intake and Output 02/18/23 02/18/23 02/18/23 06:59 14:59 22:59 Intake Total 120 Output Total 300 575 Balance -300 -455 Intake: Oral 120 Output: Urine 300 575 Other: Voiding Method Urinal Weight 140 kg Results CBC & Chem 7: 02/19/23 07:57 02/19/23 07:57 Labs: Abnormal Lab Results - Last 24 Hours (Table) 02/18/23 02/18/23 02/18/23 Range/Units 10:58 10:58 10:58 D-Dimer 0.76 H (<0.60) mg/L FEU Chloride 90 L (98-107) mmol/L Carbon Dioxide 38 H (22-30) mmol/L BUN 33 H (9-20) mg/dL Glucose 209 H (74-99) mg/dL C-Reactive Protein 2.8 H (<1.0) mg/dL Microbiology - Last 24 Hours (Table) 02/17/23 02:40 Blood Culture - Preliminary Blood 02/17/23 02:40 Blood Culture - Preliminary Blood Assessment and Plan Plan: 1patient presented to hospital with increasing shortness of breath which is likely multifactorial patient did tested positive for COVID-19 concern for underlying COVID-19 infection contributing to exacerbation of his underlying COPD clinically not behaving as secondary bacterial pneumonia 2-patient to continue with dexamethasone 6 ascorbic acid and bronchodilator, no need for remdesivir 3-droplet isolation We will follow on clinical condition and cultures to further adjust medication if needed Thank you for this consultation we will follow the patient along with you Dictation was produced using [employer] dictation software. please excuse any grammatical, word or spelling errors. Time with Patient: Greater than 30
[2023-02-19] MEDS: ALBUTEROL HFA INHALER INHALATION SCH ×4 (09:43→20:46)
[2023-02-19] MEDS: SYMBICORT 160-4.5 MCG INHALER INHALATION SCH ×2 (09:43→20:46)
[2023-02-19 09:54] LABS: ALT 67 U/L (4-49); AST 49 U/L (17-59); African American GFR (CKD) >90 (>60 ml/min/1.73 sqM); Alkaline Phosphatase 57 U/L (38-126); Anion Gap 9 mmol/L; Blood Urea Nitrogen 31 mg/dL (9-20); C Reactive Protein 1.6 mg/dL (<1.0); Calcium 9.6 mg/dL (8.4-10.2); Carbon Dioxide 37 mmol/L (22-30); Chloride 91 mmol/L (98-107); Glucose 133 mg/dL (74-99); Non-African American GFR(CKD) >90 (>60 ml/min/1.73 sqM); Potassium 4.5 mmol/L (3.5-5.1); Sodium 137 mmol/L (137-145); Total Bilirubin 0.4 mg/dL (0.2-1.3); Total Protein 7.1 g/dL (6.3-8.2)
[2023-02-19 10:14] LABS: Basophils % (A) 0 %; Eosinophils % (A) 0 %; HCT 46.3 % (39.0-53.0); HGB 14.7 gm/dL (13.0-17.5); Hypochromasia Slight; Lymphocytes # (A) 1.6 k/uL (1.0-4.8); Lymphocytes % (A) 16 %; MCH 30.2 pg (25.0-35.0); MCHC 31.8 g/dL (31.0-37.0); MCV 95.1 fL (80.0-100.0); Mean Platelet Volume 7.8; Monocytes # (A) 0.9 k/uL (0-1.0); Monocytes % (A) 10 %; Neutrophils % (A) 71 %; Platelet Count 270 k/uL (150-450); RBC 4.87 m/uL (4.30-5.90); RDW 13.9 % (11.5-15.5); WBC 9.9 k/uL (3.8-10.6)
[2023-02-19] MEDS: FAMOTIDINE 20 MG TAB PO SCH (12:40)
[2023-02-19] MEDS: DORZOLAMIDE HCL 2% DROPS 10 ML BTL BOTH EYES SCH ×3 (12:40→20:19)
[2023-02-19] MEDS: FUROSEMIDE 40 MG TAB PO SCH ×3 (12:40→23:36)
[2023-02-19] MEDS: metOLazone 2.5 MG TAB PO SCH (12:40)
[2023-02-19] MEDS: TIOTROPIUM 2.5 MCG INHALER INHALATION SCH (12:47)
--- NOTE | 2023-02-19 13:16 | P.PN ---
Subjective Progress Note Date: 02/19/23 Principal diagnosis: Shortness of breath. This is a 62-year-old male patient with a history of anxiety/depression, neuropathy, osteoarthritis, hypertension, coronary disease with previous stent placement, chronic and ongoing tobacco dependence, chronic obstructive pulmonary disease, obesity/hypoventilation syndrome and obstructive sleep apnea not necessarily compliant with his CPAP. He was residing in an extended care facility where he had not been very compliant with his CPAP. Lab work had revealed high CO2 level and he was brought into the emergency room early this morning for the same. Chest x-ray revealed no acute pulmonary process. White count 11.5. Hemoglobin 13.5. Sodium 132. Potassium 3.2. Bicarb 40. BUN 44. Creatinine 0.88. Glucose 174. COVID-19 screen positive. Venous blood gases initially revealed a pCO2 of 83. He was placed on BiPAP 12/6 and 32% and his follow-up bicarb was 50. He is seen today in consultation in the emergency department. He is currently sitting up in a chair. He remains on the BiPAP. Awake and alert and following commands. He is afebrile. Hemodynamically stable. Progress note dated 02/18/2023. 62-year-old male well-known to our service. He has a history of severe COPD, and sleep apnea syndrome. The patient was seen in consultation yesterday. He is seen again today in room 384. Currently, the patient is on BiPAP, with settings of 14/7, and 35%. The patient is not receiving any IV fluids. The patient is very noncompliant, with his CPAP/BiPAP device at home. In addition, when he is in the hospital, he is very difficult to deal with, and the nurses have a hard time, as he's very demanding, continues to rip off the BiPAP. He typically is admitted with hypercapnic respiratory failure, and acute mental status changes. Labs today include a white count 9.3, hemoglobin 13.2, hematocrit 42.1, and a platelet count of 271,000. D-dimer was 0.76. Venous blood gases show a CO2 of 50, and a pH is 7.54. Sodium 140, potassium 3.7, chlorides 90, CO2 38, BUN 33, creatinine 0.69. He did test positive for coronavirus as well. Chest x-ray was normal. Progress note dated 02/19/2023. 62-year-old male, well-known to our service. The patient has a history of chronic hypoxemic respiratory failure, chronic hypercapnic respiratory failure, severe COPD, and sleep apnea syndrome. The patient is on and off of CPAP/BiPAP. Currently, he is seen today in room 384. He is on 3 L by nasal cannula. His B iPAP settings are 15/7, and 35%. The patient is not on any IV fluids. Today's labs include a white count 9.9, hemoglobin 14.7, hematocrit 46.3, and a platelet count of 270,000. D-dimer was 0.76. Sodium 137, potassium 4.5, chlorides 91, CO2 37, anion gap 9, BUN 31, and creatinine 0.57. Pro-calcitonin level on February [address] angiogram was a suboptimal study without central saddle pulmonary embolism. Smaller pulmonary emboli in the periphery, cannot be ruled out. There was mild cardiomegaly, with some CHF. Objective - Vital Signs Vital signs: Vital Signs Temp 97.6 F 02/19/23 08:00 Pulse 88 02/19/23 08:00 Resp 20 02/19/23 08:00 BP 178/93 02/19/23 08:00 Pulse Ox 100 02/19/23 08:00 FiO2 35 02/19/23 04:10 Intake & Output 02/18/23 02/19/23 02/19/23 18:59 06:59 18:59 Intake Total 360 250 236 Output Total 1075 1150 700 Balance -715 -900 -464 Intake: IV 10 Invasive Line 1 10 Oral 360 240 236 Output: Urine 1075 1150 700 Other: Voiding Method Urinal Urinal Urinal # Voids 1 - Exam No acute distress, somnolent, currently on 3 L nasal cannula. No cecilio distress, or use of accessory muscles. HEENT examination is grossly unremarkable. Neck supple. Full range of motion. No adenopathy thyromegaly or neck vein distention. Cardiovascular examination reveals regular rhythm rate. S1-S2 normal. No S3 or S4. No discernible murmur noted. Heart rate 88 bpm. Blood pressure 178/93. Lungs reveal coarse bilateral rhonchi. No wheezes or crackles. Saturations are 99% on 3 L. Breath sounds are equal bilaterally. Abdomen obese, without bowel sounds. No masses or tenderness. Extremities are intact. No cyanosis or clubbing. Slight edema is noted. Skin is without rash or lesion. Neurologic examination is unable to be evaluated at this time. - Labs CBC & Chem 7: 02/19/23 07:57 02/19/23 07:57 Labs: Abnormal Lab Results - Last 24 Hours (Table) 02/19/23 Range/Units 07:57 Chloride 91 L (98-107) mmol/L Carbon Dioxide 37 H (22-30) mmol/L BUN 31 H (9-20) mg/dL Creatinine 0.57 L (0.66-1.25) mg/dL Glucose 133 H (74-99) mg/dL ALT 67 H (4-49) U/L C-Reactive Protein 1.6 H (<1.0) mg/dL Microbiology - Last 24 Hours (Table) 02/17/23 02:40 Blood Culture - Preliminary Blood 02/17/23 02:40 Blood Culture - Preliminary Blood Assessment and Plan Assessment: Acute on chronic hypercapnic respiratory failure secondary to obstructive sleep apnea, noncompliant with CPAP in the outpatient setting due to throat irritation. COVID-19 infection without clear evidence of COVID-19 pneumonia. Chronic hypoxemic respiratory failure secondary to COPD. Chronic and ongoing tobacco dependence. Coronary disease with previous stent placement. Obesity/hypoventilation syndrome. Obstructive sleep apnea to be on CPAP in the outpatient setting. Hypertension. Osteoarthritis. History of neuropathy. History of anxiety/depression. Plan: Plan dated 02/18/2023. Currently, the patient continues on azithromycin, and Rocephin. He also is on Symbicort, an albuterol. He also have him on vitamin C, vitamin D3, and zinc. Finally, they do have on Decadron, 6 mg IV. We will continue to follow the patient, and make recommendations along the way. The patient's overall prognosis remains guarded. He's had recent multiple admissions to the hospital, and each time, the patient is noncompliant, and does give the nursing staff, and the physicians a hard time. Prognosis is poor. Plan dated 02/19/2023. The patient is currently on 3 L. Saturations are 100%. The oxygen can be titrated down, as the patient's saturations should be maintained right around 90%. The patient is clearly a CO2 retainer, and higher concentrations of oxygen , currently to CO2 narcosis. In addition, sedatives, hypnotics, narcotics, etc., should be avoided. The patient should use his BiPAP at nighttime. Labs, x-rays, and medications are reviewed. Antibiotics should be discontinued in lieu of the very low pro-calcitonin. Decadron IV and converted to Decadron by mouth. We will continue to follow make recommendations along the way. Prognosis is guarded. Time with Patient: Less than 30
[2023-02-19] MEDS ORDERED: hydrOXYzine pamoate 25 MG CAP PO PRN (14:10)
--- NOTE | 2023-02-19 14:11 | P.PN ---
Subjective Progress Note Date: 02/19/23 Hospital course: Patient is a very pleasant 62-year-old male with a past medical history of CAD status post stenting, hypertension, HFpEF, chronic hypoxic respiratory failure secondary to COPD on home oxygen 3 L at all times, obesity hypoventilation syndrome, obstructive sleep apnea CPAP dependent nightly (however reportedly noncompliant with CPAP use). Pt presented to the hospital on 02/17/23 from extended care facility secondary to concerns of acute on chronic hypoxic respiratory failure, patient was reportedly not being very compliant with his CPAP use secondary to nasal congestion and lab work at extended care facility revealed patient to have elevated CO2 levels and he was sent to the emergency department for evaluation. Upon arrival to the emergency department, patient underwent full evaluation. Vital signs completed showing blood pressure 110/58, heart rate 97, respiratory rate 18, temp 98.3F, SpO2 96% on 3 L. EKG showing normal sinus rhythm and 93 bpm with no noted T-wave or ST abnormalities Labs completed and reviewed. CBC showing mild leukocytosis with WBC count of 11.5, coagulation profile showing low PT of 9.6 and elevated d-dimer of 0.76. Venous blood gases completed showing pH 7.37, pCO2 of 83 and bicarb of 48. BMP revealed hypokalemia with potassium 3.2, hypochloremia with chloride of 88, hypercarbia with bicarbonate 40, and prerenal azotemia with BUN of 44. Liver profile showing elevated ALT of 71 otherwise normal findings. Influenza A, influenza B, and RSV were negative. Covid PCR was positive. Chest x-ray completed negative for acute cardiopulmonary process. Patient required placement on BiPAP and later weaned back to baseline oxygen status. Patient initially admitted to [facility] hospitalist group however patient turned over to [facility] group on morning of 02/19/23 as we provide coverage for patient's PCP during hospitalization. Reviewed CTA that was completed 02/18/23. CTA showing suboptimal study but negative for central saddle pulmonary embolism, mild cardiomegaly with mild central bilateral opacities suspicious for pulmonary edema and CHF. Reviewed patient's home medications and reordered patient's Lasix and metolazone at this time in addition to daily antihypertensive medications amlodipine and losartan. Physical exam: Patient seen and fully evaluated at bedside. Patient sitting in a recliner at bedside. Patient reports concerns that his shortness of breath is not getting any better and reports significant nasal congestion and reports frequent anxiety. Vital signs reviewed and stable. General: Nontoxic, no acute distress and appears stated age. Chronically ill appearing. Derm: Skin warm and dry, normal coloration for ethnicity. Head: Atraumatic, normocephalic and symmetric. Eyes: EOMs intact, no lid lag, and anicteric sclera Mouth: no lip lesions, mucus membranes moist Cardiovascular: regular rate and rhythm with normal S1S2, no murmur Lungs: Respirations even, regular, and unlabored on baseline 3 L O2 via nasal cannula. Lungs diminished with diffuse soft expiratory wheezes bilaterally. No rales or rhonchi noted. Abdominal: soft, nontender to palpation, no guarding, no appreciable organomegaly Ext: ROM intact. No gross muscle atrophy, 2+ pitting bilateral lower extremity edema, no contractures Neuro: Speech clear, face symmetrical and CN II-XII grossly intact with no noted focal neuro deficits Psych: Alert and oriented to person, place, time, and situation. Appropriate and pleasant affect. Assessment and Plan of Care: Acute on chronic hypercapnic respiratory failure COPD with acute exacerbation of chronic hypoxic respiratory failure HFpEF COVID-19 infection CAD status post stenting Hypertension Obesity hypoventilation syndrome Obstructive sleep apnea -Consult to Pulmonology -Oxygenation to be administered and titrated as needed to maintain SPO2 equal to or greater than 92% -Telemetry monitoring. -Continuous Pulse-oximetry -Ventolin inhaler 2 puffs 4 times daily scheduled and as needed for SOB and/or wheezing -Incentive Spirometry -Steroids: Decadron 6 mg daily, day 3 of 10 -Antibiotics: Day 3/3 of azithromycin 500 mg daily -Droplet plus contact precautions. -Continue Ventolin inhaler 4 times daily scheduled, Symbicort 2 puffs twice daily, and Ellipta 1 puff daily. -Reviewed and reordered home medications, patient to continue daily medication regimen with amlodipine 5 mg nightly, Lasix 40 mg 3 times daily, losartan 100 mg nightly, and metolazone 2.5 mg daily. CODE STATUS: Full code DVT prophylaxis: Lovenox Anticipated discharge date: Clinical course to determine Anticipated discharge place: Clinical course to determine Patient was seen independently by Nurse Pracitioner. This document was prepared using [employer] dictation software. Please allow for errors in road marker, while rare they do occur. Marquis Villatoro NP rendered care for this patient independently, reviewed the findings and plan as documented in the note above. I did not physically speak with or examine the patient on this date. Objective - Vital Signs Vital signs: Vital Signs Temp 97.5 F L 02/19/23 04:00 Pulse 77 02/19/23 04:00 Resp 20 02/19/23 04:00 BP 164/97 02/19/23 04:00 Pulse Ox 94 L 02/19/23 00:05 FiO2 35 02/19/23 04:10 Intake & Output 02/18/23 02/19/23 02/19/23 18:59 06:59 18:59 Intake Total 360 250 Output Total 1075 1150 Balance -715 -900 Intake: IV 10 Invasive Line 1 10 Oral 360 240 Output: Urine 1075 1150 Other: Voiding Method Urinal Urinal - Labs CBC & Chem 7: 02/19/23 07:57 02/19/23 07:57 Labs: Abnormal Lab Results - Last 24 Hours (Table) 02/18/23 02/18/23 02/18/23 Range/Units 10:58 10:58 10:58 D-Dimer 0.76 H (<0.60) mg/L FEU Chloride 90 L (98-107) mmol/L Carbon Dioxide 38 H (22-30) mmol/L BUN 33 H (9-20) mg/dL Glucose 209 H (74-99) mg/dL C-Reactive Protein 2.8 H (<1.0) mg/dL Microbiology - Last 24 Hours (Table) 02/17/23 02:40 Blood Culture - Preliminary Blood 02/17/23 02:40 Blood Culture - Preliminary Blood
--- NOTE | 2023-02-19 15:26 | P.PN ---
Subjective Progress Note Date: 02/19/23 Principal diagnosis: Reason for follow-up is Covid 19 pneumonia Patient is a 62-year-old male with a past medical history significant for coronary disease hypertension osteoarthritis anxiety depression patient presented to the hospital from the senior living concerning for hypercapnia along with the nasal and chest congestion patient has tested positive for covid 19 On today's evaluation that is02/19/2023, the patient denies any fever or any chills, the patient is breathing comfortably on 3 L nasal cannula supplemental oxygen, patient denies chest pain patient cough is decreased intensity with occasional sputum production, patient denies Abdominal pain, no nausea/vomiting or diarrhea. Patient did have white count of 9.9, creatinine 0.57, blood culture negative, procalcitonin is 0.09 Objective - Vital Signs Vital signs: Vital Signs Temp 98.8 F 02/19/23 12:00 Pulse 82 02/19/23 14:00 Resp 20 02/19/23 14:00 BP 140/76 02/19/23 12:00 Pulse Ox 96 02/19/23 12:00 FiO2 35 02/19/23 04:10 Intake & Output 02/18/23 02/19/23 02/19/23 18:59 06:59 18:59 Intake Total 360 250 236 Output Total 1075 1150 700 Balance -228 -900 -611 Intake: IV 10 Invasive Line 1 10 Oral 360 240 236 Output: Urine 1075 1150 700 Other: Voiding Method Urinal Urinal Urinal # Voids 1 - Exam GENERAL DESCRIPTION: Middle-age male up in the chair in no distress RESPIRATORY SYSTEM: Unlabored breathing , coarse breath sounds bilaterally HEART: S1 S2 regular rate and rhythm , ABDOMEN: Soft , no tenderness EXTREMITIES: No edema feet - Labs CBC & Chem 7: 02/19/23 07:57 02/19/23 07:57 Labs: Abnormal Lab Results - Last 24 Hours (Table) 02/19/23 Range/Units 07:57 Chloride 91 L (98-107) mmol/L Carbon Dioxide 37 H (22-30) mmol/L BUN 31 H (9-20) mg/dL Creatinine 0.57 L (0.66-1.25) mg/dL Glucose 133 H (74-99) mg/dL ALT 67 H (4-49) U/L C-Reactive Protein 1.6 H (<1.0) mg/dL Microbiology - Last 24 Hours (Table) 02/17/23 02:40 Blood Culture - Preliminary Blood 02/17/23 02:40 Blood Culture - Preliminary Blood Assessment and Plan (1) COVID-19 Current Visit: Yes Status: Acute Code(s): U07.1 - COVID-19 SNOMED Code(s): 075991550 Plan: 1patient presented to hospital with increasing shortness of breath which is likely multifactorial patient did tested positive for COVID-19 concern for underlying COVID-19 infection contributing to exacerbation of his underlying COPD clinically not behaving as secondary bacterial pneumonia 2-patient to continue with dexamethasone 6 ascorbic acid and bronchodilator, no need for remdesivir Patient did have a normal pro-calcitonin antibiotic has been discontinued Dictation was produced using [employer] dictation software. please excuse any grammatical, word or spelling errors. Time with Patient: Less than 30
[2023-02-19] MEDS ORDERED: HYDROcodone/APAP 5-325MG 1 EACH TAB PO PRN (18:39)
[2023-02-19] MEDS ORDERED: amLODIPine 5 MG TAB PO SCH (21:00)
[2023-02-19] MEDS ORDERED: ZOLPIDEM 5 MG TAB PO ONE (21:00)
[2023-02-19] MEDS ORDERED: LATANOPROST 0.005% OPHTH DROPS 2.5 ML BTL BOTH EYES SCH (21:00)
[2023-02-19] MEDS ORDERED: LOSARTAN 50 MG TAB PO SCH (21:00)
[2023-02-19] MEDS: MELATONIN 5 MG TABLET PO PRN (22:22)
[2023-02-20 04:30] LABS: Glucose,Whole Blood 136 mg/dL (70-110)
[2023-02-20] MEDS: ALBUTEROL HFA INHALER INHALATION SCH ×2 (07:54→11:30)
[2023-02-20] MEDS: TIOTROPIUM 2.5 MCG INHALER INHALATION SCH (07:55)
[2023-02-20] MEDS: SYMBICORT 160-4.5 MCG INHALER INHALATION SCH (07:55)
[2023-02-20] MEDS ORDERED: IPRATROPIUM 0.5 MG/2.5 ML NEBU INHALATION SCH (08:00)
[2023-02-20] MEDS: ENOXAPARIN 40 MG/0.4 ML SYRINGE SQ SCH (08:17)
[2023-02-20] MEDS: FAMOTIDINE 20 MG TAB PO SCH (08:18)
[2023-02-20] MEDS: FUROSEMIDE 40 MG TAB PO SCH (08:18)
[2023-02-20] MEDS: guaiFENesin 600 MG TABLET.ER PO SCH (08:18)
[2023-02-20] MEDS: metOLazone 2.5 MG TAB PO SCH (08:18)
[2023-02-20] MEDS: CHOLECALCIFEROL 125 MCG (5000 IU) TABLET PO SCH (08:18)
[2023-02-20] MEDS: ZINC SULFATE 220 MG CAP PO SCH (08:18)
[2023-02-20] MEDS: ASCORBIC ACID 500 MG TAB PO SCH (08:18)
[2023-02-20] MEDS: DORZOLAMIDE HCL 2% DROPS 10 ML BTL BOTH EYES SCH (08:21)
[2023-02-20 08:36] VITALS: RESP 19
[2023-02-20] MEDS ORDERED: DEXAMETHASONE SOD PHOSPHATE 10 MG/ML 1 ML VIAL PO SCH (09:00)
[2023-02-20] MEDS ORDERED: dexAMETHasone 2 MG TAB PO SCH ×2 (10:00)
[2023-02-20 10:41] LABS: Basophils % (A) 0 %; Eosinophils % (A) 0 %; HCT 45.5 % (39.0-53.0); HGB 14.3 gm/dL (13.0-17.5); Lymphocytes # (A) 1.2 k/uL (1.0-4.8); Lymphocytes % (A) 11 %; MCH 29.7 pg (25.0-35.0); MCHC 31.5 g/dL (31.0-37.0); MCV 94.3 fL (80.0-100.0); Mean Platelet Volume 7.7; Monocytes # (A) 0.7 k/uL (0-1.0); Monocytes % (A) 7 %; Neutrophils # (A) 8.2 k/uL (1.3-7.7); Neutrophils % (A) 79 %; Platelet Count 285 k/uL (150-450); RBC 4.82 m/uL (4.30-5.90); WBC 10.4 k/uL (3.8-10.6)
[2023-02-20 12:07] VITALS: BP 133/70; PULSE 103; TEMP 98.1
--- NOTE | 2023-02-20 12:49 | P.DS ---
Providers Date of admission: 02/17/23 04:48 Expected date of discharge: 02/20/23 Attending physician: Guy Frank MD Consults: 02/17/23 06:04 Consult Physician Routine Consulting Provider: Gary Vuong Consult Reason/Comments: Covid , COPD Exacerbation Do you want consulting provider notified?: Yes 02/18/23 13:51 Consult Physician Routine Consulting Provider: Pierce Carrero Consult Reason/Comments: covid Do you want consulting provider notified?: Yes Primary care physician: Hollis Trinh MD Hospital Course: Discharge Diagnosis: COVID-19 URI Acute Exacerbation of COPD Acute on chronic hypoxic hypercapnic respiratory failure Obesity hypoventilation syndrome, obstructive sleep apnea Chronic diastolic congestive heart failure Hypertension Hospital Course: Patient is a 62-year-old male well known to our service from multiple hospital admissions with known diastolic congestive heart failure, COPD with chronic hypoxic respiratory failure on 3 L nasal cannula, obesity hypoventilation syndrome with underlying obstructive sleep apnea requiring CPAP, multiple other comorbid conditions. Initially presented from his ECF to the ED on 02/17/23 due to worsening respiratory failure and laboratory anaylsisrevealing elevated CO2 levels. Initial evaluation in the ER was remarkable for white blood cell count 11.5, d-dimer 0.76, potassium 3.2, bicarb 40. Initial venous blood gas showed pH of 7.37 with a pCO2 of 83. Influenza A/B/RC were negative however COVID-19 was positive. Chest x-ray showed no acute cardiopulmonary process. Patient required being placed on BiPAP but then was later weaned back to his home O2 levels. Patient initially admitted to [facility] hospitalist group however patient turned over to [facility] on morning of 02/19/23 as we provide coverage for patient's PCP during hospitalization. Patient underwent CTA of the chest which showed mild bilateral opacities suspicious for pulmonary edema and CHF but no evidence of pulmonary embolism. He was initially treated with IV Decadron and then transitioned to oral Decadron. He was doing well and was only requiring his baseline 3 L nasal cannula. He was ultimately determined stable for discharge back to his ECF. Follow-up: Dr. Aragon in 2-3 weeks, pace program upon discharge from rehab, Decadron 6 mg daily for an additional 6 days. Melatonin and Vistaril to help with insomnia and increase CPAP compliance Patient seen and examined at bedside. Still having increased congestion states does not wear CPAP at [facility] he needs help with sleep and the medications here are helping and he can tolerated CPAP better. Vital signs reviewed and stable. General: nontoxic, no distress, appears at stated age, Obese Cardiovascular: S1S2 reg, no murmur, positive posterior tibial pulse bilateral, Lungs: CTA bilateral, no rhonchi, no rales , no accessory muscle use Abdominal: soft, nontender to palpation, no guarding, no appreciable organomegaly Ext: no gross muscle atrophy, no edema b/l lower extremities, no contractures Neuro: CN II-XI grossly intact, no focal neuro deficits Psych: Alert, oriented, appropriate affect A total of 37 minutes of time were spent preparing this complex discharge summary. Patient was discharged on 02/20/23. This dictation was prepared using [employer] voice recognition software. Though every attempt is made to correct errors during dictation some may still exist. Patient Condition at Discharge: Stable Plan - Discharge Summary Discharge Rx Participant: No New Discharge Prescriptions: New dexAMETHasone ORAL [Hexadrol] 6 mg PO DAILY 6 Days tab Melatonin 5 mg PO HS PRN tab PRN Reason: Insomnia Benzonatate [Tessalon Perles] 100 mg PO TID PRN cap PRN Reason: Cough guaiFENesin [Mucinex] 600 mg PO Q12HR tab Albuterol Inhaler [Ventolin Hfa Inhaler] 2 puff INHALATION RT-QID each hydrOXYzine pamoate [Vistaril] 25 mg PO Q6HR PRN cap PRN Reason: Anxiety Continue Cholecalciferol [Vitamin D3 (25 Mcg = 1000 Iu)] 50 mcg PO DAILY Umeclidinium [place] [Incruse Ellipta] 1 puff INHALATION RT-DAILY Ibuprofen [Motrin] 600 mg PO Q4H PRN PRN Reason: Pain Albuterol Inhaler [Ventolin Hfa Inhaler] 2 puff INHALATION RT-Q4H PRN PRN Reason: Shortness Of Breath Travoprost [Travatan Z 0.004%] 1 drop BOTH EYES HS Acetaminophen Tab [Tylenol] 650 mg PO Q6HR PRN PRN Reason: Fever And/ Or Pain Famotidine [Pepcid AC] 10 mg PO DAILY Dorzolamide HCl/Pf [Dorzolamide 2% Eye Drop] 1 drop BOTH EYES TID Calcium Carbonate 500 mg PO Q4H PRN PRN Reason: Gi Upset Baby Shampoo 1 applic BOTH EYES DAILY Losartan Potassium 100 mg PO HS Budesonide-Formot 160-4.5 Mcg [Symbicort 160-4.5 Mcg Inhaler] 2 puff INHALATION RT-BID each Loratadine [Claritin] 10 mg PO DAILY amLODIPine [Norvasc] 5 mg PO HS Chlorhexidine Gluconate [Peridex] 15 ml PO BID Fluticasone [place] [Flonase [place]] 1 spr EA NOSTRIL BID PRN PRN Reason: Allergy Symptoms Naphazoline-Phenira 0.025-0.3% [Visine-A Ophth Soln] 1 drop BOTH EYES TID PRN PRN Reason: redness & itchy eyes Salicylic Acid 6% Shampoo 1 applic TOPICAL WESA Furosemide [Lasix] 40 mg PO TID Triamcinolone 0.1% Ointment [Kenalog 0.1% Ointment] 1 applic TOPICAL BID PRN PRN Reason: Itching metOLazone [Zaroxolyn] 2.5 mg PO DAILY Loratadine [Claritin] 10 mg PO DAILY PRN PRN Reason: Allergy Symptoms Discontinued Ipratropium-Albuterol Nebulize [Duoneb 0.5 mg-3 mg/3 ml Soln] 3 ml INHALATION RT-Q6H Discharge Medication List Losartan Potassium 100 mg PO HS 05/23/22 [History] Budesonide-Formot 160-4.5 Mcg [Symbicort 160-4.5 Mcg Inhaler] 2 puff INHALATION RT-BID each 05/28/22 [Rx] Cholecalciferol [Vitamin D3 (25 Mcg = 1000 Iu)] 50 mcg PO DAILY 07/23/22 [History] Ibuprofen [Motrin] 600 mg PO Q4H PRN 07/23/22 [History] Loratadine [Claritin] 10 mg PO DAILY 07/23/22 [History] Umeclidinium [place] [Incruse Ellipta] 1 puff INHALATION RT-DAILY 07/23/22 [History] Albuterol Inhaler [Ventolin Hfa Inhaler] 2 puff INHALATION RT-Q4H PRN 09/20/22 [History] Travoprost [Travatan Z 0.004%] 1 drop BOTH EYES HS 11/06/22 [History] amLODIPine [Norvasc] 5 mg PO HS 11/06/22 [History] Acetaminophen Tab [Tylenol] 650 mg PO Q6HR PRN 12/07/22 [History] Chlorhexidine Gluconate [Peridex] 15 ml PO BID 12/07/22 [History] Fluticasone [place] [Flonase [place]] 1 spr EA NOSTRIL BID PRN 12/07/22 [History] Naphazoline-Phenira 0.025-0.3% [Visine-A Ophth Soln] 1 drop BOTH EYES TID PRN 12/07/22 [History] Furosemide [Lasix] 40 mg PO TID 01/09/23 [History] Salicylic Acid 6% Shampoo 1 applic TOPICAL WESA 01/09/23 [History] Baby Shampoo 1 applic BOTH EYES DAILY 02/17/23 [History] Calcium Carbonate 500 mg PO Q4H PRN 02/17/23 [History] Dorzolamide HCl/Pf [Dorzolamide 2% Eye Drop] 1 drop BOTH EYES TID 02/17/23 [History] Famotidine [Pepcid AC] 10 mg PO DAILY 02/17/23 [History] Loratadine [Claritin] 10 mg PO DAILY PRN 02/17/23 [History] Triamcinolone 0.1% Ointment [Kenalog 0.1% Ointment] 1 applic TOPICAL BID PRN 02/17/23 [History] metOLazone [Zaroxolyn] 2.5 mg PO DAILY 02/17/23 [History] Albuterol Inhaler [Ventolin Hfa Inhaler] 2 puff INHALATION RT-QID each 02/20/23 [Rx] Benzonatate [Tessalon Perles] 100 mg PO TID PRN cap 02/20/23 [Rx] Melatonin 5 mg PO HS PRN tab 02/20/23 [Rx] dexAMETHasone ORAL [Hexadrol] 6 mg PO DAILY 6 Days tab 02/20/23 [Rx] guaiFENesin [Mucinex] 600 mg PO Q12HR tab 02/20/23 [Rx] hydrOXYzine pamoate [Vistaril] 25 mg PO Q6HR PRN cap 11/29/23 [Rx] Follow up Appointment(s)/Referral(s): Hollis Trinh MD [Primary Care Provider] - 1-2 Days Patient Instructions/Handouts: COPD (Chronic Obstructive Pulmonary Disease) (DC), COVID-19 (Coronavirus Disease 2019) (DC) Activity/Diet/Wound Care/Special Instructions: Activity: As tolerated Diet: Heart Healthy and Carb consistent Special Instructions: Elevate legs when in a chair Use DEANDRE wraps on b/l feet and legs during the day Must wear CPAP at night Discharge Disposition: TRANSFER TO SNF/ECF
--- NOTE | 2023-02-20 14:45 | P.PN ---
Subjective Progress Note Date: 02/20/23 Principal diagnosis: Shortness of breath. This is a 62-year-old male patient with a history of anxiety/depression, neuropathy, osteoarthritis, hypertension, coronary disease with previous stent placement, chronic and ongoing tobacco dependence, chronic obstructive pulmonary disease, obesity/hypoventilation syndrome and obstructive sleep apnea not necessarily compliant with his CPAP. He was residing in an extended care facility where he had not been very compliant with his CPAP. Lab work had revealed high CO2 level and he was brought into the emergency room early this morning for the same. Chest x-ray revealed no acute pulmonary process. White count 11.5. Hemoglobin 13.5. Sodium 132. Potassium 3.2. Bicarb 40. BUN 44. Creatinine 0.88. Glucose 174. COVID-19 screen positive. Venous blood gases initially revealed a pCO2 of 83. He was placed on BiPAP 12/6 and 32% and his follow-up bicarb was 50. He is seen today in consultation in the emergency department. He is currently sitting up in a chair. He remains on the BiPAP. Awake and alert and following commands. He is afebrile. Hemodynamically stable. Progress note dated 02/18/2023. 62-year-old male well-known to our service. He has a history of severe COPD, and sleep apnea syndrome. The patient was seen in consultation yesterday. He is seen again today in room 384. Currently, the patient is on BiPAP, with settings of 14/7, and 35%. The patient is not receiving any IV fluids. The patient is very noncompliant, with his CPAP/BiPAP device at home. In addition, when he is in the hospital, he is very difficult to deal with, and the nurses have a hard time, as he's very demanding, continues to rip off the BiPAP. He typically is admitted with hypercapnic respiratory failure, and acute mental status changes. Labs today include a white count 9.3, hemoglobin 13.2, hematocrit 42.1, and a platelet count of 271,000. D-dimer was 0.76. Venous blood gases show a CO2 of 50, and a pH is 7.54. Sodium 140, potassium 3.7, chlorides 90, CO2 38, BUN 33, creatinine 0.69. He did test positive for coronavirus as well. Chest x-ray was normal. Progress note dated 02/19/2023. 62-year-old male, well-known to our service. The patient has a history of chronic hypoxemic respiratory failure, chronic hypercapnic respiratory failure, severe COPD, and sleep apnea syndrome. The patient is on and off of CPAP/BiPAP. Currently, he is seen today in room 384. He is on 3 L by nasal cannula. His B iPAP settings are 15/7, and 35%. The patient is not on any IV fluids. Today's labs include a white count 9.9, hemoglobin 14.7, hematocrit 46.3, and a platelet count of 270,000. D-dimer was 0.76. Sodium 137, potassium 4.5, chlorides 91, CO2 37, anion gap 9, BUN 31, and creatinine 0.57. Pro-calcitonin level on February [address] angiogram was a suboptimal study without central saddle pulmonary embolism. Smaller pulmonary emboli in the periphery, cannot be ruled out. There was mild cardiomegaly, with some CHF. Progress note dated 02/20/2023. 62-year-old male well-known to our service. He is seen today in room 384. He has a history of chronic hypoxemic respiratory failure chronic hypercapnic respiratory failure, severe COPD, and sleep apnea syndrome. The patient is noncompliant with his CPAP/BiPAP device at home. Currently, the patient sitting in the room, on 3 views of oxygen. His BiPAP settings of 14/7 and 35%. He's not receiving any IV fluids. The patient apparently fell last night, and had to be helped up back into bed, by our intensive care unit nurse. Current laboratory data includes a white count 10.4, hemoglobin 14.3, hematocrit 45.5, and a platelet count of 285,000. The patient C-reactive protein level is 0.9. Pro-calcitonin level is 0.09. Sputum sampling, and blood cultures are negative. Objective - Vital Signs Vital signs: Vital Signs Temp 98.1 F 02/20/23 11:46 Pulse 103 H 02/20/23 11:46 Resp 19 02/20/23 11:46 BP 133/70 02/20/23 11:46 Pulse Ox 95 02/20/23 11:46 FiO2 35 02/19/23 23:26 Intake & Output 02/19/23 02/20/23 02/20/23 18:59 06:59 18:59 Intake Total 756 10 960 Output Total 1200 2350 1150 Balance -444 -2340 -190 Intake: IV 10 Invasive Line 1 10 Oral 756 960 Output: Urine 1200 2350 1150 Other: Voiding Method Urinal Urinal Urinal # Voids 1 1 - Exam No acute distress, somnolent, currently on 3 L nasal cannula. No cecilio di stress, or use of accessory muscles. HEENT examination is grossly unremarkable. Neck supple. Full range of motion. No adenopathy thyromegaly or neck vein distention. Cardiovascular examination reveals regular rhythm rate. S1-S2 normal. No S3 or S4. No discernible murmur noted. Heart rate 98 bpm. Lungs reveal coarse bilateral rhonchi. No wheezes or crackles. Saturations are 95 % on 3 L. Breath sounds are equal bilaterally. Abdomen obese, without bowel sounds. No masses or tenderness. Extremities are intact. No cyanosis or clubbing. Slight edema is noted. Skin is without rash or lesion. Neurologic examination is unable to be evaluated at this time. - Labs CBC & Chem 7: 02/20/23 10:15 02/19/23 07:57 Labs: Abnormal Lab Results - Last 24 Hours (Table) 02/20/23 02/20/23 Range/Units 04:28 10:15 Neutrophils # 8.2 H (1.3-7.7) k/uL POC Glucose (mg/dL) 136 H (70-110) mg/dL Microbiology - Last 24 Hours (Table) 02/17/23 02:40 Blood Culture - Preliminary Blood 02/17/23 02:40 Blood Culture - Preliminary Blood 02/19/23 12:47 Gram Stain - Preliminary Sputum Assessment and Plan Assessment: Acute on chronic hypercapnic respiratory failure secondary to obstructive sleep apnea, noncompliant with CPAP in the outpatient setting due to throat irritation. COVID-19 infection without clear evidence of COVID-19 pneumonia. Chronic hypoxemic respiratory failure secondary to COPD. Chronic and ongoing tobacco dependence. Coronary disease with previous stent placement. Obesity/hypoventilation syndrome. Obstructive sleep apnea to be on CPAP in the outpatient setting. Hypertension. Osteoarthritis. History of neuropathy. History of anxiety/depression. Plan: Plan dated 02/18/2023. Currently, the patient continues on azithromycin, and Rocephin. He also is on Symbicort, an albuterol. He also have him on vitamin C, vitamin D3, and zinc. Finally, they do have on Decadron, 6 mg IV. We will continue to follow the patient, and make recommendations along the way. The patient's overall prognosis remains guarded. He's had recent multiple admissions to the hospital, and each time, the patient is noncompliant, and does give the nursing staff, and the physicians a hard time. Prognosis is poor. Plan dated 02/19/2023. The patient is currently on 3 L. Saturations are 100%. The oxygen can be titrated down, as the patient's saturations should be maintained right around 90%. The patient is clearly a CO2 retainer, and higher concentrations of oxygen, currently to CO2 narcosis. In addition, sedatives, hypnotics, narcotics, etc., should be avoided. The patient should use his BiPAP at nighttime. Labs, x-rays, and medications are reviewed. Antibiotics should be discontinued in lieu of the very low pro-calcitonin. Decadron IV and converted to Decadron by mouth. We will continue to follow make recommendations along the way. Prognosis is guarded. Plan dated 02/20/2023. The patient is seen today in room 384. He sitting in a bedside chair. He apparently fell last night, and had to be helped back into bed by one of our intensive care unit nurses. Currently, he's on 3 L of oxygen. Saturations are in the mid 90s. He uses BiPAP on and off, although, the patient is not particularly compliant with it when he goes home. Labs, x-rays, and medications are reviewed. BiPAP settings are 14/7 and 35%. We will continue to follow the patient, and make recommendations along the way. The patient's overall prognosis remains guarded. He is counseled about the importance of using his BiPAP device, on a regular and consistent basis. Time with Patient: Less than 30
== END 2023-02-20 15:44 | DRG 177 ==
LOC: EC 02:17 → SUPCPDRO 02:17 → 3SCARD 04:48 → OBSVTOIN 04:48 → 3SCARD 10:06
PROVIDERS: ADMIT Student in an Organized Health Care Education/Training Program; ATTEND Student in an Organized Health Care Education/Training Program
DX: U07.1 COVID-19 (principal); G93.41 Metabolic encephalopathy; J96.21 Acute and chronic respiratory failure with hypoxia; J96.22 Acute and chronic respiratory failure with hypercapnia; J12.82 Pneumonia due to coronavirus disease 2019; E66.2 Morbid (severe) obesity with alveolar hypoventilation; I50.32 Chronic diastolic (congestive) heart failure; J44.1 Chronic obstructive pulmonary disease with (acute) exacerbation; J44.0 Chronic obstructive pulmonary disease with (acute) lower respiratory infection; Z68.42 Body mass index [BMI] 45.0-49.9, adult; I11.0 Hypertensive heart disease with heart failure; E87.8 Other disorders of electrolyte and fluid balance, not elsewhere classified; F32.A Depression, unspecified; J20.8 Acute bronchitis due to other specified organisms; E87.6 Hypokalemia; I25.10 Atherosclerotic heart disease of native coronary artery without angina pectoris; F41.9 Anxiety disorder, unspecified; G47.00 Insomnia, unspecified; G62.9 Polyneuropathy, unspecified; Z99.81 Dependence on supplemental oxygen; Z91.198 Patient's noncompliance with other medical treatment and regimen for other reason; Z80.1 Family history of malignant neoplasm of trachea, bronchus and lung; Z79.51 Long term (current) use of inhaled steroids; Z28.310 Unvaccinated for COVID-19; Z87.891 Personal history of nicotine dependence; Z95.5 Presence of coronary angioplasty implant and graft; Z79.899 Other long term (current) drug therapy; Z88.2 Allergy status to sulfonamides; Z87.19 Personal history of other diseases of the digestive system
CPT/HCPCS: 36415; 71046; 71275; 80048; 80053; 82803; 83605; 84145; 85025; 85379; 85610; 85730; 86140; 87040; 87070; 87205; 87636; 93005; 94640; 94660; 94760; 96365; 96366; 96372; 96375; 99285

== ENCOUNTER 2023-03-21 10:35 | Emergency (ER) | payer OTHER ==
[2023-03-21 11:27] VITALS: TEMP 97.8
--- NOTE | 2023-03-21 11:50 | XR ---
EXAMINATION TYPE: XR chest 2V DATE OF EXAM: 03/21/2023 COMPARISON: 02/17/[address] of 05/23/2022 HISTORY: 62 year-old male shortness of breath TECHNIQUE: AP and lateral views FINDINGS: Heart normal size. Mild diffuse interstitial density. No pleural effusion. Apparent on this study is a nodule at the periphery of the right lower lung measuring approximately 2.0 cm. IMPRESSION: 1. A 2 cm nodule at the periphery of the right base appear 7 present on 05/23/2022 CT as well. Possibly a large granuloma. Recommend 6 month follow-up CT chest to assess for any changes from that time. 2. Mild interstitial density could reflect mild pulmonary vascular congestion, bronchitis, or atypica l pneumonia.
--- NOTE | 2023-03-21 12:09 | ED ---
General Adult HPI - General Chief complaint: Shortness of Breath Stated complaint: SOB Time Seen by Provider: 03/21/23 10:43 Source: patient, RN notes reviewed Mode of arrival: EMS Limitations: no limitations - History of Present Illness Initial comments: 62-year-old male with past medical history significant for coronary artery disease, hypertension presents to the emergency department with a chief complaint of worsening shortness of breath. Patient reports that he experiences shortness of breath upon exertion. He normally wears 3 L of oxygen at home. He reports that he had Just getting his oxygen cord tangled therefore took off his oxygen while he was sleeping. He reports that he was without his oxygen for approximately 5 hours. He reports having brain fog which she attributes to having low oxygen saturation. He is mostly bedbound and nonweightbearing. He reports that his swelling in his legs and feet is not new. Denies any known fevers or cough, chest pain, palpitations or nausea or vomiting. - Related Data Home Medications Medication Instructions Recorded Confirmed Losartan Potassium 100 mg PO HS 05/23/22 03/21/23 Cholecalciferol [Vitamin D3 (25 50 mcg PO DAILY 07/23/22 03/21/23 Mcg = 1000 Iu)] Ibuprofen [Motrin] 600 mg PO Q4H PRN 07/23/22 03/21/23 Umeclidinium [place] [Incruse 1 puff INHALATION RT-DAILY 07/23/22 03/21/23 Ellipta] Albuterol Inhaler [Ventolin Hfa 2 puff INHALATION RT-Q4H PRN 09/20/22 03/21/23 Inhaler] amLODIPine [Norvasc] 5 mg PO HS 11/06/22 03/21/23 Acetaminophen Tab [Tylenol] 650 mg PO Q6HR PRN 12/07/22 03/21/23 Fluticasone Nasal [place] [Flonase 1 spr EA NOSTRIL BID PRN 12/07/22 03/21/23 Nasal [place]] Naphazoline-Phenira 0.025-0.3% 1 drop BOTH EYES TID PRN 12/07/22 03/21/23 [Visine-A Ophth Soln] Furosemide [Lasix] 40 mg PO TID 01/09/23 03/21/23 Salicylic Acid 6% Shampoo 1 applic TOPICAL WESA 01/09/23 03/21/23 Baby Shampoo 1 applic BOTH EYES DAILY 02/17/23 03/21/23 Calcium Carbonate 500 mg PO Q4H PRN 02/17/23 03/21/23 Dorzolamide HCl/Pf [Dorzolamide 2% 1 drop BOTH EYES TID 02/17/23 03/21/23 Eye Drop] Famotidine [Pepcid AC] 10 mg PO DAILY 02/17/23 03/21/23 Triamcinolone 0.1% Ointment 1 applic TOPICAL BID PRN 02/17/23 03/21/23 [Kenalog 0.1% Ointment] metOLazone [Zaroxolyn] 2.5 mg PO DAILY 02/17/23 03/21/23 ALPRAZolam [Xanax] 0.5 mg PO Q12H PRN 03/21/23 03/21/23 Latanoprost [Latanoprost 0.005%] 1 drop BOTH EYES HS 03/21/23 03/21/23 Sodium Chloride [[place]] 1 spray EA NOSTRIL Q6H PRN 03/21/23 03/21/23 traZODone HCL [Desyrel] 50 mg PO HS 03/21/23 03/21/23 Previous Rx's Medication Instructions Recorded Budesonide-Formot 160-4.5 Mcg 2 puff INHALATION RT-BID each 05/28/22 [Symbicort 160-4.5 Mcg Inhaler] Albuterol Inhaler [Ventolin Hfa 2 puff INHALATION RT-QID each 02/20/23 Inhaler] Melatonin 5 mg PO HS PRN tab 02/20/23 guaiFENesin [Mucinex] 600 mg PO Q12HR tab 02/20/23 Allergies Allergy/AdvReac Type Severity Reaction Status Date / Time Sulfa (Sulfonamide Allergy Rash on Verified 03/21/23 12:15 Antibiotics) arms Review of Systems ROS Statement: Those systems with pertinent positive or pertinent negative responses have been documented in the HPI. ROS Other: All systems not noted in ROS Statement are negative. Past Medical History Past Medical History: Coronary Artery Disease (CAD), Hypertension, Osteoarthritis (OA), Pneumonia, Skin Disorder, Sleep Apnea/CPAP/BIPAP Additional Past Medical History / Comment(s): neuropathy History of Any Multi-Drug Resistant Organisms: None Reported Past Surgical History: Heart Catheterization With Stent Additional Past Surgical History / Comment(s): 2004 stenting of RCA, ccath 2004 with lesions 50%mid LAD and unstable RCA plaque-stented as mentioned-EF was 60%, quadricepts muscle bx, normal colonoscopy in 2013, colonoscopy with benign polypectomy in past. Past Anesthesia/Blood Transfusion Reactions: No Reported Reaction Date of Last Stent Placement:: 2004 Past Psychological History: Anxiety, Depression Smoking Status: Former smoker Past Alcohol Use History: Rare Past Drug Use History: Marijuana - Past Family History Mother Family Medical History: Cancer Additional Family Medical History / Comment(s): Pt's mother at age 55 from lung cancer. She was a nonsmoker. Father Family Medical History: Hyperlipidemia, Hypertension Additional Family Medical History / Comment(s): Father at age 89 of natural causes. Sister(s) Family Medical History: Myocardial Infarction (RI) Additional Family Medical History / Comment(s): Pt has one sister who of possible RI at age 53yrs. General Exam - General Exam Comments Initial Comments: General: Alert, in no acute distress Head: atraumatic normocephalic. Eyes PERRL, EOMI intact, mucous membranes moist Respiratory: Lungs clear to auscultation bilaterally Cardiovascular: Heart rate regular rate and rhythm Abdominal: Soft without guarding or rebound Extremities: Normal inspection with full range of motion and normal capillary refill Neuroogic: alert and oriented 3, CN II-XII intact, able to ambulate with steady gait Skin: warm dry and intact with normal color Limitations: no limitations Course Vital Signs 03/21/23 03/21/23 03/21/23 10:59 12:49 13:20 Temperature 97.8 F Pulse Rate 87 92 Respiratory 16 16 14 Rate Blood Pressure 137/91 145/93 O2 Sat by Pulse 94 L 97 Oximetry 03/21/23 14:00 Temperature Pulse Rate Respiratory Rate Blood Pressure 135/93 O2 Sat by Pulse Oximetry - Reevaluation(s) Reevaluation #1: 03/21/23 14:13 Patient reevaluated. Patient oxygen saturation 98% on 3 L of oxygen supplementation. Patient is not conversationally dyspneic. Reevaluation #2: 03/21/23 15:43 Patient reevaluated. Patient oxygen saturation 99% on 3 L. Patient able to transfer from the chair to recliner chair. No acute respiratory distress. Patient able to speak in complete sentences. EKG Findings - EKG Comments: EKG Findings:: I interpreted the following: EKG performed at 10:51 8 93 bpm normal sinus rhythm with occasional PVCs MO interval 146, QRS duration 97, QT/QTc 406/457 Medical Decision Making - Medical Decision Making Was pt. sent in by a medical professional or institution (, [facility], [facility] [facility], urgent care, hospital, or usp...) When possible be specific @ -[No] Did you speak to anyone other than the patient for history (EMS, parent, family, police, friend...)? What history was obtained from this source @ -[No] Did you review nursing and triage notes (agree or disagree)? Why? @ -[I reviewed and agree with nursing and triage notes] Were old charts reviewed (outside hosp., previous admission, EMS record, old EKG, old radiological studies, urgent care reports/EKG's, usp records)? Report findings @ -[No old charts were reviewed] Differential Diagnosis (chest pain, altered mental status, abdominal pain women, abdominal pain men, vaginal bleeding, weakness, fever, dyspnea, syncope, headache, dizziness, GI bleed, back pain, seizure, CVA, palpatations, mental health, musculoskeletal)? @ -[not applicable] EKG interpreted by me (3pts min.). @ -[As above] X-rays interpreted by me (1pt min.). @ Chest XR reveals chronic COPD changes however no focal consolidation or marked cardiomegaly CT interpreted by me (1pt min.). @ -[None done] U/S interpreted by me (1pt. min.). @ -[None done] What testing was considered but not performed or refused? (CT, X-rays, U/S, labs)? Why? @ -[None] What meds were considered but not given or refused? Why? @ -[None] Did you discuss the management of the patient with other professionals (professionals i.e. [facility] Wade, [employer] [facility], lab, RT, psych nurse, social service manager, spring tacker, teacher, custom protection officer, case technician)? Give summary @ -[No] Was smoking cessation discussed for >3mins.? @ -[No] Was critical care preformed (if so, how long)? @ -[No] Were there social determinants of health that impacted care today? How? (Homelessness, low income, unemployed, alcoholism, drug addiction, transportatio n, low edu. Level, literacy, decrease access to med. care, prison, rehab)? @ -[No] Was there de-escalation of care discussed even if they declined (Discuss DNR or withdrawal of care, Hospice)? DNR status @ -[No] What co-morbidities impacted this encounter? (DM, HTN, Smoking, COPD, CAD, Cancer, CVA, ARF, Chemo, Hep., AIDS, mental health diagnosis, sleep apnea, morbid obesity)? @ -[None] Was patient admitted / discharged? Hospital course, mention meds given and route, prescriptions, significant lab abnormalities, going to OR and other pertinent info. @ -Discharged. This is a 62-year-old male with a history of COPD who presents the emergency department with shortness of breath. Patient had a thorough history and physical exam performed. Patient is obese. Patient's oxygen saturations maintains to be 98-100% on 3 L oxygen. He is able to speak in complete sentences. There is no acute respiratory distress noted. Patient had laboratory studies which were essentially unremarkable. CO2 is 43 however anion gap is 13. All other laboratory studies unremarkable. In the course of the emergency department patient sent with no signs of acute respiratory distress. He will be discharged home. Wheelchair van in stable condition. Return precautions discussed. Case is discussed with Dr. Rojas, the ED attending who agrees with plan of care Undiagnosed new problem with uncertain prognosis? @ -[No] Drug Therapy requiring intensive monitoring for toxicity (Heparin, Nitro, Insulin, Cardizem)? @ -[No] Were any procedures done? @ -[No] Diagnosis/symptom? @ -Shortness of Breath Acute, or Chronic, or Acute on Chronic? @ Acute Uncomplicated (without systemic symptoms) or Complicated (systemic symptoms)? @ -Uncomplicated Side effects of treatment? @ -[No] Exacerbation, Progression, or Severe Exacerbation? @ -[No] Poses a threat to life or bodily function? How? (Chest pain, [place], [place], pneumonia, PE, COPD, DKA, ARF, appy, cholecystitis, CVA, Diverticulitis, Homicidal, Suicidal, threat to staff... and all critical care pts) @ -Low likelihood - Lab Data Result diagrams: 03/21/23 12:34 03/21/23 12:34 Lab Results 03/21/23 03/21/23 03/21/23 Range/Units 12:34 12:34 12:34 WBC 9.4 (3.8-10.6) k/uL RBC 4.45 (4.30-5.90) m/uL Hgb 13.5 (13.0-17.5) gm/dL Hct 40.5 (39.0-53.0) % MCV 91.1 (80.0-100.0) fL MCH 30.3 (25.0-35.0) pg MCHC 33.3 (31.0-37.0) g/dL RDW 14.3 (11.5-15.5) % Plt Count 425 (150-450) k/uL MPV 7.4 Neutrophils % 69 % Lymphocytes % 15 % Monocytes % 10 % Eosinophils % 2 % Basophils % 1 % Neutrophils # 6.5 (1.3-7.7) k/uL Lymphocytes # 1.4 (1.0-4.8) k/uL Monocytes # 0.9 (0-1.0) k/uL Eosinophils # 0.2 (0-0.7) k/uL Basophils # 0.1 (0-0.2) k/uL Sodium 136 L (137-145) mmol/L Potassium 3.1 L (3.5-5.1) mmol/L Chloride 80 L (98-107) mmol/L Carbon Dioxide 43 H* (22-30) mmol/L Anion Gap 13 mmol/L BUN 45 H (9-20) mg/dL Creatinine 0.96 (0.66-1.25) mg/dL Est GFR (CKD-EPI)AfAm >90 (>60 ml/min/1.73 sqM) Est GFR (CKD-EPI)NonAf 86 (>60 ml/min/1.73 sqM) Glucose 142 H (74-99) mg/dL Calcium 10.3 H (8.4-10.2) mg/dL Total Bilirubin 0.6 (0.2-1.3) mg/dL AST 67 H (17-59) U/L ALT 70 H (4-49) U/L Alkaline Phosphatase 58 (38-126) U/L NT-Pro-B Natriuret Pep 30 pg/mL Total Protein 7.4 (6.3-8.2) g/dL Albumin 4.1 (3.5-5.0) g/dL Influenza Type A (PCR) Not Detected (Not Detectd) Influenza Type B (PCR) Not Detected (Not Detectd) RSV (PCR) Not Detected (Not Detectd) SARS-CoV-2 (PCR) Not Detected (Not Detectd) Disposition Clinical Impression: COPD (chronic obstructive pulmonary disease), Shortness of breath Disposition: HOME SELF-CARE Condition: Fair Additional Instructions: PLease wear your oxygen at all times Please return to the nearest emergency department if worsening shortness of breath Is patient prescribed a controlled substance at d/c from ED?: No Referrals: Hollis Trinh MD [Primary Care Provider] - 1-2 days Time of Disposition: 14:20
[2023-03-21 13:02] VITALS: PULSE 92
[2023-03-21 13:26] VITALS: RESP 14
[2023-03-21 13:32] LABS: Basophils # (A) 0.1 k/uL (0-0.2); Basophils % (A) 1 %; Eosinophils # (A) 0.2 k/uL (0-0.7); Eosinophils % (A) 2 %; HCT 40.5 % (39.0-53.0); HGB 13.5 gm/dL (13.0-17.5); Lymphocytes # (A) 1.4 k/uL (1.0-4.8); Lymphocytes % (A) 15 %; MCH 30.3 pg (25.0-35.0); MCHC 33.3 g/dL (31.0-37.0); MCV 91.1 fL (80.0-100.0); Mean Platelet Volume 7.4; Monocytes # (A) 0.9 k/uL (0-1.0); Monocytes % (A) 10 %; Neutrophils # (A) 6.5 k/uL (1.3-7.7); Neutrophils % (A) 69 %; Platelet Count 425 k/uL (150-450); RBC 4.45 m/uL (4.30-5.90); RDW 14.3 % (11.5-15.5); WBC 9.4 k/uL (3.8-10.6)
[2023-03-21 13:42] LABS: ALT 70 U/L (4-49); AST 67 U/L (17-59); African American GFR (CKD) >90 (>60 ml/min/1.73 sqM); Albumin 4.1 g/dL (3.5-5.0); Alkaline Phosphatase 58 U/L (38-126); Blood Urea Nitrogen 45 mg/dL (9-20); Calcium 10.3 mg/dL (8.4-10.2); Chloride 80 mmol/L (98-107); Glucose 142 mg/dL (74-99); Non-African American GFR(CKD) 86 (>60 ml/min/1.73 sqM); Sodium 136 mmol/L (137-145); Total Bilirubin 0.6 mg/dL (0.2-1.3); Total Protein 7.4 g/dL (6.3-8.2)
[2023-03-21 13:48] LABS: Anion Gap 13 mmol/L
[2023-03-21 13:49] LABS: NT-Pro-B-Type Natriuretic Pept 30 pg/mL
[2023-03-21 13:58] LABS: Carbon Dioxide 43 mmol/L (22-30); Potassium 3.1 mmol/L (3.5-5.1)
[2023-03-21 14:15] VITALS: BP 135/93
[2023-03-21] MEDS ORDERED: HYDROcodone/APAP 5-325MG 1 EACH TAB PO STA (14:18)
== END 2023-03-21 16:47 | disposition home or self-care (01) ==
LOC: EC 10:35
DX: J44.9 Chronic obstructive pulmonary disease, unspecified (principal); I10 Essential (primary) hypertension; I25.10 Atherosclerotic heart disease of native coronary artery without angina pectoris; G47.30 Sleep apnea, unspecified; F41.9 Anxiety disorder, unspecified; F32.A Depression, unspecified; F12.90 Cannabis use, unspecified, uncomplicated; Z79.899 Other long term (current) drug therapy; Z88.2 Allergy status to sulfonamides; Z87.891 Personal history of nicotine dependence; Z20.822 Contact with and (suspected) exposure to COVID-19
CPT/HCPCS: 36415; 71046; 80053; 83880; 85025; 87636; 93005; 99285